=== PATIENT | male | born 1945 | race Caucasian/White ===

== ENCOUNTER 2017-02-05 02:43 | Inpatient (IN) | payer MEDICARE, OTHER ==
[2017-02-05 02:58] VITALS: BMI 24.3
--- NOTE | 2017-02-05 02:58 | ED PDOC ---
Arrival/HPI - General Time Seen by Provider: 02/05/17 02:47 Historian: Patient, Spouse - History of Present Illness Narrative History of Present Illness (Text): 02/05/17 02:57 Dragan Sims is a 71 year old male, whose past medical history includes CAD, CHF, ESRD, PE, COPD, Type 2 diabetes, colitis, and diverticulitis, who presents to the ED accompanied by complaining of vomiting. reports patient has been experiencing multiple episodes of vomiting after eating soup yesterday afternoon. also notes associated generalized malaise. Patient denies any fever, chills, chest pain, shortness of breath, nausea, diarrhea, urinary symptoms, back pain, neck pain, headache, dizziness, or any other complaints. Sales Representative Printing: Dr. Kate Time/Duration: Other (yesterday) Symptom Onset: Gradual Symptom Course: Unchanged Activities at Onset: Rest, Light Context: Home Past Medical History - Provider Review Nursing Documentation Reviewed: Yes - Infectious Disease Hx of Infectious Diseases: None - Tetanus Immunization Tetanus Immunization: Unknown - Cardiac Hx Cardiac Disorders: Yes Hx Congestive Heart Failure: Yes Hx Hypertension: Yes Hx Pacemaker: No Hx Peripheral Edema: Yes (bilateral lower extremities +4 pitting edema) Other/Comment: cabg one month ago quadruple bypass, mi 1 month ago, left lower extremity red +2 edema warm to touch with dry flakey skin - Pulmonary Hx Respiratory Disorders: Yes (PE) Hx Asthma: Yes - Neurological Hx Neurological Disorder: Yes Hx Dementia: Yes Hx Paralysis: No 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 - HEENT Hx HEENT Disorder: Yes Hx Cataracts: Yes (sx) Hx Deafness: Yes (R ear) Other/Comment: hard of hearing - Renal Hx Renal Disorder: Yes Hx Dialysis: Yes (, , Mon) Date of Last Dialysis Treatment: 09/05/15 Hx Pyelonephritis: Yes Hx Renal Failure: Yes (Hemodialysis M-W-) Other/Comment: suprapubic catheter in place 2ndy to prostate surgery 12/2012 - Endocrine/Metabolic Hx Endocrine Disorders: Yes Hx Diabetes Mellitus Type 2: Yes Hx Hyperthyroidism: Yes Hx Hypothyroidism: Yes - Hematological/Oncological Hx Blood Disorders: Yes Hx Anemia: Yes Hx Blood Transfusions: Yes Hx Blood Transfusion Reaction: No - Integumentary Hx Dermatological Disorder: (BILATERAL LEG EDEMA MORE ON LEFT.SHUNT TO LEFT UPPER ARM,SUPRAPUBIC CATHETE) - Musculoskeletal/Rheumatological Hx Musculoskeletal Disorders: No Hx Falls: Yes (09/08/2015) Hx Osteoporosis: Yes Hx Unsteady Gait: Yes Other/Comment: ambulates with a walker - Gastrointestinal Hx Gastrointestinal Disorders: (hx colitis/diverticulitis) Hx Diverticulitis: Yes Hx Gastroesophageal Reflux: Yes - Genitourinary/Gynecological Hx Genitourinary Disorders: Yes Hx Hematuria: Yes Hx Prostate Problems: Yes (prostate sx 2012; suprapubic catheter) Hx Reproductive Disorders: Yes Hx Urinary Tract Infection: Yes Other/Comment: suprapubic catheter, bilateral orchietis, left epididymitis, scrotal cellulitis, urinary retention, hx mrsa in urine - Psychiatric Hx Depression: No Hx Emotional Abuse: No Hx Physical Abuse: No Hx Substance Use: No - Past Surgical History Past Surgical History: No Previous - Surgical History Hx Open Heart Surgery: Yes (quadruple bypass) Other/Comment: Suprapubic catheter - Anesthesia Hx Anesthesia: Yes Hx Anesthesia Reactions: No Hx Malignant Hyperthermia: No - Suicidal Assessment Feels Threatened In Home Enviroment: No Family/Social History - Physician Review Nursing Documentation Reviewed: Yes Family/Social History: No Known Family HX Smoking Status: Never Smoked Hx Alcohol Use: No Hx Substance Use: No Hx Substance Use Treatment: No Allergies/Home Meds Allergies/Adverse Reactions: Allergies dye Allergy (Uncoded 11/04/14 16:11) REDNESS Home Medications: Home Meds Medication Instructions Recorded Confirmed Atorvastatin [Lipitor] 20 mg PO HS 02/05/17 02/05/17 Calcium Acetate [Phoslo] 667 mg PO TID 02/05/17 02/05/17 Carvedilol [Coreg] 12.5 mg PO BID 02/05/17 02/05/17 Insulin Glargine, Recombina 5 unit SC BID 02/05/17 02/05/17 [Lantus] Isosorbide Mononitrate [Imdur] 30 mg PO DAILY 02/05/17 02/05/17 Lactobacillus Combination No.8 1 each PO DAILY 02/05/17 02/05/17 [Adult Probiotic] Levothyroxine Sodium 75 mcg PO DAILY 02/05/17 02/05/17 hydrALAZINE [hydralazine 50 mg PO Q8H 02/05/17 02/05/17 Hydrochloride] Review of Systems - Physician Review All systems were reviewed & negative as marked: Yes - Review of Systems Constitutional: Other (+generalized malaise) Eyes: Normal ENT: Normal Respiratory: Normal. absent: SOB, Cough Cardiovascular: Normal. absent: Chest Pain Gastrointestinal: Normal, Vomiting Genitourinary Male: Normal Musculoskeletal: Normal Skin: Normal Neurological: Normal Endocrine: Normal Hemo/Lymphatic: Normal Psychiatric: Normal Physical Exam Vital Signs Reviewed: Yes Vital Signs Temp Pulse Resp BP Pulse Ox 02/05/17 06:24 72 18 123/63 97 02/05/17 06:23 101.5 F H 02/05/17 05:40 75 18 120/52 L 96 02/05/17 03:36 102.4 F H 02/05/17 03:35 102.4 F H 02/05/17 03:19 101.1 F H 02/05/17 03:14 98.0 F 88 16 172/72 H 87 L Temperature: Afebrile Blood Pressure: Hypertensive Pulse: Regular Respiratory Rate: Normal Appearance: Positive for: Well-Appearing, Non-Toxic, Comfortable Pain Distress: None Mental Status: Positive for: Alert and Oriented X 3 - Systems Exam Head: Present: Atraumatic, Normocephalic Pupils: Present: PERRL Extroacular Muscles: Present: EOMI Conjunctiva: Present: Normal Mouth: Present: Moist Mucous Membranes Pharnyx: Present: Normal. No: ERYTHEMA, EXUDATE, TONSILS ENLARGED, Peritonsilar Swelling, Uvular Deviation, Muffled/Hoarse Voice, Strider, Soft Palate/Uvular Edema Neck: Present: Normal Range of Motion Respiratory/Chest: Present: Clear to Auscultation, Good Air Exchange. No: Respiratory Distress, Accessory Muscle Use Cardiovascular: Present: Regular Rate and Rhythm, Normal S1, S2. No: Murmurs Abdomen: Present: Normal Bowel Sounds. No: Tenderness, Distention, Peritoneal Signs Back: Present: Normal Inspection Upper Extremity: Present: Normal Inspection. No: Cyanosis, Edema Lower Extremity: Present: Normal Inspection. No: Edema Neurological: Present: GCS=15, CN II-XII Intact, Speech Normal Skin: Present: Warm, Dry, Normal Color. No: Rashes Psychiatric: Present: Alert, Oriented x 3, Normal Insight, Normal Concentration Medical Decision Making ED Course and Treatment: 02/05/17 02:57 Impression: 71 year old male c/o multiple episodes of vomiting and generalized malaise. Plan: -- CT Abdomen and Pelvis w/o contrast -- EKG -- CXR -- Labs, amylase, lipase, VBG, cardiac enzymes, blood cultures -- Urinalysis -- Tylenol -- Zofran -- Reassess and disposition Prior Visits: Notes and results from previous visits were reviewed. Progress Notes: Reviewed EKG, sinus rhythm at 89 bpm. 1st degree AV block. Septal infarct. Non- specific ST/T wave changes. 02/05/17 05:35 Reviewed radiology, Chest X-ray shows no active disease. CT Abdomen and Pelvis shows: - Findings highly suspicious for pericholecystic fluid. Cannot rule out acute cholecystitis. Recommend clinical correlation, and followup right upper quadrant ultrasound as indicated. - Small amount of abdominal free fluid, small bilateral pleural effusions, and mild, diffuse retroperitoneal fluid. Findings could be secondary to diffuse third spacing. Recommend clinical correlation. - Cardiomegaly. - See above for remaining findings. 02/05/17 06:[address] Tan, who requests pt go to hospitalist service. Paged biomedical engineering aide. 02/05/17 06:08 Case discussed with biomedical engineering aide community liaison officer, who is aware and agrees with plan. 02/05/17 06:[address] Aris Mabry, who is aware and agrees with plan. Pt will be admitted to [facility] for cholecystitis under the hospitalist service. Pt is no acute distress. Discussed results and hospital admission plan with pt and family, who are aware and verbalize understanding. - Lab Interpretations Microbiology Results: Microbiology Results 02/05/17 04:00 Blood-Venous Blood Culture - Final Escherichia Coli 02/05/17 04:00 Blood-Venous Gram Stain - Final 02/05/17 03:20 Blood-Venous Blood Culture - Final Escherichia Coli 02/05/17 03:20 Blood-Venous Gram Stain - Final Lab Results: 02/05/17 03:50 02/05/17 03:50 Lab Results 02/05/17 05:49: Urine Color Light brown, Urine Appearance Turbid, Urine pH 8.5, Ur Specific [place] 1.015, Urine Protein >=300 H, Urine Glucose (UA) Negative, Urine Ketones Trace H, Urine Blood Negative, Urine Nitrate Positive H, Urine Bilirubin Moderate H, Urine Urobilinogen 1.0 H, Ur Leukocyte Esterase Moderate H , Urine RBC 0 - 2, Urine WBC 2 - 5, Ur Epithelial Cells 0 - 2, Urine Bacteria Many 02/05/17 03:50: WBC 7.7 D, RBC 3.67, Hgb 10.5 L, Hct 33.3 L, MCV 90.7, MCH 28.6 , MCHC 31.5, RDW 15.4 H, Plt Count 140, MPV 9.8, Neutrophils % (Manual) 77 H, Band Neutrophils % 9 H, Lymphocytes % (Manual) 5 L, Monocytes % (Manual) 9 H, Platelet Evaluation Normal, Poikilocytosis (manual 1+, Ovalocytes 1+, PT 12.7 H , INR 1.18 H, APTT 27.4, pO2 69 H, VBG pH 7.42, VBG pCO2 47.0, VBG HCO3 30.5 H, VBG Total CO2 31.9 H, VBG O2 Sat (Calc) 94.2 H, VBG Base Excess 5.1 H, VBG Potassium 3.9, Glucose 168 H, Lactate 1.7, FiO2 21.0, Sodium 138.0, Potassium 3.9, Chloride 106.0, Carbon Dioxide 29, Anion Gap 14, BUN 26 H, Creatinine 4.4 H , Est GFR ( Amer) 16, Est GFR (Non-Af Amer) 13, Random Glucose 167 H, Calcium 8.7, Total Bilirubin 3.4 H, AST 944 H, ALT 550 H, Alkaline Phosphatase 412 H, Lactate Dehydrogenase 2906 H, Total Creatine Kinase 68, Troponin I 0.03 D, Total Protein 6.8, Albumin 3.5, Globulin 3.4, Albumin/Globulin Ratio 1.0 L, Amylase 247 H, Lipase 3187 H, Venous Blood Potassium 3.9 02/05/17 03:45: TSH 3rd Generation 1.50, Alcohol, Quantitative < 10, Hepatitis A IgM Ab Negative, Hep Bs Antigen Negative, Hep B Core IgM Ab Negative, Hepatitis C Antibody Negative I have reviewed the lab results: Yes - RAD Interpretation Narrative RAD Interpretations (Text): Chest X-ray shows no active disease. CT Abdomen and Pelvis shows: LOWER THORAX: Heart appears significantly enlarged, and there is fluid in the pericardium, without evidence of a large, circumferential pericardial effusion. Small bilateral pleural effusions are seen. Small to moderate hiatal hernia ABDOMEN: LIVER: No acute abnormality of the liver identified. GALLBLADDER AND BILE DUCTS: Findings highly suspicious or pericholecystic fluid. There is a rim of low density with abutting the hyperdense gallbladder wall. The gallbladder is mildly dilated. No radioopaque gallstones are seen. No definite pericholecystic inflammation. PANCREAS: No CT evidence of acute pancreatitis. SPLEEN: No acute abnormality of the spleen identified. ADRENALS: No acute abnormality of the adrenal glands identified. KIDNEYS AND URETERS: Bilateral perinephric stranding, a nonspecific finding. No renal stones, hydronephrosis, or hydroureter seen. STOMACH AND BOWEL: Colonic diverticulosis, with no evidence of acute diverticulitis. No acute abnormality of the stomach or duodenum identified. No evidence of small bowel obstruction. APPENDIX: Appendix is seen, and is within normal limits in appearance. PELVIS: BLADDER: No acute abnormality of the bladder identified. REPRODUCTIVE: No acute abnormality of the reproductive organs is seen. ABDOMEN and PELVIS: INTRAPERITONEAL SPACE: Small amount of abdominal free fluid. No evidence of free air. RETROPERITONEAL SPACE: Small amount of diffuse fluid in the retroperitoneum, with no evidence of an acute retroperitoneal hematoma. BONES/JOINTS: Bony structures appear demineralized. SOFT TISSUES: Bilateral gynecomastia. VASCULATURE: Extensive atherosclerotic calcification. No evidence of abdominal aortic aneurysm. LYMPH NODES: No evidence of diffuse lymphadenopathy. TUBES, LINES AND DEVICES: Suprapubic catheter is in place. IMPRESSION: - Findings highly suspicious for pericholecystic fluid. Cannot rule out acute cholecystitis. Recommend clinical correlation, and followup right upper quadrant ultrasound as indicated. - Small amount of abdominal free fluid, small bilateral pleural effusions, and mild, diffuse retroperitoneal fluid. Findings could be secondary to diffuse third spacing. Recommend clinical correlation. - Cardiomegaly. - See above for remaining findings. Radiology Orders: 02/05/17 03:01 ABD & PELVIS W/O PO OR IV CONT [CT] Stat 02/05/17 03:02 CHEST PORTABLE [RAD] Stat Dermatology Physician Assistant: ED Physician, Radiologist - Medication Orders Current Medication Orders: Atorvastatin Calcium (Lipitor) 20 mg PO HS [facility] Last Admin: 02/08/17 22:00 Dose: 20 MG Calcium Acetate (Phoslo) 667 mg PO WM [facility] Last Admin: 02/08/17 18:02 Dose: 667 MG Carvedilol (Coreg) 12.5 mg PO BID [facility] Last Admin: 02/08/17 18:14 Dose: 12.5 MG MAR Pulse and Blood Pressure Document 02/08/17 18:14 CLR (Rec: 02/08/17 18:15 CLR [id number]) Blood Pressure Blood Pressure (100/60-150/90) 169/70 Meropenem 500 mg/ Sodium (Chloride) 100 mls @ 100 mls/hr IVPB Q12H [facility] PRN Reason: Protocol Stop: 02/14/17 18:01 Last Admin: 02/08/17 23:05 Dose: 100 MLS/HR eMAR Start Stop Document 02/08/17 23:05 SD (Rec: 02/08/17 23:06 SD [id number]) Intravenous Solution Start Date 02/08/17 Start Time 23:05 Insulin Human Lispro (Humalog Low) 0 units SC ACHS [facility] PRN Reason: Protocol Last Admin: 02/08/17 23:04 Dose: Not Given Non-Admin Reason: Blood Sugar Parameter [facility] Blood Glucose Document 02/08/17 23:04 SD (Rec: 02/08/17 23:05 SD [id number]) Blood Glucose Finger Stick Blood Glucose (70-120) 119 Levothyroxine Sodium (Synthroid) 75 mcg PO ACB [facility] Last Admin: 02/08/17 08:54 Dose: 75 MCG Morphine Sulfate (Morphine) 1 mg IVP Q6H PRN PRN Reason: Pain, moderate (4-7) Ondansetron HCl (Zofran Inj) 4 mg IVP Q4H PRN PRN Reason: Nausea/Vomiting Discontinued Medications Acetaminophen (Tylenol 325mg Tab) 650 mg PO STAT STA Stop: 02/05/17 03:21 Last Admin: 02/05/17 03:35 Dose: 650 MG MAR Pain/Vitals Document 02/05/17 03:35 SB (Rec: 02/05/17 03:35 SB [id number]) Vitals Temperature (97.6 F-99.6 F) 102.4 F Temperature Source Rectal Acetaminophen (Tylenol 325mg Tab) 650 mg PO STAT STA Stop: 02/05/17 06:08 Last Admin: 02/05/17 06:23 Dose: 650 MG MAR Pain/Vitals Document 02/05/17 06:23 SB (Rec: 02/05/17 06:23 SB [id number]) Vitals Temperature (97.6 F-99.6 F) 101.5 F Temperature Source Rectal Darbepoetin Osmin (Aranesp) 75 mcg IVP ONCE ONE Stop: 02/07/17 15:22 Last Admin: 02/07/17 16:08 Dose: 75 MCG IVP Administration Document 02/07/17 16:08 EO (Rec: 02/07/17 16:08 EO [id number]) Charges for Administration # of IVP Administrations 1 Home Med (*Refrigerator Open) Confirm Administered Dose 1 unit XX .STK-MED ONE Stop: 02/07/17 15:56 Metronidazole (Flagyl) 100 mls @ 100 mls/hr IVPB STAT STA PRN Reason: Protocol Stop: 02/05/17 06:50 Last Admin: 02/05/17 06:23 Dose: 100 MLS/HR eMAR Start Stop Document 02/05/17 06:23 SB (Rec: 02/05/17 06:23 SB [id number]) Intravenous Solution Start Date 02/05/17 Start Time 06:23 End Date 02/05/17 Ceftriaxone Sodium (Rocephin 1 Gram Ivpb) 100 mls @ 200 mls/hr IVPB STAT STA PRN Reason: Protocol Stop: 02/05/17 06:20 Last Admin: 02/05/17 06:05 Dose: 200 MLS/HR eMAR Start Stop Document 02/05/17 06:05 SB (Rec: 02/05/17 06:05 [place] [id number]) Intravenous Solution Start Date 02/05/17 Start Time 06:05 End Date 02/05/17 Metronidazole (Flagyl) 50 mls @ 100 mls/hr IVPB Q8 [facility] PRN Reason: Protocol Stop: 02/10/17 14:01 Last Admin: 02/07/17 06:04 Dose: 100 MLS/HR eMAR Start Stop Document 02/07/17 06:04 SJM (Rec: 02/07/17 06:04 SJM [id number]) Intravenous Solution Start Date 02/07/17 Start Time 06:04 End Date 02/07/17 End time 07:04 Total Infusion Time 60 Meropenem 250 mg/ Sodium (Chloride) 100 mls @ 100 mls/hr IVPB Q12H [facility] PRN Reason: Protocol Stop: 02/14/17 14:31 Last Admin: 02/06/17 03:59 Dose: 100 MLS/HR eMAR Start Stop Document 02/06/17 03:59 KALYANI (Rec: 02/06/17 04:00 KALYANI [id number]) Intravenous Solution Start Date 02/06/17 Start Time 04:00 End Date 02/06/17 End time 05:00 Total Infusion Time 60 Vancomycin HCl (Vancomycin 1gm) 250 mls @ 167 mls/hr IVPB STAT STA PRN Reason: Protocol Stop: 02/05/17 15:53 Last Admin: 02/05/17 15:07 Dose: 167 MLS/HR eMAR Start Stop Document 02/05/17 15:07 MLK (Rec: 02/05/17 15:07 MLK [id number]) Intravenous Solution Start Date 02/05/17 Start Time 15:07 End Date 02/05/17 End time 16:07 Total Infusion Time 60 Sodium Chloride (Sodium Chloride 0.45%) 1,000 mls @ 50 mls/hr IV .Q20H [facility] Last Admin: 02/05/17 22:13 Dose: 50 MLS/HR eMAR Start Stop Document 02/05/17 22:13 KALYANI (Rec: 02/05/17 22:13 KALYANI [id number]) Intravenous Solution Start Date 02/05/17 Start Time 22:13 Meropenem 250 mg/ Sodium (Chloride) 100 mls @ 100 mls/hr IVPB Q12H [facility] PRN Reason: Protocol Stop: 02/14/17 18:01 Last Admin: 02/08/17 05:52 Dose: 100 MLS/HR eMAR Start Stop Document 02/08/17 05:52 ZARAL (Rec: 02/08/17 05:53 ZARAL [id number]) Intravenous Solution Start Date 02/08/17 Start Time 06:00 End Date 02/08/17 End time 07:00 Total Infusion Time 60 Ondansetron HCl (Zofran Inj) 4 mg IVP STAT STA Stop: 02/05/17 03:02 Last Admin: 02/05/17 03:32 Dose: 4 MG IVP Administration Document 02/05/17 03:32 SB (Rec: 02/05/17 03:32 SB [id number]) Charges for Administration # of IVP Administrations 1 Ondansetron HCl (Zofran Inj) 4 mg IVP STAT STA Stop: 02/05/17 03:21 Last Admin: 02/05/17 03:33 Dose: Pantoprazole Sodium (Protonix Inj) 40 mg IVP DAILY [facility] Last Admin: 02/08/17 10:17 Dose: 40 MG IVP Administration Document 02/08/17 10:17 CLR (Rec: 02/08/17 10:17 CLR [id number]) Charges for Administration # of IVP Administrations 1 - Scribe Statement The provider has reviewed the documentation as recorded by the Kristy Acosta Provider Attestation: All medical record entries made by the Kristy were at my direction and personally dictated by me. I have reviewed the chart and agree that the record accurately reflects my personal performance of the history, physical exam, medical decision making, and the department course for this patient. I have also personally directed, reviewed, and agree with the discharge instructions and disposition. Disposition/Present on Arrival - Present on Arrival Any Indicators Present on Arrival: No History of DVT/PE: No History of Uncontrolled Diabetes: No Urinary Catheter: Yes (suprapubic) History Surgical Site Infection Following: None - Disposition Have Diagnosis and Disposition been Completed?: Yes Diagnosis: Cholecystitis Disposition: HOSPITALIZED Disposition Time: 06:00 Condition: FAIR
[2017-02-05 04:09] LABS: HEMATOCRIT 33.3 % (42.0-52.0); MEAN CELL VOLUME 90.7 fL (80.0-105.0); MEAN CORPUSCULAR HEMOGLOBIN 28.6 pg (25.0-35.0); MEAN CORPUSCULAR HGB CONC 31.5 g/dl (31.0-37.0); MEAN PLATELET VOLUME 9.8 fl (7.0-11.0); PLATELET COUNT 140 10^3/uL (120.0-450.0); RED CELL DISTRIBUTION WIDTH 15.4 % (11.5-14.5); WHITE BLOOD COUNT 7.7 10^3/ul (4.5-11.0)
[2017-02-05 04:10] LABS: BILIRUBIN,TOTAL 3.4 mg/dL (0.2-1.3); CALCIUM 8.7 mg/dL (8.4-10.5); POTASSIUM 3.9 mmol/L (3.6-5.0); TOTAL PROTEIN 6.8 g/dL (5.8-8.3)
[2017-02-05 04:14] LABS: INR 1.18 (0.93-1.08); PARTIAL THROMBOPLASTIN TIME 27.4 Seconds (23.7-30.8)
[2017-02-05 04:15] LABS: ADD MANUAL DIFF? YES
[2017-02-05 04:20] LABS: TROPONIN I 0.03 ng/mL
[2017-02-05 04:23] LABS: VENOUS BLOOD GAS BASE EXCESS 5.1 mmol/L (0.0-2.0); VENOUS BLOOD PH 7.42 (7.32-7.43)
[2017-02-05 04:48] LABS: BAND 9 % (0-2); NEUTROPHIL 77 % (50.0-70.0); OVALOCYTES 1+; PLATELET ESTIMATE NORMAL (NORMAL); POIKILOCYTOSIS 1+
--- NOTE | 2017-02-05 05:33 | CT ---
EXAM: CT Abdomen and Pelvis Without Intravenous Contrast. CLINICAL HISTORY: 71 years old, male; Pain; Abdominal pain; Generalized; Additional info: Abd pain TECHNIQUE: Axial computed tomography images of the abdomen and pelvis without intravenous contrast. This CT exam was performed using one or more of the following dose reduction techniques: automated exposure control, adjustment of the mA and/or kV according to patient size, and/or use of iterative reconstruction technique. Coronal and sagittal reformatted images were created and reviewed. EXAM DATE/TIME: 02/05/2017 3:01 AM COMPARISON: No relevant prior studies available. FINDINGS: LOWER THORAX: Heart appears significantly enlarged, and there is fluid in the pericardium, without evidence of a large, circumferential pericardial effusion. Small bilateral pleural effusions are seen. Small to moderate hiatal hernia ABDOMEN: LIVER: No acute abnormality of the liver identified. GALLBLADDER AND BILE DUCTS: Findings highly suspicious or pericholecystic fluid. There is a rim of low density with abutting the hyperdense gallbladder wall. The gallbladder is mildly dilated. No radioopaque gallstones are seen. No definite pericholecystic inflammation. PANCREAS: No CT evidence of acute pancreatitis. SPLEEN: No acute abnormality of the spleen identified. ADRENALS: No acute abnormality of the adrenal glands identified. KIDNEYS AND URETERS: Bilateral perinephric stranding, a nonspecific finding. No renal stones, hydronephrosis, or hydroureter seen. STOMACH AND BOWEL: Colonic diverticulosis, with no evidence of acute diverticulitis. No acute abnormality of the stomach or duodenum identified. No evidence of small bowel obstruction. APPENDIX: Appendix is seen, and is within normal limits in appearance. PELVIS: BLADDER: No acute abnormality of the bladder identified. REPRODUCTIVE: No acute abnormality of the reproductive organs is seen. ABDOMEN and PELVIS: INTRAPERITONEAL SPACE: Small amount of abdominal free fluid. No evidence of free air. RETROPERITONEAL SPACE: Small amount of diffuse fluid in the retroperitoneum, with no evidence of an acute retroperitoneal hematoma. BONES/JOINTS: Bony structures appear demineralized. SOFT TISSUES: Bilateral gynecomastia. VASCULATURE: Extensive atherosclerotic calcification. No evidence of abdominal aortic aneurysm. LYMPH NODES: No evidence of diffuse lymphadenopathy. TUBES, LINES AND DEVICES: Suprapubic catheter is in place. IMPRESSION: - Findings highly suspicious for pericholecystic fluid. Cannot rule out acute cholecystitis. Recommend clinical correlation, and followup right upper quadrant ultrasound as indicated. - Small amount of abdominal free fluid, small bilateral pleural effusions, and mild, diffuse retroperitoneal fluid. Findings could be secondary to diffuse third spacing. Recommend clinical correlation. - Cardiomegaly. - See above for remaining findings.
[2017-02-05] MEDS ORDERED: metroNIDAZOLE IV 500 mg/100 ml 100 ML IVPB STA (05:51)
[2017-02-05] MEDS ORDERED: cefTRIAXone 1 gm 100 ML IVPB STA (05:51)
[2017-02-05 06:24] LABS: PH,URINE 8.5 (4.7-8.0); URINE BILIRUBIN MODERATE (NEGATIVE); URINE BLOOD NEGATIVE (NEGATIVE); URINE GLUCOSE (UA) NEGATIVE (NEGATIVE); URINE KETONE TRACE mg/dL (NEGATIVE); URINE LEUKOCYTE ESTERASE MODERATE Leu/uL (NEGATIVE); URINE PROTEIN >=300 mg/dL (<30 mg/dL)
[2017-02-05 06:26] LABS: URINE APPEARANCE TURBID (CLEAR); URINE COLOR LIGHT BROWN (YELLOW)
[2017-02-05 06:28] LABS: URINE BACTERIA MANY (NEG); URINE EPITHELIAL CELLS 0 - 2 /hpf (0-5); URINE RBC 0 - 2 /hpf (0-2)
[2017-02-05] MEDS ORDERED: Morphine 2 mg/ml ISec IVP PRN (08:36)
--- NOTE | 2017-02-05 09:04 | RAD ---
HISTORY: sob COMPARISON: Chest x-ray performed 05/26/16 TECHNIQUE: Chest, one view. FINDINGS: LUNGS: Mild left upper lobe infiltrate. Please note that chest x-ray has limited sensitivity for the detection of pulmonary masses. PLEURA: No significant pleural effusion identified. No definite pneumothorax . CARDIOVASCULAR: Median sternotomy wires. Cardiomegaly. OSSEOUS STRUCTURES: No acute osseous abnormality identified. VISUALIZED UPPER ABDOMEN: Unremarkable. OTHER FINDINGS: None. IMPRESSION: Mild left upper lobe infiltrate. Cardiomegaly.
[2017-02-05 09:33] LABS: ALCOHOL SERUM < 10 mg/dL (0-10)
--- NOTE | 2017-02-05 10:07 | CARD ---
APPROVED REPORT EKG Measurement Heart [id number] ME [id number] <Conclusion> Sinus rhythm with 1st degree AV block Septal infarct, age undetermined STTW changes c/w ischemia, new
--- NOTE | 2017-02-05 10:56 | CT ---
PROCEDURE: CT HEAD WITHOUT CONTRAST. HISTORY: ams COMPARISON: Noncontrast head CT performed 05/26/16 TECHNIQUE: Axial computed tomography images were obtained through the head/brain without intravenous contrast. Radiation dose: Total exam DLP = 1451.69 mGy-cm. FINDINGS: HEMORRHAGE: No intracranial hemorrhage. BRAIN: Diffuse atrophy with prominence of the ventricles and sulci noted. No mass effect or edema. Intracranial atherosclerotic calcifications. Scattered periventricular and subcortical white matter hypodensities, which are nonspecific, but often seen with chronic microvascular ischemic disease. Please note that MRI with diffusion imaging is more sensitive in the detection of acute ischemic event. VENTRICLES: No hydrocephalus. CALVARIUM: Unremarkable. PARANASAL SINUSES: Opacification of the right frontal sinus. Mucosal thickening of the ethmoid air cells and bilateral sphenoid and maxillary sinuses. MASTOID AIR CELLS: Unremarkable as visualized. No inflammatory changes. OTHER FINDINGS: None. IMPRESSION: Generalized atrophy. Nonspecific white matter changes. Opacification of the right frontal sinus. Mucosal thickening of the ethmoid air cells and bilateral sphenoid and maxillary sinuses. Correlate clinically for sinusitis.
--- NOTE | 2017-02-05 11:14 | CP.PCM.CON ---
History of Present Illness - History of Present Illness History of Present Illness: GI consult requested by hospitalist- This is a 71 year old male, whose past medical history includes CAD, CHF, ESRD, PE, COPD, Type 2 diabetes, colitis, and diverticulitis, who was admitted with history of vomiting x 1 day and weakness. He wsa seen at bedside today but he has Alzheimers dementia at baseline and does not appropriately answer questions. No pain on abdominal palpation at bedside. No jaundice, chills, fever, diarrhea. Review of Systems - Review of Systems Review of Systems: Unable to obtain as patient has dementia Past Patient History - Infectious Disease Hx of Infectious Diseases: None - Tetanus Immunizations Tetanus Immunization: Unknown - Past Social History Smoking Status: Never Smoked - CARDIAC Hx Cardiac Disorders: Yes Hx Congestive Heart Failure: Yes Hx Hypertension: Yes Hx Pacemaker: No Hx Peripheral Edema: Yes (bilateral lower extremities +4 pitting edema) Other/Comment: cabg one month ago quadruple bypass, mi 1 month ago, left lower extremity red +2 edema warm to touch with dry flakey skin - PULMONARY Hx Respiratory Disorders: Yes (PE) Hx Asthma: Yes - NEUROLOGICAL Hx Neurological Disorder: Yes Hx Dementia: Yes 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 - HEENT Hx HEENT Problems: Yes Hx Cataracts: Yes (sx) Hx Deafness: Yes (R ear) Other/Comment: hard of hearing - RENAL Hx Chronic Kidney Disease: Yes Hx Dialysis: Yes (, , Mon) Date of Last Dialysis Treatment: 02/04/17 Hx Pyelonephritis: Yes Hx Renal Failure: Yes (Hemodialysis M-W-) Other/Comment: suprapubic catheter in place 2ndy to prostate surgery 12/2012 - ENDOCRINE/METABOLIC Hx Endocrine Disorders: Yes Hx Diabetes Mellitus Type 2: Yes Hx Hyperthyroidism: Yes Hx Hypothyroidism: Yes - HEMATOLOGICAL/ONCOLOGICAL Hx Blood Disorders: Yes Hx Anemia: Yes - INTEGUMENTARY Hx Dermatological Problems: (BILATERAL LEG EDEMA MORE ON LEFT.SHUNT TO LEFT UPPER ARM,SUPRAPUBIC CATHETE) - MUSCULOSKELETAL/RHEUMATOLOGICAL Hx Musculoskeletal Disorders: No Hx Falls: Yes (09/08/2015) Hx Osteoporosis: Yes Hx Unsteady Gait: Yes Other/Comment: ambulates with a walker - GASTROINTESTINAL Hx Gastrointestinal Disorders: (hx colitis/diverticulitis) Hx Diverticulitis: Yes Hx Gastroesophageal Reflux: Yes - GENITOURINARY/GYNECOLOGICAL Hx Genitourinary Disorders: Yes Hx Hematuria: Yes Hx Prostate Problems: Yes (prostate sx 2012; suprapubic catheter) Hx Urinary Tract Infection: Yes Other/Comment: suprapubic catheter, bilateral orchietis, left epididymitis, scrotal cellulitis, urinary retention, hx mrsa in urine - PSYCHIATRIC Hx Depression: No Hx Emotional Abuse: No Hx Physical Abuse: No - SURGICAL HISTORY Hx Open Heart Surgery: Yes (quadruple bypass) Other/Comment: Suprapubic catheter - ANESTHESIA Hx Anesthesia: Yes Hx Anesthesia Reactions: No Hx Malignant Hyperthermia: No Meds Allergies/Adverse Reactions: Allergies Allergy/AdvReac Type Severity Reaction Status Date / Time dye Allergy REDNESS Uncoded 11/04/14 16:11 - Medications Medications: Current Medications Ceftriaxone Sodium (Rocephin 1 Gram Ivpb) 100 mls @ 100 mls/hr IVPB DAILY [facility] PRN Reason: Protocol Metronidazole (Flagyl) 50 mls @ 100 mls/hr IVPB Q8 [facility] PRN Reason: Protocol Stop: 02/10/17 14:01 Insulin Human Lispro (Humalog Low) 0 units SC ACHS [facility] PRN Reason: Protocol Morphine Sulfate (Morphine) 1 mg IVP Q6H PRN PRN Reason: Pain, moderate (4-7) Ondansetron HCl (Zofran Inj) 4 mg IVP Q4H PRN PRN Reason: Nausea/Vomiting Pantoprazole Sodium (Protonix Inj) 40 mg IVP DAILY [facility] Last Admin: 02/05/17 09:27 Dose: 40 mg Physical Exam - Constitutional Appears: Non-toxic, No Acute Distress - Head Exam Head Exam: ATRAUMATIC, NORMAL INSPECTION, NORMOCEPHALIC Additional comments: Anicteric sclera - ENT Exam ENT Exam: Mucous Membranes Moist, Normal Exam - Respiratory Exam Respiratory Exam: Clear to Auscultation Bilateral, NORMAL BREATHING PATTERN - Cardiovascular Exam Cardiovascular Exam: REGULAR RHYTHM - GI/Abdominal Exam GI & Abdominal Exam: Distended, Normal Bowel Sounds, Soft. absent: Tenderness Additional comments: No tenderness on RUQ No guarding or rigidity - Neurological Exam Neurological exam: Alert, Altered - Psychiatric Exam Psychiatric exam: Normal Affect, Normal Mood - Skin Skin Exam: Dry, Normal Color Results - Vital Signs Recent Vital Signs: Last Vital Signs Temp 98.7 F 02/05/17 10:01 Pulse 65 02/05/17 10:01 Resp 19 02/05/17 10:01 BP 136/64 02/05/17 10:01 Pulse Ox 98 02/05/17 08:17 - Labs Result Diagrams: 02/05/17 03:50 02/05/17 03:50 Labs: Laboratory Results - last 24 hr 02/05/17 09:00 Urine Opiates Screen Negative Urine Methadone Screen Negative Ur Barbiturates Screen Negative Ur Phencyclidine Scrn Negative Ur Amphetamines Screen Negative U Benzodiazepines Scrn Negative U Oth Cocaine Metabols Negative U Cannabinoids Screen Negative - Imaging and Cardiology CT scan - abdomen Status: Image reviewed by me Assessment & Plan - Assessment and Plan (Free Text) Assessment: 71 yr old M with dementia with admissions in the past for UTI now admitted with weakness and vomiting. On biochemical testing found to have elevated transminases with CT Abdomen and Pelvis showing pericholecystic fluid without gallstones. Will send hepatitis serologies and autoimmune work up. Urine analysis shows UTI. Needs urine cultures and blood cultures. Transminases may also be related to sepsis. Plan: - IVF - Surgical consult for acalculous cholecystitis - Trend daily wbc, fever curve and LFT - Hepatitis and autoimmune serologies to be sent - Urine and blood cultures - No gallstone in gallbladder or CBD- no endoscopic intervention planned - GI/DVT prophylaxis - Will follow - Date & Time Date: 02/05/17 Time: 11:00
--- NOTE | 2017-02-05 11:16 | CP.PCM.CON ---
History of Present Illness - History of Present Illness History of Present Illness: Surgery: Dr. Parekr CC: nausea/malaise HPI: 71M w. multiple commorbidities including dementia. Hx was gathered from review of chart. Pt presented to ED w. complaints of nausea/vomiting and general malaise x 1 day. Symptoms developed after pt ate soup. In ED, CT findings were suggestive of pericholecystic fluid and acute latonia could not be ruled out. Lab results showed elevated LFTs and lipase consistent w. gallstone pancreatitis. PMH: CAD, CHF, ESRD, PE, COPD, Type 2 diabetes, hypothyroid, dementia, colitis, and diverticulitis PSH: prostate, Suprapubic catheter, CABG Meds: MAR reviewed ALL: Dye Social: No ETOH/tobacco/drugs Fhx: Non-contributory Review of Systems - Review of Systems Systems not reviewed;Unavailable: Dementia Past Patient History - Infectious Disease Hx of Infectious Diseases: None - Tetanus Immunizations Tetanus Immunization: Unknown - Past Social History Smoking Status: Never Smoked - CARDIAC Hx Cardiac Disorders: Yes Hx Congestive Heart Failure: Yes Hx Hypertension: Yes Hx Pacemaker: No Hx Peripheral Edema: Yes (bilateral lower extremities +4 pitting edema) Other/Comment: cabg one month ago quadruple bypass, mi 1 month ago, left lower extremity red +2 edema warm to touch with dry flakey skin - PULMONARY Hx Respiratory Disorders: Yes (PE) Hx Asthma: Yes - NEUROLOGICAL Hx Neurological Disorder: Yes Hx Dementia: Yes 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 - HEENT Hx HEENT Problems: Yes Hx Cataracts: Yes (sx) Hx Deafness: Yes (R ear) Other/Comment: hard of hearing - RENAL Hx Chronic Kidney Disease: Yes Hx Dialysis: Yes (, , Sat) Date of Last Dialysis Treatment: 02/04/17 Hx Pyelonephritis: Yes Hx Renal Failure: Yes (Hemodialysis M-W-) Other/Comment: suprapubic catheter in place 2ndy to prostate surgery 12/2012 - ENDOCRINE/METABOLIC Hx Endocrine Disorders: Yes Hx Diabetes Mellitus Type 2: Yes Hx Hyperthyroidism: Yes Hx Hypothyroidism: Yes - HEMATOLOGICAL/ONCOLOGICAL Hx Blood Disorders: Yes Hx Anemia: Yes - INTEGUMENTARY Hx Dermatological Problems: (BILATERAL LEG EDEMA MORE ON LEFT.SHUNT TO LEFT UPPER ARM,SUPRAPUBIC CATHETE) - MUSCULOSKELETAL/RHEUMATOLOGICAL Hx Musculoskeletal Disorders: No Hx Falls: Yes (09/08/2015) Hx Osteoporosis: Yes Hx Unsteady Gait: Yes Other/Comment: ambulates with a walker - GASTROINTESTINAL Hx Gastrointestinal Disorders: (hx colitis/diverticulitis) Hx Diverticulitis: Yes Hx Gastroesophageal Reflux: Yes - GENITOURINARY/GYNECOLOGICAL Hx Genitourinary Disorders: Yes Hx Hematuria: Yes Hx Prostate Problems: Yes (prostate sx 2012; suprapubic catheter) Hx Urinary Tract Infection: Yes Other/Comment: suprapubic catheter, bilateral orchietis, left epididymitis, scrotal cellulitis, urinary retention, hx mrsa in urine - PSYCHIATRIC Hx Depression: No Hx Emotional Abuse: No Hx Physical Abuse: No - SURGICAL HISTORY Hx Open Heart Surgery: Yes (quadruple bypass) Other/Comment: Suprapubic catheter - ANESTHESIA Hx Anesthesia: Yes Hx Anesthesia Reactions: No Hx Malignant Hyperthermia: No Meds Allergies/Adverse Reactions: Allergies Allergy/AdvReac Type Severity Reaction Status Date / Time dye Allergy REDNESS Uncoded 11/04/14 16:11 - Medications Medications: Current Medications Ceftriaxone Sodium (Rocephin 1 Gram Ivpb) 100 mls @ 100 mls/hr IVPB [facility]ILY [facility] PRN Reason: Protocol Metronidazole (Flagyl) 50 mls @ 100 mls/hr IVPB Q8 [facility] PR[facility] Reason: Protocol Stop: 02/10/17 14:01 Insulin Human Lispro (Humalog Low) 0 units SC ACHS [facility] PRN Reason: Protocol Morphine Sulfate (Morphine) 1 mg IVP Q6H PRN PRN Reason: Pain, moderate (4-7) Ondansetron HCl (Zofran Inj) 4 mg IVP Q4H PRN PRN Reason: Nausea/Vomiting Pantoprazole Sodium (Protonix Inj) 40 mg IVP DAILY [facility] Last Admin: 02/05/17 09:27 Dose: 40 mg Physical Exam - Constitutional Appears: Non-toxic, No Acute Distress - Head Exam Head Exam: ATRAUMATIC, NORMOCEPHALIC - Eye Exam Eye Exam: EOMI - ENT Exam ENT Exam: Mucous Membranes Moist, Normal External Ear Exam - Neck Exam Neck exam: Positive for: Full Rom - Respiratory Exam Respiratory Exam: NORMAL BREATHING PATTERN. absent: Accessory Muscle Use, Respiratory Distress - GI/Abdominal Exam GI & Abdominal Exam: Soft. absent: Distended, Firm, Guarding, Rebound, Rigid, Tenderness Additional comments: suprapubic catheter - Extremities Exam Extremities exam: Positive for: pedal edema. Negative for: calf tenderness - Neurological Exam Neurological exam: Alert Results - Vital Signs Recent Vital Signs: Last Vital Signs Temp 98.7 F 02/05/17 10:01 Pulse 65 02/05/17 10:01 Resp 19 02/05/17 10:01 BP 136/64 02/05/17 10:01 Pulse Ox 98 02/05/17 08:17 - Labs Result Diagrams: 02/05/17 03:50 02/05/17 03:50 Labs: Laboratory Results - last 24 hr 02/05/17 09:00 Urine Opiates Screen Negative Urine Methadone Screen Negative Ur Barbiturates Screen Negative Ur Phencyclidine Scrn Negative Ur Amphetamines Screen Negative U Benzodiazepines Scrn Negative U Oth Cocaine Metabols Negative U Cannabinoids Screen Negative - Imaging and Cardiology CT scan - abdomen Status: Image reviewed by me, Report reviewed by me Assessment & Plan - Assessment and Plan (Free Text) Assessment: 71M w. malaise and vomiting, r/o gallstone pancreatitis -ABD U/S -trend LFTs and lipase -IVF, given hx of ESRD and dialysis, will let medicine/renal decide appropriate rate -abx -GI/ DVT prophylaxis -d/w attending Zemaitis PGY2
[2017-02-05] MEDS: Insulin Lispro (humaLOG) LOW Coverage SC SCH ×3 (11:17→22:08)
--- NOTE | 2017-02-05 13:59 | US ---
HISTORY: r/o gallstone pancreatitis COMPARISON: CT abdomen and pelvis without contrast performed 02/05/17 TECHNIQUE: Sonographic evaluation of the abdomen. FINDINGS: LIVER: Measures 14.9 cm in sagittal dimension. Echogenic liver may be seen in setting of hepatic parenchymal disease or fatty infiltration. No focal hepatic mass identified. The main portal vein appears patent with normal directional flow. No intrahepatic bile duct dilatation. GALLBLADDER: No gallstones. Gallbladder wall thickening/edema measuring approximately 9 mm in diameter. Negative sonographic Ernst's sign as assessed by the dredging inspector. COMMON BILE DUCT: Measures 4 mm. PANCREAS: Not well visualized. RIGHT KIDNEY: Measures 10.7 x 4.2 x 5.5cm. No obstructing calculus or hydronephrosis identified. LEFT KIDNEY: Measures 10.4 x 5.2 x 5.6cm. No obstructing calculus or hydronephrosis identified. SPLEEN: Measures approximately 10.9 cm. AORTA: Limited views appear unremarkable. IVC: Limited views appear unremarkable. OTHER FINDINGS: None. IMPRESSION: Echogenic liver may be seen in setting of hepatic parenchymal disease or fatty infiltration. Gallbladder wall thickening/edema measuring approximately 9 mm in diameter. No gallstones identified. Negative sonographic Ernst's sign as assessed by the dredging inspector. Correlate clinically.
[2017-02-05] MEDS ORDERED: Vancomycin 1gm in NS 250ml 250 ML IVPB STA (14:24)
[2017-02-05] MEDS: metroNIDAZOLE IV 250mg/50 ml 50 ML IVPB SCH ×2 (14:32→21:24)
--- NOTE | 2017-02-05 15:33 | CON ---
DATE: 02/05/2017 The patient seen earlier in room 374, bed 1. CHIEF COMPLAINT: Weakness times several days. HISTORY OF PRESENT ILLNESS: This is a 71-year-old male with past medical history significant for hyp ertension, depression, Bowman's esophagitis, congestive heart failure, diabetes mellitus, history of left-sided epididymitis in the past, history of GERD, renal disease, enterococcus urinary tract infe ction, end-stage renal disease on hemodialysis, history of coronary artery bypass graft and a suprapu bic catheter, left upper arm extremity dialysis catheter, who is admitted now with a diagnosis of cho lecystitis and infectious disease consultation requested for antibiotic use. The patient also had a temperature of 101.5. He denies any abdominal pain. He was seen in the Emergency Room earlier. In the Emergency Room, patient was complaining of vomiting after eating soup yesterday and patient had b een noticing having weakness. Denied any fevers, any chills. He denies any abdominal pain, dysuria or frequency. PAST MEDICAL HISTORY: Significant for hypertension, diabetes, congestive heart failure, depression, Bowman's esophagitis, enterococcus urinary tract infection, end-stage renal disease on hemodialysis. PAST SURGICAL HISTORY: Significant for cataract surgery, coronary artery bypass graft, suprapubic ca theter and left arm dialysis catheter placement. ALLERGIES: THE PATIENT IS ALLERGIC TO DYE. MEDICATIONS AT HOME: Lantus, Coreg, PhosLo. PHYSICAL EXAMINATION: GENERAL: The patient is in bed with a temperature of 100.5[place] [address], respiratory rat e of 18, heart rate was 72, it was up to 88, respiratory rate of 19. HEENT: Unremarkable. NECK: Supple. LUNGS: Have decreased breath sounds. HEART: Normal S1, S2. ABDOMEN: Soft, nontender. LABORATORY EXAMINATION: Reveals a white count of 7.7, hemoglobin of 10, platelets of 140. Chemistri es reveal a BUN of 46, creatinine is 4.4, AST is 944, ALT 550, alkaline phosphatase is 412 with a lip ase of 3187, amylase is 247. The patient also had a urinalysis that revealed 0-5 WBCs. The patient had a CAT scan of the abdomen and pelvis, which revealed suspicious for pericholecystic fluid. There is fluid in the pericardium. No gallstones are seen. The gallbladder was mildly dilated. The patie nt also had an ultrasound which showed no gallstones, gallbladder wall thickening, edema measuring 9 mm. There is negative Ernst sign. The common bile duct is 4. The patient also had a CAT scan of th e head which is noted. Generalized atrophy. ASSESSMENT AND PLAN: This is a 71-year-old male originally from [facility]. He is here with hyperten jazzy, diabetes, depression, Bowman's esophagitis, congestive heart failure, hypothyroidism, end-stag e renal disease on hemodialysis, now presenting with LFT elevation, alkaline phosphatase elevation, L DH, and lipase over 3000, and fever of 101.5. 1. Fever, must rule out acute cholecystitis in face of pancreatitis and hepatitis. Will treat the p atient with a dose of vancomycin. Must also rule out bacteremia because of his catheter. We will di scontinue the Rocephin and use meropenem. The patient is also on Flagyl and give a dose of vancomyci n and follow closely with you. Isrrael Ni MD cc: [id number] TT: 02/05/2017 15:32:53 Confirmation # [id number] Dictation # [id number] [email or web address]
[2017-02-05] MEDS ORDERED: Sodium Chloride 0.45% 1,000 ML IV SCH (22:00)
[2017-02-06] MEDS: metroNIDAZOLE IV 250mg/50 ml 50 ML IVPB SCH ×3 (05:50→22:23)
[2017-02-06 06:23] LABS: ADD MANUAL DIFF? NO
[2017-02-06 06:45] LABS: BASO # 0.01 K/mm3 (0.0-2.0); BASO % 0.1 % (0.0-3.0); EOS # 0.1 (0.0-0.7); EOS % 1.3 % (1.5-5.0); GRAN # 5.87 (1.4-6.5); GRAN % 82.4 % (50.0-68.0); HEMATOCRIT 30.7 % (42.0-52.0); LYMPH # 0.5 (1.2-3.4); LYMPH % 7.4 % (22.0-35.0); MEAN CELL VOLUME 91.1 fL (80.0-105.0); MEAN CORPUSCULAR HEMOGLOBIN 28.2 pg (25.0-35.0); MEAN CORPUSCULAR HGB CONC 30.9 g/dl (31.0-37.0); MEAN PLATELET VOLUME 10.3 fl (7.0-11.0); MONO # 0.6 (0.1-0.6); MONO % 8.8 % (1.0-6.0); PLATELET COUNT 107 10^3/uL (120.0-450.0); RED CELL DISTRIBUTION WIDTH 16.1 % (11.5-14.5); WHITE BLOOD COUNT 7.1 10^3/ul (4.5-11.0)
[2017-02-06 06:51] LABS: BILIRUBIN,TOTAL 3.7 mg/dL (0.2-1.3); CALCIUM 7.8 mg/dL (8.4-10.5); POTASSIUM 4.9 mmol/L (3.6-5.0); TOTAL PROTEIN 6.2 g/dL (5.8-8.3)
--- NOTE | 2017-02-06 08:06 | HP ---
HISTORY OF PRESENT ILLNESS: The patient is a 71-year-old male who presented to the ED with recurrent episodes of vomiting. No abdominal pain. He has end-stage renal disease on hemodialysis. History of pulmonary embolism, diabetes mellitus, diverticulitis. He also had CAD. Denies any fever, chills or rigors. Lipase was elevated to 3000. Amylase 2 to 147. Liver enzymes were elevated also LDH 29 00. CAT scan of the abdomen showed pericholecystic fluid. 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 He has suprapubic catheter secondary to prostate surgery in 2012. PAST SURGICAL HISTORY: Prostate surgery, suprapubic catheter, open heart surgery. ALLERGIES: Dye allergy. FAMILY HISTORY: None positive mother or father. PERSONAL HISTORY: Nonsmoker. No history of alcohol abuse. SOCIAL HISTORY: Lives at home. HOME MEDICATIONS: Lipitor 20 mg at bedtime, Coreg 12.5 mg p.o. b.i.d., insulin 5 mg subQ b.i.d., lev othyroxine 75 mcg p.o. daily, hydralazine 50 mg p.o. every 8 hours. REVIEW OF SYSTEMS: As per HPI. Rest of 12-point review of systems reviewed and negative. PHYSICAL EXAMINATION: VITAL SIGNS: T-max 102.4, heart rate is 88 per minute, respiratory rate 16 per minute, blood pressur e 170/70, repeat 120/50, pulse ox is 96% room air. HEENT: Normal. CHEST: Air entry present, equal bilateral. No added sound. CARDIOVASCULAR: S1, S2 normal. No murmur, no gallop. ABDOMEN: Soft, nontender, no hepatosplenomegaly. EXTREMITIES: Bilateral edema less. SKIN: Warm, dry. No rash, no petechia. NEUROLOGIC: Alert, oriented x 3. No sensorimotor deficit LYMPHADENOPATHY: None. LABORATORY DATA: White count 7.7, hemoglobin 10.5, hematocrit 33.3, platelet count 140. Sodium 139, potassium 3.9, BUN 26, potassium 4.4, glucose 167. Amylase 247, lipase 3187. Troponin 0.03, alkali ne phosphatase 412, bilirubin 3.4, AST 944, ALT 550. Amylase 247, lipase 3000. Chest x-ray: No inf iltrate. CAT scan of abdomen as per HPI. ASSESSMENT: 1. Possible gallstone pancreatitis, cholecystitis. 2. End-stage renal disease on hemodialysis. 3. Diabetes mellitus type 2. 4. Hypercoagulable state, history of pulmonary embolism. 5. Coronary artery disease status post bypass surgery. 6. History of congestive heart failure. PLAN: ID consultation Dr. Ni requested. He had 1 dose of vancomycin, meropenem 250 mg every 12 hours started, Flagyl mL every 8 hours Ultrasound of the abdomen did not show any gallston es. Morphine 1 mg every 6 hours p.r.n. for pain, 4 mg IV Zofran every 4 hours p.r.n. for pain. We will give Protonix 40 mg IV daily. GI consultation with Dr. Ramírez requested. Note reviewed. We w ill keep him n.p.o. until pancreatic enzymes start declining. Gentle hydration with IV fluid half no rmal saline 50 mL an hour. consultation with Dr. Kate requested. Cathy Verma MD cc: [id number] TT: 02/06/2017 00:28:30 maddie
--- NOTE | 2017-02-06 08:37 | CP.PCM.PN ---
Subjective - Date & Time of Evaluation Date of Evaluation: 02/06/17 Time of Evaluation: 06:15 - Subjective Subjective: General Surgery Dr. Parker Pt S&E @bedside. NAEO. Italian speaking w/ dementia @baseline. denies pain, N/ V. requesting something to drink. NPO. Objective - Vital Signs/Intake and Output Vital Signs (last 24 hours): Temp Pulse Resp BP Pulse Ox 99.1 F 67 18 159/73 H 96 02/06/17 08:28 02/06/17 08:28 02/06/17 08:28 02/06/17 08:28 02/06/17 08:28 Intake and Output: 02/06/17 02/06/17 06:59 18:59 Intake Total 700 Output Total 100 Balance 600 - Medications Medications: Current Medications Atorvastatin Calcium (Lipitor) 20 mg PO HS [facility] Calcium Acetate (Phoslo) 667 mg PO WM [facility] Carvedilol (Coreg) 12.5 mg PO BID [facility] Metronidazole (Flagyl) 50 mls @ 100 mls/hr IVPB Q8 [facility] PRN Reason: Protocol Stop: 02/10/17 14:01 Last Admin: 02/06/17 05:50 Dose: 100 mls/hr Meropenem 250 mg/ Sodium (Chloride) 100 mls @ 100 mls/hr IVPB Q12H [facility] PRN Reason: Protocol Stop: 02/14/17 18:01 Insulin Human Lispro (Humalog Low) 0 units SC ACHS [facility] PRN Reason: Protocol Last Admin: 02/05/17 22:08 Dose: Not Given Levothyroxine Sodium (Synthroid) 75 mcg PO ACB [facility] Morphine Sulfate (Morphine) 1 mg IVP Q6H PRN PRN Reason: Pain, moderate (4-7) Ondansetron HCl (Zofran Inj) 4 mg IVP Q4H PRN PRN Reason: Nausea/Vomiting Pantoprazole Sodium (Protonix Inj) 40 mg IVP DAILY [facility] Last Admin: 02/05/17 09:27 Dose: 40 mg - Labs Labs: 02/06/17 06:20 02/06/17 06:20 Laboratory Tests 02/06/17 06:20 Calcium 7.8 L Total Bilirubin 3.7 H AST 254 H ALT 350 H Alkaline Phosphatase 320 H Total Protein 6.2 Albumin 3.0 Lipase 31 - Constitutional Appears: Non-toxic, No Acute Distress - Head Exam Head Exam: NORMAL INSPECTION - Eye Exam Eye Exam: Normal appearance - ENT Exam ENT Exam: Mucous Membranes Moist - Respiratory Exam Respiratory Exam: NORMAL BREATHING PATTERN. absent: Accessory Muscle Use, Respiratory Distress - GI/Abdominal Exam GI & Abdominal Exam: Soft. absent: Distended, Guarding, Tenderness, Rebound - Neurological Exam Neurological Exam: Alert, Awake - Psychiatric Exam Psychiatric exam: Normal Affect, Normal Mood - Skin Skin Exam: Dry, Intact, Normal Color, Warm Assessment and Plan - Assessment and Plan (Free Text) Assessment: 71 y/o M w/ transaminitis and elevated T. Bili - f/u MRCP and HIDA - trend LFTs and T. Bili - recommend increasing rate of IVF - cont abx - GI/ DVT prophylaxis Pt discussed w/ Dr. Keith Pichardo DO PGY1
--- NOTE | 2017-02-06 09:16 | PN ---
DATE: 02/06/2017 SUBJECTIVE: The patient has no complaints of any chest pain, no shortness of breath, no headaches, n o dizziness. PHYSICAL EXAMINATION: VITAL SIGNS: Temperature is 97.9, pulse of 60, blood pressure is 151/87, respirations 19, O2 saturat ion 94%. GENERAL: The patient comfortable, in no acute distress. HEENT: Anicteric sclerae. Moist mucosa. NECK: No JVD or adenopathy. CARDIAC: S1/S2. No murmurs. No rubs. Regular. RESPIRATORY: Clear to auscultation bilaterally. No wheezes, rales, or rhonchi. Good air entry. ABDOMEN: Bowel sounds are positive, soft, nontender, and nondistended. EXTREMITIES: No edema. Has 1+ pulses. ASSESSMENT: 1. Fever. 2. End-stage renal disease, on hemodialysis. 3. Transaminitis. 4. Elevated alkaline phosphatase. 5. Bowman's esophagus. 6. Secondary hyperparathyroidism. 7. Suprapubic catheter, chronic. 8. Left arm arteriovenous fistula. 9. Diabetes type 2. 10. Coronary artery disease. 11. Hypertension. 12. Hypothyroidism. 13. Congestive heart failure, secondary to systolic dysfunction, stable. 14. Sepsis. PLAN: The patient is currently admitted to the hospital. The patient has been afebrile. He did hav e a fever when he was admitted to the hospital. He had blood cultures that are positive for gram-neg ative rods. He is being followed by Dr. Ni. The patient is on IV fluids. I will discontinu e the patient's IV fluids at this point. He is going to be on Flagyl. He is on meropenem for antibi otics. The patient is on Protonix. He is on morphine for pain. We will continue his carvedilol. H e is on PhosLo. The patient is on his Lipitor. I will continue that as well. He gets Lantus. He i s on his levothyroxine. This will be continued. We will await further input from the consultants. Bc Mariee MD cc: [id number] TT: 02/06/2017 09:16:29 Confirmation # [id number] Dictation # [id number] [email or web address]
--- NOTE | 2017-02-06 09:52 | CP.PCM.PN ---
<Rodrigue Appiah - Last Filed: 02/06/17 09:48> Subjective - Date & Time of Evaluation Date of Evaluation: 02/06/17 Time of Evaluation: 07:45 - Subjective Subjective: PGY4 GI Fellow Progress Note Patient seen and examined bedside this morning. The patient is hard of hearing and has some difficulty understanding questions/responding appropriately. He currently denies any abdominal discomfort, fever, chills, nausea, vomiting. He does c/o of hunger/thirst. 12 system ROS performed and negative except where stated. Objective - Vital Signs/Intake and Output Vital Signs (last 24 hours): Temp Pulse Resp BP Pulse Ox 99.1 F 67 18 159/73 H 96 02/06/17 08:28 02/06/17 08:28 02/06/17 08:28 02/06/17 08:28 02/06/17 08:28 Intake and Output: 02/06/17 02/06/17 06:59 18:59 Intake Total 700 Output Total 100 Balance 600 - Medications Medications: Current Medications Atorvastatin Calcium (Lipitor) 20 mg PO HS [facility] Calcium Acetate (Phoslo) 667 mg PO WM [facility] Carvedilol (Coreg) 12.5 mg PO BID [facility] Metronidazole (Flagyl) 50 mls @ 100 mls/hr IVPB Q8 [facility] PRN Reason: Protocol Stop: 02/10/17 14:01 Last Admin: 02/06/17 05:50 Dose: 100 mls/hr Meropenem 250 mg/ Sodium (Chloride) 100 mls @ 100 mls/hr IVPB Q12H [facility] PRN Reason: Protocol Stop: 02/14/17 18:01 Insulin Human Lispro (Humalog Low) 0 units SC ACHS [facility] PRN Reason: Protocol Last Admin: 02/05/17 22:08 Dose: Not Given Levothyroxine Sodium (Synthroid) 75 mcg PO ACB [facility] Morphine Sulfate (Morphine) 1 mg IVP Q6H PRN PRN Reason: Pain, moderate (4-7) Ondansetron HCl (Zofran Inj) 4 mg IVP Q4H PRN PRN Reason: Nausea/Vomiting Pantoprazole Sodium (Protonix Inj) 40 mg IVP DAILY [facility] Last Admin: 02/05/17 09:27 Dose: 40 mg - Labs Labs: 02/06/17 06:20 02/06/17 06:20 PT 12.7 Seconds (9.9-11.8) H 02/05/17 03:50 INR 1.18 (0.93-1.08) H 02/05/17 03:50 APTT 27.4 Seconds (23.7-30.8) 02/05/17 03:50 - Constitutional Appears: Non-toxic, No Acute Distress - Eye Exam Eye Exam: EOMI, PERRL - ENT Exam ENT Exam: Mucous Membranes Dry Additional comments: Hard of hearing - Respiratory Exam Respiratory Exam: Clear to Ausculation Bilateral. absent: Rales, Rhonchi, Wheezes - Cardiovascular Exam Cardiovascular Exam: RRR, +S1, +S2 - GI/Abdominal Exam GI & Abdominal Exam: Soft, Normal Bowel Sounds. absent: Distended, Firm, Guarding, Rigid, Tenderness, Organomegaly Additional comments: suprapubic catheter noted - Extremities Exam Extremities Exam: Normal Inspection. absent: Pedal Edema - Neurological Exam Neurological Exam: Alert, Awake, Oriented x3 - Psychiatric Exam Psychiatric exam: Normal Affect, Normal Mood - Skin Skin Exam: Dry, Warm Assessment and Plan - Assessment and Plan (Free Text) Assessment: Patient is a 71yo male with PMHx significant for CAD, CHF, ESRD on HD, DMT2, Diverticulitis, Alzheimer's dementia who presented to the ED with c/o abdominal pain, nausea and vomiting for one day. -GNR bacteremia -UTI -Abnormal LFTs Plan: -Awaiting MRCP and HIDA scan (recommend evaluation of GB ejection fraction if possible) -U/S without evidence of gallstones, biliary duct dilation -Monitor LFTs - downtrending today, lipase normalized -DDx includes acalculous cholecystitis in setting of recurrent infections, biliary dyskinesia and SOD -Plan per results of above -Patient NPO -Surgery/ID/Nephrology following <Bony Loomis - Last Filed: 02/06/17 11:03> Objective - Vital Signs/Intake and Output Vital Signs (last 24 hours): Temp Pulse Resp BP Pulse Ox 99.1 F 67 18 159/23 H 96 02/06/17 08:28 02/06/17 09:54 02/06/17 08:28 02/06/17 09:54 02/06/17 08:28 Intake and Output: 02/06/17 02/06/17 06:59 18:59 Intake Total 700 Output Total 100 Balance 600 - Medications Medications: Current Medications Atorvastatin Calcium (Lipitor) 20 mg PO HS [facility] Calcium Acetate (Phoslo) 667 mg PO WM [facility] Last Admin: 02/06/17 09:54 Dose: 667 mg Carvedilol (Coreg) 12.5 mg PO BID [facility] Last Admin: 02/06/17 09:54 Dose: 12.5 mg Metronidazole (Flagyl) 50 mls @ 100 mls/hr IVPB Q8 [facility] PRN Reason: Protocol Stop: 02/10/17 14:01 Last Admin: 02/06/17 05:50 Dose: 100 mls/hr Meropenem 250 mg/ Sodium (Chloride) 100 mls @ 100 mls/hr IVPB Q12H [facility] PRN Reason: Protocol Stop: 02/14/17 18:01 Insulin Human Lispro (Humalog Low) 0 units SC ACHS [facility] PRN Reason: Protocol Last Admin: 02/06/17 09:54 Dose: Not Given Levothyroxine Sodium (Synthroid) 75 mcg PO ACB [facility] Last Admin: 02/06/17 09:55 Dose: 75 mcg Morphine Sulfate (Morphine) 1 mg IVP Q6H PRN PRN Reason: Pain, moderate (4-7) Ondansetron HCl (Zofran Inj) 4 mg IVP Q4H PRN PRN Reason: Nausea/Vomiting Pantoprazole Sodium (Protonix Inj) 40 mg IVP DAILY [facility] Last Admin: 02/06/17 09:54 Dose: 40 mg - Labs Labs: 02/06/17 06:20 02/06/17 06:20 PT 12.7 Seconds (9.9-11.8) H 02/05/17 03:50 INR 1.18 (0.93-1.08) H 02/05/17 03:50 APTT 27.4 Seconds (23.7-30.8) 02/05/17 03:50 Attending/Attestation - Attestation I have personally seen and examined this patient.: Yes I have fully participated in the care of the patient.: Yes I have reviewed all pertinent clinical information, including history, physical exam and plan: Yes Notes (Text): 02/06/17 10:54 I have seen and examined patient with GI fellow. No acute events overnight, he is seen resting in bed, appears quite comfortable. He denies abdominal pain, nausea, vomiting, diarrhea, fever/chills. He is thirsty and asking for his diet to be advanced. Review of vitals from this morning shows elevated BP. CAD ESRD on HD HTN / DM Transaminitis Sepsis, gram negative bacteremia Abdominal US reviewed by me, no evidence of gallstones or biliary dilation - Continue with antibiotic therapy as per ID - LFTs trending down, continue to monitor - MRCP and HIDA imaging ordered, will await results - Patient would benefit from cholecystectomy, follow up surgical recommendations
[2017-02-06] MEDS: Insulin Lispro (humaLOG) LOW Coverage SC SCH ×4 (09:54→21:41)
[2017-02-06] MEDS: Levothyroxine 75 MCG TAB PO SCH (09:55)
[2017-02-06] MEDS ORDERED: cefTRIAXone 1 gm 100 ML IVPB SCH (10:00)
--- NOTE | 2017-02-06 12:22 | CON ---
DATE: 02/06/2017 The patient admitted for Dr. Ernandez. REFERRING PHYSICIAN: Dr. Ernandez REASON FOR CONSULTATION: To provide dialysis services for a patient admitted with abdominal pain, na usea, vomiting, fevers, elevated liver enzymes, elevated bilirubin level. HISTORY OF PRESENT ILLNESS: The patient is a 71-year-old male, originally from [facility], panish speaking, with a history of end-stage renal disease on chronic maintenance hemodialysis at [facility] Monday, , Monday, history of secondary hyperparathyroidism, history of anemia secondary to chronic kidney disease, history of IDDM, hypertension, history of ASHD status po st open heart surgery, history of hyperlipidemia, history of pulmonary embolism, hypothyroidism, hist ory of a chronic indwelling suprapubic catheter with previous infections secondary to BPH, history of diminished hearing and dementia who comes in complaining of abdominal pain, nausea, vomiting and fev ers. The patient's maximum temperature was 102.4. The patient's initial blood cultures are growing out gram-negative rods. The patient had elevated liver enzymes and elevated bilirubin. Scans that w ere done suggested possible acute cholecystitis. The patient had a fluid collection around the gallb ladder. Pancreas appeared normal despite elevation of patient's lipase to 3187. The patient's last dialysis was on 02/04/2017. His next dialysis is scheduled for 02/07/2017. We are asked to see patient to provide dialysis. PAST MEDICAL HISTORY: Significant for end-stage renal disease, secondary hyperparathyroidism, anemia secondary to chronic kidney disease, IDDM, hypertension, ASHD, history of pulmonary embolism, hypoth yroidism, diminished hearing and dementia. The patient has an indwelling left upper extremity AV acc ess. MEDICATIONS AT HOME: Include that of Imdur, Lantus, Coreg, PhosLo, Levoxyl, lactobacillus, Lipitor, hydralazine. ALLERGIES: THE PATIENT IS ALLERGIC TO CONTRAST AND DYE. MEDICATIONS: Presently include that of Coreg, Flagyl, insulin sliding scale, Lipitor, meropenem, p.r .n. morphine, PhosLo, Protonix, Synthroid, and Zofran p.r.n. SOCIAL HISTORY: No history of alcohol use. No history of cigarette smoking. FAMILY HISTORY: Noncontributory and as per all charts. REVIEW OF SYSTEMS: Difficult to obtain as patient is hard of hearing and speaks only Estonian. CONSTITUTIONAL: As best as I can tell, weight has been stable. Appetite until recent admission has been stable. ENT: Diminished hearing. PULMONARY: History of pulmonary embolism, but presently no shortness of breath. Past history of con gestive heart failure. CARDIAC: History of ASHD. GASTROINTESTINAL: Nausea, vomiting, and abdominal pain. GENITOURINARY: History of suprapubic catheter with intermittent infections. ENDOCRINE: Positive for IDDM with complications of secondary hyperparathyroidism. MUSCULOSKELETAL: No issues. NEUROLOGIC: No issues other than that of progressive dementia. HEMATOLOGIC AND ONCOLOGIC: History of anemia secondary to chronic kidney disease. PSYCHIATRIC: History is negative. PHYSICAL EXAMINATION: GENERAL: The patient is currently seen lying supine on bed in 3R. He appears to be in no acute dist ress. Presently, he is not complaining of any abdominal pain, nausea or vomiting. VITAL SIGNS: Blood pressure 159/73, pulse is 67, temperature 99.1 with a respiratory rate of 18, pul se ox is 96%. HEENT: Shows him to be normocephalic, atraumatic. Conjunctivae are pale. Sclerae are icteric. Pup ils equal, reactive to light and accommodation. Extraocular muscles are intact. Posterior pharynx i s normal. NECK: Supple, no neck vein distention, no thyromegaly, no lymphadenopathy, no bruits. CHEST: Clear to auscultation and percussion. No rales, no rhonchi, no wheezing. CARDIOVASCULAR: Shows a regular rate and rhythm without audible murmurs, rubs, or gallops. ABDOMEN: No tenderness on palpation of any of the 4 quadrants. Bowel sounds are normal. No rebound , no guarding, no masses, no organomegaly noted. BACK: No CVAT, no spinal tenderness. GENITOURINARY: Positive suprapubic catheter. No drainage around the dressing. Connected to a right leg bag. Urine appears to be clear. EXTREMITIES: Show no cyanosis, no clubbing or edema. The patient has a left upper extremity AV acce ss. Positive thrill, positive bruit. NEUROLOGIC: Shows him to be alert. Difficult to tell if patient is oriented because of language bar rier. There are no gross focal motor deficits noted. IMAGING: Admitting abdominal and pelvic CT scan showed a possible acute cholecystitis with a pericho lecystic fluid collection. Normal pancreas, normal liver. Positive cardiomegaly. Abdominal ultraso und showed thickened gallbladder wall, no stones with a common bile duct measuring [address] ca wed diffuse atrophy. Chest x-ray showed a left upper lobe infiltrate. MICROBIOLOGY: Positive for gram-negative rods growing out of 2 sets of blood cultures. Urine cultur es show 50,000-100,000 multiple species, likely a dirty specimen. LABORATORIES: CBC: White blood cell count 7.1, hemoglobin 9.5, platelet count is 107,000. Coags: PT 12.7 with a PTT of 27.4. Chemistries show an elevated BUN of 44 with a creatinine of 6.2. Electr olytes are normal. Glucose on last check was 61. Calcium was 7.8, bilirubin 3.7, AST 254 with an AL T of 350. Alkaline phosphatase elevated at 320. These are significantly improved from admission. A mylase 247 on admission. Lipase was 3187 on admission. It is 31 today. His albumin level is low at 3.0. Urines show 2-5 white blood cells, 0-2 red blood cells. Many bacteria. Toxicology screen is negative. Hepatitis serologies are negative. ASSESSMENT: 1. End-stage renal disease. The patient will continue routine dialysis Monday, , Monday. His next dialysis is scheduled for tomorrow. 2. Status post abdominal pain, nausea, vomiting and fevers. Blood cultures are positive for gram-ne gative rods. Possibilities could include that of the gallbladder with possible cholecystitis versus urinary tract source. 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 The patient had been seen by ID and he is currently on appropria te antibiotic therapy. The other possibility is that of left upper lobe pneumonia, but unlikely that he would have gram-negative sendy growing in his blood. 3. History of insulin-dependent diabetes mellitus. Glucose control is acceptable. The patient will continue sliding scale insulin. 4. History of arteriosclerotic heart disease, currently stable. The patient will continue current c ardiac meds. 5. History of hyperlipidemia. The patient had been on statins in the outpatient setting. 6. History of anemia. This is likely secondary to chronic kidney disease and will likely worsen wit h bone marrow suppression from his gram-negative sendy bacteremia. 7. History of secondary hyperparathyroidism. Obtain phosphorus level and continue binder therapy. The patient is currently on PhosLo. 8. History of hypothyroidism. The patient is currently on Levoxyl therapy. 9. History of chronic indwelling suprapubic catheter in the setting of benign prostatic hypertrophy. The patient may be seen by urology, but this catheter has been in for a long time. 10. History of mild dementia with decreased hearing, currently stable. 11. Past history of pulmonary embolism. PLAN: 1. The patient will continue routine dialysis Monday, , Monday. Next dialysis is schedul ed for tomorrow. 2. Follow up with surgery, GI, and ID for a possible acute cholecystitis. 3. Check phosphorus level. We will continue renal diet and adjust binders accordingly. 4. Maximize Aranesp dose as in all likelihood, his hemoglobin will drop in the setting of bone marro w suppression secondary to his bacteremia. 5. Continue sliding scale insulin and close monitoring of his glucose levels. 6. Continue thyroid replacement therapy. 7. May advance diet as patient tolerates. IV fluids have been discontinued. 8. MRCP and HIDA scan are pending. Thank you for letting me partake and share in the care of our mutual patient. Maikel Tan MD cc: [phone] TT: 02/06/2017 12:22:01 Confirmation # [id number] Dictation # [id number]
--- NOTE | 2017-02-06 14:50 | MRI ---
PROCEDURE: Magnetic Resonance Cholangiopancreatography HISTORY: Evaluate for CBD obstruction. Rule out CBD stone COMPARISON: None available. TECHNIQUE: Multiplanar, multisequence MR images of the abdomen were obtained, including heavily T2 weighted MRCP images of the biliary system. Rotating maximum intensity projection images of the biliary system were generated. FINDINGS: MRCP: There is nonobstructing 3 millimeter choledocholithiasis seen at the mid to distal portion of the CBD. The proximal portion of the CBD is slightly dilated measures up to 8.2 millimeter. The distal CBD is normal in caliber and shape. LIVER: There is hyperintense T2 signal lesions seen at the medial aspect of the liver dome measures 2 centimeter not clearly visualized in the T1 images. Otherwise no evidence of liver lesion. Mild hepatomegaly is again noted. GALLBLADDER: The gallbladder is mildly distended demonstrate mild wall thickening. No evidence of cholelithiasis. SPLEEN: Spleen is normal in size. PANCREAS: Small size pancreas is again noted. No evidence of pancreatic mass or dilated main pancreatic duct. ADRENALS: Unremarkable. KIDNEYS: No evidence of hydronephrosis. AORTA: No aneurysm. ASCITES: Trace ascites seen in the upper abdomen. OTHER FINDINGS: Cardiomegaly and small bilateral pleural effusions are noted. IMPRESSION: 3 millimeter nonobstructing choledocholithiasis seen at the mid to distal CBD. Distended gallbladder surrounding with mild pericholecystic fluid. No MRI evidence of cholelithiasis. Diffuse soft tissue edema and trace ascites. Cardiomegaly and small bilateral pleural effusions.
--- NOTE | 2017-02-06 16:10 | CP.PCM.PN ---
Subjective - Date & Time of Evaluation Date of Evaluation: 02/06/17 Time of Evaluation: 10:25 - Subjective Subjective: Comfortable in bed, not in distress, no fevers overnight, no nausea currently. Objective - Vital Signs/Intake and Output Vital Signs (last 24 hours): Temp Pulse Resp BP Pulse Ox 99.1 F 67 18 159/23 H 96 02/06/17 08:28 02/06/17 09:54 02/06/17 08:28 02/06/17 09:54 02/06/17 08:28 Intake and Output: 02/06/17 02/06/17 06:59 18:59 Intake Total 700 Output Total 100 Balance 600 - Medications Medications: Current Medications Atorvastatin Calcium (Lipitor) 20 mg PO HS [facility] Calcium Acetate (Phoslo) 667 mg PO WM [facility] Last Admin: 02/06/17 09:54 Dose: 667 mg Carvedilol (Coreg) 12.5 mg PO BID [facility] Last Admin: 02/06/17 09:54 Dose: 12.5 mg Metronidazole (Flagyl) 50 mls @ 100 mls/hr IVPB Q8 [facility] PRN Reason: Protocol Stop: 02/10/17 14:01 Last Admin: 02/06/17 05:50 Dose: 100 mls/hr Meropenem 250 mg/ Sodium (Chloride) 100 mls @ 100 mls/hr IVPB Q12H [facility] PRN Reason: Protocol Stop: 02/14/17 18:01 Insulin Human Lispro (Humalog Low) 0 units SC ACHS [facility] PRN Reason: Protocol Last Admin: 02/06/17 09:54 Dose: Not Given Levothyroxine Sodium (Synthroid) 75 mcg PO ACB [facility] Last Admin: 02/06/17 09:55 Dose: 75 mcg Morphine Sulfate (Morphine) 1 mg IVP Q6H PRN PRN Reason: Pain, moderate (4-7) Ondansetron HCl (Zofran Inj) 4 mg IVP Q4H PRN PRN Reason: Nausea/Vomiting Pantoprazole Sodium (Protonix Inj) 40 mg IVP DAILY [facility] Last Admin: 02/06/17 09:54 Dose: 40 mg - Labs Labs: 02/06/17 06:20 02/06/17 06:20 PT 12.7 Seconds (9.9-11.8) H 02/05/17 03:50 INR 1.18 (0.93-1.08) H 02/05/17 03:50 APTT 27.4 Seconds (23.7-30.8) 02/05/17 03:50 - Constitutional Appears: Non-toxic, No Acute Distress - Head Exam Head Exam: NORMAL INSPECTION - ENT Exam ENT Exam: Mucous Membranes Moist - Neck Exam Neck Exam: absent: Lymphadenopathy, Meningismus - Respiratory Exam Respiratory Exam: Decreased Breath Sounds - Cardiovascular Exam Cardiovascular Exam: +S1, +S2 - GI/Abdominal Exam GI & Abdominal Exam: Soft. absent: Tenderness Assessment and Plan - Assessment and Plan (Free Text) Plan: Assessment sepsis secondary to gram negative bacilli bacteremia R/O biliary tree infection history of ESBL E. coli bacteremia HTN Congestive Heart Failure DM GERD End-Stage Renal disease on hemodialysis history of depression history of Bowman's esophagus history of epididymitis on the left Plan Continue Meropenem (day 2), pending MRCP and identification and sensitivities of the gram negative bacilli in the blood Will follow clinically
--- NOTE | 2017-02-06 16:43 | NM ---
PROCEDURE: Nuclear Medicine Hepatobiliary Scan HISTORY: abnormal US COMPARISON: February 05, 2017. Abdominal ultrasound February 06, 2017. MRCP. Summary of findings on the comparison examination: 3 mm nonobstructing calculus mid CBD. Distending gallbladder surrounded by mild pericholecystic fluid. TECHNIQUE: 5.3 mCi of technetium 99m Mebrofenin was administered intravenously. Planar images of the abdomen were obtained at 5 min intervals to 60 mins. Delayed images were also obtained. FINDINGS: LIVER: Timely and homogenous uptake. COMMON BILE DUCT: identified at 45 mins. GALLBLADDER: identified at 4 hours (240) mins. SMALL BOWEL: Identified at 45 mins. IMPRESSION: Normal Hepatobiliary Scan. The cystic duct is patent.
[2017-02-07] MEDS: metroNIDAZOLE IV 250mg/50 ml 50 ML IVPB SCH (06:04)
[2017-02-07 07:27] LABS: ADD MANUAL DIFF? NO
[2017-02-07 07:35] LABS: BASO # 0.02 K/mm3 (0.0-2.0); BASO % 0.3 % (0.0-3.0); EOS # 0.3 (0.0-0.7); EOS % 5.7 % (1.5-5.0); GRAN # 4.44 (1.4-6.5); HEMATOCRIT 27.9 % (42.0-52.0); LYMPH # 0.6 (1.2-3.4); LYMPH % 9.7 % (22.0-35.0); MEAN CELL VOLUME 90.9 fL (80.0-105.0); MEAN CORPUSCULAR HEMOGLOBIN 28.7 pg (25.0-35.0); MEAN CORPUSCULAR HGB CONC 31.5 g/dl (31.0-37.0); MEAN PLATELET VOLUME 10.3 fl (7.0-11.0); MONO # 0.4 (0.1-0.6); MONO % 7.3 % (1.0-6.0); PLATELET COUNT 122 10^3/uL (120.0-450.0); RED CELL DISTRIBUTION WIDTH 16.1 % (11.5-14.5); WHITE BLOOD COUNT 5.8 10^3/ul (4.5-11.0)
--- NOTE | 2017-02-07 07:55 | CP.PCM.PN ---
Subjective - Date & Time of Evaluation Date of Evaluation: 02/07/17 Time of Evaluation: 06:20 - Subjective Subjective: General Surgery Dr. Parker Pt S&E @bedside. NAEO. denies F/C, abd pain, N/V. tolerating CLD. Objective - Vital Signs/Intake and Output Vital Signs (last 24 hours): Temp Pulse Resp BP Pulse Ox 98.3 F 64 19 159/74 H 95 02/06/17 16:00 02/06/17 17:49 02/06/17 16:00 02/06/17 17:49 02/06/17 16:00 Intake and Output: 02/07/17 02/07/17 06:59 18:59 Intake Total 940 0 Output Total 0 Balance 940 0 - Medications Medications: Current Medications Atorvastatin Calcium (Lipitor) 20 mg PO HS [facility] Last Admin: 02/06/17 22:23 Dose: 20 mg Calcium Acetate (Phoslo) 667 mg PO WM [facility] Last Admin: 02/06/17 17:50 Dose: 667 mg Carvedilol (Coreg) 12.5 mg PO BID [facility] Last Admin: 02/06/17 17:49 Dose: 12.5 mg Metronidazole (Flagyl) 50 mls @ 100 mls/hr IVPB Q8 [facility] PRN Reason: Protocol Stop: 02/10/17 14:01 Last Admin: 02/07/17 06:04 Dose: 100 mls/hr Meropenem 250 mg/ Sodium (Chloride) 100 mls @ 100 mls/hr IVPB Q12H [facility] PRN Reason: Protocol Stop: 02/14/17 18:01 Last Admin: 02/06/17 22:43 Dose: 100 mls/hr Insulin Human Lispro (Humalog Low) 0 units SC ACHS [facility] PRN Reason: Protocol Last Admin: 02/06/17 21:41 Dose: Not Given Levothyroxine Sodium (Synthroid) 75 mcg PO ACB [facility] Last Admin: 02/06/17 09:55 Dose: 75 mcg Morphine Sulfate (Morphine) 1 mg IVP Q6H PRN PRN Reason: Pain, moderate (4-7) Ondansetron HCl (Zofran Inj) 4 mg IVP Q4H PRN PRN Reason: Nausea/Vomiting Pantoprazole Sodium (Protonix Inj) 40 mg IVP DAILY [facility] Last Admin: 02/06/17 09:54 Dose: 40 mg - Labs Labs: 02/07/17 07:00 Microbiology 02/05/17 06:47 Urine,Clean Catch Urine Culture - Final 50-100,000 CFU/ML. MULTIPLE SPECIES. SUGGEST REPEAT SPECIMEM. 02/05/17 04:00 Blood-Venous Gram Stain - Final 02/05/17 03:20 Blood-Venous Gram Stain - Final 02/05/17 04:00 Blood-Venous Blood Culture - Preliminary 02/05/17 04:00 Blood-Venous Gram Negative Neo 02/05/17 03:20 Blood-Venous Blood Culture - Preliminary 02/05/17 03:20 Blood-Venous Gram Negative Neo - Constitutional Appears: Non-toxic, No Acute Distress - Head Exam Head Exam: NORMAL INSPECTION - Eye Exam Eye Exam: Normal appearance - ENT Exam ENT Exam: Mucous Membranes Moist - Respiratory Exam Respiratory Exam: NORMAL BREATHING PATTERN. absent: Accessory Muscle Use, Respiratory Distress - GI/Abdominal Exam GI & Abdominal Exam: Soft. absent: Distended, Guarding, Tenderness, Rebound - Neurological Exam Neurological Exam: Alert, Awake - Psychiatric Exam Psychiatric exam: Normal Affect, Normal Mood - Skin Skin Exam: Dry, Intact, Normal Color, Warm Assessment and Plan - Assessment and Plan (Free Text) Assessment: 71 y/o M w/ transaminitis and elevated T. Bili - MRCP revealed 3mm stone in CBD - HIDA negative - trend LFTs and T. Bili - recommend ERCP before cholecystectomy - surgery possibly pending ERCP - cont abx - GI/ DVT prophylaxis Pt discussed w/ Dr. Keith Pichardo DO PGY1
[2017-02-07] MEDS: Insulin Lispro (humaLOG) LOW Coverage SC SCH ×4 (08:04→21:45)
[2017-02-07 08:41] LABS: ALB/GLOB RATIO 0.9 (1.1-1.8); BILIRUBIN,TOTAL 1.6 mg/dL (0.2-1.3); CALCIUM 7.2 mg/dL (8.4-10.5); POTASSIUM 4.1 mmol/L (3.6-5.0); TOTAL PROTEIN 5.6 g/dL (5.8-8.3)
[2017-02-07] MEDS: Levothyroxine 75 MCG TAB PO SCH (10:09)
--- NOTE | 2017-02-07 10:15 | PN ---
DATE: 02/07/2017 SUBJECTIVE: The patient has no complaints of any chest pain or shortness of breath, no headaches or dizziness. PHYSICAL EXAMINATION: VITAL SIGNS: Temperature is 98.3, pulse of 64, blood pressure 159/74, respirations 19. GENERAL: The patient comfortable, in no acute distress. HEENT: Anicteric sclerae. Moist mucosa. NECK: No JVD or adenopathy. CARDIAC: S1/S2. No murmurs. No rubs. Regular. RESPIRATORY: Clear to auscultation bilaterally. No wheezes, rales, or rhonchi. Good air entry. ABDOMEN: Bowel sounds are positive, soft, nontender, and nondistended. EXTREMITIES: No edema. Has 1+ pulses. LABORATORY DATA: White count is 7.1, hemoglobin 9.5. MRCP done shows a 3 mm nonobstructing choledocholithiasis seen at the mid to distal common bile duct, distended gallbladder surrounding the right pericholecystic fluid, no MRI evidence of cholelithiasis . HIDA scan shows normal hepatobiliary scan. ASSESSMENT: 1. A 3 mm nonobstructing choledocholithiasis in common bile duct. 2. End-stage renal disease on hemodialysis. 3. Transaminitis. 4. Elevated alkaline phosphatase. 5. Bowman's esophagus. 6. Secondary hyperparathyroidism. 7. Suprapubic catheter, chronic. 8. Left arm arteriovenous fistula. 9. Diabetes type 2. 10. Coronary artery disease. 11. Hypertension. 12. Hypothyroidism. 13. Congestive heart failure secondary to systolic dysfunction. 14. Sepsis secondary to gram-negative rods. 15. Hearing impairment. PLAN: The patient is currently comfortable. The patient is being followed by Dr. Tan's group fo r dialysis. The patient's blood cultures are positive for gram-negative rods. The patient is curren tly on Flagyl. He is going to be on Lipitor for dyslipidemia. He is being followed by Dr. Keith frost surgery and Dr. Ramírez. The patient is on Synthroid for hypothyroidism, is receiving PhosLo for secondary hyperparathyroidism. The patient is on meropenem. The patient denies pain. We will ceasar nue the patient on meropenem. I appreciate input from the consultants. The patient is on Synthroid for hypothyroidism. He continues Protonix. He is on a liquid diet. His LFTs are improving. Bc Mariee MD cc: [id number] TT: 02/07/2017 10:15:07 Confirmation # [id number] Dictation # [id number]
--- NOTE | 2017-02-07 10:50 | PN ---
DATE: 02/07/2017 In general, he is feeling and looking better. A note from Dr. suggested cholecystectomy. Will discuss the MRCP report. Barrera Parker MD cc: [phone] TT: 02/07/2017 10:49:54 Confirmation # [id number] Dictation # [id number] cn
--- NOTE | 2017-02-07 12:10 | CP.PCM.PN ---
<Rodrigue Appiah - Last Filed: 02/07/17 13:26> Subjective - Date & Time of Evaluation Date of Evaluation: 02/07/17 Time of Evaluation: 07:45 - Subjective Subjective: PGY4 GI Fellow Progress Note Patient seen and examined bedside this morning. Patient has hearing aid today and able to converse. Denies any discomfort at present. Unable to explain to me why he has a suprapubic catheter. No events overnight. 12 system ROS performed and negative except where stated. Objective - Vital Signs/Intake and Output Vital Signs (last 24 hours): Temp Pulse Resp BP Pulse Ox 97.8 F 67 20 146/69 97 02/07/17 09:03 02/07/17 10:08 02/07/17 09:03 02/07/17 10:08 02/07/17 09:03 Intake and Output: 02/07/17 02/07/17 06:59 18:59 Intake Total 940 0 Output Total 0 Balance 940 0 - Medications Medications: Current Medications Atorvastatin Calcium (Lipitor) 20 mg PO HS [facility] Last Admin: 02/06/17 22:23 Dose: 20 mg Calcium Acetate (Phoslo) 667 mg PO WM [facility] Last Admin: 02/07/17 10:09 Dose: 667 mg Carvedilol (Coreg) 12.5 mg PO BID [facility] Last Admin: 02/07/17 10:08 Dose: 12.5 mg Metronidazole (Flagyl) 50 mls @ 100 mls/hr IVPB Q8 [facility] PRN Reason: Protocol Stop: 02/10/17 14:01 Last Admin: 02/07/17 06:04 Dose: 100 mls/hr Meropenem 250 mg/ Sodium (Chloride) 100 mls @ 100 mls/hr IVPB Q12H [facility] PRN Reason: Protocol Stop: 02/14/17 18:01 Last Admin: 02/06/17 22:43 Dose: 100 mls/hr Insulin Human Lispro (Humalog Low) 0 units SC ACHS [facility] PRN Reason: Protocol Last Admin: 02/07/17 08:04 Dose: Not Given Levothyroxine Sodium (Synthroid) 75 mcg PO ACB [facility] Last Admin: 02/07/17 10:09 Dose: 75 mcg Morphine Sulfate (Morphine) 1 mg IVP Q6H PRN PRN Reason: Pain, moderate (4-7) Ondansetron HCl (Zofran Inj) 4 mg IVP Q4H PRN PRN Reason: Nausea/Vomiting Pantoprazole Sodium (Protonix Inj) 40 mg IVP DAILY [facility] Last Admin: 02/07/17 10:11 Dose: 40 mg - Labs Labs: 02/07/17 07:00 02/07/17 07:00 PT 12.7 Seconds (9.9-11.8) H 02/05/17 03:50 INR 1.18 (0.93-1.08) H 02/05/17 03:50 APTT 27.4 Seconds (23.7-30.8) 02/05/17 03:50 - Constitutional Appears: Non-toxic, No Acute Distress - Eye Exam Eye Exam: EOMI, PERRL - ENT Exam ENT Exam: Mucous Membranes Moist Additional comments: hearing aid in place - Respiratory Exam Respiratory Exam: Clear to Ausculation Bilateral. absent: Rales, Rhonchi, Wheezes - Cardiovascular Exam Cardiovascular Exam: RRR, +S1, +S2 - GI/Abdominal Exam GI & Abdominal Exam: Soft, Normal Bowel Sounds. absent: Distended, Firm, Guarding, Rigid, Tenderness, Organomegaly - Extremities Exam Extremities Exam: Normal Inspection. absent: Pedal Edema - Neurological Exam Neurological Exam: Alert, Awake, Oriented x3 - Psychiatric Exam Psychiatric exam: Normal Affect, Normal Mood - Skin Skin Exam: Dry, Warm Assessment and Plan - Assessment and Plan (Free Text) Assessment: Patient is a 71yo male with PMHx significant for CAD, CHF, ESRD on HD, DMT2, Diverticulitis, Alzheimer's dementia who presented to the ED with c/o abdominal pain, nausea and vomiting for one day. -E coli ESBL bacteremia -UTI -Choledocolithiasis Plan: -MRCP and HIDA reviewed; MRCP showing choledocolithiasis -Monitor LFTs - Continue to downtrend today -Plan for ERCP on -Continue ABX given ongoing bacteremia <Agustín Uriostegui - Last Filed: 02/07/17 20:56> Objective - Vital Signs/Intake and Output Vital Signs (last 24 hours): Temp Pulse Resp BP Pulse Ox 97.8 F 82 20 130/80 97 02/07/17 09:03 02/07/17 18:48 02/07/17 09:03 02/07/17 18:48 02/07/17 09:03 Intake and Output: 02/07/17 02/08/17 18:59 06:59 Intake Total 700 Output Total 0 Balance 700 - Medications Medications: Current Medications Atorvastatin Calcium (Lipitor) 20 mg PO HS [facility] Last Admin: 02/06/17 22:23 Dose: 20 mg Calcium Acetate (Phoslo) 667 mg PO WM [facility] Last Admin: 02/07/17 18:47 Dose: 667 mg Carvedilol (Coreg) 12.5 mg PO BID [facility] Last Admin: 02/07/17 18:48 Dose: 12.5 mg Meropenem 250 mg/ Sodium (Chloride) 100 mls @ 100 mls/hr IVPB Q12H [facility] PRN Reason: Protocol Stop: 02/14/17 18:01 Last Admin: 02/06/17 22:43 Dose: 100 mls/hr Insulin Human Lispro (Humalog Low) 0 units SC ACHS [facility] PRN Reason: Protocol Last Admin: 02/07/17 18:44 Dose: Not Given Levothyroxine Sodium (Synthroid) 75 mcg PO ACB [facility] Last Admin: 02/07/17 10:09 Dose: 75 mcg Morphine Sulfate (Morphine) 1 mg IVP Q6H PRN PRN Reason: Pain, moderate (4-7) Ondansetron HCl (Zofran Inj) 4 mg IVP Q4H PRN PRN Reason: Nausea/Vomiting Pantoprazole Sodium (Protonix Inj) 40 mg IVP DAILY [facility] Last Admin: 02/07/17 10:11 Dose: 40 mg - Labs Labs: 02/07/17 07:00 02/07/17 07:00 PT 12.7 Seconds (9.9-11.8) H 02/05/17 03:50 INR 1.18 (0.93-1.08) H 02/05/17 03:50 APTT 27.4 Seconds (23.7-30.8) 02/05/17 03:50 Attending/Attestation - Attestation I have personally seen and examined this patient.: Yes I have fully participated in the care of the patient.: Yes I have reviewed all pertinent clinical information, including history, physical exam and plan: Yes Notes (Text): 02/07/17 20:53 71 year old male with h/o CAD, CHF, ESRD on HD, DM, diverticulosis, Alzheimer's dementia admitted with abdominal pain, found to have E. coli bacteremia, and choledocholithiasis. 1. Choledocholithiasis 2. Cholangitis Plan: -choledocholithiasis demonstrated on MRCP -improved on antibiotics -hemodynamically stable/clinically doing well -repeat blood cultures -monitor lfts -ERCP scheduled for -npo after MN monday
--- NOTE | 2017-02-07 14:09 | CP.PCM.PN ---
Subjective - Date & Time of Evaluation Date of Evaluation: 02/07/17 Time of Evaluation: 09:20 - Subjective Subjective: Comfortable in bed, no acute events overnight, no fevers, no abdominal pain currently. Objective - Vital Signs/Intake and Output Vital Signs (last 24 hours): Temp Pulse Resp BP Pulse Ox 98.3 F 64 19 159/74 H 95 02/06/17 16:00 02/06/17 17:49 02/06/17 16:00 02/06/17 17:49 02/06/17 16:00 Intake and Output: 02/07/17 02/07/17 06:59 18:59 Intake Total 940 0 Output Total 0 Balance 940 0 - Medications Medications: Current Medications Atorvastatin Calcium (Lipitor) 20 mg PO HS [facility] Last Admin: 02/06/17 22:23 Dose: 20 mg Calcium Acetate (Phoslo) 667 mg PO WM [facility] Last Admin: 02/06/17 17:50 Dose: 667 mg Carvedilol (Coreg) 12.5 mg PO BID [facility] Last Admin: 02/06/17 17:49 Dose: 12.5 mg Metronidazole (Flagyl) 50 mls @ 100 mls/hr IVPB Q8 [facility] PRN Reason: Protocol Stop: 02/10/17 14:01 Last Admin: 02/07/17 06:04 Dose: 100 mls/hr Meropenem 250 mg/ Sodium (Chloride) 100 mls @ 100 mls/hr IVPB Q12H [facility] PRN Reason: Protocol Stop: 02/14/17 18:01 Last Admin: 02/06/17 22:43 Dose: 100 mls/hr Insulin Human Lispro (Humalog Low) 0 units SC ACHS [facility] PRN Reason: Protocol Last Admin: 02/06/17 21:41 Dose: Not Given Levothyroxine Sodium (Synthroid) 75 mcg PO ACB [facility] Last Admin: 02/06/17 09:55 Dose: 75 mcg Morphine Sulfate (Morphine) 1 mg IVP Q6H PRN PRN Reason: Pain, moderate (4-7) Ondansetron HCl (Zofran Inj) 4 mg IVP Q4H PRN PRN Reason: Nausea/Vomiting Pantoprazole Sodium (Protonix Inj) 40 mg IVP DAILY [facility] Last Admin: 02/06/17 09:54 Dose: 40 mg - Labs Labs: 02/07/17 07:00 02/06/17 06:20 PT 12.7 Seconds (9.9-11.8) H 02/05/17 03:50 INR 1.18 (0.93-1.08) H 02/05/17 03:50 APTT 27.4 Seconds (23.7-30.8) 02/05/17 03:50 - Constitutional Appears: Non-toxic, No Acute Distress - Head Exam Head Exam: NORMAL INSPECTION - ENT Exam ENT Exam: Mucous Membranes Moist - Neck Exam Neck Exam: absent: Lymphadenopathy, Meningismus - Respiratory Exam Respiratory Exam: Decreased Breath Sounds - Cardiovascular Exam Cardiovascular Exam: +S1, +S2 - GI/Abdominal Exam GI & Abdominal Exam: Soft. absent: Tenderness Assessment and Plan - Assessment and Plan (Free Text) Plan: Assessment sepsis secondary to ESBL-producing multidrug-resistant E. coli bacteremia probably secondary to acute cholecystitis history of ESBL E. coli bacteremia HTN Congestive Heart Failure DM GERD End-Stage Renal disease on hemodialysis history of depression history of Bowman's esophagus history of epididymitis on the left Plan Continue Meropenem (day 3), reviewed MRCP showing cholecystitis; will repeat blood cx today Will continue to follow clinically
--- NOTE | 2017-02-07 14:37 | PN ---
DATE: 02/07/2017 SUBJECTIVE: The patient is currently seen sitting in his room, awaiting transfer up to dialysis. He is in no acute distress. He remains on antibiotic therapy for his Escherichia coli bacteremia; like ly source is his urine. MEDICATIONS: Medication list reviewed. The patient is currently on Coreg, Flagyl, insulin, Lipitor, meropenem, morphine, PhosLo, Protonix, Synthroid, and Zofran p.r.n. OBJECTIVE: INTAKE AND OUTPUT: Intake 1540, output not charted. VITAL SIGNS: Blood pressure 146/69, temperature 97.8, pulse 67, respiratory rate 20. HEENT: Shows him to be normocephalic, atraumatic. Conjunctivae are pale. Sclerae are nonicteric. NECK: Supple, no neck vein distention. CHEST: Clear to auscultation and percussion. No rales, no rhonchi, no wheezing. CARDIOVASCULAR: Shows a regular rate and rhythm without audible murmurs, rubs, or gallops. ABDOMEN: Soft. Bowel sounds normal. No tenderness on palpation of any of the 4 quadrants. EXTREMITIES: Show no cyanosis, no clubbing or edema. GENITOURINARY: The patient has an indwelling suprapubic catheter connected to a right urine leg bag. Urine appears to be clear. LABORATORY DATA AND IMAGING STUDIES: HIDA scan done shows a normal scan with no evidence for blockag e of the cystic duct. MRCP shows a 3 mm stone in the common bile duct, nonobstructing. LABORATORY DATA: White blood cell count 5.8 with a hemoglobin of 8.8, platelet count is 122,000. Ch emistries show normal electrolytes, BUN 57 with a creatinine of 6.8, glucose 117, calcium is 7.2. Bi lirubin 1.6 with elevated liver enzymes. AST is down from 944 to 77. ALT is down from 550 to 201. Bilirubin is down from 3.4 to 1.6. Alkaline phosphatase is down from 412 to 281. Albumin is 2.7. MICROBIOLOGY: Blood cultures are positive for E. coli. Again, urine culture showed multiples specie s and likely not a clean catch. Hepatitis serologies were negative. ASSESSMENT: 1. End-stage renal disease. The patient will continue Monday, , Monday dialysis. Next d ialysis is scheduled for later today. 2. Status post abdominal pain, nausea, vomiting and fevers. Blood cultures are positive for Escheri ever coli. In all likelihood, this is coming from the urine. There was some concern about patient h aving acute cholecystitis. There is no evidence for obstruction of the cystic duct, and patient does not have gallstones in the gallbladder. Nevertheless, the patient is being scheduled for an ERCP fo r likely removal of the 3 mm common bile duct stone. 3. History of insulin-dependent diabetes mellitus. Glucose control is acceptable. The patient will continue sliding scale insulin. 4. Arteriosclerotic heart disease, currently stable. 5. Hyperlipidemia. The patient had been on statins in the outpatient setting and has continued on t hese during hospitalization. 6. History of secondary hyperparathyroidism. Will obtain a phosphorus level with dialysis today. T he patient remains on PhosLo. The patient will continue a renal diet. 7. History of hypothyroidism. The patient will continue Levoxyl therapy. 8. History of a chronic indwelling suprapubic catheter in the setting of benign prostatic hypertroph y. Perhaps genitourinary reevaluation of this entire situation in light of his likely urinary tract infection with bacteremia. 9. History of mild dementia with hearing loss, currently stable. 10. History of pulmonary hypertension. PLAN: 1. Continue dialysis Monday, , Monday. 2. Check phosphorus level with dialysis today. Continue renal diet and adjust binders accordingly. 3. Maximize Aranesp dose. Hemoglobin has dropped from 10.5 to 8.8. 4. Continue sliding scale insulin. 5. Continue thyroid replacement therapy. 6. Perhaps ERCP scheduled for later this week as per GI. Maikel Tan MD cc: [phone] TT: 02/07/2017 14:36:30 Confirmation # [id number] Dictation # [id number] mn
[2017-02-07] MEDS ORDERED: Darbepoetin Alfa 25 mcg/ml Inj IVP ONE (15:21)
[2017-02-07 16:00] LABS: MAGNESIUM 2.1 mg/dL (1.7-2.2)
[2017-02-08 08:12] LABS: HEMATOCRIT 30.5 % (42.0-52.0); MEAN CELL VOLUME 89.7 fL (80.0-105.0); MEAN CORPUSCULAR HEMOGLOBIN 28.8 pg (25.0-35.0); MEAN CORPUSCULAR HGB CONC 32.1 g/dl (31.0-37.0); MEAN PLATELET VOLUME 9.6 fl (7.0-11.0); RED CELL DISTRIBUTION WIDTH 15.9 % (11.5-14.5)
[2017-02-08 08:28] LABS: INR 1.07 (0.93-1.08)
[2017-02-08] MEDS: Insulin Lispro (humaLOG) LOW Coverage SC SCH ×4 (08:37→23:04)
--- NOTE | 2017-02-08 08:37 | PN ---
DATE: 02/08/2017 SUBJECTIVE: The patient has no complaints of any chest pain or shortness of breath. He is toleratin g his diet. PHYSICAL EXAMINATION: VITAL SIGNS: Temperature is 97.8, pulse of 82, blood pressure 130/80, respirations 20, O2 saturation 97%. GENERAL: The patient comfortable, in no acute distress. HEENT: Anicteric sclerae. Moist mucosa. NECK: No JVD or adenopathy. CARDIAC: S1/S2. No murmurs. No rubs. Regular. RESPIRATORY: Clear to auscultation bilaterally. No wheezes, rales, or rhonchi. Good air entry. ABDOMEN: Bowel sounds are positive, soft, nontender, and nondistended. EXTREMITIES: No edema. Has 1+ pulses. ASSESSMENT: 1. A 3 cm nonobstructing choledocholithiasis in common bile duct. 2. Transaminitis, improving. 3. Elevated alkaline phosphatase, improving. 4. End-stage renal disease on hemodialysis. 5. Bowman's esophagus. 6. Secondary hyperparathyroidism. 7. Suprapubic catheter, chronic. 8. Left arm arteriovenous fistula. 9. Diabetes type 2. 10. Coronary artery disease. 11. Hypertension. 12. Hypothyroidism. 13. Congestive heart failure secondary to systolic dysfunction. 14. Sepsis secondary to Escherichia coli. 15. Hearing impairment. PLAN: The patient is currently comfortable. He had E. coli in his urine. It is ESBL. He is being followed by Dr. Gracia from infectious disease. The patient is sensitive to imipenem. He is go ing to continue Synthroid for hypothyroidism. The patient is on morphine for pain as needed. The don nay is on Lipitor for dyslipidemia. He was given Aranesp. He is on a liquid diet. The patient estela collazo need surgery. We will await further input from the surgical team. Bc Mariee MD cc: [phone] TT: 02/08/2017 08:37:01 Confirmation # [id number] Dictation # [id number] mn
[2017-02-08 08:46] LABS: BILIRUBIN,TOTAL 1.4 mg/dL (0.2-1.3); POTASSIUM 3.9 mmol/L (3.6-5.0)
[2017-02-08] MEDS: Levothyroxine 75 MCG TAB PO SCH (08:54)
--- NOTE | 2017-02-08 09:06 | CP.PCM.PN ---
<Rodrigue Appiah - Last Filed: 02/08/17 14:06> Subjective - Date & Time of Evaluation Date of Evaluation: 02/08/17 Time of Evaluation: 07:40 - Subjective Subjective: PGY4 GI Fellow Progress Note Patient seen and examined bedside this morning. The patient denies any new complaints and had no issues overnight. Denies any abdominal pain, nausea, vomiting, fever, chills. 12 system ROS performed and negative except where stated. Objective - Vital Signs/Intake and Output Vital Signs (last 24 hours): Temp Pulse Resp BP Pulse Ox 98.2 F 66 22 168/63 H 97 02/08/17 08:34 02/08/17 08:34 02/08/17 08:34 02/08/17 08:34 02/08/17 08:34 Intake and Output: 02/08/17 02/08/17 06:59 18:59 Intake Total 540 0 Output Total 250 Balance 290 0 - Medications Medications: Current Medications Atorvastatin Calcium (Lipitor) 20 mg PO HS [facility] Last Admin: 02/07/17 21:24 Dose: 20 mg Calcium Acetate (Phoslo) 667 mg PO WM [facility] Last Admin: 02/08/17 08:54 Dose: 667 mg Carvedilol (Coreg) 12.5 mg PO BID [facility] Last Admin: 02/07/17 18:48 Dose: 12.5 mg Meropenem 250 mg/ Sodium (Chloride) 100 mls @ 100 mls/hr IVPB Q12H [facility] PRN Reason: Protocol Stop: 02/14/17 18:01 Last Admin: 02/08/17 05:52 Dose: 100 mls/hr Insulin Human Lispro (Humalog Low) 0 units SC ACHS [facility] PRN Reason: Protocol Last Admin: 02/08/17 08:37 Dose: Not Given Levothyroxine Sodium (Synthroid) 75 mcg PO ACB [facility] Last Admin: 02/08/17 08:54 Dose: 75 mcg Morphine Sulfate (Morphine) 1 mg IVP Q6H PRN PRN Reason: Pain, moderate (4-7) Ondansetron HCl (Zofran Inj) 4 mg IVP Q4H PRN PRN Reason: Nausea/Vomiting Pantoprazole Sodium (Protonix Inj) 40 mg IVP DAILY [facility] Last Admin: 02/07/17 10:11 Dose: 40 mg - Labs Labs: 02/08/17 08:00 02/08/17 08:00 PT 11.6 Seconds (9.9-11.8) 02/08/17 08:00 INR 1.07 (0.93-1.08) 02/08/17 08:00 APTT 27.4 Seconds (23.7-30.8) 02/05/17 03:50 - Constitutional Appears: Non-toxic, No Acute Distress - Eye Exam Eye Exam: EOMI, PERRL - ENT Exam ENT Exam: Mucous Membranes Moist Additional comments: Decreased hearing acuity - Respiratory Exam Respiratory Exam: Clear to Ausculation Bilateral. absent: Rales, Rhonchi, Wheezes - Cardiovascular Exam Cardiovascular Exam: RRR, +S1, +S2 - GI/Abdominal Exam GI & Abdominal Exam: Soft, Normal Bowel Sounds. absent: Distended, Firm, Guarding, Rigid, Tenderness, Organomegaly Additional comments: suprapubic catheter - Extremities Exam Extremities Exam: Normal Inspection. absent: Pedal Edema - Neurological Exam Neurological Exam: Alert, Awake, Oriented x3 - Psychiatric Exam Psychiatric exam: Normal Affect, Normal Mood - Skin Skin Exam: Dry, Warm Assessment and Plan - Assessment and Plan (Free Text) Assessment: Patient is a 71yo male with PMHx significant for CAD, CHF, ESRD on HD, DMT2, Diverticulitis, Alzheimer's dementia who presented to the ED with c/o abdominal pain, nausea and vomiting for one day. -E coli ESBL bacteremia -UTI -Choledocolithiasis Plan: -NPO past MN -Plan for ERCP tomorrow -Awaiting repeat blood cx -CBC, CMP, INR in AM -Continue ABX per ID recommendations <Caitlyn Ramírez MD - Last Filed: 02/08/17 17:54> Objective - Vital Signs/Intake and Output Vital Signs (last 24 hours): Temp Pulse Resp BP Pulse Ox 98.2 F 66 22 168/63 H 97 02/08/17 08:34 02/08/17 08:34 02/08/17 08:34 02/08/17 10:16 02/08/17 08:34 Intake and Output: 02/08/17 02/08/17 06:59 18:59 Intake Total 540 1080 Output Total 250 Balance 290 1080 - Medications Medications: Current Medications Atorvastatin Calcium (Lipitor) 20 mg PO HS [facility] Last Admin: 02/07/17 21:24 Dose: 20 mg Calcium Acetate (Phoslo) 667 mg PO WM [facility] Last Admin: 02/08/17 13:05 Dose: 667 mg Carvedilol (Coreg) 12.5 mg PO BID [facility] Last Admin: 02/08/17 10:16 Dose: 12.5 mg Meropenem 500 mg/ Sodium (Chloride) 100 mls @ 100 mls/hr IVPB Q12H [facility] PRN Reason: Protocol Stop: 02/14/17 18:01 Last Admin: 02/08/17 12:30 Dose: Not Given Insulin Human Lispro (Humalog Low) 0 units SC ACHS [facility] PRN Reason: Protocol Last Admin: 02/08/17 12:19 Dose: 1 units Levothyroxine Sodium (Synthroid) 75 mcg PO ACB [facility] Last Admin: 02/08/17 08:54 Dose: 75 mcg Morphine Sulfate (Morphine) 1 mg IVP Q6H PRN PRN Reason: Pain, moderate (4-7) Ondansetron HCl (Zofran Inj) 4 mg IVP Q4H PRN PRN Reason: Nausea/Vomiting Pantoprazole Sodium (Protonix Inj) 40 mg IVP DAILY [facility] Last Admin: 02/08/17 10:17 Dose: 40 mg - Labs Labs: 02/08/17 08:00 02/08/17 08:00 PT 11.6 Seconds (9.9-11.8) 02/08/17 08:00 INR 1.07 (0.93-1.08) 02/08/17 08:00 APTT 27.4 Seconds (23.7-30.8) 02/05/17 03:50 Attending/Attestation - Attestation I have personally seen and examined this patient.: Yes I have fully participated in the care of the patient.: Yes I have reviewed all pertinent clinical information, including history, physical exam and plan: Yes Notes (Text): 02/08/17 17:53 Pt seen with GI fellow. This is a 71yo male with PMHx significant for CAD, CHF, ESRD on HD, DMT2, Diverticulitis, Alzheimer's dementia who presented to the ED with c/o abdominal pain, nausea and vomiting for one day in setting of E coli ESBL bacteremia, UTI and Choledocolithiasis Plan: -NPO past MN -Plan for ERCP tomorrow -Awaiting repeat blood cx -CBC, CMP, INR in AM -Continue ABX per ID recommendations
--- NOTE | 2017-02-08 10:47 | CP.PCM.PN ---
Subjective - Date & Time of Evaluation Date of Evaluation: 02/08/17 Time of Evaluation: 10:43 - Subjective Subjective: SURGERY NOTE FOR DR. SANDOVAL 71M seen and examined at bedside. Patient feels better, admits to mild abdominal pain, denies nausea/vomiting. Objective - Vital Signs/Intake and Output Vital Signs (last 24 hours): Temp Pulse Resp BP Pulse Ox 98.2 F 66 22 168/63 H 97 02/08/17 08:34 02/08/17 08:34 02/08/17 08:34 02/08/17 10:16 02/08/17 08:34 Intake and Output: 02/08/17 02/08/17 06:59 18:59 Intake Total 540 0 Output Total 250 Balance 290 0 - Medications Medications: Current Medications Atorvastatin Calcium (Lipitor) 20 mg PO HS [facility] Last Admin: 02/07/17 21:24 Dose: 20 mg Calcium Acetate (Phoslo) 667 mg PO WM [facility] Last Admin: 02/08/17 08:54 Dose: 667 mg Carvedilol (Coreg) 12.5 mg PO BID [facility] Last Admin: 02/08/17 10:16 Dose: 12.5 mg Meropenem 250 mg/ Sodium (Chloride) 100 mls @ 100 mls/hr IVPB Q12H [facility] PRN Reason: Protocol Stop: 02/14/17 18:01 Last Admin: 02/08/17 05:52 Dose: 100 mls/hr Insulin Human Lispro (Humalog Low) 0 units SC ACHS [facility] PRN Reason: Protocol Last Admin: 02/08/17 08:37 Dose: Not Given Levothyroxine Sodium (Synthroid) 75 mcg PO ACB [facility] Last Admin: 02/08/17 08:54 Dose: 75 mcg Morphine Sulfate (Morphine) 1 mg IVP Q6H PRN PRN Reason: Pain, moderate (4-7) Ondansetron HCl (Zofran Inj) 4 mg IVP Q4H PRN PRN Reason: Nausea/Vomiting Pantoprazole Sodium (Protonix Inj) 40 mg IVP DAILY [facility] Last Admin: 02/08/17 10:17 Dose: 40 mg - Labs Labs: 02/08/17 08:00 02/08/17 08:00 PT 11.6 Seconds (9.9-11.8) 02/08/17 08:00 INR 1.07 (0.93-1.08) 02/08/17 08:00 APTT 27.4 Seconds (23.7-30.8) 02/05/17 03:50 - Constitutional Appears: Non-toxic, No Acute Distress - Respiratory Exam Respiratory Exam: Clear to Ausculation Bilateral, NORMAL BREATHING PATTERN - Cardiovascular Exam Cardiovascular Exam: REGULAR RHYTHM, +S1, +S2 - GI/Abdominal Exam GI & Abdominal Exam: Soft, Tenderness. absent: Distended, Firm, Guarding, Rigid , Rebound - Neurological Exam Neurological Exam: Alert, Awake - Skin Skin Exam: Dry, Intact, Normal Color, Warm Assessment and Plan - Assessment and Plan (Free Text) Assessment: 71M with choledocholithiasis MRCP: 3MM non-obstructing stone in CBD Plan: - NPOmn, Abx, IVF, pain control - ERCP tomorrow as per GI - Cholecystectomy to follow Further recs discuss with Dr. Keith Hernandez, PGY1
--- NOTE | 2017-02-08 11:36 | CP.PCM.PN ---
Subjective - Date & Time of Evaluation Date of Evaluation: 02/08/17 Time of Evaluation: 10:05 - Subjective Subjective: Comfortable, not in distress, no fevers overnight, no abdominal pain, no nausea. Objective - Vital Signs/Intake and Output Vital Signs (last 24 hours): Temp Pulse Resp BP Pulse Ox 98.2 F 66 22 168/63 H 97 02/08/17 08:34 02/08/17 08:34 02/08/17 08:34 02/08/17 10:16 02/08/17 08:34 Intake and Output: 02/08/17 02/08/17 06:59 18:59 Intake Total 540 0 Output Total 250 Balance 290 0 - Medications Medications: Current Medications Atorvastatin Calcium (Lipitor) 20 mg PO HS [facility] Last Admin: 02/07/17 21:24 Dose: 20 mg Calcium Acetate (Phoslo) 667 mg PO WM [facility] Last Admin: 02/08/17 08:54 Dose: 667 mg Carvedilol (Coreg) 12.5 mg PO BID [facility] Last Admin: 02/08/17 10:16 Dose: 12.5 mg Meropenem 250 mg/ Sodium (Chloride) 100 mls @ 100 mls/hr IVPB Q12H [facility] PRN Reason: Protocol Stop: 02/14/17 18:01 Last Admin: 02/08/17 05:52 Dose: 100 mls/hr Insulin Human Lispro (Humalog Low) 0 units SC ACHS [facility] PRN Reason: Protocol Last Admin: 02/08/17 08:37 Dose: Not Given Levothyroxine Sodium (Synthroid) 75 mcg PO ACB [facility] Last Admin: 02/08/17 08:54 Dose: 75 mcg Morphine Sulfate (Morphine) 1 mg IVP Q6H PRN PRN Reason: Pain, moderate (4-7) Ondansetron HCl (Zofran Inj) 4 mg IVP Q4H PRN PRN Reason: Nausea/Vomiting Pantoprazole Sodium (Protonix Inj) 40 mg IVP DAILY [facility] Last Admin: 02/08/17 10:17 Dose: 40 mg - Labs Labs: 02/08/17 08:00 02/08/17 08:00 PT 11.6 Seconds (9.9-11.8) 02/08/17 08:00 INR 1.07 (0.93-1.08) 02/08/17 08:00 APTT 27.4 Seconds (23.7-30.8) 02/05/17 03:50 - Constitutional Appears: Non-toxic, No Acute Distress - Head Exam Head Exam: NORMAL INSPECTION - ENT Exam ENT Exam: Mucous Membranes Moist - Neck Exam Neck Exam: absent: Lymphadenopathy, Meningismus - Respiratory Exam Respiratory Exam: Decreased Breath Sounds - Cardiovascular Exam Cardiovascular Exam: +S1, +S2 - GI/Abdominal Exam GI & Abdominal Exam: Soft. absent: Tenderness Assessment and Plan - Assessment and Plan (Free Text) Plan: Assessment sepsis secondary to ESBL-producing multidrug-resistant E. coli bacteremia probably secondary to acute cholecystitis, with some clinical improvement history of ESBL E. coli bacteremia HTN Congestive Heart Failure DM GERD End-Stage Renal disease on hemodialysis history of depression history of Bowman's esophagus history of epididymitis on the left Plan Continue Meropenem (day 4), reviewed MRCP showing cholecystitis; follow up repeat blood cx; follow up plan of surgery Will continue to follow clinically
[2017-02-08] MEDS: Meropenem 500 MG in Sodium Chloride 0.9% 100 ML IVPB SCH ×2 (12:30→23:05)
--- NOTE | 2017-02-08 14:08 | PN ---
DATE: 02/08/2017 SUBJECTIVE: The patient is currently seen ambulating in the room. He tolerated yesterday's dialysis with removal of 2.8 liters of fluid. He remains on antibiotic therapy for his E. coli bacteremia. MEDICATIONS: Include that of Coreg, insulin, Lipitor, meropenem, morphine, PhosLo, Protonix, Synthro id, and Zofran p.r.n. OBJECTIVE: INTAKE AND OUTPUT: Intake 1240, output 250 plus 2800 mL with dialysis. VITAL SIGNS: Blood pressure 168/63, temperature 98.2, respiratory rate 22 with a pulse of 66. Pulse ox is 97%. HEENT: Normocephalic, atraumatic. Conjunctivae are pale. Sclerae are nonicteric. NECK: Supple, no neck vein distention. CHEST: Clear to auscultation and percussion. No rales, no rhonchi, no wheezing. CARDIOVASCULAR: Shows a regular rate and rhythm without audible murmurs, rubs, or gallops. ABDOMEN: Soft. Bowel sounds normal. No rebound, no guarding, no tenderness on palpation of any of the 4 quadrants. The patient has an indwelling suprapubic catheter connected to a right urine leg ba g with no significant urine in the bag today. EXTREMITIES: Show no cyanosis, no clubbing or edema. LABORATORY DATA AND IMAGING: CBC today, white blood cell count 5.0, hemoglobin 9.8 with a platelet c ount of 125,000. Chemistries show normal electrolytes, BUN 32 with a creatinine of 5.1. Glucose is 126 with a calcium of 8.0. Bilirubin is improved at 1.4. Liver enzymes are lower. AST is now gilberto l at 41, ALT is down to 147. Alkaline phosphatase is 305, down from 412. MICROBIOLOGY: Blood cultures are positive for E. coli ESBL. Urine culture was a mixed specimen. Recently done HIDA scan showed a normal scan with no evidence for blockage of the cystic duct. MRCP showed a 3 mm nonobstructing stone in the common bile duct. The patient is scheduled for an ERCP abigail orrow. Hepatitis serologies were negative. ASSESSMENT: 1. End-stage renal disease. Continue Monday, , Monday dialysis. We will need to coordin ate tomorrow's dialysis with the planned endoscopic retrograde cholangiopancreatogram. 2. Status post abdominal pain, nausea, vomiting, and fevers. Blood cultures were positive for Esche richia coli extended [id number]. The patient remains on intravenous antibiotic therapy. Two possible etiologies of that are the urinary tract and possible related to acute cholecystitis. Urine cultures unfortunately showed not a clean catch and there is no evidence for obstruction of th e cystic duct. 3. History of insulin-dependent diabetes mellitus. Glucose control is acceptable. The patient will continue sliding scale insulin. 4. Arteriosclerotic heart disease, currently stable. 5. Hyperlipidemia. The patient had been on statins in the outpatient setting. The patient has curr ently resumed Lipitor therapy at 20 mg a day. Again, we will need to monitor his liver enzymes with patient being back on statin therapy. 6. History of secondary hyperparathyroidism. Phosphorus level done yesterday with dialysis was 4.0. The patient continues on PhosLo therapy and renal diet. 7. History of hypothyroidism. The patient will continue Levoxyl therapy. 8. History of chronic indwelling suprapubic catheter. This was placed years back in the setting of benign prostatic hypertrophy. The patient has had intermittent urinary tract infections in the past related to this catheter. 9. History of mild dementia and hearing loss, currently stable. 10. History of pulmonary hypertension. PLAN: 1. Continue dialysis Monday, , Monday. 2. Continue renal diet and binder therapy. Phosphorus level is acceptable. 3. Maximize Aranesp dose as patient's hemoglobin is below 10. He received Aranesp, a total of 100 m cg, 75 mcg given yesterday in addition to the 25 mcg given earlier in the week. 3. Continue sliding scale insulin. 4. Continue thyroid replacement therapy. 5. We will attempt to coordinate his ERCP with tomorrow's dialysis. Maikel Tan MD cc: [phone] TT: 02/08/2017 14:07:11 Confirmation # [id number] Dictation # [id number] sn
--- NOTE | 2017-02-09 07:32 | CP.PCM.PN ---
Subjective - Date & Time of Evaluation Date of Evaluation: 02/09/17 Time of Evaluation: 06:30 - Subjective Subjective: General Surgery Dr. Parker Pt S&E @bedside. NAEO. denies abd pain, N/V. NPO after MN for ERCP today per GI. Objective - Vital Signs/Intake and Output Vital Signs (last 24 hours): Temp Pulse Resp BP Pulse Ox 98.6 F 54 L 21 169/70 H 96 02/08/17 16:00 02/08/17 16:00 02/08/17 16:00 02/08/17 18:14 02/08/17 16:00 Intake and Output: 02/09/17 02/09/17 06:59 18:59 Intake Total 540 Output Total 100 Balance 440 - Medications Medications: Current Medications Atorvastatin Calcium (Lipitor) 20 mg PO HS [facility] Last Admin: 02/08/17 22:00 Dose: 20 mg Calcium Acetate (Phoslo) 667 mg PO WM [facility] Last Admin: 02/08/17 18:02 Dose: 667 mg Carvedilol (Coreg) 12.5 mg PO BID [facility] Last Admin: 02/08/17 18:14 Dose: 12.5 mg Meropenem 500 mg/ Sodium (Chloride) 100 mls @ 100 mls/hr IVPB Q12H [facility] PRN Reason: Protocol Stop: 02/14/17 18:01 Last Admin: 02/08/17 23:05 Dose: 100 mls/hr Insulin Human Lispro (Humalog Low) 0 units SC ACHS [facility] PRN Reason: Protocol Last Admin: 02/08/17 23:04 Dose: Not Given Levothyroxine Sodium (Synthroid) 75 mcg PO ACB [facility] Last Admin: 02/08/17 08:54 Dose: 75 mcg Morphine Sulfate (Morphine) 1 mg IVP Q6H PRN PRN Reason: Pain, moderate (4-7) Ondansetron HCl (Zofran Inj) 4 mg IVP Q4H PRN PRN Reason: Nausea/Vomiting - Labs Labs: 02/09/17 07:40 02/09/17 07:35 - Constitutional Appears: Non-toxic, No Acute Distress - Head Exam Head Exam: NORMAL INSPECTION - Eye Exam Eye Exam: Normal appearance - ENT Exam ENT Exam: Mucous Membranes Moist - Respiratory Exam Respiratory Exam: NORMAL BREATHING PATTERN. absent: Accessory Muscle Use, Respiratory Distress - GI/Abdominal Exam GI & Abdominal Exam: Soft. absent: Distended, Guarding, Tenderness, Rebound - Neurological Exam Neurological Exam: Alert, Awake - Psychiatric Exam Psychiatric exam: Normal Affect, Normal Mood - Skin Skin Exam: Dry, Intact, Normal Color, Warm Assessment and Plan - Assessment and Plan (Free Text) Assessment: 71 y/o M w/ choledocholithiasis - NPO after midnight - Cholecystectomy tomorrow - cont Abx, IVF, pain control - ERCP tomorrow as per GI Pt discussed w/ Dr. Keith Pichardo DO PGY1
[2017-02-09 08:00] LABS: HEMATOCRIT 31.2 % (42.0-52.0); MEAN CELL VOLUME 90.7 fL (80.0-105.0); MEAN CORPUSCULAR HEMOGLOBIN 28.2 pg (25.0-35.0); MEAN CORPUSCULAR HGB CONC 31.1 g/dl (31.0-37.0); MEAN PLATELET VOLUME 9.9 fl (7.0-11.0); RED CELL DISTRIBUTION WIDTH 15.7 % (11.5-14.5); WHITE BLOOD COUNT 4.8 10^3/ul (4.5-11.0)
[2017-02-09 08:13] LABS: INR 1.09 (0.93-1.08)
[2017-02-09] MEDS: Insulin Lispro (humaLOG) LOW Coverage SC SCH ×4 (08:19→22:44)
[2017-02-09] MEDS: Levothyroxine 75 MCG TAB PO SCH (08:34)
[2017-02-09 08:46] LABS: BILIRUBIN,TOTAL 1.2 mg/dL (0.2-1.3); CALCIUM 8.2 mg/dL (8.4-10.5); POTASSIUM 4.4 mmol/L (3.6-5.0); TOTAL PROTEIN 5.9 g/dL (5.8-8.3)
--- NOTE | 2017-02-09 08:54 | PN ---
DATE: 02/09/2017 SUBJECTIVE: The patient has no complaints of any chest pain, no shortness of breath, no headaches. PHYSICAL EXAMINATION: VITAL SIGNS: Temperature is 98.6, pulse of 54, blood pressure 116/70, respirations 20. GENERAL: The patient comfortable, in no acute distress. HEENT: Anicteric sclerae. Moist mucosa. NECK: No JVD or adenopathy. CARDIAC: S1/S2. No murmurs. No rubs. Regular. RESPIRATORY: Clear to auscultation bilaterally. No wheezes, rales, or rhonchi. Good air entry. ABDOMEN: Bowel sounds are positive, soft, nontender, and nondistended. EXTREMITIES: No edema. Has 1+ pulses. LABORATORIES: White count of 5.0, hemoglobin 9.8. Creatinine is 5.1. ASSESSMENT: 1. Choledocholithiasis with a 3 mm nonobstructing stone. 2. Transaminitis, improving. 3. Elevated alkaline phosphatase. 4. End-stage renal disease, on hemodialysis. 5. Bowman's esophagus. 6. Secondary hyperparathyroidism. 7. Suprapubic catheter, chronic. 8. Left arm arteriovenous fistula. 9. Diabetes type 2. 10. Coronary artery disease. 11. Hypertension. 12. Hypothyroidism. 13. Congestive heart failure, secondary to systolic dysfunction. 14. Sepsis, secondary to Escherichia coli. 15. Hearing impairment. PLAN: The patient is currently comfortable, not complaining of any pain. The patient is being follo wed by Dr. Gracia of infectious disease. The patient is on meropenem, day #5. The patient is undergo ing surgery for the gallstones. He is on carvedilol. He is on morphine for pain. The patient is on PhosLo for secondary hyperparathyroidism. He is on Protonix IV. I will discontinue the patient's P rotonix. He is going to be on his Synthroid for hypothyroidism. Clinically, he feels well and he is optimized for his surgery. Bc Mariee MD cc: [id number] TT: 02/09/2017 08:54:00 Confirmation # [id number] Dictation # [id number] en
[2017-02-09] MEDS ORDERED: Iohexol 240 (50 ml) ONE (09:02)
--- NOTE | 2017-02-09 10:51 | CON ---
DATE: 02/09/2017 HISTORY OF PRESENT ILLNESS: The patient is a 71-year-old male who presents with fever and was found to have gallbladder disease with possible obstruction. The patient is planned for surgery today. PAST MEDICAL HISTORY: Notable for history of coronary artery bypass surgery several years ago for cr itical left main stenosis as well as triple vessel disease. In addition, the patient suffers from diabetes mellitus, hypertension, as well as end-stage ischemic dilated cardiomyopathy. In addition, the patient suffers from diabetes mellitus and is on dialysis for end-stage renal diseas e. He denies chest pain, he denies shortness of breath. SOCIAL HISTORY: Free of smoking. REVIEW OF SYSTEMS: A 14-point review of systems is free of cardiac symptomatology. PHYSICAL EXAMINATION: VITAL SIGNS: Blood pressure is 169/70. Heart rate is in the 50s, normal sinus rhythm. NECK: Negative JVD. LUNGS: Decreased breath sounds without rales. HEART: Reveals S1, S2. EXTREMITIES: Without edema. EKG shows normal sinus rhythm with diffuse ST depressions. LABORATORIES: The glucose is 126, creatinine is 5.1 with a potassium of 3.9. Hemoglobin is 9.7. IMPRESSION: 1. Gallbladder disease. 2. End-stage ischemic dilated cardiomyopathy. 3. Multivessel coronary artery disease including left main artery stenosis. 4. Status post coronary artery bypass surgery. 5. Diabetes mellitus. 6. End-stage renal disease treated with dialysis. 7. Anemia. PLAN: Given these findings, the patient's cardiac status has not been evaluated over the past severa l years due lost to followup. The patient on clinical grounds does not appear to have any active cardiac issues at this time. The patient is currently on beta blockers. In terms of a preop cardiac risk assessment, the patient is at increased risk for any anesthesia give n his poor LV function, history of coronary disease, abnormal EKG, as well as his end-stage renal dis ease. The decision on whether the patient should have surgery will depend on the surgical evaluation, on wh ether the surgery is urgent versus whether it can be done electively. We will continue the beta blockers if the patient is to go for surgery. Bharath Campos MD cc: [id number] TT: 02/09/2017 10:50:57 Confirmation # [id number] Dictation # [id number]
[2017-02-09] MEDS ORDERED: Succinylcholine 200 mg/10 ml Inj IV ONE (11:31)
[2017-02-09] MEDS ORDERED: Etomidate 20 mg/10ml Inj IV ONE (11:31)
[2017-02-09] MEDS ORDERED: Indomethacin 50 MG Suppository PR ONE ×2 (11:43→11:44)
--- NOTE | 2017-02-09 12:14 | PN ---
DATE: 02/09/2017 SUBJECTIVE: The patient is currently seen comfortable lying in bed. He is n.p.o. He is preparing t o go down for his ERCP. The patient does have a 3 mm nonobstructing common bile duct stone. The pat ient remains on antibiotic therapy for his E. coli bacteremia. MEDICATIONS: Medication list reviewed. The patient is currently on Coreg, insulin, Lipitor, meropen em, p.r.n. morphine, PhosLo, Levoxyl, and p.r.n. Zofran. OBJECTIVE INTAKE AND OUTPUT: Intake 550, output 100 mL of urine. VITAL SIGNS: Blood pressure is 167/59, temperature 98.5, respiratory rate of 22 with a pulse of 60 HEENT: Normocephalic, atraumatic. Conjunctivae are pale. Sclerae are nonicteric. NECK: Supple. No neck vein distention. CHEST: Clear to auscultation and percussion. No rales, no rhonchi, no wheezing. CARDIOVASCULAR shows a regular rate and rhythm without audible murmurs, rubs, or gallops. ABDOMEN: Soft. Bowel sounds normal. No rebound, no guarding, no tenderness on palpation. The oz ent has a chronic indwelling suprapubic catheter connected to a right urine leg bag with only minimal urine in the bag. EXTREMITIES: Show no cyanosis, clubbing or edema. LABORATORY DATA AND IMAGING: White blood cell count today 4.8, hemoglobin 9.7 with a platelet count of 156,000. Chemistries today showed BUN of 37, creatinine of 6.3. Electrolytes are acceptable. Ca lcium is 8.2, corrects to normal for an albumin of 2.9. Last phosphorus level was 4.0. Mild elevati on of liver enzymes, but improving. Bilirubin is 1.2, now normal. AST is normal, ALT is down to 106 and alkaline phosphatase is down 294. Repeat blood cultures negative. Initial blood cultures were positive for E. coli extended spectrum beta-lactamase. A HIDA scan done earlier this week was normal , no evidence for cystic duct obstruction. MRCP again showed a 3 mm nonobstructing stone in the comm on bile duct. ASSESSMENT: 1. End-stage renal disease. The patient will continue Monday, , Monday dialysis Post-ERC P, patient will be sent up for dialysis as per routine. This was coordinated with his ERCP. 2. Status post abdominal pain, nausea, vomiting and fevers. Blood cultures were positive for Escher ichia coli extended spectrum beta-lactamase. Again, uncertain whether the source was urine as the don tee has had intermittent urinary tract infections. It was not possible to get a clean catch urine, so cultures were not done. It is also possible that he might have had Escherichia coli secondary to acute cholecystitis on admission. Nevertheless, the patient will complete a course of antibiotic th erapy. 3. History of insulin-dependent diabetes mellitus. Glucose control is acceptable. The patient will continue sliding scale insulin. 4. Arteriosclerotic heart disease, currently stable. 5. Hyperlipidemia. The patient had been on statin therapy on the outside and he has continued this in the hospital. Liver enzymes appear to be falling, so I see no contraindications to restarting the statins. 6. History of secondary hyperparathyroidism. Last phosphorus level 4.0. The patient will continue PhosLo therapy and a renal diet. 7. Hypothyroidism. The patient will continue Levoxyl. 8. Chronic indwelling suprapubic catheter. This is of many years' duration dating back to the time that he had obstructive benign prostatic hypertrophy. The patient has had intermittent urinary tract infections in the past. The patient has been monitored by his urologist. 9. History of mild dementia and hearing loss, currently stable. 10. History of pulmonary hypertension. PLAN: 1. Hemodialysis to follow ERCP today. 2. Continue renal diet and binder therapy. 3. The patient will continue a maximum dose of 100 mcg of Aranesp on a weekly basis. 4. Continue sliding scale insulin. Glucose control is acceptable. 5. Continue thyroid replacement therapy. Maikel Tan MD cc: [phone] TT: 02/09/2017 12:14:18 Confirmation # [id number] Dictation # [id number]
[2017-02-09] MEDS ORDERED: Sodium Chloride 0.9% 1,000 ML IV SCH (12:30)
[2017-02-09] MEDS: Meropenem 500 MG in Sodium Chloride 0.9% 100 ML IVPB SCH ×2 (14:09→22:47)
[2017-02-09 14:46] LABS: MAGNESIUM 2.1 mg/dL (1.7-2.2); PHOSPHOROUS 3.3 mg/dL (2.5-4.5)
--- NOTE | 2017-02-09 14:52 | RAD ---
PROCEDURE: ERCP HISTORY: ? CBD OBST COMPARISON: None TECHNIQUE: Standard protocol for this study/examination. FINDINGS: Submitted images from the current procedure: 5.0. IMPRESSION: Total fluoroscopic time (continuous mode) utilized during the procedure: 2 minutes 9 seconds fluoro time.
[2017-02-09] MEDS ORDERED: Darbepoetin Alfa 25 mcg/ml Inj IVP ONE (16:15)
--- NOTE | 2017-02-09 16:29 | CP.PCM.PN ---
Subjective - Date & Time of Evaluation Date of Evaluation: 02/09/17 Time of Evaluation: 10:25 - Subjective Subjective: Patient is comfortable, no fevers, no abdominal pain currently, no vomiting. Objective - Vital Signs/Intake and Output Vital Signs (last 24 hours): Temp Pulse Resp BP Pulse Ox 99.1 F 56 L 15 200/76 H 99 02/09/17 13:04 02/09/17 13:04 02/09/17 13:04 02/09/17 13:04 02/09/17 13:04 Intake and Output: 02/09/17 02/09/17 06:59 18:59 Intake Total 540 0 Output Total 100 Balance 440 0 - Medications Medications: Current Medications Atorvastatin Calcium (Lipitor) 20 mg PO HS [facility] Last Admin: 02/08/17 22:00 Dose: 20 mg Calcium Acetate (Phoslo) 667 mg PO WM [facility] Last Admin: 02/09/17 12:00 Dose: Not Given Carvedilol (Coreg) 12.5 mg PO BID [facility] Last Admin: 02/09/17 09:21 Dose: Not Given Meropenem 500 mg/ Sodium (Chloride) 100 mls @ 100 mls/hr IVPB Q12H [facility] PRN Reason: Protocol Stop: 02/14/17 18:01 Last Admin: 02/09/17 14:09 Dose: Not Given Insulin Human Lispro (Humalog Low) 0 units SC ACHS [facility] PRN Reason: Protocol Last Admin: 02/09/17 11:54 Dose: Not Given Levothyroxine Sodium (Synthroid) 75 mcg PO ACB [facility] Last Admin: 02/09/17 08:34 Dose: Not Given Morphine Sulfate (Morphine) 1 mg IVP Q6H PRN PRN Reason: Pain, moderate (4-7) Ondansetron HCl (Zofran Inj) 4 mg IVP Q4H PRN PRN Reason: Nausea/Vomiting - Labs Labs: 02/09/17 07:40 02/09/17 07:35 PT 11.8 Seconds (9.9-11.8) 02/09/17 07:40 INR 1.09 (0.93-1.08) H 02/09/17 07:40 APTT 27.4 Seconds (23.7-30.8) 02/05/17 03:50 - Constitutional Appears: Non-toxic, No Acute Distress - Head Exam Head Exam: NORMAL INSPECTION - ENT Exam ENT Exam: Mucous Membranes Moist - Neck Exam Neck Exam: absent: Lymphadenopathy, Meningismus - Respiratory Exam Respiratory Exam: Decreased Breath Sounds - Cardiovascular Exam Cardiovascular Exam: +S1, +S2 - GI/Abdominal Exam GI & Abdominal Exam: Soft. absent: Tenderness Assessment and Plan - Assessment and Plan (Free Text) Plan: Assessment sepsis secondary to ESBL-producing multidrug-resistant E. coli bacteremia probably secondary to acute cholecystitis, with some clinical improvement; for ERCP today history of ESBL E. coli bacteremia HTN Congestive Heart Failure DM GERD End-Stage Renal disease on hemodialysis history of depression history of Bowman's esophagus history of epididymitis on the left Plan Continue Meropenem (day 5), reviewed MRCP showing cholecystitis; repeat blood cx negative; follow up results of the ERCP Will continue to follow clinically
[2017-02-10 07:27] LABS: HEMATOCRIT 30.8 % (42.0-52.0); MEAN CELL VOLUME 90.6 fL (80.0-105.0); MEAN CORPUSCULAR HEMOGLOBIN 28.2 pg (25.0-35.0); MEAN CORPUSCULAR HGB CONC 31.2 g/dl (31.0-37.0); MEAN PLATELET VOLUME 9.8 fl (7.0-11.0); RED CELL DISTRIBUTION WIDTH 15.5 % (11.5-14.5); WHITE BLOOD COUNT 5.6 10^3/ul (4.5-11.0)
[2017-02-10 08:26] LABS: ALB/GLOB RATIO 0.9 (1.1-1.8); BILIRUBIN,TOTAL 1.4 mg/dL (0.2-1.3); CALCIUM 7.8 mg/dL (8.4-10.5); POTASSIUM 4.1 mmol/L (3.6-5.0); TOTAL PROTEIN 5.8 g/dL (5.8-8.3)
[2017-02-10] MEDS: Insulin Lispro (humaLOG) LOW Coverage SC SCH ×4 (09:16→21:45)
[2017-02-10] MEDS: Levothyroxine 75 MCG TAB PO SCH (09:17)
--- NOTE | 2017-02-10 09:37 | PN ---
DATE: 02/10/2017 SUBJECTIVE: The patient has no complaints of any chest pain, no shortness of breath, no headaches. PHYSICAL EXAMINATION: VITAL SIGNS: Temperature is 97.9, pulse of 63, blood pressure is 185/72, respirations 21. GENERAL: The patient comfortable, in no acute distress. HEENT: Anicteric sclerae. Moist mucosa. NECK: No JVD or adenopathy. CARDIAC: S1/S2. No murmurs. No rubs. Regular. RESPIRATORY: Clear to auscultation bilaterally. No wheezes, rales, or rhonchi. Good air entry. ABDOMEN: Bowel sounds are positive, soft, nontender, and nondistended. EXTREMITIES: No edema. Has 1+ pulses. ASSESSMENT: 1. Common bile duct stone. 2. Status post endoscopic retrograde cholangiopancreatogram. 3. Transaminitis, improving. 4. End-stage renal disease, on hemodialysis. 5. Bowman's esophagus. 6. Secondary hyperparathyroidism. 7. Suprapubic catheter, chronic. 8. Left arm arteriovenous fistula. 9. Diabetes type 2. 10. Coronary artery disease. 11. Hypertension. 12. Hypothyroidism. 13. Congestive heart failure, secondary to systolic dysfunction. 14. Sepsis, secondary to Escherichia coli. 15. Hearing impairment. PLAN: The patient is currently comfortable. He has Escherichia coli sepsis. He is on Lipitor for d yslipidemia. The patient is on meropenem for antibiotics. He is on morphine for pain. He is on Chris sLo for his secondary hyperparathyroidism. He is on Synthroid for his hypothyroidism. He is being f ollowed by Dr. Tan from nephrology. I did review his notes. I did speak to Dr. Campos yesterday. The patient is at high risk because of his underlying multiple comorbidities. Bc Mariee MD cc: [phone] TT: 02/10/2017 09:36:58 Confirmation # [id number] Dictation # [id number] en
[2017-02-10] MEDS: Meropenem 500 MG in Sodium Chloride 0.9% 100 ML IVPB SCH ×2 (10:30→22:36)
--- NOTE | 2017-02-10 13:08 | CP.PCM.PN ---
Subjective - Date & Time of Evaluation Date of Evaluation: 02/10/17 Time of Evaluation: 13:05 - Subjective Subjective: RFV: Cholangitis S: No acute events. No bleeding, fever, or abdominal pain. NPO for cholecystectomy currently. Had dialysis yesterday. Objective - Vital Signs/Intake and Output Vital Signs (last 24 hours): Temp Pulse Resp BP Pulse Ox 97.7 F 62 20 165/72 H 97 02/10/17 06:00 02/10/17 10:26 02/10/17 06:00 02/10/17 10:26 02/10/17 06:00 Intake and Output: 02/10/17 02/10/17 06:59 18:59 Intake Total 540 Output Total 130 Balance 410 - Medications Medications: Current Medications Atorvastatin Calcium (Lipitor) 20 mg PO HS [facility] Last Admin: 02/09/17 22:44 Dose: 20 mg Calcium Acetate (Phoslo) 667 mg PO WM [facility] Last Admin: 02/10/17 12:44 Dose: Not Given Carvedilol (Coreg) 12.5 mg PO BID [facility] Last Admin: 02/10/17 10:26 Dose: 12.5 mg Meropenem 500 mg/ Sodium (Chloride) 100 mls @ 100 mls/hr IVPB Q12H [facility] PRN Reason: Protocol Stop: 02/14/17 18:01 Last Admin: 02/10/17 10:30 Dose: 100 mls/hr Insulin Human Lispro (Humalog Low) 0 units SC ACHS [facility] PRN Reason: Protocol Last Admin: 02/10/17 12:31 Dose: Not Given Levothyroxine Sodium (Synthroid) 75 mcg PO ACB [facility] Last Admin: 02/10/17 09:17 Dose: Not Given Morphine Sulfate (Morphine) 1 mg IVP Q6H PRN PRN Reason: Pain, moderate (4-7) Ondansetron HCl (Zofran Inj) 4 mg IVP Q4H PRN PRN Reason: Nausea/Vomiting - Labs Labs: 02/10/17 07:00 02/10/17 07:00 PT 11.8 Seconds (9.9-11.8) 02/09/17 07:40 INR 1.09 (0.93-1.08) H 02/09/17 07:40 APTT 27.4 Seconds (23.7-30.8) 02/05/17 03:50 - Constitutional Appears: No Acute Distress, Chronically Ill - Head Exam Head Exam: ATRAUMATIC, NORMOCEPHALIC - Eye Exam Eye Exam: absent: Scleral icterus - Respiratory Exam Respiratory Exam: NORMAL BREATHING PATTERN. absent: Wheezes, Respiratory Distress - Cardiovascular Exam Cardiovascular Exam: +S1, +S2 - GI/Abdominal Exam GI & Abdominal Exam: Soft. absent: Distended, Tenderness - Neurological Exam Neurological Exam: Alert, Oriented x3 Assessment and Plan - Assessment and Plan (Free Text) Assessment: 71 year old male with h/o CAD, CHF, ESRD on HD, DM, Diverticulitis, Alzheimer's dementia admitted with choledocholithiasis and cholangitis c/b E coli ESBL bacteremia. 1. Choledocholithiasis 2. Cholangitis Plan: -s/p ERCP with sphincterotomy and stone extraction -on IV antibiotics per ID -surgery evaluating for cholecystectomy -lfts stable/downtrending -no signs of procedureal complications -advance diet as tolerated after surgery -will sign off at this time
--- NOTE | 2017-02-10 13:30 | PN ---
DATE: 02/10/2017 The patient is comfortable, without shortness of breath. PHYSICAL EXAMINATION: VITAL SIGNS: Blood pressure is 165/72, the heart rate is in the 60s. NECK: Negative JVD. LUNGS: Without rales. HEART: With S1, S2. EXTREMITIES: Without edema. Hemoglobin is 9.6. Glucose is 223, creatinine is 5.0. IMPRESSION: 1. Cholecystitis. 2. Severe renal insufficiency. 3. Multivessel coronary artery disease. 4. End-stage dilated cardiomyopathy. 5. Anemia. Given these findings, the patient's cardiorenal and coronary disease put the patient at high risk for any surgery. The patient is currently on beta blockers. His cardiac status at this point is at its optimum point. Bharath Campos MD cc: [phone] TT: 02/10/2017 13:30:14 Confirmation # [id number] Dictation # [id number] en
[2017-02-10] MEDS ORDERED: Iohexol 240 (50 ml) ONE (13:54)
[2017-02-10] MEDS ORDERED: Bupivacaine 0.5% Inj(30mL) ONE (13:54)
--- NOTE | 2017-02-10 14:06 | CP.PCM.PN ---
Subjective - Date & Time of Evaluation Date of Evaluation: 02/10/17 Time of Evaluation: 09:30 - Subjective Subjective: Comfortable on a chair, not in distress, no fevers overnight, no diarrhea, no abdominal pain. Objective - Vital Signs/Intake and Output Vital Signs (last 24 hours): Temp Pulse Resp BP Pulse Ox 97.7 F 62 20 165/72 H 97 02/10/17 06:00 02/10/17 10:26 02/10/17 06:00 02/10/17 10:26 02/10/17 06:00 Intake and Output: 02/10/17 02/10/17 06:59 18:59 Intake Total 540 Output Total 130 Balance 410 - Medications Medications: Current Medications Atorvastatin Calcium (Lipitor) 20 mg PO HS [facility] Last Admin: 02/09/17 22:44 Dose: 20 mg Calcium Acetate (Phoslo) 667 mg PO WM [facility] Last Admin: 02/10/17 12:44 Dose: Not Given Carvedilol (Coreg) 12.5 mg PO BID [facility] Last Admin: 02/10/17 10:26 Dose: 12.5 mg Meropenem 500 mg/ Sodium (Chloride) 100 mls @ 100 mls/hr IVPB Q12H [facility] PRN Reason: Protocol Stop: 02/14/17 18:01 Last Admin: 02/10/17 10:30 Dose: 100 mls/hr Insulin Human Lispro (Humalog Low) 0 units SC ACHS [facility] PRN Reason: Protocol Last Admin: 02/10/17 12:31 Dose: Not Given Levothyroxine Sodium (Synthroid) 75 mcg PO ACB [facility] Last Admin: 02/10/17 09:17 Dose: Not Given Morphine Sulfate (Morphine) 1 mg IVP Q6H PRN PRN Reason: Pain, moderate (4-7) Ondansetron HCl (Zofran Inj) 4 mg IVP Q4H PRN PRN Reason: Nausea/Vomiting - Labs Labs: 02/10/17 07:00 02/10/17 07:00 PT 11.8 Seconds (9.9-11.8) 02/09/17 07:40 INR 1.09 (0.93-1.08) H 02/09/17 07:40 APTT 27.4 Seconds (23.7-30.8) 03/19/17 03:50 - Constitutional Appears: Non-toxic, No Acute Distress - Head Exam Head Exam: NORMAL INSPECTION - ENT Exam ENT Exam: Mucous Membranes Moist - Neck Exam Neck Exam: absent: Lymphadenopathy, Meningismus - Respiratory Exam Respiratory Exam: Decreased Breath Sounds - Cardiovascular Exam Cardiovascular Exam: +S1, +S2 - GI/Abdominal Exam GI & Abdominal Exam: Soft. absent: Tenderness Assessment and Plan - Assessment and Plan (Free Text) Plan: Assessment sepsis secondary to ESBL-producing multidrug-resistant E. coli bacteremia probably secondary to acute cholecystitis and ascending cholangitis S/P ERCP with biliary stone extraction POD #1 history of ESBL E. coli bacteremia HTN Congestive Heart Failure DM GERD End-Stage Renal disease on hemodialysis history of depression history of Bowman's esophagus history of epididymitis on the left Plan Continue Meropenem (day 6, day 1 from stone extraction); repeat blood cx negative Will continue to monitor clinically
[2017-02-10] MEDS ORDERED: Midazolam 2 MG/2 ML VIAL ONE (15:01)
[2017-02-10] MEDS ORDERED: Etomidate 20 mg/10ml Inj IV ONE (15:01)
[2017-02-10] MEDS ORDERED: Succinylcholine 200 mg/10 ml Inj IV ONE (15:01)
[2017-02-10] MEDS ORDERED: Labetalol 5 mg/ml Inj 20ML ONE (15:32)
--- NOTE | 2017-02-10 16:20 | PN ---
DATE: 02/10/2017 Pt enroute to surgery for cholecystitis, cholangitis, and choledocholithiasis. The patient did have an E. coli ESBL bacteremia. MEDICATIONS: Medication list reviewed. The patient is currently on Coreg, insulin, Lipitor, meropenem, morphine, PhosLo, Levoxyl, and Zofran p.r.n. OBJECTIVE: INTAKE AND OUTPUT: 1620 in, output 100. VITAL SIGNS: Blood pressure 194 down to 165, 67-72 diastolic. Heart rate is 62 , temperature 98.6, respiratory rate is 18. HEENT: Normocephalic, atraumatic. Conjunctivae are pale. Sclerae are nonicteric. NECK: Supple. No neck vein distention. CHEST: Clear to auscultation and percussion. No rales, no rhonchi, no wheezing. CARDIOVASCULAR: Regular rate and rhythm with no audible murmurs, rubs, or gallops. ABDOMEN: Soft. Bowel sounds normal. No rebound, no guarding, but tenderness right upper quadrant. The patient has a chronic indwelling suprapubic catheter connected to his right urine leg bag. EXTREMITIES: Show no cyanosis, no clubbing or edema. The patient has a left upper extremity AV fistula. Positive thrill, positive bruit. LABORATORY DATA AND IMAGING: CBC: White blood cell count today 5.6, hemoglobin 9.6 with a platelet count of 181,000. Chemistries today show normal electrolytes. BUN 25 with a creatinine of 5.0. Glucose is 147, calcium 7.8. Bilirubin was 1.4 with mild elevation of his liver enzymes. Microbiology was positive for E. coli ESBL on initial blood cultures. Followup blood cultures on antibiotics have been negative. Urinalysis was not a clean catch. Multiple species are identified on urine culture. Imaging studies: HIDA scan done earlier this week showed no evidence for cystic duct obstruction. MRCP showed a 3 mm nonobstructing stone on 02/09/2017. ASSESSMENT: 1. End-stage renal disease. The patient will continue Monday, , Monday dialysis. Next dialysis 02/11/17.. 2. Status post abdominal pain, nausea and vomiting. In all likelihood, patient had cholecystitis with cholangitis and choledocholithiasis. He is status post HIDA scan, MRCP and ERCP. He is en route down to surgery to have a laparoscopic cholecystectomy with Dr. Parker. 3. Escherichia coli bacteremia, extended spectrum beta-lactamase. Possibilities include that of the biliary tract or cystitis. 4. F/u post surgery.. Maikel Tan MD cc: [phone] TT: 02/10/2017 15:22:40 Confirmation # [id number] Dictation # [id number] tn MTDD
[2017-02-10] MEDS ORDERED: HYDROmorphone 0.5 mg/0.5 ml ISec IVP PRN ×2 (16:40→16:48)
--- NOTE | 2017-02-10 16:40 | PCM.SURG1 ---
Surgeon's Initial Post Op Note - Surgeon's Notes Surgeon: Keith Sheet Metal Former: Lynnette PGY2 Type of Anesthesia: General Endo, Local Pre-Operative Diagnosis: choledocholithiasis Operative Findings: normal anatomy Post-Operative Diagnosis: same Operation Performed: laparoscopic cholecystectomy Specimen/Specimens Removed: gallbladder Estimated Blood Loss: EBL {In ML}: 50 Blood Products Given: N/A Drains Used: No Drains Post-Op Condition: Good Date of Surgery/Procedure: 02/10/17 Time of Surgery/Procedure: 16:41
[2017-02-10] MEDS ORDERED: Sodium Chloride 0.9% 1,000 ML IV SCH (16:45)
--- NOTE | 2017-02-11 00:38 | CP.PCM.PN ---
Subjective - Date & Time of Evaluation Date of Evaluation: 02/11/17 Time of Evaluation: 06:15 - Subjective Subjective: General Surgery progress note for Dr. Parker Pt s/e at bedside this AM. NAEO. Patient reports no pain, fevers, chills, SOB, chest pain, nausea, or vomiting. Is tolerating diet. Had a BM overnight. Encouraged ambulation Objective - Vital Signs/Intake and Output Vital Signs (last 24 hours): Temp Pulse Resp BP Pulse Ox 97.4 F L 82 24 150/72 93 L 02/10/17 17:26 02/10/17 19:02 02/10/17 17:26 02/10/17 19:02 02/10/17 17:26 Intake and Output: 02/10/17 02/11/17 18:59 06:59 Intake Total 0 Output Total 100 Balance 0 -100 - Medications Medications: Current Medications Atorvastatin Calcium (Lipitor) 20 mg PO HS [facility] Last Admin: 02/10/17 21:33 Dose: 20 mg Calcium Acetate (Phoslo) 667 mg PO WM [facility] Last Admin: 02/10/17 18:34 Dose: Not Given Carvedilol (Coreg) 12.5 mg PO BID [facility] Last Admin: 02/10/17 19:02 Dose: 12.5 mg Heparin Sodium (Porcine) (Heparin) 5,000 units SC Q12 [facility] PRN Reason: Protocol Hydromorphone HCl (Dilaudid) 0.5 mg IVP Q4H PRN PRN Reason: Pain, moderate (4-7) Last Admin: 02/10/17 19:02 Dose: 0.5 mg Meropenem 500 mg/ Sodium (Chloride) 100 mls @ 100 mls/hr IVPB Q12H [facility] PRN Reason: Protocol Stop: 02/14/17 18:01 Last Admin: 02/10/17 22:36 Dose: 100 mls/hr Insulin Human Lispro (Humalog Low) 0 units SC ACHS [facility] PRN Reason: Protocol Last Admin: 02/10/17 21:45 Dose: Not Given Levothyroxine Sodium (Synthroid) 75 mcg PO ACB [facility] Last Admin: 02/10/17 09:17 Dose: Not Given Morphine Sulfate (Morphine) 1 mg IVP Q6H PRN PRN Reason: Pain, moderate (4-7) Ondansetron HCl (Zofran Inj) 4 mg IVP Q4H PRN PRN Reason: Nausea/Vomiting - Labs Labs: 02/10/17 07:00 02/10/17 07:00 PT 11.8 Seconds (9.9-11.8) 02/09/17 07:40 INR 1.09 (0.93-1.08) H 02/09/17 07:40 APTT 27.4 Seconds (23.7-30.8) 02/05/17 03:50 - Constitutional Appears: Well, Non-toxic, No Acute Distress - Head Exam Head Exam: ATRAUMATIC, NORMOCEPHALIC - Eye Exam Eye Exam: Normal appearance. absent: Conjunctival injection, Scleral icterus - ENT Exam ENT Exam: Mucous Membranes Moist, Normal Oropharynx - Respiratory Exam Respiratory Exam: NORMAL BREATHING PATTERN. absent: Accessory Muscle Use, Respiratory Distress - GI/Abdominal Exam GI & Abdominal Exam: Soft, Tenderness (moderate tenderness in the RUQ). absent : Distended Additional comments: Surgical incisions covered in dermabond without any active bleeding or drainage - Extremities Exam Extremities Exam: absent: Calf Tenderness, Pedal Edema, Tenderness - Neurological Exam Neurological Exam: Alert, Awake - Psychiatric Exam Psychiatric exam: Normal Affect, Normal Mood - Skin Skin Exam: Dry, Normal Color, Warm Assessment and Plan - Assessment and Plan (Free Text) Assessment: 71 y/o M w/ choledocholithiasis POD#2 s/p ERCP with CBD stone extraction, POD#1 s/p laparoscopic cholecystectomy Plan: - f/u AM labs - f/u diet tolerance - cont Abx, IVF, pain control - continue care per primary team Pt discussed w/ Dr. Keith Au, PGY1
[2017-02-11] MEDS: Levothyroxine 75 MCG TAB PO SCH (07:30)
[2017-02-11 08:17] LABS: ADD MANUAL DIFF? NO
[2017-02-11 08:22] LABS: BASO # 0.03 K/mm3 (0.0-2.0); BASO % 0.5 % (0.0-3.0); EOS # 0.3 (0.0-0.7); EOS % 4.4 % (1.5-5.0); GRAN # 4.59 (1.4-6.5); GRAN % 68.9 % (50.0-68.0); HEMATOCRIT 30.5 % (42.0-52.0); LYMPH # 1.1 (1.2-3.4); LYMPH % 15.8 % (22.0-35.0); MEAN CELL VOLUME 92.1 fL (80.0-105.0); MEAN CORPUSCULAR HEMOGLOBIN 28.4 pg (25.0-35.0); MEAN CORPUSCULAR HGB CONC 30.8 g/dl (31.0-37.0); MEAN PLATELET VOLUME 9.3 fl (7.0-11.0); MONO # 0.7 (0.1-0.6); MONO % 10.4 % (1.0-6.0); PLATELET COUNT 206 10^3/uL (120.0-450.0); RED CELL DISTRIBUTION WIDTH 15.7 % (11.5-14.5); WHITE BLOOD COUNT 6.7 10^3/ul (4.5-11.0)
[2017-02-11 08:31] LABS: ALB/GLOB RATIO 0.9 (1.1-1.8); CALCIUM 7.7 mg/dL (8.4-10.5); POTASSIUM 4.1 mmol/L (3.6-5.0); TOTAL PROTEIN 5.6 g/dL (5.8-8.3)
--- NOTE | 2017-02-11 09:35 | PN ---
DATE: 02/11/2017 SUBJECTIVE: The patient is status post ERCP without issues. He is sitting in a chair without compla ints. PHYSICAL EXAMINATION: VITAL SIGNS: Blood pressure is 136/56, the heart rate is in the 50s, sinus rhythm. NECK: Negative JVD. LUNGS: Without rales. HEART: Reveals S1, S2. EXTREMITIES: Without edema. LABORATORY DATA: The hemoglobin is 9.4. Chemistries: BUN and creatinine is 30 and 6.7. IMPRESSION: 1. Status post endoscopic retrograde cholangiopancreatography without issues. 2. Renal insufficiency. 3. Multivessel coronary artery disease. 4. End-stage renal disease. 5. Anemia. PLAN: Given these findings, the patient tolerated ERCP well. The patient is hemodynamically stable at this time. Bharath Campos MD cc: [phone] TT: 02/11/2017 09:34:43 Confirmation # [id number] Dictation # [id number] tn
[2017-02-11] MEDS: Insulin Lispro (humaLOG) LOW Coverage SC SCH ×3 (10:00→18:31)
--- NOTE | 2017-02-11 10:35 | CP.PCM.PN ---
Subjective - Date & Time of Evaluation Date of Evaluation: 02/11/17 Time of Evaluation: 10:29 - Subjective Subjective: seen and examined no complaints Objective - Vital Signs/Intake and Output Vital Signs (last 24 hours): Temp Pulse Resp BP Pulse Ox 97.7 F 70 20 136/56 L 97 02/11/17 08:38 02/11/17 10:04 02/11/17 08:38 02/11/17 10:04 02/11/17 08:38 Intake and Output: 02/11/17 02/11/17 06:59 18:59 Intake Total 200 Output Total 100 Balance 100 - Medications Medications: Current Medications Atorvastatin Calcium (Lipitor) 20 mg PO HS [facility] Last Admin: 02/10/17 21:33 Dose: 20 mg Calcium Acetate (Phoslo) 667 mg PO WM [facility] Last Admin: 02/11/17 08:00 Dose: 667 mg Carvedilol (Coreg) 12.5 mg PO BID [facility] Last Admin: 02/11/17 10:04 Dose: 12.5 mg Heparin Sodium (Porcine) (Heparin) 5,000 units SC Q12 [facility] PRN Reason: Protocol Hydromorphone HCl (Dilaudid) 0.5 mg IVP Q4H PRN PRN Reason: Pain, moderate (4-7) Last Admin: 02/10/17 19:02 Dose: 0.5 mg Meropenem 500 mg/ Sodium (Chloride) 100 mls @ 100 mls/hr IVPB Q12H [facility] PRN Reason: Protocol Stop: 02/14/17 18:01 Last Admin: 02/10/17 22:36 Dose: 100 mls/hr Insulin Human Lispro (Humalog Low) 0 units SC ACHS [facility] PRN Reason: Protocol Last Admin: 02/11/17 10:00 Dose: Not Given Levothyroxine Sodium (Synthroid) 75 mcg PO ACB [facility] Last Admin: 02/11/17 07:30 Dose: 75 mcg Morphine Sulfate (Morphine) 1 mg IVP Q6H PRN PRN Reason: Pain, moderate (4-7) Ondansetron HCl (Zofran Inj) 4 mg IVP Q4H PRN PRN Reason: Nausea/Vomiting - Labs Labs: 02/11/17 08:10 02/11/17 08:10 PT 11.8 Seconds (9.9-11.8) 02/09/17 07:40 INR 1.09 (0.93-1.08) H 02/09/17 07:40 APTT 27.4 Seconds (23.7-30.8) 02/05/17 03:50 - Constitutional Appears: Non-toxic - Head Exam Head Exam: ATRAUMATIC - Eye Exam Eye Exam: Normal appearance - ENT Exam ENT Exam: Normal Exam - Neck Exam Neck Exam: Normal Inspection - Respiratory Exam Respiratory Exam: NORMAL BREATHING PATTERN - Cardiovascular Exam Cardiovascular Exam: +S1, +S2 - GI/Abdominal Exam Additional comments: soft dec bs - Exam Additional comments: surpapubic cath - Extremities Exam Additional comments: no edema - Neurological Exam Additional comments: follows commands - Psychiatric Exam Psychiatric exam: Normal Affect - Skin Skin Exam: Normal Color Assessment and Plan - Assessment and Plan (Free Text) Assessment: ESRD / cholecystectomy / Bacteremia / anemia of renal disease/ secondary hyperparathyroid plan: hd today will change merrem to q24 given esrd status aranesp w/ HD on phoslo for hyperphosphatemia would suggest dilaudid over morphine for pain control in esrd
[2017-02-11] MEDS: Meropenem 500 MG in Sodium Chloride 0.9% 100 ML IVPB SCH (11:30)
--- NOTE | 2017-02-11 13:45 | PN ---
DATE: 02/11/2017 The patient is in bed in no acute distress. On exam, the patient was seen earlier today in 374, bed 1, with a temperature of 97, blood pressure is 130/50, respiratory rate of 24, heart rate of 60. EXAMINATION OF HENT: Unremarkable. NECK: Supple. LUNGS: Have decreased breath sounds. HEART EXAMINATION: Abnormal S1, S2. ABDOMINAL EXAMINATION: Soft. LABORATORY EXAMINATION: Reveals a white count of 6.7, hemoglobin of 9, platelets of 206, and the tali mistries are BUN of 30, creatinine of 6.7. Urinalysis is noted. Microbiology is noted. The patient has had blood cultures which are positive with E. coli, which is ESBL. The repeat blood cultures fr om 02/07 are negative. Review of the orders reveals the patient to be on meropenem. Dr. Bharath Campos's note is also reviewed. ASSESSMENT AND PLAN: A 71-year-old with sepsis secondary to extended-spectrum beta-lactamase produci ng, multidrug resistant Escherichia coli bacteremia secondary to acute cholecystitis, ascending chola ngitis, status post ERCP with biliary stone extraction, post-procedure day #2 unit on meropenem day # 7, and day #7 of antibiotics, day #2 from status post stone extraction. Will follow with you. Isrrael Ni MD cc: [phone] TT: 02/11/2017 13:44:59 Confirmation # [id number] Dictation # [id number] israel
[2017-02-12] MEDS: Insulin Lispro (humaLOG) LOW Coverage SC SCH ×5 (05:41→21:33)
[2017-02-12 07:21] LABS: ADD MANUAL DIFF? NO
[2017-02-12 07:30] LABS: BASO # 0.02 K/mm3 (0.0-2.0); BASO % 0.3 % (0.0-3.0); EOS # 0.3 (0.0-0.7); GRAN % 63.4 % (50.0-68.0); HEMATOCRIT 30.7 % (42.0-52.0); LYMPH # 0.9 (1.2-3.4); LYMPH % 15.3 % (22.0-35.0); MEAN CELL VOLUME 92.2 fL (80.0-105.0); MEAN CORPUSCULAR HEMOGLOBIN 27.9 pg (25.0-35.0); MEAN CORPUSCULAR HGB CONC 30.3 g/dl (31.0-37.0); MEAN PLATELET VOLUME 9.4 fl (7.0-11.0); MONO # 0.9 (0.1-0.6); PLATELET COUNT 218 10^3/uL (120.0-450.0); WHITE BLOOD COUNT 5.8 10^3/ul (4.5-11.0)
[2017-02-12 07:38] LABS: CALCIUM 7.7 mg/dL (8.4-10.5); POTASSIUM 3.7 mmol/L (3.6-5.0); TOTAL PROTEIN 6.1 g/dL (5.8-8.3)
[2017-02-12] MEDS: Levothyroxine 75 MCG TAB PO SCH (07:46)
--- NOTE | 2017-02-12 11:01 | PN ---
DATE: 02/12/2017 The patient is in bed in no acute distress, nontoxic, seen earlier today. No fevers and no chills. PHYSICAL EXAMINATION: VITAL SIGNS: Temperature is 98, blood pressure is 180/80, respiratory rate of 16. HEENT: Unremarkable. NECK: Supple. LUNGS: Have decreased breath sounds. HEART: Normal S1, S2. ABDOMEN: Soft, nontender. LABORATORY DATA: Reveals a white count of 5.8, hemoglobin of 9, platelets of 218. Chemistries revea l the BUN of 21, creatinine of 5.1. Urinalysis is noted and serology is noted. Microbiology reveals the patient has E. coli in the blood, which is extended spectrum beta lactamase E. coli. The repeat blood cultures are negative. Review of the orders reveals the patient's meropenem to be active. ASSESSMENT AND PLAN: This is a 71-year-old male with sepsis secondary to extended-spectrum beta-lact amase Escherichia coli, multidrug resistant Escherichia coli bacteremia secondary to acute cholecysti tis ascending cholangitis status post endoscopic retrograde cholangiopancreatography with biliary sto ne extraction post-procedure day #3 and day #8 of meropenem. We will continue the meropenem. The don tee appears to be doing well. The patient is afebrile, initially on the the day of admission he did have a temperature of 102, which is all resolved. Isrrael Ni MD cc: [phone] TT: 02/12/2017 11:00:23 Confirmation # [id number] Dictation # [id number] israel
[2017-02-12] MEDS: Meropenem 500 MG in Sodium Chloride 0.9% 100 ML IVPB SCH ×2 (11:56→22:57)
--- NOTE | 2017-02-12 15:04 | PN ---
DATE: 02/12/2017 The patient is a 71-year-old, seen and examined, lying in bed, comfortable. According to nurse, he h as been ambulatory. Denies any nausea or vomiting. Eating and tolerating. PHYSICAL EXAMINATION: VITAL SIGNS: He is afebrile, pulse 66, respirations 18, blood pressure 180/80. LUNGS: Bilateral fair airflow, no rhonchi or crackle. HEART: S1, S2 audible. ABDOMEN: Soft, slight discomfort at suprapubic and periumbilical area at surgical site. NEUROLOGIC: He is awake and alert, communicative. LABORATORY EXAMINATION: WBCs 5.8, hemoglobin 9.3, hematocrit 30.7, platelets 218. Chemistry: Sodiu m 133, potassium 3.7, chloride 97, CO2 27, BUN 21, creatinine 5.1, blood sugar 173. ASSESSMENT: 1. Escherichia coli sepsis. The repeat blood cultures are negative. 2. Status post laparoscopic cholecystectomy. 3. End-stage renal disease, on hemodialysis. 4. Status post endoscopic retrograde cholangiopancreatogram and stone extraction. 5. Suprapubic indwelling catheter. 6. Non-insulin dependent diabetes. 7. Hypertension. 8. Hypothyroidism. PLAN: Currently, patient is on meropenem. He is eating and tolerating. He is receiving his dialysi s. Encourage ambulation. Discharge plan as per surgical and ID team recommendation. Marcos Elias MD cc: [phone] TT: 02/12/2017 15:03:53 Confirmation # [id number] Dictation # [id number] en
--- NOTE | 2017-02-12 15:22 | CP.PCM.PN ---
Subjective - Date & Time of Evaluation Date of Evaluation: 02/12/17 Time of Evaluation: 15:20 - Subjective Subjective: Surgery: Dr. Parker Pt seen and examined. Resting comfortably in bed. Pt has no complaints of pain. Denies F/C. States he is tolerating diet, no N/V/ Objective - Vital Signs/Intake and Output Vital Signs (last 24 hours): Temp Pulse Resp BP Pulse Ox 98.4 F 66 18 180/80 H 98 02/12/17 08:17 02/12/17 08:17 02/12/17 08:17 02/12/17 08:17 02/12/17 08:17 Intake and Output: 02/12/17 02/12/17 06:59 18:59 Output Total 50 Balance -50 - Medications Medications: Current Medications Atorvastatin Calcium (Lipitor) 20 mg PO HS [facility] Last Admin: 02/11/17 23:12 Dose: 20 mg Calcium Acetate (Phoslo) 667 mg PO WM [facility] Last Admin: 02/12/17 12:10 Dose: 667 mg Carvedilol (Coreg) 12.5 mg PO BID [facility] Last Admin: 02/12/17 09:55 Dose: 12.5 mg Heparin Sodium (Porcine) (Heparin) 5,000 units SC Q12 [facility]ARA PRN Reason: Protocol Last Admin: 02/12/17 11:00 Dose: 5,000 units Hydromorphone HCl (Dilaudid) 0.5 mg IVP Q4H PRN PRN Reason: Pain, moderate (4-7) Last Admin: 02/10/17 19:02 Dose: 0.5 mg Meropenem 500 mg/ Sodium (Chloride) 100 mls @ 100 mls/hr IVPB Q12H [facility] PRN Reason: Protocol Stop: 02/14/17 18:01 Last Admin: 02/12/17 11:56 Dose: 100 mls/hr Insulin Human Lispro (Humalog Low) 0 units SC ACHS [facility] PRN Reason: Protocol Last Admin: 02/12/17 11:57 Dose: 1 units Levothyroxine Sodium (Synthroid) 75 mcg PO ACB [facility] Last Admin: 02/12/17 07:46 Dose: 75 mcg Ondansetron HCl (Zofran Inj) 4 mg IVP Q4H PRN PRN Reason: Nausea/Vomiting - Labs Labs: 02/12/17 07:20 02/12/17 07:20 PT 11.8 Seconds (9.9-11.8) 02/09/17 07:40 INR 1.09 (0.93-1.08) H 02/09/17 07:40 APTT 27.4 Seconds (23.7-30.8) 02/05/17 03:50 - Constitutional Appears: Non-toxic, No Acute Distress - Head Exam Head Exam: ATRAUMATIC, NORMOCEPHALIC - Eye Exam Eye Exam: EOMI. absent: Scleral icterus - ENT Exam ENT Exam: Mucous Membranes Moist - Respiratory Exam Respiratory Exam: NORMAL BREATHING PATTERN. absent: Accessory Muscle Use, Respiratory Distress - GI/Abdominal Exam GI & Abdominal Exam: Soft. absent: Distended, Firm, Guarding, Rigid, Tenderness , Rebound Additional comments: incisions C/D/I - Extremities Exam Extremities Exam: absent: Calf Tenderness, Pedal Edema - Neurological Exam Neurological Exam: Alert, Awake. absent: Oriented x3 Assessment and Plan - Assessment and Plan (Free Text) Assessment: 71M w. choledocholithiasis, s/p lap [place], POD#2 -pt is doing well from surgical standpoint -c/w pain meds prn -abx per ID -encourage ISS, OOB -will d/w attending Zemaitis PGY2
[2017-02-13 07:42] LABS: ADD MANUAL DIFF? NO
[2017-02-13 07:47] LABS: BASO # 0.02 K/mm3 (0.0-2.0); BASO % 0.3 % (0.0-3.0); EOS # 0.3 (0.0-0.7); EOS % 5.4 % (1.5-5.0); GRAN # 3.54 (1.4-6.5); GRAN % 61.9 % (50.0-68.0); HEMATOCRIT 28.9 % (42.0-52.0); LYMPH # 1.1 (1.2-3.4); LYMPH % 19.6 % (22.0-35.0); MEAN CELL VOLUME 90.9 fL (80.0-105.0); MEAN CORPUSCULAR HEMOGLOBIN 28.6 pg (25.0-35.0); MEAN CORPUSCULAR HGB CONC 31.5 g/dl (31.0-37.0); MEAN PLATELET VOLUME 9.2 fl (7.0-11.0); MONO # 0.7 (0.1-0.6); MONO % 12.8 % (1.0-6.0); PLATELET COUNT 246 10^3/uL (120.0-450.0); RED CELL DISTRIBUTION WIDTH 15.9 % (11.5-14.5); WHITE BLOOD COUNT 5.7 10^3/ul (4.5-11.0)
[2017-02-13 08:04] LABS: BILIRUBIN,TOTAL 0.8 mg/dL (0.2-1.3); CALCIUM 7.9 mg/dL (8.4-10.5); POTASSIUM 4.1 mmol/L (3.6-5.0); TOTAL PROTEIN 5.9 g/dL (5.8-8.3)
--- NOTE | 2017-02-13 08:40 | PN ---
DATE: 02/11/2017 SUBJECTIVE: The patient is 71 years old, seen and examined, lying in bed. He seems to be comfortabl e, not in any distress. PHYSICAL EXAMINATION: VITAL SIGNS: He is afebrile, pulse 56, respirations 20, blood pressure 136/56. LUNGS: Bilateral fair airflow, no rhonchi or crackle. HEART: S1, S2 audible. ABDOMEN: Soft, slight tenderness in periumbilical area. He has suprapubic catheter. NEUROLOGIC: He is awake and alert, communicative. LABORATORY: WBC 6.7, hemoglobin 9.4, hematocrit 30.5, platelet , sodium 136, potassium 4.1, chl oride 100, CO2 of 29, BUN 30, creatinine 6.7. Platelets . Hepatitis profile is negative. His blood culture positive for E. coli. ASSESSMENT AND PLAN: 1. Multidrug-resistant urinary tract infection, extended-spectrum beta-lactamase positive, [place] a coli bacteremia. 2. Status post acute cholecystitis and ascending colitis status post biliary stone extraction. 3. History of congestive heart failure. 4. Noninsulin dependent diabetes. 5. End-stage renal disease, on hemodialysis. 6. History of indwelling catheter. 7. Currently, the patient is on meropenem. 8. Status post laparoscopic cholecystectomy. PLAN: The patient currently is on Coreg. He is on analgesics. He is on DVT prophylaxis. Blood [place] gar is being monitored. We are continuing him on meropenem, and out of bed to chair. Encouraged amb ulation. He might be a candidate for TCU. Marcos Elias MD cc: [phone] TT: 02/11/2017 12:25:42 Confirmation # [id number] Dictation # [id number] ln
[2017-02-13] MEDS: Insulin Lispro (humaLOG) LOW Coverage SC SCH ×4 (08:52→22:00)
[2017-02-13] MEDS: Levothyroxine 75 MCG TAB PO SCH (09:45)
--- NOTE | 2017-02-13 10:54 | DS ---
SUBJECTIVE: This is a 71-year-old male who had come into the hospital and was having abdominal pain. The patient was found to have choledocholithiasis. He had a laparoscopic cholecystectomy done and an ERCP. The patient did fairly well. He is currently comfortable. He has no complaints of any tali st pain, no shortness of breath, no headaches, no dizziness. He is able to tolerate his diet. PHYSICAL EXAMINATION: VITAL SIGNS: Temperature is 99.2, pulse of 60, blood pressure is 160/67, respirations 19, O2 saturat ion 95%. GENERAL: The patient comfortable, in no acute distress. HEENT: Anicteric sclerae. Moist mucosa. NECK: No JVD or adenopathy. CARDIAC: S1/S2. No murmurs. No rubs. Regular. RESPIRATORY: Clear to auscultation bilaterally. No wheezes, rales, or rhonchi. Good air entry. ABDOMEN: Bowel sounds are positive, soft, nontender, and nondistended. EXTREMITIES: No edema. Has 1+ pulses. ASSESSMENT: 1. Status post cholecystectomy. 2. Status post endoscopic retrograde cholangiopancreatogram. 3. Transaminitis, improving. 4. End-stage renal disease, on hemodialysis. 5. Bowman's esophagus. 6. Secondary hyperparathyroidism. 7. Suprapubic catheter, chronic. 8. Diabetes type 2. 9. Left arm arteriovenous fistula. 10. Hypertension. 11. Hypothyroidism. 12. Congestive heart failure, secondary to systolic dysfunction, stable. 13. Sepsis, secondary to Escherichia coli. 14. Hearing impairment. PLAN: The patient is currently comfortable. The patient is ambulating. He is receiving Dilaudid fo r pain. He is on carvedilol. He is on meropenem for antibiotics. He has 2 blood cultures that were positive for Escherichia coli. Repeat blood cultures have been negative. The patient is on Synthro id for hypothyroidism. ACTIVITY: Increase as tolerated. CONDITION: Stable. FOLLOWUP: 1. Follow up with Dr. Salinas in 1-2 weeks. 2. Follow up with surgery in 1-2 weeks. Bc Mariee MD cc: [phone] TT: 02/13/2017 10:54:47 [facility] # [id number] en
[2017-02-13] MEDS: Meropenem 500 MG in Sodium Chloride 0.9% 100 ML IVPB SCH ×2 (11:30→23:02)
--- NOTE | 2017-02-13 15:26 | PN ---
DATE: 02/13/2017 SUBJECTIVE: The patient is seen sitting in chair. He is awake. He is alert. He is comfortable. W darell is at bedside. He denies any pain. He denies any shortness of breath. He denies any nausea, vo miting, diarrhea. PHYSICAL EXAMINATION: GENERAL: Elderly male, sitting in chair. VITAL SIGNS: Blood pressure 130/70, heart rate 70, respiratory rate 17, temperature 98.5. HEENT: Normocephalic, atraumatic. NECK: Supple, no JVD. LUNGS: Bilateral equal air entry, no rales. CARDIAC: S1, S2, regular rate and rhythm, no murmur, no rub. ABDOMEN: Soft, nondistended, bowel sounds present, positive suprapubic catheter. INTAKE AND OUTPUT: 1380/100. LABORATORY DATA: WBC 5.7, hemoglobin 9, hematocrit 28.9, platelets 246. Sodium 132, potassium 4.1, chloride 96, CO2 28, BUN 33, creatinine 6.5, glucose 125, calcium 7.9, albumin 2.9, corrected calcium is 8.6. Urinalysis from the : Light brown, turbid, pH 8.5, specific gravity 1.015, protein gre ater than 300, nitrite positive, leukocyte esterase moderate. Blood cultures, E. coli. Urine cultur e, multiple species. Repeat blood cultures from the , no growth. CURRENT MEDICATIONS: List reviewed. ASSESSMENT: 1. Choledocholithiasis. 2. Status post laparoscopic cholecystectomy. 3. Hypertension. 4. End-stage renal disease. 5. Secondary hyperparathyroidism. 6. Anemia of chronic disease. 7. Escherichia coli bacteremia. PLAN: 1. Status post antibiotics for Escherichia coli bacteremia. 2. Repeat blood cultures negative. 3. Status post laparoscopic cholecystectomy. 4. Dialysis Monday, , Monday. Марина Kate MD cc: [phone] TT: 02/13/2017 15:25:29 Confirmation # [id number] Dictation # [id number] en
--- NOTE | 2017-02-13 16:12 | CP.PCM.PN ---
Subjective - Date & Time of Evaluation Date of Evaluation: 02/13/17 Time of Evaluation: 10:25 - Subjective Subjective: Patient is comfortable in bed, not in distress, no fevers overnight. Objective - Vital Signs/Intake and Output Vital Signs (last 24 hours): Temp Pulse Resp BP Pulse Ox 98.5 F 64 17 172/73 H 96 02/13/17 06:00 02/13/17 06:00 02/13/17 06:00 02/13/17 06:00 02/13/17 06:00 Intake and Output: 02/13/17 02/13/17 06:59 18:59 Intake Total 600 Output Total 100 Balance 500 - Medications Medications: Current Medications Atorvastatin Calcium (Lipitor) 20 mg PO HS [facility] Last Admin: 02/12/17 21:25 Dose: 20 mg Calcium Acetate (Phoslo) 667 mg PO WM [facility] Last Admin: 02/12/17 17:45 Dose: 667 mg Carvedilol (Coreg) 12.5 mg PO BID [facility] Last Admin: 02/12/17 17:44 Dose: 12.5 mg Heparin Sodium (Porcine) (Heparin) 5,000 units SC Q12 [facility]ARA PRN Reason: Protocol Last Admin: 02/12/17 21:25 Dose: 5,000 units Hydromorphone HCl (Dilaudid) 0.5 mg IVP Q4H PRN PRN Reason: Pain, moderate (4-7) Last Admin: 02/10/17 19:02 Dose: 0.5 mg Meropenem 500 mg/ Sodium (Chloride) 100 mls @ 100 mls/hr IVPB Q12H [facility] PRN Reason: Protocol Stop: 02/14/17 18:01 Last Admin: 02/12/17 22:57 Dose: 100 mls/hr Insulin Human Lispro (Humalog Low) 0 units SC ACHS [facility] PRN Reason: Protocol Last Admin: 02/13/17 08:52 Dose: Not Given Levothyroxine Sodium (Synthroid) 75 mcg PO ACB [facility] Last Admin: 02/12/17 07:46 Dose: 75 mcg Ondansetron HCl (Zofran Inj) 4 mg IVP Q4H PRN PRN Reason: Nausea/Vomiting - Labs Labs: 02/13/17 07:30 02/13/17 07:30 PT 11.8 Seconds (9.9-11.8) 02/09/17 07:40 INR 1.09 (0.93-1.08) H 02/09/17 07:40 APTT 27.4 Seconds (23.7-30.8) 02/05/17 03:50 - Constitutional Appears: Non-toxic, No Acute Distress - Head Exam Head Exam: NORMAL INSPECTION - Respiratory Exam Respiratory Exam: Decreased Breath Sounds - Cardiovascular Exam Cardiovascular Exam: +S1, +S2 - GI/Abdominal Exam GI & Abdominal Exam: Soft. absent: Tenderness Assessment and Plan - Assessment and Plan (Free Text) Plan: Assessment sepsis secondary to ESBL-producing multidrug-resistant E. coli bacteremia probably secondary to acute cholecystitis and ascending cholangitis S/P ERCP with biliary stone extraction POD #4 history of ESBL E. coli bacteremia HTN Congestive Heart Failure DM GERD End-Stage Renal disease on hemodialysis history of depression history of Bowman's esophagus history of epididymitis on the left Plan Continue Meropenem (day 9, day 4 from stone extraction); repeat blood cx negative; target is 10-14 days of antibiotics (from start of antibiotics) Will continue to monitor clinically
--- NOTE | 2017-02-13 16:17 | CP.PCM.PN ---
Subjective - Date & Time of Evaluation Date of Evaluation: 02/13/17 Time of Evaluation: 06:45 - Subjective Subjective: SURGERY NOTE FOR DR. SANDOVAL 71M seen and examined at bedside. Patient denies pain, nausea, vomiting. Admits to bowel movements. Incisions are clean dry intact. tolerating diet Objective - Vital Signs/Intake and Output Vital Signs (last 24 hours): Temp Pulse Resp BP Pulse Ox 98.5 F 70 17 130/70 96 02/13/17 06:00 02/13/17 09:45 02/13/17 06:00 02/13/17 09:45 02/13/17 06:00 Intake and Output: 02/13/17 02/13/17 06:59 18:59 Intake Total 600 480 Output Total 100 200 Balance 500 280 - Medications Medications: Current Medications Atorvastatin Calcium (Lipitor) 20 mg PO HS [facility] Last Admin: 02/12/17 21:25 Dose: 20 mg Calcium Acetate (Phoslo) 667 mg PO WM [facility] Last Admin: 02/13/17 12:44 Dose: 667 mg Carvedilol (Coreg) 12.5 mg PO BID [facility] Last Admin: 02/13/17 09:45 Dose: 12.5 mg Heparin Sodium (Porcine) (Heparin) 5,000 units SC Q12 [facility]ARA PRN Reason: Protocol Last Admin: 02/13/17 09:48 Dose: 5,000 units Hydromorphone HCl (Dilaudid) 0.5 mg IVP Q4H PRN PRN Reason: Pain, moderate (4-7) Last Admin: 02/10/17 19:02 Dose: 0.5 mg Meropenem 500 mg/ Sodium (Chloride) 100 mls @ 100 mls/hr IVPB Q12H [facility] PRN Reason: Protocol Stop: 02/14/17 18:01 Last Admin: 02/13/17 11:30 Dose: 100 mls/hr Insulin Human Lispro (Humalog Low) 0 units SC ACHS [facility] PRN Reason: Protocol Last Admin: 02/13/17 12:22 Dose: 1 units Levothyroxine Sodium (Synthroid) 75 mcg PO ACB [facility] Last Admin: 02/13/17 09:45 Dose: 75 mcg Ondansetron HCl (Zofran Inj) 4 mg IVP Q4H PRN PRN Reason: Nausea/Vomiting - Labs Labs: 02/13/17 07:30 02/13/17 07:30 PT 11.8 Seconds (9.9-11.8) 02/09/17 07:40 INR 1.09 (0.93-1.08) H 02/09/17 07:40 APTT 27.4 Seconds (23.7-30.8) 02/05/17 03:50 - Constitutional Appears: Non-toxic, No Acute Distress - Head Exam Head Exam: ATRAUMATIC - Respiratory Exam Respiratory Exam: Clear to Ausculation Bilateral, NORMAL BREATHING PATTERN - Cardiovascular Exam Cardiovascular Exam: REGULAR RHYTHM, +S1, +S2 - GI/Abdominal Exam GI & Abdominal Exam: Soft. absent: Distended, Firm, Guarding, Rigid, Tenderness , Rebound Additional comments: incisions clean dry intact - Neurological Exam Neurological Exam: Alert, Awake - Skin Skin Exam: Dry, Intact, Normal Color, Warm Assessment and Plan - Assessment and Plan (Free Text) Assessment: 71M w. choledocholithiasis, s/p lap [place], POD#3 - cleared by surgery. Further recs discuss with Dr. Keith Hernandez, PGY1
[2017-02-13 16:29] VITALS: O2SAT 98
--- NOTE | 2017-02-14 08:15 | PN ---
DATE: 02/13/2017 Cardiology Followup PHYSICAL EXAMINATION: GENERAL: The patient is comfortable. He is eating. No issues noted. VITAL SIGNS: Blood pressure 130/70. Heart rate is in the 70s. NECK: Negative JVD. LUNGS: Without rales. HEART: Reveals S1, S2. EXTREMITIES: Without edema. LABORATORY DATA: Hemoglobin is 9.1. Chemistries: BUN and creatinine is 33 and 6.5. Glucose is 197 . IMPRESSION: 1. Status post gallstones. 2. Status post endoscopic retrograde cholangiopancreatography. 3. Renal insufficiency. 4. End-stage renal disease. 5. Multivessel coronary artery disease. 6. Anemia. Given these findings, the patient is doing well post GI procedure. Hemodynamically, the patient analy ined stable. Bharath Campos MD cc: [phone] TT: 02/14/2017 00:23:20 Confirmation # [id number] Dictation # [id number] tn
[2017-02-14 09:10] VITALS: BP 139/56; PULSE 51; RESP 17; TEMP 97.9
[2017-02-14 09:30] LABS: ADD MANUAL DIFF? NO
[2017-02-14 09:33] LABS: BASO # 0.03 K/mm3 (0.0-2.0); BASO % 0.5 % (0.0-3.0); EOS # 0.3 (0.0-0.7); EOS % 4.7 % (1.5-5.0); GRAN # 4.33 (1.4-6.5); GRAN % 68.4 % (50.0-68.0); HEMATOCRIT 30.3 % (42.0-52.0); LYMPH % 15.3 % (22.0-35.0); MEAN CELL VOLUME 90.2 fL (80.0-105.0); MEAN CORPUSCULAR HEMOGLOBIN 28.9 pg (25.0-35.0); MEAN PLATELET VOLUME 8.8 fl (7.0-11.0); MONO # 0.7 (0.1-0.6); MONO % 11.1 % (1.0-6.0); PLATELET COUNT 242 10^3/uL (120.0-450.0); RED CELL DISTRIBUTION WIDTH 16.1 % (11.5-14.5); WHITE BLOOD COUNT 6.3 10^3/ul (4.5-11.0)
[2017-02-14 09:43] LABS: ALB/GLOB RATIO 1.1 (1.1-1.8); BILIRUBIN,TOTAL 0.9 mg/dL (0.2-1.3); CALCIUM 8.3 mg/dL (8.4-10.5); MAGNESIUM 2.1 mg/dL (1.7-2.2); PHOSPHOROUS 3.8 mg/dL (2.5-4.5); POTASSIUM 4.3 mmol/L (3.6-5.0); TOTAL PROTEIN 6.2 g/dL (5.8-8.3)
--- NOTE | 2017-02-14 10:01 | DS ---
DATE: 02/14/2017 SUBJECTIVE: The patient has no complaints of any chest pain or shortness of breath, no headaches. PHYSICAL EXAMINATION: VITAL SIGNS: Temperature is 98.2, pulse is 65, blood pressure 195/70, respirations 19. GENERAL: The patient comfortable, in no acute distress. HEENT: Anicteric sclerae. Moist mucosa. NECK: No JVD or adenopathy. CARDIAC: S1/S2. No murmurs. No rubs. Regular. RESPIRATORY: Clear to auscultation bilaterally. No wheezes, rales, or rhonchi. Good air entry. ABDOMEN: Bowel sounds are positive, soft, nontender, and nondistended. EXTREMITIES: No edema. Has 1+ pulses. LABORATORY DATA: White count of 5.7, hemoglobin 9.1, creatinine is 6.5. ASSESSMENT: 1. Status post cholecystectomy. 2. Status post endoscopic retrograde cholangiopancreatography. 3. Transaminitis. 4. End-stage renal disease on hemodialysis. 5. Bowman's esophagus. 6. Secondary hyperparathyroidism. 7. Suprapubic catheter, chronic. 8. Diabetes type 2. 9. Left arm arteriovenous fistula. 10. Hypertension. 11. Hypothyroidism. 12. Congestive heart failure secondary to systolic dysfunction, stable. 13. Sepsis secondary to Escherichia coli. 14. Hearing impairment. PLAN: The patient is currently comfortable. He is eating well. He is cleared by surgery to be disc harged. The patient is going to need continued antibiotics. He is on day #10 of antibiotics. We wi ll speak to ID about discharge the patient home. The patient is day #5 from a stone extraction. He is currently on heparin for DVT prophylaxis. He is on PhosLo for his secondary hyperparathyroidism. The patient is on carvedilol. He is on a renal diet. Bc Mariee MD cc: [phone] TT: 02/14/2017 10:00:49 Confirmation # [id number] Dictation # [id number] tn
[2017-02-14] MEDS: Levothyroxine 75 MCG TAB PO SCH (10:13)
[2017-02-14] MEDS: Insulin Lispro (humaLOG) LOW Coverage SC SCH (10:16)
--- NOTE | 2017-02-14 11:19 | PN ---
DATE: 02/14/2017 The patient is comfortable without him without distress. No abdominal pain noted On physical exam, blood pressure 139/56, the heart rate is in the 50s. NECK: Negative JVD. LUNGS: Without rales. HEART: Reveals S1, S2. EXTREMITIES: Without edema. The hemoglobin is 9.7. Chemistries: BUN and creatinine is 43 and 7.4. IMPRESSION: 1. Resolution of his gallstones. 2. Status post endoscopic retrograde cholangiopancreatography. 3. Renal insufficiency. 4. Stable angina. 5. Anemia. PLAN: Given these findings, the patient's cardiovascular system is stable No further cardiac workup is necessary. Bharath Campos MD cc: [phone] TT: 02/14/2017 11:18:59 Confirmation # [id number] Dictation # [id number] [place]
[2017-02-14] MEDS: Meropenem 500 MG in Sodium Chloride 0.9% 100 ML IVPB SCH (11:30)
--- NOTE | 2017-02-14 12:25 | PN ---
DATE: 02/14/2017 SUBJECTIVE: The patient is currently seen on dialysis. He appears comfortable. The patient is comp leting a course of IV antibiotic therapy for his E. coli ESBL bacteremia. He is status post laparosc opic cholecystectomy for choledocholithiasis, cholangitis and cholecystitis. MEDICATIONS: Medication list reviewed. The patient is on Coreg, subQ heparin, insulin, Lipitor, irwin openem, PhosLo, Levoxyl and Zofran p.r.n. OBJECTIVE: INTAKE AND OUTPUT: Intake 880, output 500. VITAL SIGNS: Blood pressure 139/56, heart rate 51, temperature 97.9, respiratory rate 17. HEENT: Normocephalic, atraumatic. Conjunctivae are pale. Sclerae are nonicteric. NECK: Supple, no neck vein distention. CHEST: Clear to auscultation and percussion. No rales, no rhonchi, no wheezing. CARDIOVASCULAR: Shows a regular rate and rhythm with no audible murmurs, rubs, or gallops. ABDOMEN: Soft. Bowel sounds normal. No rebound, no guarding, no masses. No tenderness over his [facility] upper quadrant. The patient does have a chronic indwelling suprapubic catheter connected to a [facility] urine leg bag. EXTREMITIES: Show no cyanosis, clubbing or edema. The patient has a cannulated left upper extremity AV fistula with blood flow rates of 400 mL per minute. LABORATORY DATA AND IMAGING: Microbiology: Follow up blood cultures were negative. Initial blood c ultures are positive for E. coli ESBL. Again, urine cultures were nondiagnostic because of multiple species. CBC: White blood cell count 6.3, hemoglobin 9.7, platelet count is 242,000. Chemistries s how sodium of 131, normal electrolytes otherwise. BUN 43, creatinine of 7.4, glucose 192, calcium 8. 3. Phosphorus is controlled at 3.8 with a magnesium level of 2.1. Liver enzymes are normal with a s light elevation of his alkaline phosphatase at 299. Bilirubin is normal. ASSESSMENT: 1. End-stage renal disease. The patient will continue Monday, , Monday dialysis. He is tolerating treatments well 2. Status post laparoscopic cholecystectomy for choledocholithiasis, cholangitis and cholecystitis. The patient appears to have tolerated the procedure well. 3. Escherichia coli bacteremia, extended-spectrum beta-lactamase, likely secondary to cholecystitis and cholangitis. Possibility of Escherichia coli secondary to the urine has not been ruled out. Nev ertheless, the patient will complete a course of antibiotic therapy. 4. History of insulin-dependent diabetes mellitus. Glucose control is acceptable. The patient will continue sliding scale insulin. 5. Arteriosclerotic heart disease, currently stable. 6. Hyperlipidemia. The patient will continue statin therapy. Liver enzymes are normal. 7. History of secondary hyperparathyroidism. Phosphorus level is controlled. The patient will cont inue PhosLo therapy and a renal diet. 8. Hypothyroidism. The patient is stable on Levoxyl therapy. 9. Chronic indwelling Young catheter for obstructive BPH. As per urology, his catheter will remain in place. 10. History of mild dementia and hearing loss, currently stable. 11. History of pulmonary hypertension. PLAN: 1. Complete a course of antibiotic therapy. 2. Continue 3 times a week dialysis. 3. Continue maximum dose of Aranesp 100 mcg a week in light of his anemia secondary to chronic kidne y disease and secondary to bone marrow suppression from his E. coli bacteremia. 4. Continue sliding scale insulin and monitor sugars closely. 5. Continue thyroid replacement therapy. Maikel Tan MD cc: [phone] TT: 02/14/2017 12:25:23 Confirmation # [id number] Dictation # [id number] [email or web address]
--- NOTE | 2017-02-14 16:06 | CP.PCM.PN ---
Subjective - Date & Time of Evaluation Date of Evaluation: 02/14/17 Time of Evaluation: 09:20 - Subjective Subjective: Comfortable, no acute events overnight, no fevers, not in distress. Objective - Vital Signs/Intake and Output Vital Signs (last 24 hours): Temp Pulse Resp BP Pulse Ox 97.9 F 51 L 17 139/56 L 98 02/14/17 06:00 02/14/17 06:00 02/14/17 06:00 02/14/17 06:00 02/13/17 16:00 Intake and Output: 02/14/17 02/14/17 06:59 18:59 Intake Total 400 Output Total 300 Balance 100 - Medications Medications: Current Medications Atorvastatin Calcium (Lipitor) 20 mg PO HS [facility] Last Admin: 02/13/17 21:02 Dose: 20 mg Calcium Acetate (Phoslo) 667 mg PO WM [facility] Last Admin: 02/14/17 15:02 Dose: Not Given Carvedilol (Coreg) 12.5 mg PO BID [facility] Last Admin: 02/14/17 10:16 Dose: Not Given Heparin Sodium (Porcine) (Heparin) 5,000 units SC Q12 [facility] PRN Reason: Protocol Last Admin: 02/14/17 10:16 Dose: Not Given Meropenem 500 mg/ Sodium (Chloride) 100 mls @ 100 mls/hr IVPB Q12H [facility] PRN Reason: Protocol Stop: 02/14/17 18:01 Last Admin: 02/14/17 11:30 Dose: Not Given Insulin Human Lispro (Humalog Low) 0 units SC ACHS [facility] PRN Reason: Protocol Last Admin: 02/14/17 10:16 Dose: 1 units Levothyroxine Sodium (Synthroid) 75 mcg PO ACB [facility] Last Admin: 02/14/17 10:13 Dose: 75 mcg Ondansetron HCl (Zofran Inj) 4 mg IVP Q4H PRN PRN Reason: Nausea/Vomiting - Labs Labs: 02/14/17 09:20 02/14/17 09:20 PT 11.8 Seconds (9.9-11.8) 02/09/17 07:40 INR 1.09 (0.93-1.08) H 02/09/17 07:40 APTT 27.4 Seconds (23.7-30.8) 03/19/17 03:50 - Constitutional Appears: Non-toxic, No Acute Distress - Head Exam Head Exam: NORMAL INSPECTION - ENT Exam ENT Exam: Mucous Membranes Moist - Neck Exam Neck Exam: absent: Lymphadenopathy, Meningismus - Respiratory Exam Respiratory Exam: Decreased Breath Sounds - Cardiovascular Exam Cardiovascular Exam: +S1, +S2 - GI/Abdominal Exam GI & Abdominal Exam: Soft. absent: Tenderness Assessment and Plan - Assessment and Plan (Free Text) Plan: Assessment sepsis secondary to ESBL-producing multidrug-resistant E. coli bacteremia probably secondary to acute cholecystitis and ascending cholangitis S/P ERCP with biliary stone extraction POD #5; clinically improving history of ESBL E. coli bacteremia HTN Congestive Heart Failure DM GERD End-Stage Renal disease on hemodialysis history of depression history of Bowman's esophagus history of epididymitis on the left Plan Continue Meropenem (day 10, day 5 from stone extraction); repeat blood cx negative; target is 10-14 days of antibiotics (from start of antibiotics) Discussed with Dr. Duran Will continue to monitor clinically
--- NOTE | 2017-02-21 11:45 | OP ---
PROCEDURE DATE: 02/10/2017 PREOPERATIVE DIAGNOSES: Acute and chronic cholecystitis and cholelithiasis. POSTOPERATIVE DIAGNOSES: Acute and chronic cholecystitis and cholelithiasis. OPERATION PERFORMED: Laparoscopic cholangiogram and intraoperative attempted cholangiogram. DESCRIPTION OF PROCEDURE: In the operating room, the patient was identified by name, number, procedure, laterality, my name, the consent. The abdomen was prepped and draped in usual manner with an empty bladder. The abdomen was accessed through the supraumbilical incision, a Veress needle. The opening pressure was about 5 and 2 liters insufflated to a pressure of about 10 and the Visiport was placed. A xiphoid 5 and 2 lateral 5s were placed. The gallbladder was identified. It was pulled up by the fundus and the infundibulum. The peritoneum over the distal gallbladder was pulled down exposing both the cystic duct and artery very nicely. The posterior view of safety was achieved with circumferential dissection of both these structures. The node was not seen per se. The common duct was tentatively identified much more medially. The cystic duct was clipped and cholangiogram was attempted, but unsuccessful. Small cystic duct was doubly clipped and divided, as was the artery. The gallbladder was taken off the liver bed using the harmonic without issue. It was placed in a bag and removed through the umbilicus with an EndoStitch to close it. The abdomen was copiously irrigated and dried. There was nothing else untoward. We looked around nicely. CO2 was removed. The sutures were tied. Subcuticular incision was made through the skin and subcutaneous tissues without issue. Barrera Parker MD cc: [id number] TT: 02/21/2017 11:45:25 [email or web address] PEREA
== END 2017-02-14 14:10 | disposition home or self-care (01) | DRG 853 ==
LOC: ED 02:43 → ERH 06:20 → 3RSO 07:37
PROVIDERS: ADMIT Internal Medicine; ATTEND Internal Medicine Nephrology
PROC: 5A1D60Z (ICD-10-PCS; 2017-02-07)
PROC: 0FC98ZZ Extirpation of Matter from Common Bile Duct, Via Natural or Artificial Opening Endoscopic (ICD-10-PCS; 2017-02-09 11:00)
PROC: 5A1D60Z (ICD-10-PCS; 2017-02-09 11:00)
PROC: 0FT44ZZ Resection of Gallbladder, Percutaneous Endoscopic Approach (ICD-10-PCS; principal; 2017-02-13)
DX: A41.51 Sepsis due to Escherichia coli [E. coli] (principal); N18.6 End stage renal disease; I13.2 Hypertensive heart and chronic kidney disease with heart failure and with stage 5 chronic kidney disease, or end stage renal disease; K80.66 Calculus of gallbladder and bile duct with acute and chronic cholecystitis without obstruction; D68.59 Other primary thrombophilia; I42.0 Dilated cardiomyopathy; E11.22 Type 2 diabetes mellitus with diabetic chronic kidney disease; K80.42 Calculus of bile duct with acute cholecystitis without obstruction; I50.20 Unspecified systolic (congestive) heart failure; N25.81 Secondary hyperparathyroidism of renal origin; N39.0 Urinary tract infection, site not specified; K57.92 Diverticulitis of intestine, part unspecified, without perforation or abscess without bleeding; G30.9 Alzheimer's disease, unspecified; F02.80 Dementia in other diseases classified elsewhere, unspecified severity, without behavioral disturbance, psychotic disturbance, mood disturbance, and anxiety; I27.2 Other secondary pulmonary hypertension; K22.70 Barrett's esophagus without dysplasia; E03.9 Hypothyroidism, unspecified; H91.91 Unspecified hearing loss, right ear; I25.118 Atherosclerotic heart disease of native coronary artery with other forms of angina pectoris; F32.9 Major depressive disorder, single episode, unspecified; N45.1 Epididymitis; E78.5 Hyperlipidemia, unspecified; K21.9 Gastro-esophageal reflux disease without esophagitis; N40.0 Benign prostatic hyperplasia without lower urinary tract symptoms; E83.39 Other disorders of phosphorus metabolism; J44.9 Chronic obstructive pulmonary disease, unspecified; D63.1 Anemia in chronic kidney disease; Z99.2 Dependence on renal dialysis; Z95.1 Presence of aortocoronary bypass graft; Z79.4 Long term (current) use of insulin; Z93.59 Other cystostomy status; Z86.711 Personal history of pulmonary embolism

== ENCOUNTER 2017-04-18 13:21 | Observation (INO) | payer MEDICARE, OTHER ==
[2017-04-18 13:57] VITALS: BMI 26.5
--- NOTE | 2017-04-18 14:11 | ED PDOC ---
Arrival/HPI - General Historian: Patient, Spouse <Danii Sepulveda - Last Filed: 04/18/17 16:31> - History of Present Illness Time/Duration: < week Symptom Onset: Gradual Symptom Course: Unchanged Severity Level: Mild Activities at Onset: Rest (Dialysis) <Sanjay Henry - Last Filed: 04/18/17 16:57> - General Time Seen by Provider: 04/18/17 13:35 - History of Present Illness Narrative History of Present Illness (Text): 04/18/17 15:32 This is a 71Y M with PMH of HTN, ESRD, DM, suprapubic catheter, CAD s/p CABG who came to ED for nausea/vomiting/diarrhea and dry cough x 2 days. Patient was at dialysis at [facility] and decided to come down for his symptoms. He reports that he has not been feeling well for 2 days. He denies having any abdominal pain, but has had this diarrhea. His describes it as dark in color, but denies any blood in stool. He vomited yesterday, but denies having any sick contacts, blood or food intolerance. At this time he does not have any pain, CP, SOB, numbness/tingling, fever but does admit to having some chills. His cough is reported as dry without any mucus. He has not tried anything to make his symptoms better. 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 - HEENT Hx HEENT Disorder: Yes Hx Cataracts: Yes (sx) Hx Deafness: Yes (R ear) Other/Comment: hard of hearing - Renal Hx Renal Failure: Yes (Hemodialysis M-W-) - Endocrine/Metabolic Hx Diabetes Mellitus Type 2: Yes Hx Hypothyroidism: Yes - Hematological/Oncological Hx Blood Transfusions: Yes Hx Blood Transfusion Reaction: No - Integumentary Hx Dermatological Disorder: (BILATERAL LEG EDEMA MORE ON LEFT.SHUNT TO LEFT UPPER ARM,SUPRAPUBIC CATHETE) - Musculoskeletal/Rheumatological Hx Musculoskeletal Disorders: No Hx Falls: Yes (09/08/2015) Hx Osteoporosis: Yes Hx Unsteady Gait: Yes Other/Comment: ambulates with a walker - Gastrointestinal Hx Gastrointestinal Disorders: (hx colitis/diverticulitis) Hx Diverticulitis: Yes Hx Gastroesophageal Reflux: Yes - Genitourinary/Gynecological Hx Genitourinary Disorders: Yes Hx Hematuria: Yes Hx Prostate Problems: Yes (prostate sx 2012; suprapubic catheter) Hx Reproductive Disorders: Yes Hx Urinary Tract Infection: Yes Other/Comment: suprapubic catheter, bilateral orchietis, left epididymitis, scrotal cellulitis, urinary retention, hx mrsa in urine - Psychiatric Hx Depression: No Hx Emotional Abuse: No Hx Physical Abuse: No Hx Substance Use: No - Past Surgical History Past Surgical History: No Previous - Surgical History Hx Open Heart Surgery: Yes (quadruple bypass) Other/Comment: Suprapubic catheter - Anesthesia Hx Anesthesia Reactions: No Hx Malignant Hyperthermia: No - Suicidal Assessment Feels Threatened In Home Enviroment: No <Danii Sepulveda - Last Filed: 04/18/17 16:31> Family/Social History - Physician Review Nursing Documentation Reviewed: Yes Family/Social History: Diabetes, Hypertension Smoking Status: Never Smoked Hx Alcohol Use: No Hx Substance Use: No Hx Substance Use Treatment: No <Danii Sepulveda - Last Filed: 04/18/17 16:31> Allergies/Home Meds <Danii Sepulveda - Last Filed: 04/18/17 16:31> <Sanjay Henry - Last Filed: 04/18/17 16:57> Allergies/Adverse Reactions: Allergies dye Allergy (Uncoded 11/04/14 16:11) REDNESS Home Medications: Home Meds Medication Instructions Recorded Confirmed Atorvastatin [Lipitor] 20 mg PO HS 02/05/17 04/18/17 Calcium Acetate [Phoslo] 667 mg PO TID 02/05/17 04/18/17 Carvedilol [Coreg] 12.5 mg PO BID 02/05/17 04/18/17 Insulin Glargine, Recombina 5 unit SC BID 02/05/17 04/18/17 [Lantus] Isosorbide Mononitrate [Imdur] 30 mg PO DAILY 02/05/17 04/18/17 Lactobacillus Combination No.8 1 each PO DAILY 02/05/17 04/18/17 [Adult Probiotic] Levothyroxine Sodium 75 mcg PO DAILY 02/05/17 04/18/17 hydrALAZINE [hydralazine 50 mg PO Q8H 02/05/17 04/18/17 Hydrochloride] Review of Systems - Physician Review All systems were reviewed & negative as marked: Yes - Review of Systems Constitutional: Normal. absent: Fevers Eyes: Normal. absent: Vision Changes ENT: Normal. absent: Hearing Changes Respiratory: Cough. absent: SOB, Sputum, Wheezing Cardiovascular: absent: Chest Pain, Palpitations Gastrointestinal: Diarrhea, Nausea, Vomiting. absent: Abdominal Pain, Stool Changes, Constipation Genitourinary Male: Normal. absent: Dysuria, Frequency, Hematuria Musculoskeletal: Normal. absent: Arthralgias, Myalgias Skin: Normal. absent: Rash, Pruritis Neurological: Normal. absent: Headache, Dizziness Endocrine: Normal. absent: Diaphoresis Psychiatric: Normal. absent: Anxiety, Depression <Danii Sepulveda - Last Filed: 04/18/17 16:31> Physical Exam Vital Signs Reviewed: Yes Temperature: Afebrile Blood Pressure: Hypertensive Pulse: Regular Respiratory Rate: Normal Appearance: Positive for: Well-Appearing, Non-Toxic, Comfortable Pain Distress: None Mental Status: Positive for: Alert and Oriented X 3 - Systems Exam Head: Present: Atraumatic, Normocephalic Pupils: Present: PERRL Extroacular Muscles: Present: EOMI Conjunctiva: Present: Normal Mouth: Present: Moist Mucous Membranes Neck: Present: Normal Range of Motion Respiratory/Chest: Present: Clear to Auscultation, Good Air Exchange. No: Respiratory Distress, Accessory Muscle Use Cardiovascular: Present: Regular Rate and Rhythm, Normal S1, S2. No: Murmurs Abdomen: Present: Normal Bowel Sounds. No: Tenderness, Distention, Peritoneal Signs Rectal: Present: Normal Rectal Tone, Other (Hemoccult negative). No: Occult Blood, Rectal Tenderness, Gross Blood, Melena, Fissures, Nodule/Mass/Lesions Back: Present: Normal Inspection Upper Extremity: Present: Normal Inspection. No: Cyanosis, Edema Lower Extremity: Present: Normal Inspection. No: Edema Neurological: Present: GCS=15, CN II-XII Intact, Speech Normal Skin: Present: Warm, Dry, Normal Color. No: Rashes Psychiatric: Present: Alert, Oriented x 3, Normal Insight, Normal Concentration <Danii Sepulveda - Last Filed: 04/18/17 16:31> <Sanjay Henry - Last Filed: 04/18/17 16:57> Vital Signs Temp Pulse Resp BP Pulse Ox 04/18/17 16:22 58 L 18 152/54 H 95 04/18/17 15:51 52 L 216/83 H 04/18/17 14:45 62 202/81 H 04/18/17 13:56 98.1 F 64 16 188/76 H 96 Medical Decision Making Re-evaluation Time: 16:18 Reassessment Condition: Unchanged - Lab Interpretations I have reviewed the lab results: Yes Interpretation: Abnormal lab values (indeterminate troponin) - RAD Interpretation Laborer Sawmill: Radiologist - EKG Interpretation Interpreted by ED Physician: Yes Type: 12 lead EKG Comparison: Different from prev. EKG <Danii Sepulveda - Last Filed: 04/18/17 16:31> <Sanjay Henry - Last Filed: 04/18/17 16:57> ED Course and Treatment: 04/18/17 15:49 Impression: This is a 71Y M with PMH of HTN, ESRD, DM, suprapubic catheter, CAD s/p CABG who came to ED for nausea/vomiting/diarrhea and dry cough x 2 days. He came to ED after dialysis treatment. DDX: bronchitis v. enteritis Plan: -- CBC, CMP, cardiac ISO, U/A -- Clonidine PO -- EKG --Reassess Prior Visits: Notes and results from previous visits were reviewed. Progress Note: Patient noted to be hypertensive after Clonidine. Given Hydralazine. SBP now 150s. Patient noted to be bradycardic with indeterminate troponin. Dr. Henry spoke with hospitalist. Admit Patient: Re-evaluation. Patient feels ok, but complains of cough. Discussed results and plan to admit with patient who expresses understanding. All questions answered and there is agreement with the plan. (Danii Sepulveda) In agreement with resident note, which includes further HPI details. Patient was seen and evaluated with resident, came up with plan and treatment together. 04/18/17 16:55 Patient mainly presented with cough and nausea and generalized weakness. He already had his HD. Initial BP was elevated. Given 0.1 mg clonidine with no improvement. He was then given IV hydralazine with BP down to 150s systolic. Patient saying he feels ok. However, patient found to be in bradycardia with second degree, type I - with rate at 37 but maintaining hemodynamic stability. Will observe further on tele, given his cardiac history. (Sanjay Henry) - Lab Interpretations Lab Results: 04/18/17 15:00 04/18/17 15:00 Lab Results 04/18/17 15:00: Sodium 138, Potassium 3.5 L, Chloride 100, Carbon Dioxide 30, Anion Gap 12, BUN 20, Creatinine 3.5 H, Est GFR ( Amer) 21, Est GFR (Non- Af Amer) 17, Random Glucose 75, Calcium 11.1 H, Total Bilirubin 1.0, AST 29, ALT 30, Alkaline Phosphatase 160 H, Lactate Dehydrogenase 323 L, Total Creatine Kinase 29 L, Troponin I 0.07 D, Total Protein 6.8, Albumin 3.7, Globulin 3.0, Albumin/Globulin Ratio 1.2 04/18/17 15:00: WBC 4.3 L D, RBC 4.17, Hgb 12.6 L, Hct 40.0 L, MCV 95.9, MCH 30.2, MCHC 31.5, RDW 15.2 H, Plt Count 131, MPV 10.6 - RAD Interpretation Narrative RAD Interpretations (Text): 04/18/17 15:59 CXR showed no active disease. Please see full report for more detail. (Danii Sepulveda) Radiology Orders: 04/18/17 14:12 CXR [CHEST PORTABLE] [RAD] Stat - EKG Interpretation EKG Interpretation (Text): 04/18/17 16:[address] interval prolonged. Other intervals within normal limits. Mobitz type I second degree block. 04/18/17 16:31 (Danii Sepulveda) - Medication Orders Current Medication Orders: Discontinued Medications Clonidine HCl (Catapres) 0.1 mg PO STAT STA Stop: 04/18/17 14:13 Last Admin: 04/18/17 14:45 Dose: 0.1 mg Guaifenesin (Robitussin) 100 mg PO ONCE ONE Stop: 04/18/17 16:22 Hydralazine HCl (Apresoline) 10 mg IVP STAT SARA Hydralazine HCl (Apresoline) 10 mg IVP STAT ONE Stop: 04/18/17 15:31 Last Admin: 04/18/17 15:51 Dose: 10 mg - PA / CAR USHER / Resident Statement / has reviewed & agrees with the documentation as recorded. / has examined the patient and agrees with the treatment plan. <Sanjay Henry - Last Filed: 04/18/17 16:57> Disposition/Present on Arrival - Present on Arrival Any Indicators Present on Arrival: No History of DVT/PE: No History of Uncontrolled Diabetes: No Urinary Catheter: Yes (suprapubic) History Surgical Site Infection Following: None - Disposition Have Diagnosis and Disposition been Completed?: Yes Disposition Time: 16:32 Patient Plan: Admission <Danii Sepulveda - Last Filed: 04/18/17 16:31> <Sanjay Henry - Last Filed: 04/18/17 16:57> - Disposition Diagnosis: Bronchitis, Bradycardia Disposition: HOSPITALIZED Patient Problems: Current Active Problems Problem Status Onset Bradycardia Acute Bronchitis Acute Condition: FAIR Print Language: JAMAICAN Referrals: Seth Martínez [Primary Care Provider] - Follow up with primary
--- NOTE | 2017-04-18 14:55 | RAD ---
HISTORY: cough COMPARISON: 02/05/2017 FINDINGS: LUNGS: No active pulmonary disease. PLEURA: No significant pleural effusion identified, no pneumothorax apparent. CARDIOVASCULAR: Normal heart size. Sternotomy wires. OSSEOUS STRUCTURES: No significant abnormalities. VISUALIZED UPPER ABDOMEN: Normal. OTHER FINDINGS: None. IMPRESSION: No active disease.
[2017-04-18 15:12] LABS: MEAN CELL VOLUME 95.9 fL (80.0-105.0); MEAN CORPUSCULAR HEMOGLOBIN 30.2 pg (25.0-35.0); MEAN CORPUSCULAR HGB CONC 31.5 g/dl (31.0-37.0); MEAN PLATELET VOLUME 10.6 fl (7.0-11.0); RED CELL DISTRIBUTION WIDTH 15.2 % (11.5-14.5); WHITE BLOOD COUNT 4.3 10^3/ul (4.5-11.0)
[2017-04-18 15:21] LABS: ALB/GLOB RATIO 1.2 (1.1-1.8); CALCIUM 11.1 mg/dL (8.4-10.5); POTASSIUM 3.5 mmol/L (3.6-5.0); TOTAL PROTEIN 6.8 g/dL (5.8-8.3)
[2017-04-18 15:32] LABS: TROPONIN I 0.07 ng/mL
[2017-04-18] MEDS ORDERED: guaiFENesin 100 mg/5 ml Syrup UD PO ONE (16:21)
[2017-04-18] MEDS ORDERED: Non Formulary Medication (Calcium Acetate [Phoslo] 667 MG) PO SCH (18:00)
[2017-04-18] MEDS ORDERED: INSULIN GLARGINE RECOMBINA SC SCH (18:00)
[2017-04-18] MEDS: Insulin Detemir 100 units/ml Vial (Levemir) SC SCH (21:22)
--- NOTE | 2017-04-18 23:56 | CP.PCM.PN ---
Subjective - Date & Time of Evaluation Date of Evaluation: 04/18/17 Time of Evaluation: 23:51 - Subjective Subjective: Nurse calls me and informs that BP is 198/61. Patient had heart rate went down to as low as 30 / min , briefly, gets Mobitz I and II on and off, Pads for external pacemaker have been applied. I ordered hydralazine 10 mg IV and came to see patient. He has no complaints. Denies chest pain, sob. BP is 122/44 now . Medical record was reviewed. This 71 year old male was admitted N/V/D, dry cough of 2 days duration/ bradycardia, bronchitis. Has PMH of CAD,HTN,ESRD,DM, S/P CABG, suprapubic catheter insertion. Objective - Vital Signs/Intake and Output Vital Signs (last 24 hours): Temp Pulse Resp BP Pulse Ox 98.1 F 55 L 18 196/67 H 95 04/18/17 20:57 04/18/17 22:00 04/18/17 20:57 04/18/17 21:32 04/18/17 17:28 - Medications Medications: Current Medications Atorvastatin Calcium (Lipitor) [address] [facility] Last Admin: 04/18/17 21:32 Dose: 20 mg Calcium Acetate (Phoslo) [address] [facility] Hydralazine HCl (Apresoline) [address] [facility] Last Admin: 04/18/17 21:32 Dose: 50 mg Insulin Detemir (Levemir) [address] [facility] Last Admin: 04/18/17 21:22 Dose: Not Given Isosorbide Mononitrate (Imdur) [address] [facility] Levothyroxine Sodium (Synthroid) [address] [facility] - Constitutional Appears: Well, No Acute Distress - Head Exam Head Exam: ATRAUMATIC, NORMAL INSPECTION, NORMOCEPHALIC - Eye Exam Eye Exam: Normal appearance - ENT Exam ENT Exam: Normal External Ear Exam - Neck Exam Neck Exam: Normal Inspection - Respiratory Exam Respiratory Exam: NORMAL BREATHING PATTERN - Cardiovascular Exam Cardiovascular Exam: Bradycardia. absent: JVD - GI/Abdominal Exam GI & Abdominal Exam: absent: Distended - Rectal Exam Rectal Exam: Deferred - Extremities Exam Extremities Exam: Normal Inspection - Back Exam Back Exam: NORMAL INSPECTION - Neurological Exam Neurological Exam: Alert - Psychiatric Exam Psychiatric exam: Normal Affect, Normal Mood - Skin Skin Exam: Normal Color Assessment and Plan - Assessment and Plan (Free Text) Assessment: Bradycardia. Bronchitis. HTN. CAD. ESDR. Anemia. Plan: Hydralazine 10 mg IV stat. Monitor. External pacemaker prn. Continue present management.
--- NOTE | 2017-04-19 01:31 | CARD ---
APPROVED REPORT EKG Measurement Heart [id number] P45 [id number] <Conclusion> Sinus rhythm with 2nd degree AV block (Mobitz I) Anterior infarct, age undetermined ST & T wave abnormality, consider inferior ischemia Abnormal ECG
--- NOTE | 2017-04-19 08:29 | CON ---
DATE: 04/18/2017 REASON FOR CONSULTATION: Mobitz 1 second degree AV block. HISTORY OF PRESENT ILLNESS: The patient is a 71-year-old male who has a history of coronary artery disease, underwent coronary bypass surgery in 2012 when he was diagnosed with significant lef t main disease as well as 3-vessel coronary artery disease. The patient has history of hypertension, end-stage renal disease, a suprapubic catheter. He presented because of nausea, vomiting, diarrhea and dry cough for the past 2 days and was referred from the dialysis unit to the Emergency Room. The patient was noted to be in Mobitz 1 second degree AV block with heart rate in the 30s. The patient denied any dizziness to me at this time. MEDICATIONS: The patient is on hydralazine 50 mg q. 8 hours, Imdur 30 mg once a day, Lipitor 20 mg o nce a day, PhosLo 1 tablet with each meal, Synthroid 75 mcg once a day. The patient was on clonidine as well as Coreg. REVIEW OF SYSTEMS: No reported fever or chills. No reported hypertension and no reported ventricula r arrhythmia. No reported complete AV block on the monitor since the patient's presentation to the elemetry. PHYSICAL EXAMINATION: GENERAL: The patient is an elderly male who does not appear to be in any distress. VITAL SIGNS: Blood pressure 96/67, heart rate 59, temperature 98.1, respirations 18. HEENT: Normocephalic. NECK: No JVD. CHEST: Bilateral rhonchi. HEART: S1, S2 regular. ABDOMEN: Soft. EXTREMITIES: No edema. LABORATORY DATA: Hemoglobin and hematocrit 12.6 and 40, platelet count and white count are 4.3 and 1 31,000. SMA-7: Sodium 138, potassium 3.5, chloride 100, CO2 30, glucose 75, BUN 20, creatinine 3.5. One set of troponin 0.07. TSH level is within normal limits. EKG revealed sinus rhythm with Mobit z 1 second degree AV block, heart rate 37, nonspecific ST-wave changes. Chest x-ray revealed mild ca rdiomegaly with prominent bronchovascular markings. ASSESSMENT: 1. Mobitz 1 second degree AV block. 2. Coronary artery disease, status post coronary artery bypass surgery in 2012. 3. End-stage renal disease on hemodialysis. 4. Rule out gastroenteritis. 5. Borderline hypokalemia. The patient underwent hemodialysis today. 6. Hypothyroidism. RECOMMENDATIONS: Continue hydralazine 50 mg q. 8 hours, Imdur 30 mg once a day, Lipitor at 20 mg onc e a day, Synthroid at 75 mcg once a day. Both clonidine and Coreg were discontinued. Review of the home medications does not include any digitalis medication. Obtain an echocardiogram in the a.m. Mo st likely, the Mobitz 1 second degree AV block is iatrogenic related to combined clonidine as well as Coreg use. Ace Marte MD cc: [id number] TT: 04/19/2017 08:29:10 Confirmation # [id number] Dictation # [id number] tn
[2017-04-19] MEDS: Levothyroxine 75 MCG TAB PO SCH (10:18)
[2017-04-19] MEDS: Insulin Detemir 100 units/ml Vial (Levemir) SC SCH ×2 (10:18→22:11)
--- NOTE | 2017-04-19 10:21 | HP ---
CHIEF COMPLAINT AND HISTORY OF PRESENT ILLNESS: This is a 71-year-old male who is coming into the [facility] with complaints of not feeling well after dialysis. He has a past medical history of end-stag e renal disease on hemodialysis, coronary artery disease. She was at his dialysis unit and started n ot feeling well and so he came in for further evaluation. He has no abdominal pain. He was having d iarrhea. No bloody stools. He did have an episode of vomiting. He denies any chest pain or shortne ss of breath. Today are no fevers, chills. No wheezes, rales or legs. No headaches or dizziness. He does have difficulty hearing. PAST MEDICAL HISTORY: 1. End-stage renal disease on hemodialysis. 2. Diabetes type 2. 3. Gastroesophageal reflux disease. 4. Hypothyroidism. 5. Congestive. 6. Coronary artery disease. PAST SURGICAL HISTORY: CABG, chronic suprapubic catheter secondary to urinary retention, left AVF. SOCIAL HISTORY: He denies smoking or drinking. FAMILY HISTORY: He has hypertension and diabetes in the family. PHYSICAL EXAMINATION: VITAL SIGNS: Temperature is 98, pulse of 61, blood pressure is 119/43, respirations 18, O2 saturatio n 93%, height is 5 feet 2 inches, weight is 134 pounds, BMI is 24.5. GENERAL: The patient lying in bed, flat, and in no apparent distress. HEAD AND NECK EXAM: Atraumatic, normocephalic. Conjunctivae are pink. Throat clear and mouth with moist mucosa. Oropharynx benign. EYES: Extraocular movements are intact. PERRLA. NECK: Supple. No JVD, thyromegaly, or adenopathy. No bruits. HEART: S1 and S2 regular rate and rhythm. No murmurs, rubs, or gallops. LUNGS: Clear to auscultation bilaterally. No wheezing rales or rhonchi appreciated. No retraction s on exam. ABDOMEN: Suprapubic catheter in place. Soft, nontender, nondistended. Bowel sounds are positive i n all quadrants. No rebound. No hepatosplenomegaly. EXTREMITIES: In the left arm, there is a positive AVF with good thrill and bruit. No cyanosis, cl ubbing, or edema. NEUROLOGIC: No facial asymmetry, tongue is midline, no uvula deviation. Power is 5/5 in upper extr emity and 5/5 in lower extremity. Sensation is normal in upper extremity and lower extremity. PSYCHIATRIC: Awake, alert, oriented x 3. No anxiety or depression symptoms. Good insight. Elvia l affect. GENITOURINARY: No CVA tenderness VASCULAR: 2+ pulses in carotid and pedal pulses. SKIN: No erythema or abnormal nodules noted. SPINE: Normal curvature. LYMPHADENOPATHY: No anterior cervical or posterior cervical adenopathy. No inguinal adenopathy. LABORATORIES: White count of 4.3, hemoglobin 12.6. Chemistry shows a sodium 138, potassium is 3.5, creatinine is 3.5 with troponin 0.07. TSH is 1.39. done shows a heart rate of 37, Mobitz type 1, there are ST-T wave abnormalities. Chest x-ray shows no active disease ASSESSMENT: 1. Bradycardia. 2. End-stage renal disease, on hemodialysis. 3. Diabetes type 2. 4. Coronary artery disease. 5. Anemia. 6. Hypothyroidism. 7. Dyslipidemia. 8. Left arteriovenous fistula. 9. Chronic suprapubic catheter. 10. Hearing impairment. PLAN: The patient is currently comfortable, is on isosorbide mononitrates, will continue. He is on Levemir for his diabetes. He is on Lipitor for dyslipidemia. He is on Synthroid for hypothyroidism. The patient has an echo that has been ordered, is on a renal diet. I did speak to Dr. Andres fernandez the case this morning. I will get Dr. Kate to follow for the dialysis. The patient is on carved ilol. This may be the cause of his bradycardia. Bc Mariee MD cc: [id number] TT: 04/19/2017 10:20:43 en
[2017-04-19 13:30] VITALS: RESP 20
--- NOTE | 2017-04-19 17:46 | PN ---
DATE: 04/19/2017 The patient is comfortable. The heart rate is much improved since the Coreg has been stopped. The media monitor still shows a prolonged first degree AV block. PHYSICAL EXAMINATION: VITAL SIGNS: The heart rate is in the 60s with first degree heart block. The blood pressure is stab le. Blood pressure varies between 120 and 190, which I do not believe. We will need to repeat the b lood pressure. NECK: Negative JVD. LUNGS: Without rales. HEART: Reveals S1, S2. EXTREMITIES: Without edema. LABORATORIES: The troponin is 0.07. Potassium is 3.5. IMPRESSION: 1. Atrioventricular block with Mobitz I. 2. Coronary artery disease. 3. Stable angina. 4. History of coronary artery bypass surgery. 5. End-stage renal disease. PLAN: Given these findings, we will keep the patient off of the beta blockers. We will recheck the blood pressure. If the heart rate as well as the blood pressure is stable in the morning, patient ca n be discharged. Bharath Campos MD cc: [id number] TT: 04/19/2017 17:45:27 Confirmation # [id number] Dictation # [id number]
--- NOTE | 2017-04-19 18:39 | CON ---
DATE: 04/19/2017 REASON FOR CONSULTATION: Hypertension, NIDDM, need for dialysis. HISTORY OF PRESENTING ILLNESS: A 71-year-old male known to me from outpatient hemodialysis, was admi tted yesterday with complaints of cough, shortness of breath. No reported fever. No chills. No rep orted abdominal pain. The patient gives a history of nausea, vomiting and diarrhea for 2 days also. In the Emergency Room, he was found to be hemodynamically stable, but he was found to have a heart ra te of 37 with a WV interval that was prolonged. Hence, the patient was admitted for monitoring. PAST MEDICAL AND SURGICAL HISTORY: Longstanding hypertension, CAD, CABG, neurogenic bladder, suprapu bic catheter, ESRD, anemia of chronic kidney disease. Admitted with nausea, vomiting and diarrhea for 2 days, cough for 2 days. Bradycardia, prolonged [place] interval. PLAN: 1. At this time, would recommend galvan cultures. 2. No indication for antibiotics at this point. 3. Follow up culture results. 4. Cardiology evaluation. 5. Dialysis tomorrow as per his schedule of Monday, and Monday. Thank you for the courtesy of this consultation. We will follow this patient with you. Марина Kate MD cc: [phone] TT: 04/19/2017 18:38:39 Confirmation # [id number] Dictation # [id number] [email or web address]
--- NOTE | 2017-04-19 22:06 | CARD ---
APPROVED REPORT EXAM: Two-dimensional and M-mode echocardiogram with Doppler and color Doppler. INDICATION Cardiac Disease: CAD 2D DIMENSIONS Left Atrium (2D)3.7 (1.6-4.0cm)IVSd1.3 (0.7-1.1cm) LVDd4.3 (3.9-5.9cm)PWd1.1 (0.7-1.1cm) LVDs3.0 (2.5-4.0cm)FS (%) 29.3 % LVEF (%)56.6 (>50%) M-Mode DIMENSIONS Aortic Root3.20 (2.2-3.7cm)Aortic Cusp Exc.1.20 (1.5-2.0cm) Aortic Valve AoV Peak Xsirhpla087.0cm/sAoV VTI47.4cmAO Peak GR.20mmHg LVOT Peak Hbzhhtwg96.9cm/sLVOT VTI20.20cmAO Mean GR.10mmHg Mitral Valve MV E Ohwzukou856.0cm/sMV A Mjfmfczr711.0cm/sE/A ratio1.2 TDI E/Lateral E'0.0E/Medial E'0.0 Tricuspid Valve TR Peak Alqyzfee402tp/sRAP EYHJROOG80neEyRU Peak Gr.77mmHg WAXN16guLa LEFT VENTRICLE The left ventricle is normal size. There is borderline concentric left ventricular hypertrophy. The left ventricular ejection fraction is within the normal range. Septal hypokinesis Transmitral Doppler flow pattern is Grade II-pseudonormal filling dynamics. RIGHT VENTRICLE The right ventricle is moderately dilated. There is normal right ventricular wall thickness. RV Systolic function is severely reduced. ATRIA The left atrium size is normal. The right atrium is moderately dilated. AORTIC VALVE The aortic valve is moderately sclerotic. There is mild aortic regurgitation. MITRAL VALVE The mitral valve is moderately thickened. TRICUSPID VALVE There is severe pulmonary hypertension. GREAT VESSELS The aortic root is normal in size. <Conclusion> The left ventricle is normal size. There is borderline concentric left ventricular hypertrophy. The left ventricular ejection fraction is within the normal range. Septal hypokinesis The right ventricle is moderately dilated. RV Systolic function is severely reduced. There is severe pulmonary hypertension. There is mild aortic regurgitation.
[2017-04-20 06:07] VITALS: BP 154/64; PULSE 59
[2017-04-20 06:45] VITALS: TEMP 98.3; O2SAT 94
[2017-04-20] MEDS: Levothyroxine 75 MCG TAB PO SCH (07:58)
--- NOTE | 2017-04-20 08:41 | DS ---
The patient has no complaints of any chest pain, no shortness of breath, no headaches. He initially was admitted to the hospital and was found to have bradycardia. He was taken off his beta blockers. He does have a history of coronary disease and CABG. He was seen by Dr. Campos and his retail beauty specialist. The patient is going to get his dialysis done today. PHYSICAL EXAMINATION: VITAL SIGNS: Temperature is 98.3, pulse of 59, blood pressure 154/64, respirations 20. GENERAL: The patient comfortable, in no acute distress. HEENT: Anicteric sclerae. Moist mucosa. NECK: No JVD or adenopathy. CARDIAC: S1/S2. No murmurs. No rubs. Regular. RESPIRATORY: Clear to auscultation bilaterally. No wheezes, rales, or rhonchi. Good air entry. ABDOMEN: Bowel sounds are positive, soft, nontender, and nondistended. EXTREMITIES: No edema. Has 1+ pulses. LABORATORIES: White count of 4.3, hemoglobin 12.6. Potassium is 3.5. ASSESSMENT: 1. Bradycardia. 2. End-stage renal disease, on hemodialysis. 3. Diabetes type 2. 4. Coronary artery disease. 5. Anemia. 6. Hypothyroidism. 7. Dyslipidemia. 8. Left arteriovenous fistula. 9. Chronic suprapubic catheter. 10. Hearing impairment. PLAN: The patient is on Synthroid for hypothyroidism. He is going to continue with PhosLo. He is o n Lipitor for dyslipidemia. He is on Levemir for his diabetes. He was given clonidine for his hyper tension. We will defer blood pressure management to the patient's retail beauty specialist. Bc Mariee MD cc: [id number] TT: 04/20/2017 08:40:42 en
[2017-04-20] MEDS: Insulin Detemir 100 units/ml Vial (Levemir) SC SCH (09:59)
--- NOTE | 2017-04-20 10:33 | PN ---
DATE: 04/20/2017 CARDIOLOGY FOLLOWUP The patient is asymptomatic. PHYSICAL EXAMINATION: VITAL SIGNS: Blood pressure is 154/64. The heart rate is in the 60s - first-degree heart block with occasional dropped beats, consistent with Wenckebach. NECK: Negative JVD. LUNGS: Without rales. HEART: Reveals S1, S2. EXTREMITIES: Without edema. IMPRESSION: 1. Arteriovenous ghada block with Wenckebach. 2. End-stage renal disease. 3. Stable angina. 4. History of coronary artery bypass surgery. 5. Improvement of the heart block off beta-blockers. Given these findings, we will discontinue telemetry today. There is no indication for pacemaker at t his time. Echocardiogram reveals severe pulmonary hypertension. Given these findings, we will avoid any AV ghada blocking agents in the future. Bharath Campos MD cc: [phone] TT: 04/20/2017 10:27:09 Confirmation # [id number] Dictation # [id number] [email or web address]
[2017-04-20 10:56] LABS: ADD MANUAL DIFF? NO
[2017-04-20 11:05] LABS: BASO # 0.02 K/mm3 (0.0-2.0); BASO % 0.5 % (0.0-3.0); EOS # 0.3 (0.0-0.7); EOS % 7.6 % (1.5-5.0); GRAN # 2.33 (1.4-6.5); GRAN % 58.7 % (50.0-68.0); HEMATOCRIT 38.5 % (42.0-52.0); LYMPH # 0.8 (1.2-3.4); LYMPH % 20.9 % (22.0-35.0); MEAN CELL VOLUME 94.4 fL (80.0-105.0); MEAN CORPUSCULAR HEMOGLOBIN 30.6 pg (25.0-35.0); MEAN CORPUSCULAR HGB CONC 32.5 g/dl (31.0-37.0); MEAN PLATELET VOLUME 10.7 fl (7.0-11.0); MONO # 0.5 (0.1-0.6); MONO % 12.3 % (1.0-6.0); PLATELET COUNT 128 10^3/uL (120.0-450.0); RED CELL DISTRIBUTION WIDTH 14.9 % (11.5-14.5)
[2017-04-20 11:10] LABS: ALB/GLOB RATIO 1.2 (1.1-1.8); BILIRUBIN,TOTAL 0.6 mg/dL (0.2-1.3); MAGNESIUM 2.1 mg/dL (1.7-2.2); POTASSIUM 4.4 mmol/L (3.6-5.0); TOTAL PROTEIN 6.2 g/dL (5.8-8.3)
[2017-04-20 11:13] LABS: CALCIUM 12.2 mg/dL (8.4-10.5)
--- NOTE | 2017-04-20 13:29 | PN ---
DATE: 04/20/2017 SUBJECTIVE: The patient is seen in the dialysis unit. He is awake, he is alert. He denies any naus ea, vomiting. He denies any diarrhea. He, in fact, is constipated. He denies any shortness of breat h. PHYSICAL EXAMINATION: GENERAL: Elderly male sitting in chair in the dialysis unit. VITAL SIGNS: Blood pressure 154/64, heart rate 60, respiratory rate 20, temperature 98. HEENT: Normocephalic, atraumatic. NECK: Supple, no JVD. LUNGS: Bilateral equal air entry, no rales. EXTREMITIES: No lower extremity edema. LABORATORY DATA: WBC 4, hemoglobin 12.5, hematocrit 38.5, platelets 128. Sodium 131, potassium 4.4, chloride 96, CO2 29, BUN 42, creatinine 6.1, glucose 167, calcium 12.2, phosphorus 5.0, magnesium 2. 1, albumin 3.4. Corrected calcium is 12.7. CURRENT MEDICATIONS: Hydralazine, Imdur, Levemir, Lipitor, PhosLo, Synthroid. ASSESSMENT: 1. Arteriovenous ghada block with Wenckebach. 2. Hypercalcemia. 3. End-stage renal disease. 4. History of coronary artery disease, coronary artery bypass graft. 5. Bradycardia, resolved. PLAN: 1. Discontinue PhosLo. 2. Stable dialysis. 3. Check intact PTH and vitamin D with dialysis blood work. 4. Monitor calcium closely. Марина Kate MD cc: [phone] TT: 04/20/2017 13:28:19 Confirmation # [id number] Dictation # [id number] [email or web address]
== END 2017-04-20 16:00 | disposition home or self-care (01) ==
LOC: ED 13:21 → ERH 16:28 → 2RNO 18:59
PROVIDERS: ADMIT Internal Medicine Nephrology; ATTEND Internal Medicine Nephrology
DX: R00.1 Bradycardia, unspecified (principal); J40 Bronchitis, not specified as acute or chronic; N18.6 End stage renal disease; Z99.2 Dependence on renal dialysis; I12.0 Hypertensive chronic kidney disease with stage 5 chronic kidney disease or end stage renal disease; E11.22 Type 2 diabetes mellitus with diabetic chronic kidney disease; I27.2 Other secondary pulmonary hypertension; D63.1 Anemia in chronic kidney disease; I25.118 Atherosclerotic heart disease of native coronary artery with other forms of angina pectoris; E78.5 Hyperlipidemia, unspecified; K21.9 Gastro-esophageal reflux disease without esophagitis; I44.1 Atrioventricular block, second degree; E03.9 Hypothyroidism, unspecified; E87.6 Hypokalemia; N31.9 Neuromuscular dysfunction of bladder, unspecified; E83.52 Hypercalcemia; K59.00 Constipation, unspecified; H91.90 Unspecified hearing loss, unspecified ear; Z79.84 Long term (current) use of oral hypoglycemic drugs; Z95.1 Presence of aortocoronary bypass graft; Z82.49 Family history of ischemic heart disease and other diseases of the circulatory system; Z83.3 Family history of diabetes mellitus
CPT/HCPCS: 36415; 71010; 80053; 82550; 83615; 83735; 84100; 84443; 84484; 85025; 85027; 90999; 93005; 93306; 96374; 99285; G0378; J0360

== ENCOUNTER 2017-05-25 17:53 | Emergency (ER) | payer MEDICARE, OTHER ==
[2017-05-25 17:54] VITALS: BMI 27.3
[2017-05-25 18:13] VITALS: RESP 18; TEMP 97.6; O2SAT 98
--- NOTE | 2017-05-25 18:53 | ED PDOC ---
"Arrival/HPI - General Chief Complaint: Trauma Time Seen by Provider: 05/25/17 18:51 Historian: Patient - History of Present Illness Narrative History of Present Illness (Text): 05/25/17 18:53 This is a 71Y M with PMH of HTN, ESRD, DM, suprapubic catheter, CAD s/p CABG who came to ED c/o lower back pain x 2 days. stated patient loss balanced and fell on his back. thinks patient hit head. Patient denies head injury , CALDERON, neck pain, weakness, paresthesias, /GI incontinence, saddle anesthesias , urinary retention, hematuria, sob, cp, urinary symptoms, or dizziness. Patient had Hemodialysis earlier today. Time/Duration: Other (2 days) Quality: Aching Context: Home Past Medical History - Provider Review Nursing Documentation Reviewed: Yes - Infectious Disease Hx of Infectious Diseases: None - Tetanus Immunization Tetanus Immunization: Unknown - Cardiac Hx Congestive Heart Failure: Yes Hx Hypertension: Yes - Pulmonary Hx Respiratory Disorders: Yes Hx Asthma: Yes - Neurological Hx Neurological Disorder: Yes Hx Dementia: Yes - HEENT Hx HEENT Disorder: Yes Hx Cataracts: Yes (sx) Hx Deafness: Yes (R ear) Other/Comment: hard of hearing - Renal Hx Renal Disorder: Yes Hx Dialysis: Yes Date of Last Dialysis Treatment: 04/20/17 Hx Neurogenic Bladder: Yes - Endocrine/Metabolic Hx Diabetes Mellitus Type 2: Yes Hx Hypothyroidism: Yes - Hematological/Oncological Hx Blood Disorders: Yes Hx Anemia: Yes (blood transfusion) - Integumentary Hx Dermatological Disorder: (BILATERAL LEG EDEMA MORE ON LEFT.SHUNT TO LEFT UPPER ARM,SUPRAPUBIC CATHETE) Other/Comment: ble skin discoloration - Musculoskeletal/Rheumatological Hx Musculoskeletal Disorders: No Hx Falls: No - Gastrointestinal Hx Gastrointestinal Disorders: Yes Hx Diverticulitis: Yes - Genitourinary/Gynecological Hx Genitourinary Disorders: Yes (pylonephritis) Hx Hematuria: Yes Hx Prostate Problems: Yes (prostate sx 2012; suprapubic catheter) Hx Urinary Tract Infection: Yes Other/Comment: suprapubic catheter, bilateral orchietis, left epididymitis, scrotal cellulitis, urinary retention, hx mrsa in urine - Psychiatric Hx Psychophysiologic Disorder: No Hx Substance Use: No - Past Surgical History Past Surgical History: No Previous - Surgical History Hx Cardiac Catheterization: Yes Hx Open Heart Surgery: Yes (quadruple bypass) Other/Comment: Suprapubic catheter, birgit shunt, l chest udall - Anesthesia Hx Anesthesia: Yes Hx Anesthesia Reactions: No Hx Malignant Hyperthermia: No - Suicidal Assessment Feels Threatened In Home Enviroment: No Family/Social History - Physician Review Nursing Documentation Reviewed: Yes Family/Social History: No Known Family HX Smoking Status: Never Smoked Hx Alcohol Use: No Hx Substance Use: No Hx Substance Use Treatment: No Allergies/Home Meds Allergies/Adverse Reactions: Allergies dye Allergy (Uncoded 05/25/17 18:01) REDNESS Home Medications: Home Meds Medication Instructions Recorded Confirmed Atorvastatin [Lipitor] 20 mg PO HS 02/05/17 04/21/17 Calcium Acetate [Phoslo] 667 mg PO TID 02/05/17 04/21/17 Insulin Glargine, Recombina 5 unit SC BID 02/05/17 04/21/17 [Lantus] Isosorbide Mononitrate [Imdur] 30 mg PO DAILY 02/05/17 04/21/17 Lactobacillus Combination No.8 1 each PO DAILY 02/05/17 04/21/17 [Adult Probiotic] Levothyroxine Sodium 75 mcg PO DAILY 02/05/17 04/21/17 hydrALAZINE [Apresoline] 50 mg PO Q8H 02/05/17 04/21/17 Review of Systems - Review of Systems Constitutional: Normal. absent: Fatigue, Weight Change, Fevers Eyes: Normal ENT: Normal Respiratory: Normal. absent: SOB, Cough Cardiovascular: Normal Gastrointestinal: Normal Genitourinary Male: Normal Musculoskeletal: Back Pain, Other (head injury). absent: Arthralgias, Neck Pain Skin: Normal. absent: Rash Neurological: Normal. absent: Headache, Dizziness, Focal Weakness, Gait Changes , Speech Changes Endocrine: Normal Hemo/Lymphatic: Normal Psychiatric: Normal Physical Exam Vital Signs Temp Pulse Resp BP Pulse Ox 05/25/17 22:00 62 18 148/67 98 05/25/17 17:54 97.6 F 60 18 152/62 H 98 Temperature: Afebrile Blood Pressure: Normal Pulse: Regular Respiratory Rate: Normal Appearance: Positive for: Well-Appearing, Non-Toxic, Comfortable Pain Distress: None Mental Status: Positive for: Alert and Oriented X 3 - Systems Exam Head: Present: Atraumatic, Normocephalic Pupils: Present: PERRL Extroacular Muscles: Present: EOMI Conjunctiva: Present: Normal Mouth: Present: Moist Mucous Membranes Neck: Present: Normal Range of Motion Respiratory/Chest: Present: Clear to Auscultation, Good Air Exchange. No: Respiratory Distress, Accessory Muscle Use Cardiovascular: Present: Regular Rate and Rhythm, Normal S1, S2. No: Murmurs Abdomen: Present: Normal Bowel Sounds. No: Tenderness, Distention, Peritoneal Signs Back: Present: Normal Inspection, Paraspinal Tenderness (mild b/l paravertebral tenderness. No vertebral point tenderness. No vertebral step off). No: CVA Tenderness, Midline Tenderness Upper Extremity: Present: Normal Inspection, Normal ROM, NORMAL PULSES, Capillary Refill < 2s. No: Cyanosis, Edema Lower Extremity: Present: Normal Inspection, Normal ROM, Neurovascularly Intact , Capillary Refill < 2 s. No: Edema Neurological: Present: GCS=15, CN II-XII Intact, Speech Normal Skin: Present: Warm, Dry, Normal Color. No: Rashes Psychiatric: Present: Alert, Oriented x 3, Normal Insight, Normal Concentration Medical Decision Making ED Course and Treatment: Re-evaluation. Patient feels better. Discussed results and plan with patient who expresses understanding. All questions answered and there is agreement with the plan to discharge home with instructions. Patient stable for discharge. Return if symptoms persist or worsen. Re-evaluation Time: 21:30 Reassessment Condition: Re-examined, Improved - Lab Interpretations Lab Results: 05/25/17 19:15 05/25/17 19:15 Lab Results 05/25/17 19:15: Sodium 136, Potassium 3.2 L, Chloride 100, Carbon Dioxide 28, Anion Gap 11, BUN 17, Creatinine 2.3 H, Est GFR ( Amer) 34, Est GFR (Non- Af Amer) 28, Random Glucose 117 H, Calcium 9.8, Total Bilirubin 0.7, AST 22, ALT 26, Alkaline Phosphatase 187 H, Total Protein 6.4, Albumin 3.4, Globulin 3.0 , Albumin/Globulin Ratio 1.1 05/25/17 19:15: WBC 3.0 L D, RBC 3.61, Hgb 10.7 L, Hct 33.4 L, MCV 92.5, MCH 29.6, MCHC 32.0, RDW 13.5, Plt Count 76 L, MPV 12.4 H, Gran % 70.0 H, Lymph % ( Auto) 21.7 L, [place] % (Auto) 3.3, Eos % (Auto) 4.7, Baso % (Auto) 0.3, Gran # 2.09, Lymph # 0.7 L, [place] # 0.1, Eos # 0.1, Baso # 0.01 - RAD Interpretation Narrative RAD Interpretations (Text): 05/25/17 21:31 [facility] FINDINGS: No acute fracture. No acute subluxation. Multilevel degenerative changes. Degenerative disc disease with disc osteophyte formation. Uncovertebral hypertrophy/facet arthropathy. Impression on the central canal and neural foramina narrowing. Atelectasis. Atherosclerosis/vascular calcification. Status post cholecystectomy. Nonspecific perinephric stranding. IMPRESSION: Negative for acute fracture. Detail/findings as above. ALBINO BOOKERMO | Preliminary Radiology Report Thank you for allowing us to participate in the care of your patient. Dictated and Authenticated by: Sarah Thompson MD 05/25/2017 9:20 PM Eastern Time ([place] & [place]) 05/25/17 21:31 [facility] Brain: Atrophy. Evidence of chronic ischemic small vessel changes. Vascular calcification. No hemorrhage. No edema. Ventricles: No hydrocephalus. Bones: Skull is intact. Sinuses: Mild paranasal sinus mucosal thickening. No acute sinusitis. Mastoid air cells: No mastoid effusion. IMPRESSION: No CT evidence of acute intracranial abnormality. Details/findings as above. Thank you for allowing us to participate in the care of your patient. Dictated and Authenticated by: Sarah Thompson MD 05/25/2017 9:26 PM Eastern Time ([place] & [place]) Radiology Orders: 05/25/17 19:10 HEAD W/O CONTRAST [CT] Stat LUMBAR SPINE W/O CONTRAST [CT] Stat - Medication Orders Current Medication Orders: Discontinued Medications Potassium Chloride (Potassium Chloride Oral Soln) 40 meq PO STAT STA Stop: 05/25/17 21:35 Last Admin: 05/25/17 22:00 Dose: 40 meq Disposition/Present on Arrival - Present on Arrival Any Indicators Present on Arrival: No History of DVT/PE: No History of Uncontrolled Diabetes: No Urinary Catheter: No History of Decub. Ulcer: No History Surgical Site Infection Following: None - Disposition Have Diagnosis and Disposition been Completed?: Yes Diagnosis: Back pain, Fall Disposition: HOME/ ROUTINE Disposition Time: 21:35 Patient Plan: Discharge Condition: GOOD Discharge Instructions (ExitCare): Back Pain (ED) Additional Instructions: Call private doctor for follow up visit in 1- 2 days. take medication for pain as needed. Return to emergency if symptoms worsen. Prescriptions: traMADol [Ultram] 50 mg PO BID #10 tab Referrals: Seth Martínez [Primary Care Provider] - Follow up with primary"
[2017-05-25 19:28] LABS: BASO # 0.01 K/mm3 (0.0-2.0); BASO % 0.3 % (0.0-3.0); EOS # 0.1 (0.0-0.7); EOS % 4.7 % (1.5-5.0); GRAN # 2.09 (1.4-6.5); HEMOGLOBIN 10.7 gm/dL (14.0-18.0); LYMPH # 0.7 (1.2-3.4); LYMPH % 21.7 % (22.0-35.0); MEAN CELL VOLUME 92.5 fL (80.0-105.0); MEAN CORPUSCULAR HEMOGLOBIN 29.6 pg (25.0-35.0); MEAN PLATELET VOLUME 12.4 fl (7.0-11.0); MONO # 0.1 (0.1-0.6); MONO % 3.3 % (1.0-6.0); RBC 3.61 10^6/uL (3.5-6.1); RED CELL DISTRIBUTION WIDTH 13.5 % (11.5-14.5)
[2017-05-25 20:13] LABS: ALB/GLOB RATIO 1.1 (1.1-1.8); ALBUMIN 3.4 g/dL (3.0-4.8); CALCIUM 9.8 mg/dL (8.4-10.5)
[2017-05-25] MEDS ORDERED: Potassium Chloride 40 mEq/30 ml LIQ UD PO STA (21:34)
[2017-05-25 22:14] LABS: PLATELET COUNT 76 10^3/uL (120.0-450.0)
[2017-05-25 22:27] VITALS: BP 148/67; PULSE 62
--- NOTE | 2017-05-26 08:52 | CT ---
PROCEDURE: CT HEAD WITHOUT CONTRAST. HISTORY: head injury COMPARISON: Comparison is made to the previous study dated 02/05/2017 TECHNIQUE: Axial computed tomography images were obtained through the head/brain without intravenous contrast. Radiation dose: Total exam DLP = 725.84 mGy-cm. This CT exam was performed using one or more of the following dose reduction techniques: Automated exposure control, adjustment of the mA and/or kV according to patient size, and/or use of iterative reconstruction technique. FINDINGS: HEMORRHAGE: No intracranial hemorrhage. BRAIN: No mass effect or edema. Mild atrophy and nbqf-[id number] chronic microvascular white matter ischemic disease are again noted. VENTRICLES: Unremarkable. No hydrocephalus. CALVARIUM: Unremarkable. PARANASAL SINUSES: Mild sinuses mucosal thickening is noted. Interval improvement in the previously seen right frontal sinus opacification since the previous exam. MASTOID AIR CELLS: Unremarkable as visualized. No inflammatory changes. OTHER FINDINGS: None. IMPRESSION: No evidence of acute intracranial hemorrhage intracranial collection mass effect or midline shift mild atrophy and hvhk-aw-oqudyuig chronic microvascular white matter ischemic disease. Interval improvement in the previously seen paranasal sinuses mucosal disease since the previous exam. Preliminary report was submitted by [facility].
--- NOTE | 2017-05-26 09:57 | CT ---
PROCEDURE: CT Lumbar Spine without contrast HISTORY: back pain s/p fall COMPARISON: None. TECHNIQUE: Axial computed tomography images were obtained of the lumbar spine without the use of intravenous contrast. Coronal and sagittal reformatted images were created and reviewed. Radiation dose: Total exam DLP = 572 mGy-cm. This CT exam was performed using one or more of the following dose reduction techniques: Automated exposure control, adjustment of the mA and/or kV according to patient size, and/or use of iterative reconstruction technique. FINDINGS: VERTEBRAE: Unremarkable. No fracture. Normal alignment. DISCS/SPINAL CANAL/NEURAL FORAMINA: L1-2: Unremarkable. L2-3: Unremarkable. L3-4: Mild disc bulge and mild facet arthropathy L4-5: There is a moderate disc bulge L5-S1: There is severe disc degeneration with left-sided osteophyte formation. There is severe bilateral foraminal stenosis left greater than right PARASPINAL SOFT TISSUES: Unremarkable. OTHER FINDINGS: The report concurs with the preliminary [facility] report IMPRESSION: Severe disc degeneration at L5-S1 with bilateral foraminal stenosis left greater than right
== END 2017-05-25 22:26 | disposition home or self-care (01) ==
LOC: ED 17:53
DX: M54.9 Dorsalgia, unspecified (principal); W01.0XXA Fall on same level from slipping, tripping and stumbling without subsequent striking against object, initial encounter; Y93.89 Activity, other specified; Y92.89 Other specified places as the place of occurrence of the external cause
CPT/HCPCS: 70450; 72131; 80053; 85025; 99284; J3480

== ENCOUNTER 2017-10-15 00:39 | Inpatient (IN) | payer MEDICAID, MEDICARE ==
[2017-10-15 00:50] VITALS: BMI 23.6
--- NOTE | 2017-10-15 01:11 | ED PDOC ---
Arrival/HPI - General Chief Complaint: GI Problem Time Seen by Provider: 10/15/17 00:49 Historian: Patient - History of Present Illness Narrative History of Present Illness (Text): 10/15/17 0:55 Dragan Sims is a 71 year old male, whose past medical history includes Hypertension, ESRD, diabetes, suprapubic catheter, Coronary Artery Disease s/p CABG, presents to the Emergency department complaining of vomiting, diarrhea, subjective fever and generalized weakness tonight. Patient notes he underwent hemodialysis on 10/14/2017. Patient denies any chest pain, shortness of breath, headache, cough, abdominal pain or any other complaints. Time/Duration: Other (today) Symptom Onset: Gradual Symptom Course: Unchanged Activities at Onset: Light Context: Home Past Medical History - Provider Review Nursing Documentation Reviewed: Yes - Infectious Disease Hx of Infectious Diseases: None - Tetanus Immunization Tetanus Immunization: Unknown - Cardiac Hx Congestive Heart Failure: Yes Hx Hypertension: Yes - Pulmonary Hx Respiratory Disorders: Yes Hx Asthma: Yes - Neurological Hx Neurological Disorder: Yes Hx Dementia: Yes - HEENT Hx HEENT Disorder: Yes Hx Cataracts: Yes (sx) Hx Deafness: Yes (R ear) Other/Comment: hard of hearing - Renal Hx Renal Disorder: Yes Hx Dialysis: Yes Date of Last Dialysis Treatment: 04/20/17 Hx Neurogenic Bladder: Yes - Endocrine/Metabolic Hx Diabetes Mellitus Type 2: Yes Hx Hypothyroidism: Yes - Hematological/Oncological Hx Blood Disorders: Yes Hx Anemia: Yes (blood transfusion) - Integumentary Hx Dermatological Disorder: (BILATERAL LEG EDEMA MORE ON LEFT.SHUNT TO LEFT UPPER ARM,SUPRAPUBIC CATHETE) Other/Comment: ble skin discoloration - Musculoskeletal/Rheumatological Hx Musculoskeletal Disorders: No Hx Falls: No - Gastrointestinal Hx Gastrointestinal Disorders: Yes Hx Diverticulitis: Yes - Genitourinary/Gynecological Hx Genitourinary Disorders: Yes (pylonephritis) Hx Hematuria: Yes Hx Prostate Problems: Yes (prostate sx 2012; suprapubic catheter) Hx Urinary Tract Infection: Yes Other/Comment: suprapubic catheter, bilateral orchietis, left epididymitis, scrotal cellulitis, urinary retention, hx mrsa in urine - Psychiatric Hx Psychophysiologic Disorder: No Hx Substance Use: No - Past Surgical History Past Surgical History: No Previous - Surgical History Hx Cardiac Catheterization: Yes Hx Open Heart Surgery: Yes (quadruple bypass) Other/Comment: Suprapubic catheter, birgit shunt, l chest udall - Anesthesia Hx Anesthesia: Yes Hx Anesthesia Reactions: No Hx Malignant Hyperthermia: No - Suicidal Assessment Feels Threatened In Home Enviroment: No Family/Social History - Physician Review Nursing Documentation Reviewed: Yes Family/Social History: No Known Family HX Smoking Status: Never Smoked Hx Alcohol Use: No Hx Substance Use: No Hx Substance Use Treatment: No Allergies/Home Meds Allergies/Adverse Reactions: Allergies dye Allergy (Uncoded 05/25/17 18:01) REDNESS Home Medications: Home Meds Medication Instructions Recorded Confirmed Atorvastatin [Lipitor] 20 mg PO HS 02/05/17 10/15/17 Calcium Acetate [Phoslo] 667 mg PO TID 02/05/17 10/15/17 Insulin Glargine, Recombina 5 unit SC BID 02/05/17 10/15/17 [Lantus] Isosorbide Mononitrate ER [Imdur 30 mg PO DAILY 02/05/17 10/15/17 ER] Lactobacillus Combination No.8 1 each PO DAILY 02/05/17 10/15/17 [Adult Probiotic] Levothyroxine Sodium 75 mcg PO DAILY 02/05/17 10/15/17 hydrALAZINE [Apresoline] 50 mg PO Q8H 02/05/17 10/15/17 Review of Systems - Review of Systems Constitutional: Fevers Eyes: Normal ENT: Normal Respiratory: Normal. absent: SOB, Cough, Sputum Cardiovascular: Normal. absent: Chest Pain, Palpitations, Edema, Orthopnea Gastrointestinal: Diarrhea, Vomiting Musculoskeletal: Normal. absent: Back Pain, Neck Pain Skin: Normal. absent: Rash, Pruritis Neurological: Normal. absent: Headache, Dizziness Endocrine: Normal. absent: Diaphoresis Psychiatric: Normal Physical Exam Vital Signs Reviewed: Yes Vital Signs Temp Pulse Resp BP Pulse Ox 10/15/17 04:25 60 20 140/60 98 10/15/17 02:24 60 20 123/56 L 94 L 10/15/17 00:50 98.6 F 60 18 130/62 95 Temperature: Afebrile Blood Pressure: Normal Pulse: Regular Respiratory Rate: Normal Appearance: Positive for: Well-Appearing, Non-Toxic, Comfortable Pain Distress: None Mental Status: Positive for: Alert and Oriented X 3 - Systems Exam Head: Present: Atraumatic, Normocephalic Pupils: Present: PERRL Extroacular Muscles: Present: EOMI Conjunctiva: Present: Normal Mouth: Present: Moist Mucous Membranes. No: Dry Neck: Present: Normal Range of Motion Respiratory/Chest: Present: Clear to Auscultation, Good Air Exchange. No: Respiratory Distress, Accessory Muscle Use Cardiovascular: Present: Regular Rate and Rhythm, Normal S1, S2. No: Murmurs Abdomen: Present: Normal Bowel Sounds. No: Tenderness, Distention, Peritoneal Signs Back: Present: Normal Inspection Upper Extremity: Present: Normal Inspection. No: Cyanosis, Edema Lower Extremity: Present: Normal Inspection. No: Edema Neurological: Present: GCS=15, CN II-XII Intact, Speech Normal Skin: Present: Warm, Dry, Normal Color. No: Rashes Psychiatric: Present: Alert, Oriented x 3, Normal Insight, Normal Concentration Medical Decision Making ED Course and Treatment: 10/15/17 0:55 Impression: 71 year old male presents to the Emergency department complaining of right sided back pain. Plan: -- EKG -- Labs -- Chest X-Ray -- Blood Culture -- Urine Culture -- Urinalysis -- Reassess and disposition Prior Visits: Notes and results from previous visits were reviewed. On 05/25/17 patient presented to the Emergency department complaining of lower back pain. Patient was discharged home with instructions to follow-up with primary care. Progress Notes: 10/15/17 01:20 EKG: Ordered, reviewed, and independently interpreted the EKG. Rate : 63 BPM Rhythm : A-fib Interpretation : Non-specific ST/T changes. 10/15/17 01:44 Chest X-ray reviewed, shows no acute processes. 10/15/17 05:[address] Elias, who is aware and agrees with plan. Accepts patient into her service. Pt will be admitted to [facility] for UTI. - Lab Interpretations Microbiology Results: Microbiology Results 10/15/17 03:00 Blood Blood Culture - Preliminary NO GROWTH AFTER 24 HOURS 10/15/17 01:22 Blood Blood Culture - Preliminary NO GROWTH AFTER 24 HOURS Lab Results: 10/15/17 01:22 10/15/17 01:22 Lab Results 10/15/17 02:55: Urine Color Yellow, Urine Appearance Cloudy, Urine pH 6.5, Ur Specific [place] 1.020, Urine Protein >=300 H, Urine Glucose (UA) Negative, Urine Ketones Trace H, Urine Blood Small H, Urine Nitrate Negative, Urine Bilirubin Small H, Urine Urobilinogen 0.2, Ur Leukocyte Esterase Moderate H, Urine RBC 20 - 25, Urine WBC Tntc, Ur Epithelial Cells 1 - 3, Urine Bacteria Mod 10/15/17 01:22: Sodium 137, Potassium 4.3, Chloride 97 L, Carbon Dioxide 32, Anion Gap 12, BUN 33 H, Creatinine 4.6 H, Est GFR ( Amer) 15, Est GFR ( Non-Af Amer) 13, Random Glucose 115 H, Calcium 8.1 L, Phosphorus 3.1, Magnesium 2.1, Total Bilirubin 0.9, AST 21, ALT 30, Alkaline Phosphatase 316 H, Troponin I 0.05 D, Total Protein 6.1, Albumin 3.2, Globulin 2.9, Albumin/Globulin Ratio 1.1 10/15/17 01:22: PT 14.5 H, INR 1.32 H, APTT 32.3 10/15/17 01:22: WBC 6.0 D, RBC 3.37 L, Hgb 10.2 L, Hct 32.3 L, MCV 95.8, MCH 30.3, MCHC 31.6, RDW 13.7, Plt Count 227, MPV 9.9, Gran % 72.0 H, Lymph % (Auto ) 13.2 L, [place] % (Auto) 13.7 H, Eos % (Auto) 0.8 L, Baso % (Auto) 0.3, Gran # 4.30, Lymph # 0.8 L, [place] # 0.8 H, Eos # 0.1, Baso # 0.02 I have reviewed the lab results: Yes - RAD Interpretation Radiology Orders: 10/15/17 00:55 CHEST PORTABLE [RAD] Stat Assistant Child Care Teacher: ED Physician - EKG Interpretation Interpreted by ED Physician: Yes Type: 12 lead EKG - Medication Orders Current Medication Orders: Acetaminophen (Tylenol 325mg Tab) 650 mg PO Q4H PRN PRN Reason: Fever >100.5 F Atorvastatin Calcium (Lipitor) 20 mg PO HS [facility] Last Admin: 10/15/17 22:28 Dose: Not Given Non-Admin Reason: NPO Carvedilol (Coreg) 6.25 mg PO BID [facility] Last Admin: 10/15/17 17:48 Dose: 6.25 mg MAR Pulse and Blood Pressure Document 10/15/17 17:48 [place] (Rec: 10/15/17 17:53 [id number]) Pulse Pulse Rate (60-90) 60 Blood Pressure Blood Pressure (100/60-150/90) 145/52 Hydralazine HCl (Apresoline) 50 mg PO Q8 [facility] Last Admin: 10/15/17 22:27 Dose: Not Given Non-Admin Reason: BP Parameters Not Met MAR Pulse and Blood Pressure Document 10/15/17 22:27 IMT (Rec: 10/15/17 22:28 [place] [id number]) Pulse Pulse Rate (60-90) 60 Blood Pressure Blood Pressure (100/60-150/90) 126/49 Meropenem 250 mg/ Sodium (Chloride) 100 mls @ 100 mls/hr IVPB Q12 SARA PRN Reason: Protocol Stop: 10/24/17 10:00 Last Admin: 10/15/17 22:28 Dose: 100 mls/hr eMAR Start Stop Document 10/15/17 22:28 IMT (Rec: 10/15/17 22:28 [place] [id number]) Intravenous Solution Start Date 10/15/17 Start Time 22:28 End Date 10/15/17 End time 23:28 Total Infusion Time 60 Sodium Chloride (Sodium Chloride 0.45%) 1,000 mls @ 75 mls/hr IV .[id number] [facility] Last Admin: 10/15/17 22:28 Dose: 75 mls/hr eMAR Start Stop Document 10/15/17 22:28 IMT (Rec: 10/15/17 22:28 [place] [id number]) Intravenous Solution Start Date 10/15/17 Start Time 22:28 Isosorbide Mononitrate (Imdur Er) 30 mg PO DAILY [facility] Last Admin: 10/15/17 11:34 Dose: 30 mg Levothyroxine Sodium (Synthroid) 75 mcg PO ACB [facility] Last Admin: 10/15/17 11:32 Dose: 75 mcg Tramadol HCl (Ultram) 50 mg PO BID [facility] Last Admin: 10/15/17 11:33 Dose: 50 mg MAR Pain Assessment Document 10/15/17 11:33 [facility] (Rec: 10/15/17 11:33 [id number]) Pain Reassessment Is this a pain reassessment? No Sleep Is patient sleeping during reassessment? No Presence of Pain Presence of Pain Yes Pain Scale Used Pain Scale Used Numeric Location Left, Right or Bilateral Bilateral Upper or Lower Lower Pain Location Body Site Back Description Description Intermittent Intensity of Pain at present 5 Re-Assess: GALDINO Pain Assessment Document 10/15/17 12:33 [facility] (Rec: 10/15/17 14:50 [id number]) Pain Reassessment Is this a pain reassessment? Yes Sleep Is patient sleeping during reassessment? No Presence of Pain Presence of Pain No Discontinued Medications Cefepime HCl (Maxipime 1gm) 1 gm in 100 mls @ 100 mls/hr IVPB STAT STA PRN Reason: Protocol Stop: 10/15/17 04:11 Last Admin: 10/15/17 03:45 Dose: 100 mls/hr eMAR Start Stop Document 10/15/17 03:45 SS (Rec: 10/15/17 05:36 SS [id number]) Intravenous Solution Start Date 10/15/17 Start Time 04:00 End Date 10/15/17 End time 05:00 Total Infusion Time 60 Vancomycin HCl (Vancomycin 1gm) 1 gm in 250 mls @ 167 mls/hr IVPB STAT STA PRN Reason: Protocol Stop: 10/15/17 06:47 Last Admin: 10/15/17 06:53 Dose: 167 mls/hr eMAR Start Stop Document 10/15/17 06:53 [facility] (Rec: 10/15/17 06:53 [id number]) Intravenous Solution Start Date 10/15/17 Start Time 06:53 End Date 10/15/17 - Scribe Statement The provider has reviewed the documentation as recorded by the Kristy Petty training under Randi Acosta. All medical record entries made by the Kristy were at my direction and personally dictated by me. I have reviewed the chart and agree that the record accurately reflects my personal performance of the history, physical exam, medical decision making, and the department course for this patient. I have also personally directed, reviewed, and agree with the discharge instructions and disposition. Disposition/Present on Arrival - Present on Arrival Any Indicators Present on Arrival: No History of DVT/PE: No History of Uncontrolled Diabetes: No Urinary Catheter: Yes (suprapubic) History of Decub. Ulcer: No History Surgical Site Infection Following: None - Disposition Have Diagnosis and Disposition been Completed?: Yes Diagnosis: Urinary tract infection Disposition: HOSPITALIZED Disposition Time: 05:00 Condition: FAIR
[2017-10-15 01:48] LABS: BASO # 0.02 K/mm3 (0.0-2.0); BASO % 0.3 % (0.0-3.0); EOS # 0.1 (0.0-0.7); EOS % 0.8 % (1.5-5.0); GRAN # 4.3 (1.4-6.5); HEMATOCRIT 32.3 % (42.0-52.0); LYMPH # 0.8 (1.2-3.4); LYMPH % 13.2 % (22.0-35.0); MEAN CELL VOLUME 95.8 fl (80.0-105.0); MEAN CORPUSCULAR HEMOGLOBIN 30.3 pg (25.0-35.0); MEAN CORPUSCULAR HGB CONC 31.6 g/dl (31.0-37.0); MEAN PLATELET VOLUME 9.9 fl (7.0-11.0); MONO # 0.8 (0.1-0.6); MONO % 13.7 % (1.0-6.0); RED CELL DISTRIBUTION WIDTH 13.7 % (11.5-14.5)
[2017-10-15 02:06] LABS: INR 1.32 (0.93-1.08); PARTIAL THROMBOPLASTIN TIME 32.3 Seconds (25.1-36.5)
[2017-10-15 02:54] LABS: ALB/GLOB RATIO 1.1 (1.1-1.8); BILIRUBIN,TOTAL 0.9 mg/dL (0.2-1.3); CALCIUM 8.1 mg/dL (8.4-10.5); MAGNESIUM 2.1 mg/dL (1.7-2.2); PHOSPHOROUS 3.1 mg/dL (2.5-4.5); POTASSIUM 4.3 mmol/L (3.6-5.0); TOTAL PROTEIN 6.1 g/dL (5.8-8.3)
[2017-10-15 03:04] LABS: PH,URINE 6.5 (4.7-8.0); URINE BILIRUBIN SMALL (NEGATIVE); URINE BLOOD SMALL (NEGATIVE); URINE GLUCOSE (UA) NEGATIVE (NEGATIVE); URINE KETONE TRACE mg/dL (NEGATIVE); URINE LEUKOCYTE ESTERASE MODERATE Leu/uL (NEGATIVE); URINE PROTEIN >=300 mg/dL (<30 mg/dL); URINE UROBILINOGEN 0.2 E.U./dL (<1 E.U./dL)
[2017-10-15 03:06] LABS: TROPONIN I 0.05 ng/mL
[2017-10-15 03:07] LABS: URINE APPEARANCE CLOUDY (CLEAR); URINE COLOR YELLOW (YELLOW)
[2017-10-15] MEDS ORDERED: Cefepime 1gm in NS 100ml 1 GM/100 ML BAG IVPB STA (03:12)
[2017-10-15 03:25] LABS: URINE BACTERIA MOD (NEG); URINE RBC 20 - 25 /hpf (0-2); URINE WBC TNTC /hpf (0-6)
[2017-10-15] MEDS ORDERED: Vancomycin 1gm in NS 250ml 1 GM/250 ML BAG IVPB STA (05:18)
--- NOTE | 2017-10-15 09:09 | CARD ---
APPROVED REPORT EKG Measurement Heart [id number] <Conclusion> Sinus with int. V. Pacing which is new since ECG 04/18/17 Probably 2nd degree AVB.
[2017-10-15] MEDS ORDERED: Iohexol 350 MG/100 ML VIAL ONE (10:16)
[2017-10-15] MEDS ORDERED: Iohexol 240 (50 ml) ONE (10:17)
--- NOTE | 2017-10-15 10:26 | RAD ---
HISTORY: Sepsis Patient COMPARISON: 04/18/2017 FINDINGS: LUNGS: No active pulmonary disease. PLEURA: No significant pleural effusion identified, no pneumothorax apparent. CARDIOVASCULAR: Mild cardiomegaly OSSEOUS STRUCTURES: No significant abnormalities. VISUALIZED UPPER ABDOMEN: Normal. OTHER FINDINGS: Dual lead pacemaker IMPRESSION: No active disease.
[2017-10-15] MEDS: Levothyroxine 75 MCG TAB PO SCH (11:32)
[2017-10-15] MEDS ORDERED: Barium Sulfate Susp 2.1% w/v, 2.0% w/w 450 mL Bottle PO ONE (11:59)
--- NOTE | 2017-10-15 16:41 | CT ---
PROCEDURE: CT Abdomen and Pelvis without intravenous contrast HISTORY: vomiting COMPARISON: 02/05/2017 TECHNIQUE: Without contrast.. Contrast Dose: Radiation dose: Total exam DLP = 357 mGy-cm. This CT exam was performed using one or more of the following dose reduction techniques: Automated exposure control, adjustment of the mA and/or kV according to patient size, and/or use of iterative reconstruction technique. FINDINGS: LOWER THORAX: Small left pleural effusion LIVER: Unremarkable. No gross lesion or ductal dilatation. GALLBLADDER AND BILE DUCTS: Gallbladder removed PANCREAS: Unremarkable. No gross lesion or ductal dilatation. SPLEEN: Unremarkable. ADRENALS: Unremarkable. No mass. KIDNEYS AND URETERS: Unremarkable. No hydronephrosis. No solid mass. VASCULATURE: Unremarkable. No aortic aneurysm. BOWEL: Mildly dilated small bowel loops are seen in the mid abdomen. The exact transition point cannot be determined. Findings are consistent with partial obstruction or ileus. The colon is normal in caliber. APPENDIX: Unremarkable. Normal appendix. PERITONEUM: There is a small amount of ascites. LYMPH NODES: Unremarkable. No enlarged lymph nodes. BLADDER: A suprapubic catheter is seen in the bladder REPRODUCTIVE: Unremarkable. BONES: No acute fracture. OTHER FINDINGS: None. IMPRESSION: Partial small bowel obstruction or ileus. Mild ascites.
--- NOTE | 2017-10-15 19:11 | CON ---
DATE: 10/15/2017 LOCATION: The patient is in room 571, bed 1. CHIEF COMPLAINT: The patient is admitted because of vomiting x1 day duration. HISTORY OF PRESENT ILLNESS: This is a 71-year-old male known to me from previous admissions with past medical history significant for hypertension, depression, congestive heart failure, diabetes mellitus, Bowman's esophagitis, history of left-sided epididymidis, history of GERD, history of enterococcus urinary tract infection. The patient has end-stage renal disease, on hemodialysis. The patient has had a history of cataract surgery. The patient does have a suprapubic catheter in the left arm, dialysis catheter, cataract surgery and admitted to the Emergency Room because of nausea and vomiting. The patient was seen by Dr. Doug Stahl in the Emergency Room last night. The patient denied to me any shortness of breath or chest pain. There is no cough. He denied any abdominal pain. He did complaint of nausea and vomiting. He did have 1 episode of diarrhea. There has been no fevers reported. No headaches or blurred vision. PAST MEDICAL HISTORY: Significant for end-stage renal disease, on hemodialysis and diabetes mellitus, congestive heart failure, hypertension, depression, Bowman's esophagitis, GERD, and left-sided epididymitis. PAST SURGICAL HISTORY: Significant for suprapubic catheter, left arm dialysis access, and cataract surgery and in addition to the patient also has hyperthyroidism and mild dementia and he has had history of ESBL E. coli bacteremia in the past. MEDICATIONS AT HOME: Noted include tramadol, hydralazine, levothyroxine, lactobacillus, isosorbide, insulin, carvedilol, calcium and atorvastatin. ALLERGIES: THE PATIENT IS ALLERGIC TO DYE. PHYSICAL EXAMINATION GENERAL: On exam, he is in bed, in no acute distress. He answers appropriately. VITAL SIGNS: Temperature of 97.3, heart rate of 60, respiratory rate of 20, blood pressure is 140/60. HEENT: Unremarkable. NECK: Supple. LUNGS: Have decreased breath sounds. HEART: Normal S1 and S2. ABDOMEN: Soft and nontender. No organomegaly. No rebound or guarding. No masses. LABORATORY DATA: Examination reveals a white count of 6000, hemoglobin of 10, platelets of 227. The patient has 13% granulocytosis and anticoagulation is noted. The INR 1.32 and chemistries reveal BUN of 33, creatinine of 4.6, glucose is 115. Urinalysis reveals too numerous to count wbc's, moderate bacteria, and 300 proteins. The patient had a chest x-ray, results are not available. The patient had an EKG that shows a QTc of 501. Blood cultures were sent and urine cultures were sent. The patient was given a dose of vancomycin and a dose of cefepime. ASSESSMENT AND PLAN: This is a 71-year-old male with end-stage renal disease, on hemodialysis, hypertension, depression, congestive heart failure, diabetes mellitus, hyperthyroidism, dementia, admitted with nausea and vomiting. 1. Urinary tract infection versus gastrointestinal pathology versus bacteremia. We will start the patient on meropenem. The patient was given a dose of vancomycin and we will order a CAT scan of abdomen and pelvis and pending blood cultures and urine culture results. We will follow up closely with you. Pending culture and CAT scan results. Isrrael Ni MD
[2017-10-15] MEDS ORDERED: Sodium Chloride 0.9% 1,000 ML IV SCH (20:30)
--- NOTE | 2017-10-15 20:39 | HP ---
HISTORY OF PRESENT ILLNESS: The patient is a 71-year-old who speaks [place], was brought to the emergency room because of nausea, vomiting, and diarrhea, and according to the patient, he felt feverish at home with generalized weakness. He does not have any complaint of chest pain or cough or congestion. PAST MEDICAL HISTORY: Significant for: 1. Hypertension. 2. End-stage renal disease, on hemodialysis. 3. Mru-xhpsktd-fmmjjwdlv diabetes. 4. Status post suprapubic catheter. 5. Coronary artery disease. 6. Status post open heart surgery. 7. History of COPD. 8. History of pulmonary embolism. 9. History of diverticulosis. PAST SURGICAL HISTORY: Significant for open heart surgery and cholecystectomy, history of prostatectomy, and history of neurogenic bladder leading to suprapubic cystostomy. ALLERGIES: HE IS ALLERGIC TO DYE. SOCIAL HISTORY: He is and he lives with his . Denies smoking or drinking. MEDICATIONS AT HOME: He is on: 1. Lipitor 20 mg daily. 2. Coreg 12.5 twice a day. 3. Lantus 5 units twice a day. 4. Levothyroxine 75 mcg daily. 5. Hydralazine 50 mg daily. 6. Imdur 30 mg daily. 7. Phos-Lo. REVIEW OF SYSTEMS: Denies any headache or visual symptoms. He has impaired hearing and uses hearing aids. No chest pain. Chronic low back pain. PHYSICAL EXAMINATION: GENERAL: He is awake, alert, oriented, and communicative. VITAL SIGNS: He is afebrile, pulse 60, respirations 16, and blood pressure 134/61. LUNGS: Bilateral fair airflow. No rhonchi or crackle. HEART: S1 and S2 audible. ABDOMEN: Soft and nontender. No rebound. No guarding. NEUROLOGIC: He is awake, alert, oriented, and communicative. Moves all extremities. LABORATORY DATA: WBC 6.0, hemoglobin 10.2, hematocrit 32.3, and platelet of 227. PT 14.5 and INR 1.32. Chemistry; sodium 137, potassium 4.3, chloride 97, CO2 of 32, BUN 33, creatinine 4.6, and blood sugar of 115. Urinalysis shows moderate leukocyte and too numerous to count WBCs. ASSESSMENT: 1. Probably gastroenteritis. 2. End-stage renal disease, on hemodialysis. 3. Coronary artery disease. 4. Hypertension. 5. Insulin-dependent diabetes. 6. History of bradycardia, status post pacemaker placement. 7. Neurogenic bladder, status post suprapubic cystostomy. PLAN: We will start the patient on hydralazine, carvedilol, isosorbide, and atorvastatin. He was given vancomycin and has been started on meropenem. CT scan of the abdomen and pelvis has been ordered. We will follow that up. We will follow up the patient in a.m. Marcos Elias MD
[2017-10-15] MEDS: Sodium Chloride 0.45% 1,000 ML IV SCH (22:28)
[2017-10-16] MEDS: Levothyroxine 75 MCG TAB PO SCH (08:34)
--- NOTE | 2017-10-16 13:53 | CP.PCM.PN ---
Subjective - Date & Time of Evaluation Date of Evaluation: 10/16/17 Time of Evaluation: 12:05 - Subjective Subjective: Patient is so far tolerating soft diet, no vomiting currently, no dysuria currently, no fevers. Objective - Vital Signs/Intake and Output Vital Signs (last 24 hours): Temp Pulse Resp BP Pulse Ox 98.0 F 61 20 122/56 L 95 10/16/17 07:30 10/16/17 10:51 10/16/17 07:30 10/16/17 10:51 10/16/17 07:30 Intake and Output: 10/16/17 10/16/17 06:59 18:59 Intake Total 260 Balance 260 - Medications Medications: Current Medications Acetaminophen (Tylenol 325mg Tab) 650 mg PO Q4H PRN PRN Reason: Fever >100.5 F Atorvastatin Calcium (Lipitor) 20 mg PO HS [facility] Last Admin: 10/15/17 22:28 Dose: Not Given Carvedilol (Coreg) 6.25 mg PO BID [facility] Last Admin: 10/16/17 10:51 Dose: 6.25 mg Hydralazine HCl (Apresoline) 50 mg PO Q8 [facility] Last Admin: 10/16/17 06:27 Dose: Not Given Meropenem 250 mg/ Sodium (Chloride) 100 mls @ 100 mls/hr IVPB Q12 SARA PRN Reason: Protocol Stop: 10/24/17 10:00 Last Admin: 10/16/17 10:51 Dose: 100 mls/hr Sodium Chloride (Sodium Chloride 0.45%) 1,000 mls @ 75 mls/hr IV .[id number] [facility] Last Admin: 10/15/17 22:28 Dose: 75 mls/hr Isosorbide Mononitrate (Imdur Er) 30 mg PO DAILY [facility] Last Admin: 10/16/17 10:52 Dose: 30 mg Levothyroxine Sodium (Synthroid) 75 mcg PO ACB [facility] Last Admin: 10/16/17 08:34 Dose: 75 mcg Tramadol HCl (Ultram) 50 mg PO BID [facility] Last Admin: 10/16/17 10:53 Dose: Not Given - Labs Labs: PT 14.5 SECONDS (9.4-12.5) H 10/15/17 01:22 INR 1.32 (0.93-1.08) H 10/15/17 01:22 APTT 32.3 Seconds (25.1-36.5) 10/15/17 01:22 - Constitutional Appears: Non-toxic - Head Exam Head Exam: NORMAL INSPECTION - Neck Exam Neck Exam: absent: Lymphadenopathy, Meningismus - Respiratory Exam Respiratory Exam: Decreased Breath Sounds - Cardiovascular Exam Cardiovascular Exam: +S1, +S2 - GI/Abdominal Exam GI & Abdominal Exam: Soft. absent: Tenderness Assessment and Plan - Assessment and Plan (Free Text) Plan: Assessment Partial small bowel obstruction, R/O UTI history of sepsis secondary to ESBL-producing multidrug-resistant E. coli bacteremia probably secondary to acute cholecystitis and ascending cholangitis S /P ERCP with biliary stone extraction history of ESBL E. coli bacteremia HTN Congestive Heart Failure DM GERD End-Stage Renal disease on hemodialysis history of depression history of Bowman's esophagus history of epididymitis on the left Plan Continue Meropenem day 2 pending urine cx; blood cx are negative; reviewed CT A/ P which showed either partial SBO or ileus - did not show hydronephrosis or perinephric stranding will also get PSA levels will monitor clinically
[2017-10-16] MEDS: Sodium Chloride 0.45% 1,000 ML IV SCH (14:31)
[2017-10-16 16:29] VITALS: RESP 18
[2017-10-17 05:47] VITALS: BP 124/60
[2017-10-17] MEDS: Levothyroxine 75 MCG TAB PO SCH (08:11)
--- NOTE | 2017-10-17 08:22 | CON ---
DATE: 10/16/2017 ADDENDUM LABORATORY DATA: Revealed BUN 33, creatinine 4.6, alkaline phosphatase of 316. AST, ALT are all normal. CBC reveals white blood cell count 6.0, hemoglobin 10.2, platelet count 227,000. IMPRESSION: This is 71-year-old male with end-stage renal disease on hemodialysis, history of coronary artery disease status post coronary artery bypass surgery, neurogenic bladder status post suprapubic cystostomy with generalized weakness, some abdominal cramps and CT scan of the abdomen showing nonspecific dilated loops of small bowel. The patient currently is asymptomatic. I do not believe that he has small-bowel obstruction. RECOMMENDATIONS: We will start the patient on clear liquid diet as tolerated. I have asked his nurse to advance him to renal solid diet for dinner. I have discussed this case with Dr. Elias. Doug Hill MD
--- NOTE | 2017-10-17 08:22 | CON ---
DATE: 10/16/2017 GASTROENTEROLOGY CONSULTATION REQUESTING PHYSICIAN: Marcos Elias MD REASON FOR CONSULTATION: I have been asked to see this 71-year-old male with known history of end-stage renal disease, status post suprapubic cystostomy with chronic indwelling catheter who apparently came to the hospital with generalized weakness, fevers, and some abdominal cramps. He denied any nausea or vomiting. He did state that his stools were soft. He denies any rectal bleeding. CT scan of the abdomen and pelvis revealed nonspecific dilatation of small bowel loops. He currently denies any abdominal pain, nausea, vomiting and is hungry asking for food. PAST MEDICAL HISTORY: Notable for coronary artery disease, neurogenic bladder, end-stage renal disease, hypertension, type 2 diabetes mellitus, COPD, pulmonary embolism, and diverticulosis. PAST SURGICAL HISTORY: Notable for cholecystectomy, prostatectomy, coronary artery bypass surgery, suprapubic cystostomy. SOCIAL HISTORY: Denies cigarette smoking or alcohol use. FAMILY HISTORY: Noncontributory. MEDICATIONS AT HOME: Include Lantus insulin, Levoxyl, hydralazine, Imdur, Phos-Lo, Lantus insulin, Coreg, and Lipitor. REVIEW OF SYSTEMS: A 14-point review of systems is notable for generalized weakness, abdominal cramps. PHYSICAL EXAMINATION: GENERAL: Well-developed male lying in bed in no acute distress. VITAL SIGNS: Reveal a temperature of 98, blood pressure 122/56, heart rate 61. HEENT: Reveals sclerae to be white. Conjunctivae pink. NECK: Supple. CHEST: Reveals lungs to be clear. HEART: Reveals regular rate and rhythm. ABDOMEN: Soft, nontender. He does have a suprapubic cystostomy with an indwelling catheter. EXTREMITIES: Show no edema. LABORATORY DATA: Reveals white blood cell count 6, hemoglobin 10.2 Doug Hill MD
--- NOTE | 2017-10-17 08:32 | PN ---
DATE: SUBJECTIVE: The patient is a 71-year-old, seen and examined, sitting in a chair, seems to be comfortable, and complains of not having appetite. He does not have any nausea or vomiting. No abdominal pain. PHYSICAL EXAMINATION: VITAL SIGNS: He is afebrile, pulse 60, respirations 18 and blood pressure 141/56. LUNGS: Bilateral good airflow. No rhonchi or crackle. HEART: S1 and S2 audible. ABDOMEN: Soft and nontender. No rebound. No guarding. NEUROLOGIC: He is awake, alert, oriented, and communicative. Moves all extremities. GENITOURINARY: He has suprapubic catheter because of neurogenic bladder. LABORATORY DATA: Blood sugar is 98. PSA 0.2. Blood culture and urine cultures are negative. Had CT scan of the abdomen and pelvis done that showed partial small-bowel obstruction versus ileus. ASSESSMENT: 1. Gastroenteritis versus ileus. 2. End-stage renal disease, on hemodialysis. 3. Hypertension. 4. Status post pacemaker placement. 5. Insulin-dependent diabetes. 6. Coronary artery disease stable. PLAN: His diet has been advanced. We will encourage ambulation. He is currently on meropenem. We will discuss with Infectious Disease for duration of antibiotics. The patient remains stable, eating and tolerating and hemodynamically stable. We will make discharge plan in a.m. or sent to TCU. Marcos Elias MD
[2017-10-17 09:19] VITALS: TEMP 98.2; O2SAT 94
[2017-10-17 09:32] VITALS: PULSE 60
--- NOTE | 2017-10-17 12:15 | PN ---
DATE: 10/17/2017 SUBJECTIVE: The patient is walking around in his room. He denies any abdominal pain, nausea, vomiting, or diarrhea. He tolerated solid foods. CURRENT MEDICATIONS: Include hydralazine, carvedilol, Isordil, atorvastatin, meropenem 250 mg IV q.12., Synthroid, acetaminophen, and tramadol. PHYSICAL EXAMINATION: VITAL SIGNS: Reveal temperature of 98.2, blood pressure 124/60, heart rate of 64. HEENT: Reveal sclerae to be white. Conjunctivae pink. NECK: Supple. CHEST: Reveal lungs to be clear. HEART: Reveals a regular rate and rhythm. ABDOMEN: Soft, nontender. EXTREMITIES: Reveal an AV shunt in his left arm with good thrill. LABORATORY DATA: Reveal no new laboratory data other than a blood sugar of 110. IMPRESSION: 1, Ileus. 2. End-stage renal disease on hemodialysis. 3. Neurogenic bladder. 4. Diabetes mellitus type 2. RECOMMENDATIONS: The patient is stable from a GI standpoint and can be discharged home with outpatient followup. Doug Hill MD
--- NOTE | 2017-10-17 12:35 | CP.PCM.PN ---
Subjective - Date & Time of Evaluation Date of Evaluation: 10/17/17 Time of Evaluation: 11:15 - Subjective Subjective: Patient is feeling better, no fevers overnight, not in distress, eating better, no diarrhea, no more abdominal pain. Objective - Vital Signs/Intake and Output Vital Signs (last 24 hours): Temp Pulse Resp BP Pulse Ox 98 F 64 18 124/60 95 10/16/17 15:30 10/17/17 05:47 10/16/17 15:30 10/17/17 05:47 10/16/17 15:30 Intake and Output: 10/17/17 10/17/17 06:59 18:59 Intake Total 660 Output Total 25 Balance 635 - Medications Medications: Current Medications Acetaminophen (Tylenol 325mg Tab) 650 mg PO Q4H PRN PRN Reason: Fever >100.5 F Atorvastatin Calcium (Lipitor) 20 mg PO HS [facility] Last Admin: 10/16/17 21:38 Dose: 20 mg Carvedilol (Coreg) 6.25 mg PO BID [facility] Last Admin: 10/16/17 18:36 Dose: 6.25 mg Hydralazine HCl (Apresoline) 50 mg PO Q8 [facility] Last Admin: 10/17/17 05:47 Dose: Not Given Meropenem 250 mg/ Sodium (Chloride) 100 mls @ 100 mls/hr IVPB Q12 [facility] PRN Reason: Protocol Stop: 10/24/17 10:00 Last Admin: 10/16/17 21:42 Dose: 100 mls/hr Isosorbide Mononitrate (Imdur Er) 30 mg PO DAILY [facility] Last Admin: 10/16/17 10:52 Dose: 30 mg Levothyroxine Sodium (Synthroid) 75 mcg PO ACB [facility] Last Admin: 10/17/17 08:11 Dose: 75 mcg Tramadol HCl (Ultram) 50 mg PO BID [facility] Last Admin: 10/16/17 10:53 Dose: Not Given - Labs Labs: PT 14.5 SECONDS (9.4-12.5) H 10/15/17 01:22 INR 1.32 (0.93-1.08) H 10/15/17 01:22 APTT 32.3 Seconds (25.1-36.5) 10/15/17 01:22 - Constitutional Appears: Non-toxic - Head Exam Head Exam: NORMAL INSPECTION - ENT Exam ENT Exam: Mucous Membranes Moist - Neck Exam Neck Exam: absent: Lymphadenopathy, Meningismus - Respiratory Exam Respiratory Exam: Decreased Breath Sounds - Cardiovascular Exam Cardiovascular Exam: +S1, +S2 - GI/Abdominal Exam GI & Abdominal Exam: Soft. absent: Tenderness Assessment and Plan - Assessment and Plan (Free Text) Plan: Assessment Partial small bowel obstruction; unlikely UTI since patient has no suprapubic or flank pain or tenderness history of sepsis secondary to ESBL-producing multidrug-resistant E. coli bacteremia probably secondary to acute cholecystitis and ascending cholangitis S /P ERCP with biliary stone extraction history of ESBL E. coli bacteremia HTN Congestive Heart Failure DM GERD End-Stage Renal disease on hemodialysis history of depression history of Bowman's esophagus history of epididymitis on the left Plan will d/c Meropenem; urine cx shows contamination; blood cx are negative; reviewed CT A/P which showed either partial SBO or ileus - did not show hydronephrosis or perinephric stranding discussed with Dr. Elias
--- NOTE | 2017-10-18 08:39 | DS ---
HISTORY OF PRESENT ILLNESS: The patient is a 71-year-old who was initially admitted with abdominal discomfort, shortness of breath, and generalized weakness. PAST MEDICAL HISTORY: Significant for: 1. Hypertension. 2. Status post pacemaker placement because of symptomatic bradycardia. 3. Hypertension. 4. End-stage renal disease, on hemodialysis. 5. Neurogenic bladder, status post suprapubic catheter placement. 6. History of COPD. 7. History of pulmonary embolism. PAST SURGICAL HISTORY: Significant for cholecystectomy, prostatectomy, and open heart surgery. ALLERGIES: HE IS ALLERGIC TO DYE. HOSPITAL COURSE: The patient was initially placed on clear liquids and was evaluated by Dr. Hill. He was found to have partial small bowel obstruction that resolved. If that was advanced, his blood cultures and urine cultures were negative. He was given short course of antibiotics, but was discontinued. He is clinically stable. He is going to be discharged today after dialysis. ASSESSMENT: 1. Partial small bowel obstruction resolved. 2. End-stage renal disease, on hemodialysis. 3. Ileus. 4. Status post pacemaker placement. 5. Coronary artery disease. 6. Insulin-dependent diabetes. PLAN: The patient is going to be discharged home today. He will resume his medications. He was advanced on renal diet. He will be discharged on tramadol 50 b.i.d., hydralazine 50 q.8 hours., levothyroxine 75 mcg daily, isosorbide 30 mg daily, Lantus 5 units twice a day, and atorvastatin 20 mg at bedtime. He will follow up with his PMD. Marcos Elias MD
== END 2017-10-17 14:55 | disposition home health service (06) | DRG 388 ==
LOC: ED 00:39 → ERH 05:21 → 5RSO 06:38
PROVIDERS: ADMIT Internal Medicine; ATTEND Internal Medicine
DX: K56.7 Ileus, unspecified (principal); N18.6 End stage renal disease; I13.2 Hypertensive heart and chronic kidney disease with heart failure and with stage 5 chronic kidney disease, or end stage renal disease; E11.22 Type 2 diabetes mellitus with diabetic chronic kidney disease; N31.9 Neuromuscular dysfunction of bladder, unspecified; E05.90 Thyrotoxicosis, unspecified without thyrotoxic crisis or storm; J44.9 Chronic obstructive pulmonary disease, unspecified; F03.90 Unspecified dementia, unspecified severity, without behavioral disturbance, psychotic disturbance, mood disturbance, and anxiety; I25.10 Atherosclerotic heart disease of native coronary artery without angina pectoris; H91.91 Unspecified hearing loss, right ear; Z99.2 Dependence on renal dialysis; K21.9 Gastro-esophageal reflux disease without esophagitis; I50.9 Heart failure, unspecified; F32.9 Major depressive disorder, single episode, unspecified; K22.70 Barrett's esophagus without dysplasia; E03.9 Hypothyroidism, unspecified; Z79.84 Long term (current) use of oral hypoglycemic drugs; Z86.711 Personal history of pulmonary embolism; Z90.79 Acquired absence of other genital organ(s); Z95.1 Presence of aortocoronary bypass graft; Z87.440 Personal history of urinary (tract) infections; Z95.0 Presence of cardiac pacemaker

== ENCOUNTER 2018-08-03 14:10 | Emergency (ER) | payer MEDICAID, MEDICARE ==
[2018-08-03 14:30] VITALS: RESP 18; TEMP 98.4; BMI 25.5
--- NOTE | 2018-08-03 15:39 | ED PDOC ---
Arrival/HPI - General Chief Complaint: Male Genitourinary Time Seen by Provider: 08/03/18 15:31 Historian: Patient - History of Present Illness Narrative History of Present Illness (Text): 08/03/18 15:45 72 yo M with suprapubic catheter is requesting to have his catheter replaced here. His states that the patient was following up with Dr. Friend and they no longer want to go to his office to have the catheter replaced by him. Otherwise the patient reports no fever, chills, abdominal pain, N/V. States that the germain is draining well without any blood or signs of obstruction. Past Medical History - Infectious Disease Hx of Infectious Diseases: None - Tetanus Immunization Tetanus Immunization: Unknown - Cardiac Hx Congestive Heart Failure: Yes Hx Hypertension: Yes - Pulmonary Hx Respiratory Disorders: Yes Hx Asthma: Yes - Neurological Hx Neurological Disorder: Yes Hx Dementia: Yes - HEENT Hx HEENT Disorder: Yes Hx Cataracts: Yes (sx) Hx Deafness: Yes (R ear) Other/Comment: hard of hearing - Renal Hx Renal Disorder: Yes Hx Dialysis: Yes Type of Dialysis Access: L arm AV shunt Date of Last Dialysis Treatment: 08/02/18 Hx Neurogenic Bladder: Yes - Endocrine/Metabolic Hx Diabetes Mellitus Type 2: Yes Hx Hypothyroidism: Yes - Hematological/Oncological Hx Blood Disorders: Yes Hx Anemia: Yes (blood transfusion) - Integumentary Hx Dermatological Disorder: (BILATERAL LEG EDEMA MORE ON LEFT.SHUNT TO LEFT UPPER ARM,SUPRAPUBIC CATHETE) Other/Comment: ble skin discoloration - Musculoskeletal/Rheumatological Hx Musculoskeletal Disorders: No Hx Falls: No - Gastrointestinal Hx Gastrointestinal Disorders: Yes Hx Diverticulitis: Yes - Genitourinary/Gynecological Hx Genitourinary Disorders: Yes (pylonephritis) Hx Hematuria: Yes Hx Prostate Problems: Yes (prostate sx 2012; suprapubic catheter) Hx Urinary Tract Infection: Yes Other/Comment: suprapubic catheter, bilateral orchietis, left epididymitis, scrotal cellulitis, urinary retention, hx mrsa in urine - Psychiatric Hx Psychophysiologic Disorder: No Hx Substance Use: No - Past Surgical History Past Surgical History: No Previous - Surgical History Hx Cardiac Catheterization: Yes Hx Open Heart Surgery: Yes (quadruple bypass) Other/Comment: Suprapubic catheter, birgit shunt, l chest udall - Anesthesia Hx Anesthesia: Yes Hx Anesthesia Reactions: No Hx Malignant Hyperthermia: No - Suicidal Assessment Feels Threatened In Home Enviroment: No Family/Social History Family/Social History: No Known Family HX Smoking Status: Never Smoked Hx Alcohol Use: No Hx Substance Use: No Hx Substance Use Treatment: No Allergies/Home Meds Allergies/Adverse Reactions: Allergies dye Allergy (Uncoded 05/25/17 18:01) REDNESS Home Medications: Home Meds Medication Instructions Recorded Confirmed Atorvastatin [Lipitor] 20 mg PO HS 02/05/17 10/15/17 Calcium Acetate [Phoslo] 667 mg PO TID 02/05/17 10/15/17 Insulin Glargine, Recombina 5 unit SC BID 02/05/17 10/15/17 [Lantus] Isosorbide Mononitrate ER [Imdur 30 mg PO DAILY 02/05/17 10/15/17 ER] Lactobacillus Combination No.8 1 each PO DAILY 02/05/17 10/15/17 [Adult Probiotic] Levothyroxine Sodium 75 mcg PO DAILY 02/05/17 10/15/17 hydrALAZINE [Apresoline] 50 mg PO Q8H 02/05/17 10/15/17 Review of Systems - Review of Systems Constitutional: absent: Fatigue, Fevers Respiratory: absent: SOB, Cough Cardiovascular: absent: Chest Pain, Palpitations Gastrointestinal: absent: Abdominal Pain, Diarrhea, Vomiting Genitourinary Male: Other (+suprapubic catheter with leg bag) Musculoskeletal: absent: Arthralgias, Back Pain Skin: absent: Rash, Pruritis, Skin Lesions Neurological: absent: Headache, Dizziness Physical Exam Vital Signs Temp Pulse Resp BP Pulse Ox 08/03/18 17:29 98.4 F 64 18 165/69 H 96 08/03/18 16:55 64 18 165/69 H 96 08/03/18 14:23 98.4 F 60 18 147/63 95 Temperature: Afebrile Blood Pressure: Normal Pulse: Regular Respiratory Rate: Normal Appearance: Positive for: Well-Appearing, Non-Toxic, Comfortable Pain Distress: None Mental Status: Positive for: Alert and Oriented X 3 - Systems Exam Head: Present: Atraumatic, Normocephalic Pupils: Present: PERRL Extroacular Muscles: Present: EOMI Conjunctiva: Present: Normal Mouth: Present: Moist Mucous Membranes Neck: Present: Normal Range of Motion Respiratory/Chest: Present: Clear to Auscultation, Good Air Exchange. No: Respiratory Distress, Accessory Muscle Use Cardiovascular: Present: Regular Rate and Rhythm, Normal S1, S2. No: Murmurs Abdomen: Present: Other (+suprapubic catheter in place, without surrounding erythema, edema, discharge or bleeding from the catheter draining easily into a leg bag with dark yellow urine). No: Tenderness, Distention, Peritoneal Signs Back: Present: Normal Inspection Upper Extremity: Present: Normal Inspection, Normal ROM, NORMAL PULSES. No: Cyanosis, Edema Lower Extremity: Present: Normal Inspection, NORMAL PULSES, Normal ROM. No: Edema, Tenderness, Swelling Neurological: Present: GCS=15, CN II-XII Intact, Speech Normal, Motor Func Grossly Intact, Normal Sensory Function Skin: Present: Warm, Dry, Normal Color. No: Rashes Psychiatric: Present: Alert, Oriented x 3, Normal Insight, Normal Concentration Medical Decision Making ED Course and Treatment: 08/03/18 16:47 Plan : - UA - Urine cx - Consult urology Patient and his is asking for consult with Dr. Ronquillo. Case d/w Dr. Ronquillo, recommends that the patient f/u at his office, he will be happy to see the patient and change the catheter in his office as the patient was following up with him in the past. Otherwise seen no urgent need to evaluate the patient in the ER as the germain is working well without any signs of obstruction. UA +large leuks. Patient given cipro 500 mg po, while urine cx is pending. Advised to see Dr. Ronquillo in the office for catheter change and to follow up with urine cx results. Patient and his verbalize understanding of instructions and intend to follow up as discussed. - Lab Interpretations Lab Results: Lab Results 08/03/18 15:51: Urine Color Dark yellow, Urine Appearance Cloudy, Urine pH 6.5, Ur Specific [place] 1.020, Urine Protein 100 H, Urine Glucose (UA) Negative, Urine Ketones Trace H, Urine Blood Large H, Urine Nitrate Negative, Urine Bilirubin Negative, Urine Urobilinogen 0.2, Ur Leukocyte Esterase Large H, Urine RBC Tntc, Urine WBC Tntc, Ur Epithelial Cells None, Urine Bacteria Many - Medication Orders Current Medication Orders: Discontinued Medications Ciprofloxacin (Cipro) 500 mg PO ONCE STA PRN Reason: Protocol Stop: 08/03/18 16:53 Last Admin: 08/03/18 17:07 Dose: 500 mg - PA / RPG PROGRAMMER / Resident Statement MD/DO has reviewed & agrees with the documentation as recorded. Disposition/Present on Arrival - Present on Arrival Any Indicators Present on Arrival: Yes History of DVT/PE: No History of Uncontrolled Diabetes: No Urinary Catheter: Yes (suprapubic) History of Decub. Ulcer: No History Surgical Site Infection Following: None - Disposition Have Diagnosis and Disposition been Completed?: Yes Diagnosis: Urinary tract infection, Suprapubic catheter Disposition: HOME/ ROUTINE Disposition Time: 16:45 Patient Plan: Discharge Condition: STABLE Discharge Instructions (ExitCare): Urinary Tract Infection, Adult (DC) Print Language: NIUEAN Additional Instructions: Thank you for letting us take care of you today. You were treated for UTI, h/o suprapubic catheter. The emergency medical care you received today was directed at your acute symptoms. If you were prescribed any medication, please fill it and take as directed. It may take several days for your symptoms to resolve. Return to the Emergency Department if your symptoms worsen, do not improve, or if you have any other problems. Please contact Dr. Ronquillo in 1-2 days for re-evaluation and follow up. Bring any paperwork you were given at discharge with you along with any medications you are taking to your follow up visit. Our treatment cannot replace ongoing medical care by a primary care provider (PCP) outside of the emergency department. Thank you for allowing the [facility] team to be part of your care today. If you had a urine culture: It will take several days for the results, if any change in treatment is needed we will contact you. Prescriptions: Ciprofloxacin [Cipro] 500 mg PO BID #14 tab Referrals: FAMILY PROVIDER,NO [Primary Care Provider] - Follow up with primary Forms: [employer] ([place])
[2018-08-03 16:17] LABS: PH,URINE 6.5 (4.7-8.0); URINE BILIRUBIN NEGATIVE (NEGATIVE); URINE BLOOD LARGE (NEGATIVE); URINE GLUCOSE (UA) NEGATIVE (NEGATIVE); URINE LEUKOCYTE ESTERASE LARGE Leu/uL (NEGATIVE); URINE PROTEIN 100 mg/dL (<30 mg/dL); URINE UROBILINOGEN 0.2 E.U./dL (<1 E.U./dL)
[2018-08-03 16:18] LABS: URINE APPEARANCE CLOUDY (CLEAR); URINE COLOR DARK YELLOW (YELLOW)
[2018-08-03 16:24] LABS: URINE RBC TNTC /hpf (0-2); URINE WBC TNTC /hpf (0-6)
[2018-08-03 16:25] LABS: URINE BACTERIA MANY (NEG)
[2018-08-03 16:56] VITALS: BP 165/69; PULSE 64; O2SAT 96
== END 2018-08-03 17:29 | disposition home or self-care (01) ==
LOC: ED 14:10
DX: N39.0 Urinary tract infection, site not specified (principal); Z46.6 Encounter for fitting and adjustment of urinary device

== ENCOUNTER 2018-09-26 23:24 | Inpatient (IN) | payer MEDICARE, OTHER ==
[2018-09-26 23:37] VITALS: BMI 26.4
--- NOTE | 2018-09-26 23:53 | ED PDOC ---
Arrival/HPI - General Chief Complaint: GI Problem Time Seen by Provider: 09/26/18 23:34 Historian: Patient - History of Present Illness Narrative History of Present Illness (Text): 09/26/18 23:49 72 year old male, whose past medical history includes Hypertension, ESRD, diabetes, suprapubic catheter, Coronary Artery Disease s/p CABG, dialysis (next treatment 09/27/18) presents to the Emergency department with fever and vomiting for 3 days. Patient states he also has an associated cough/ Patient denies any headache, dizziness, chest pain, shortness of breath, abdominal pain, back pain, neck pain, urinary/bowel changes, or any other complaint. Time/Duration: < week (3 days) Symptom Course: Unchanged Context: Home Past Medical History - Provider Review Nursing Documentation Reviewed: Yes - Infectious Disease Hx of Infectious Diseases: None - Tetanus Immunization Tetanus Immunization: Unknown - Cardiac Hx Pacemaker: No Hx Peripheral Edema: Yes (bilateral lower extremities +4 pitting edema) - Pulmonary Hx Respiratory Disorders: Yes (PE) - Neurological Hx Neurological Disorder: Yes Hx Dementia: Yes - HEENT Hx HEENT Disorder: Yes Hx Cataracts: Yes (sx) Hx Deafness: Yes (R ear) Other/Comment: hard of hearing - Renal Hx Dialysis: Yes (, , Mon) Date of Last Dialysis Treatment: 09/05/15 - Endocrine/Metabolic Hx Diabetes Mellitus Type 2: Yes Hx Hypothyroidism: Yes - Hematological/Oncological Hx Anemia: Yes - Integumentary Hx Dermatological Disorder: (BILATERAL LEG EDEMA MORE ON LEFT.SHUNT TO LEFT UP PER ARM,SUPRAPUBIC CATHETE) Other/Comment: ble skin discoloration - Musculoskeletal/Rheumatological Hx Falls: Yes (09/08/2015) - Gastrointestinal Hx Gastrointestinal Disorders: (hx colitis/diverticulitis) - Genitourinary/Gynecological Hx Genitourinary Disorders: Yes - Psychiatric Hx Substance Use: No - Past Surgical History Past Surgical History: No Previous - Anesthesia Hx Anesthesia: Yes Hx Anesthesia Reactions: No Hx Malignant Hyperthermia: No - Suicidal Assessment Feels Threatened In Home Enviroment: No Family/Social History - Physician Review Nursing Documentation Reviewed: Yes Family/Social History: No Known Family HX Smoking Status: Never Smoked Hx Alcohol Use: No Hx Substance Use: No Hx Substance Use Treatment: No Allergies/Home Meds Allergies/Adverse Reactions: Allergies dye Allergy (Uncoded 05/25/17 18:01) REDNESS Home Medications: Home Meds Medication Instructions Recorded Confirmed Atorvastatin [Lipitor] 20 mg PO HS 02/05/17 10/15/17 Calcium Acetate [Phoslo] 667 mg PO TID 02/05/17 10/15/17 Insulin Glargine, Recombina 5 unit SC BID 02/05/17 10/15/17 [Lantus] Isosorbide Mononitrate ER [Imdur 30 mg PO DAILY 02/05/17 10/15/17 ER] Lactobacillus Combination No.8 1 each PO DAILY 02/05/17 10/15/17 [Adult Probiotic] Levothyroxine Sodium 75 mcg PO DAILY 02/05/17 10/15/17 hydrALAZINE [Apresoline] 50 mg PO Q8H 02/05/17 10/15/17 Review of Systems - Physician Review All systems were reviewed & negative as marked: Yes - Review of Systems Constitutional: Fevers Respiratory: absent: SOB, Cough Cardiovascular: absent: Chest Pain Gastrointestinal: Nausea, Vomiting. absent: Abdominal Pain Musculoskeletal: absent: Back Pain, Neck Pain Neurological: absent: Headache, Dizziness Physical Exam Vital Signs Reviewed: Yes Vital Signs Temp Pulse Resp BP Pulse Ox 09/26/18 23:38 99.5 F 60 20 132/52 L 97 Temperature: Afebrile Blood Pressure: Hypotensive Pulse: Regular Respiratory Rate: Normal Appearance: Positive for: Well-Appearing, Non-Toxic, Comfortable Pain Distress: None Mental Status: Positive for: Alert and Oriented X 3 - Systems Exam Head: Present: Atraumatic, Normocephalic Pupils: Present: PERRL Extroacular Muscles: Present: EOMI Conjunctiva: Present: Normal Mouth: Present: Moist Mucous Membranes Neck: Present: Normal Range of Motion Respiratory/Chest: Present: Rhonchi (Bilaterally ) Cardiovascular: Present: Regular Rate and Rhythm, Normal S1, S2. No: Murmurs Abdomen: No: Tenderness, Distention, Peritoneal Signs Back: Present: Normal Inspection Upper Extremity: Present: Normal Inspection. No: Cyanosis, Edema Lower Extremity: Present: Normal Inspection. No: Edema Neurological: Present: GCS=15, CN II-XII Intact, Speech Normal Skin: Present: Warm, Dry, Normal Color. No: Rashes Psychiatric: Present: Alert, Oriented x 3, Normal Insight, Normal Concentration Medical Decision Making ED Course and Treatment: 09/26/18 23:55 Impression: 72 year old male presents with cough, fever, and vomiting. Plan: -- EKG -- Chest X-ray -- Labs -- Reassess and disposition Prior Visits: Notes and results from previous visits were reviewed. case d/w dr rawls will admit for fever and possible sepsis Progress Notes: 09/27/18 06:00 - RAD Interpretation Radiology Orders: 09/26/18 23:44 CHEST PORTABLE [RAD] Stat - EKG Interpretation EKG Interpretation (Text): 09/27/18 03:20 100 paced rhythm rate60 - Medication Orders Current Medication Orders: Ondansetron HCl (Zofran Inj) 4 mg IVP STAT STA Stop: 09/26/18 23:46 - Scribe Statement The provider has reviewed the documentation as recorded by the Scribe Bharath Moore Provider Scribe Attestation: All medical record entries made by the Scribe were at my direction and personally dictated by me. I have reviewed the chart and agree that the record accurately reflects my personal performance of the history, physical exam, medical decision making, and the department course for this patient. I have also personally directed, reviewed, and agree with the discharge instructions and disposition. Disposition/Present on Arrival - Present on Arrival Any Indicators Present on Arrival: No History of DVT/PE: No History of Uncontrolled Diabetes: No Urinary Catheter: Yes (suprapubic) History of Decub. Ulcer: No History Surgical Site Infection Following: None - Disposition Have Diagnosis and Disposition been Completed?: Yes Diagnosis: Sepsis Disposition: HOSPITALIZED Disposition Time: 01:15 Condition: GOOD
[2018-09-27 00:25] LABS: BASO # 0.02 K/mm3 (0.0-2.0); BASO % 0.5 % (0.0-3.0); EOS # 0.2 (0.0-0.7); EOS % 4.1 % (1.5-5.0); GRAN # 2.58 (1.4-6.5); GRAN % 58.3 % (50.0-68.0); HEMOGLOBIN 11.7 g/dL (14.0-18.0); LYMPH # 1.1 (1.2-3.4); LYMPH % 24.2 % (22.0-35.0); MEAN CELL VOLUME 96.4 fl (80.0-105.0); MEAN CORPUSCULAR HEMOGLOBIN 30.1 pg (25.0-35.0); MEAN CORPUSCULAR HGB CONC 31.2 g/dl (31.0-37.0); MEAN PLATELET VOLUME 10.8 fl (7.0-11.0); MONO # 0.6 (0.1-0.6); MONO % 12.9 % (1.0-6.0); RBC 3.89 10^6/uL (3.5-6.1); WHITE BLOOD COUNT 4.4 10^3/uL (4.5-11.0)
[2018-09-27 00:31] LABS: ALB/GLOB RATIO 1.1 (1.1-1.8); ALBUMIN 3.5 g/dL (3.0-4.8); CALCIUM 8.1 mg/dL (8.4-10.5)
[2018-09-27 00:42] LABS: TROPONIN I 0.09 ng/mL
[2018-09-27] MEDS ORDERED: Vancomycin 1gm in NS 250ml 1 GM/250 ML BAG IVPB STA (01:07)
[2018-09-27] MEDS: Insulin Reg-LOW-Coverage SC SCH ×3 (08:09→16:30)
--- NOTE | 2018-09-27 08:26 | CP.PCM.HP ---
<Rolo Valadez - Last Filed: 09/27/18 13:55> History of Present Illness - History of Present Illness History of Present Illness: Rolo Valadez PGY2 IM H&P Note for Dr. Mariee cc: not feeling well, decreased PO intake, increased BM's Mr. Sims is a 72 year old male with a PMH of CAD s/p CABG, pacemaker, ESRD on HD (TTS), DM2, hypothyroidism, HTN and urinary retention s/p a suprapubic catheter who presented to the ED for overall not feeling well which he describes as having several BM's and eating less. [employer] #[id number] was used. Patient denies fevers/chills, n/v, coughing or dysuria. Of note, that patient was seen in the ED on 08/03 and was given Bactrim for UTI. In ED, the patient is noted to be afebrile with no leukocytosis or signs of overt infection. Patient was given vancomycin empirically. Consent for dialysis was obtained with help of occupational medicine specialist. 12-pt ROS was reviewed and is otherwise unremarkable. PMD: Dr. Mariee PMH: as above PSH: CABG, suprapubic catheter, left AVF Meds: as per MAR, reviewed Allergies: dye SHx: denies tobacco, EtOH or drug use FHx: DM2 and HTN Present on Admission - Present on Admission Any Indicators Present on Admission: Yes Urinary Catheter: Yes (suprapubic) Review of Systems - Review of Systems All systems: reviewed and no additional remarkable complaints except (as per HPI) Past Patient History - Infectious Disease Hx of Infectious Diseases: None - Tetanus Immunizations Tetanus Immunization: Unknown - Past Medical History & Family History Past Medical History?: Yes Past Family History: Reviewed and not pertinent - Past Social History Smoking Status: Never Smoked Alcohol: None Drugs: Denies Home Situation {Lives}: With Family - CARDIAC Hx Cardiac Disorders: Yes (CAD s/p CABG) Hx Hypertension: Yes Hx Pacemaker: Yes - PULMONARY Hx Respiratory Disorders: Yes (PE) - NEUROLOGICAL Hx Neurological Disorder: Yes Hx Dementia: Yes - HEENT Hx HEENT Problems: Yes Hx Cataracts: Yes (sx) Hx Deafness: Yes (R ear) Other/Comment: hard of hearing - RENAL Hx Chronic Kidney Disease: Yes Hx Dialysis: Yes (Tues, Thurs, Mon) Date of Last Dialysis Treatment: 09/25/18 - ENDOCRINE/METABOLIC Hx Diabetes Mellitus Type 2: Yes Hx Hypothyroidism: Yes - HEMATOLOGICAL/ONCOLOGICAL Hx Anemia: Yes - MUSCULOSKELETAL/RHEUMATOLOGICAL Hx Falls: Yes (09/08/2015) - GASTROINTESTINAL Hx Gastrointestinal Disorders: (hx colitis/diverticulitis) - GENITOURINARY/GYNECOLOGICAL Hx Genitourinary Disorders: Yes - PSYCHIATRIC Hx Substance Use: No - SURGICAL HISTORY Hx Surgeries: Yes Hx Arteriovenous Shunt: Yes Hx Coronary Artery Bypass Graft: Yes - ANESTHESIA Hx Anesthesia: Yes Hx Anesthesia Reactions: No Hx Malignant Hyperthermia: No Meds Allergies/Adverse Reactions: Allergies Allergy/AdvReac Type Severity Reaction Status Date / Time dye Allergy REDNESS Uncoded 05/25/17 18:01 Physical Exam - Constitutional Appears: Well, Non-toxic, No Acute Distress - Head Exam Head Exam: ATRAUMATIC, NORMAL INSPECTION - Eye Exam Eye Exam: EOMI, Normal appearance, PERRL Additional comments: b/l cataract - ENT Exam ENT Exam: Mucous Membranes Dry, Normal Exam Additional comments: poor hearing b/l - Neck Exam Neck exam: Positive for: Full Rom, Normal Inspection. Negative for: Tenderness - Respiratory Exam Respiratory Exam: NORMAL BREATHING PATTERN. absent: Rales, Rhonchi, Wheezes, Respiratory Distress - Cardiovascular Exam Cardiovascular Exam: RRR, +S1, +S2 Additional comments: paced - GI/Abdominal Exam GI & Abdominal Exam: Normal Bowel Sounds, Soft. absent: Distended, Tenderness - Exam Additional comments: suprapubic cathter connected to leg bag - Extremities Exam Extremities exam: Positive for: full ROM, normal inspection. Negative for: pedal edema - Back Exam Back exam: NORMAL INSPECTION - Neurological Exam Neurological exam: Alert, Oriented x3 - Psychiatric Exam Psychiatric exam: Normal Affect, Normal Mood - Skin Skin Exam: Normal Color, Warm Results - Vital Signs Recent Vital Signs: Last Vital Signs Temp 98.7 F 09/27/18 07:15 Pulse 62 09/27/18 07:15 Resp 16 09/27/18 07:15 BP 129/65 09/27/18 07:15 Pulse Ox 100 09/27/18 07:15 - Labs Result Diagrams: 09/26/18 23:59 09/26/18 23:59 Labs: Laboratory Results - last 24 hr 09/26/18 09/26/18 09/26/18 23:59 23:59 23:59 WBC 4.4 L RBC 3.89 Hgb 11.7 L Hct 37.5 L MCV 96.4 MCH 30.1 MCHC 31.2 RDW 15.0 H Plt Count 112 L MPV 10.8 Gran % 58.3 Lymph % (Auto) 24.2 Kern % (Auto) 12.9 H Eos % (Auto) 4.1 Baso % (Auto) 0.5 Gran # 2.58 Lymph # (Auto) 1.1 L Kern # (Auto) 0.6 Eos # (Auto) 0.2 Baso # (Auto) 0.02 Sodium 138 Potassium 4.2 Chloride 94 L Carbon Dioxide 32 Anion Gap 16 BUN 28 H Creatinine 5.3 H Est GFR ( Amer) 13 Est GFR (Non-Af Amer) 11 POC Glucose (mg/dL) Random Glucose 118 H Calcium 8.1 L Total Bilirubin 1.0 AST 33 ALT 25 Alkaline Phosphatase 345 H Troponin I 0.09 D Total Protein 6.8 Albumin 3.5 Globulin 3.2 Albumin/Globulin Ratio 1.1 Influenza Typ A,B (EIA) Negative for flu a/b 09/27/18 08:16 WBC RBC Hgb Hct MCV MCH MCHC RDW Plt Count MPV Gran % Lymph % (Auto) Kern % (Auto) Eos % (Auto) Baso % (Auto) Gran # Lymph # (Auto) Kern # (Auto) Eos # (Auto) Baso # (Auto) Sodium Potassium Chloride Carbon Dioxide Anion Gap BUN Creatinine Est GFR ( Amer) Est GFR (Non-Af Amer) POC Glucose (mg/dL) 77 Random Glucose Calcium Total Bilirubin AST ALT Alkaline Phosphatase Troponin I Total Protein Albumin Globulin Albumin/Globulin Ratio Influenza Typ A,B (EIA) Assessment & Plan - Assessment and Plan (Free Text) Assessment: 72 year old male with a PMH of CAD s/p CABG, pacemaker, ESRD on HD (TTS), DM2, hypothyroidism, HTN and urinary retention s/p a suprapubic catheter who presented to the ED for overall not feeling well which he describes as having several BM's and eating less. Patient likely has UTI as he has hx of them. CXR was reviewed and is unremarkable. Patient remains afebrile with no s igns of sepsis. EKG showed paced rhythm. Plan: - admit to med-surg - started on Meropenem q12 - blood, urine and stool cultures ordered - Dialysis today - ASA PRN fevers - cont ASA daily, Lipitor daily, Coreg BID, Imdur daily - hepatitis B core and surface ag/ab ordered - ISS low - cont LActobacilus daily - cont Synthroid daily - ZOfran PRN - cont Renagel - Renal diet - PT eval pending - further recs per Dr. Mariee Case was reviewed and discussed with attending, Dr. Kodi Valadez PGY2 <cB Mariee S - Last Filed: 09/27/18 17:58> Results - Vital Signs Recent Vital Signs: Last Vital Signs Temp 98.8 F 09/27/18 15:01 Pulse 60 09/27/18 15:01 Resp 18 09/27/18 15:01 BP 129/53 L 09/27/18 15:01 Pulse Ox 97 09/27/18 15:01 - Labs Result Diagrams: 09/26/18 23:59 09/26/18 23:59 Labs: Laboratory Results - last 24 hr 09/26/18 09/26/18 09/26/18 23:59 23:59 23:59 WBC 4.4 L RBC 3.89 Hgb 11.7 L Hct 37.5 L MCV 96.4 MCH 30.1 MCHC 31.2 RDW 15.0 H Plt Count 112 L MPV 10.8 Gran % 58.3 Lymph % (Auto) 24.2 Kern % (Auto) 12.9 H Eos % (Auto) 4.1 Baso % (Auto) 0.5 Gran # 2.58 Lymph # (Auto) 1.1 L Kern # (Auto) 0.6 Eos # (Auto) 0.2 Baso # (Auto) 0.02 Sodium 138 Potassium 4.2 Chloride 94 L Carbon Dioxide 32 Anion Gap 16 BUN 28 H Creatinine 5.3 H Est GFR ( Amer) 13 Est GFR (Non-Af Amer) 11 POC Glucose (mg/dL) Random Glucose 118 H Calcium 8.1 L Total Bilirubin 1.0 AST 33 ALT 25 Alkaline Phosphatase 345 H Troponin I 0.09 D Total Protein 6.8 Albumin 3.5 Globulin 3.2 Albumin/Globulin Ratio 1.1 Hep Bs Antigen Hep Bs Antibody Hep B Core IgM Ab Influenza Typ A,B (EIA) Negative for flu a/b 09/27/18 09/27/18 09/27/18 08:16 11:43 11:43 WBC RBC Hgb Hct MCV MCH MCHC RDW Plt Count MPV Gran % Lymph % (Auto) Kern % (Auto) Eos % (Auto) Baso % (Auto) Gran # Lymph # (Auto) Kern # (Auto) Eos # (Auto) Baso # (Auto) Sodium Potassium Chloride Carbon Dioxide Anion Gap BUN Creatinine Est GFR ( Amer) Est GFR (Non-Af Amer) POC Glucose (mg/dL) 77 Random Glucose Calcium Total Bilirubin AST ALT Alkaline Phosphatase Troponin I Total Protein Albumin Globulin Albumin/Globulin Ratio Hep Bs Antigen Negative Hep Bs Antibody Negative Hep B Core IgM Ab Negative Influenza Typ A,B (EIA) Assessment & Plan - Assessment and Plan (Free Text) Assessment: Pt seen and examined. I have reviewed the note of the ophthalmic medical technician and agree with it. I have discussed the assessment and plan with the resident. I have reviewed the patient's labs and medications. He was having fever and chills according to the HD nursing staff. His PO intake had decreased also. He has a suprapubic catheter because he had urinary retention when he had CABG. He has seen Urology in the hospital on previous admissions. He has not followed up with Urology. He will continue with ESRD on HD T//. He has UCx done and is on IV Abx. Pt with CAD and CABG, will be continued with ASA and Metoprolol. Consent w as taken for HD and spoke to HD nurse.
--- NOTE | 2018-09-27 09:17 | RAD ---
Date of service: 09/27/2018 HISTORY: cough COMPARISON: 08/31/2018. FINDINGS: LUNGS: The lungs are well inflated and clear. There is moderate pulmonary venous congestion. PLEURA: No pleural effusions or pneumothorax. CARDIOVASCULAR: There is mild cardiomegaly. Atherosclerotic aortic arch calcifications are present. Status post CAB There is stable position of left-sided permanent pacing device. OSSEOUS STRUCTURES: Within normal limits for the patient's age. VISUALIZED UPPER ABDOMEN: Normal. OTHER FINDINGS: None. IMPRESSION: No active pulmonary disease.
--- NOTE | 2018-09-27 09:56 | CARD ---
APPROVED REPORT Date of service: 09/27/2018 EKG Measurement Heart [id number] <Conclusion> Electronic ventricular pacemaker
[2018-09-27] MEDS ORDERED: MEROPENEM 500 MG in NS 500 MG/50 ML BAG IVPB SCH ×2 (10:00→11:53)
[2018-09-27] MEDS: Lactobacillus Acidophilus 500 MU Cap PO SCH (15:38)
[2018-09-27] MEDS: Levothyroxine 75 MCG TAB PO SCH (16:26)
[2018-09-27 16:45] LABS: HEPATITIS B SURFACE AG Negative (NEGATIVE)
[2018-09-27 16:50] LABS: HEPATITIS B CORE AB NEGATIVE (NEGATIVE)
[2018-09-28] MEDS ORDERED: Pneumococcal 23-Valent Vaccine IM ONE (03:58)
[2018-09-28] MEDS ORDERED: Influenza Vaccine 60 mcg/0.5 mL SYR (4YR UP) IM ONE (03:58)
[2018-09-28 07:30] LABS: HEMOGLOBIN 10.4 g/dL (14.0-18.0); MEAN CELL VOLUME 96.1 fl (80.0-105.0); MEAN CORPUSCULAR HEMOGLOBIN 29.2 pg (25.0-35.0); MEAN CORPUSCULAR HGB CONC 30.4 g/dl (31.0-37.0); MEAN PLATELET VOLUME 10.2 fl (7.0-11.0); RBC 3.56 10^6/uL (3.5-6.1); RED CELL DISTRIBUTION WIDTH 14.8 % (11.5-14.5); WHITE BLOOD COUNT 4.8 10^3/uL (4.5-11.0)
[2018-09-28] MEDS: Insulin Reg-LOW-Coverage SC SCH ×3 (07:30→16:25)
[2018-09-28 07:35] LABS: ALBUMIN 3.1 g/dL (3.0-4.8); CALCIUM 7.6 mg/dL (8.4-10.5)
[2018-09-28 07:40] LABS: TROPONIN I 0.09 ng/mL
--- NOTE | 2018-09-28 07:48 | CP.PCM.PN ---
<Rolo Valadez - Last Filed: 09/28/18 10:18> Subjective - Date & Time of Evaluation Date of Evaluation: 09/28/18 Time of Evaluation: 07:04 - Subjective Subjective: Rolo Valadez PGY2 IM Progress Note for Dr. Mariee Patient was seen and examined at bedside. Translation was provided by RAMBO Milton. He is hard of hearing and there seems to be a problem with his left ear hearing aid. The patient states that he is feeling better, and is only complaining of hunger. He is denying coughing, although per nurse, he is having a dry cough. Otherwise, he denies fevers/chills, nausea/vomiting, abdominal pain or dysuria. He still has the indwelling suprapubic catheter which is producing little urine, so not enough urine has been collected for culture. He also had small soft but formed stools overnight, which were sent for culture. He remains afebrile. He completed HD yesterday w/ UF 2L, with minimal bleeding. Objective - Vital Signs/Intake and Output Vital Signs (last 24 hours): Temp Pulse Resp BP Pulse Ox 99.4 F 59 L 19 130/59 L 96 09/27/18 23:23 09/27/18 23:23 09/28/18 04:01 09/27/18 23:23 09/27/18 23:23 Intake and Output: 09/28/18 09/28/18 06:59 18:59 Intake Total 120 Balance 120 - Medications Medications: Current Medications Acetaminophen (Tylenol 325mg Tab) 650 mg PO Q4H PRN PRN Reason: Fever >100.5 F Last Admin: 09/27/18 01:38 Dose: 650 mg Aspirin (Ecotrin) 81 mg PO DAILY [facility] Last Admin: 09/27/18 16:12 Dose: 81 mg Atorvastatin Calcium (Lipitor) 80 mg PO HS [facility] Last Admin: 09/27/18 22:30 Dose: 80 mg Carvedilol (Coreg) 6.25 mg PO BID [facility] Last Admin: 09/27/18 18:25 Dose: 6.25 mg Meropenem/Sodium Chloride (Merrem Iv 500 Mg/Ns 50 Ml) 500 mg in 50 mls @ 100 mls/hr IVPB Q12 [facility]; Protocol Insulin Human Regular (Humulin R Low) 0 units SC ACHS [facility]; Protocol Last Admin: 09/27/18 16:30 Dose: Not Given Isosorbide Mononitrate (Imdur Er) 30 mg PO DAILY [facility] Last Admin: 09/27/18 16:13 Dose: 30 mg Lactobacillus Acidophilus (Bacid Acidophilus) 1 cap PO DAILY [facility] Last Admin: 09/27/18 15:38 Dose: 1 cap Levothyroxine Sodium (Synthroid) 75 mcg PO DAILY [facility] [place] Last Admin: 09/27/18 16:26 Dose: 75 mcg Ondansetron HCl (Zofran Inj) 4 mg IVP Q4H PRN PRN Reason: Nausea/Vomiting Sevelamer HCl (Renagel) 800 mg PO AC [facility] Last Admin: 09/27/18 16:50 Dose: 800 mg - Labs Labs: 09/28/18 07:00 09/28/18 07:00 - Constitutional Appears: Well, Non-toxic, No Acute Distress - Head Exam Head Exam: ATRAUMATIC, NORMAL INSPECTION, NORMOCEPHALIC - Eye Exam Eye Exam: EOMI, Normal appearance, PERRL - ENT Exam ENT Exam: Mucous Membranes Moist, Normal Oropharynx Additional comments: hard of hearing - Neck Exam Neck Exam: Full ROM, Normal Inspection. absent: Meningismus, Tenderness - Respiratory Exam Respiratory Exam: Rhonchi (b/l ), NORMAL BREATHING PATTERN. absent: Rales, Wheezes, Respiratory Distress Additional comments: on RA - Cardiovascular Exam Cardiovascular Exam: RRR, +S1, +S2. absent: JVD, Murmur - GI/Abdominal Exam GI & Abdominal Exam: Soft, Normal Bowel Sounds. absent: Distended, Tenderness Additional comments: suprapubic catheter in place - Exam Additional comments: suprapubic catheter in place - Extremities Exam Extremities Exam: Full ROM, Normal Inspection. absent: Pedal Edema Additional comments: LUE AVF - Back Exam Back Exam: NORMAL INSPECTION - Neurological Exam Neurological Exam: Alert, Awake, Oriented x3 - Psychiatric Exam Psychiatric exam: Normal Affect, Normal Mood - Skin Skin Exam: Normal Color, Warm Assessment and Plan - Assessment and Plan (Free Text) Assessment: 72 year old male with a PMH of CAD s/p CABG, pacemaker, ESRD on HD (TTS), DM2, hypothyroidism, HTN and urinary retention s/p a suprapubic catheter who presented to the ED for overall not feeling well which he describes as having several BM's and eating less. EKG showed paced rhythm. Patient likely has UTI as he has hx of them, however, it has been difficult to collect urine for cx and he is on empiric meropenem rx. Patient is having soft BM's. Patient remains afebrile with no signs of sepsis. He is continuing HD on TTS. Plan: - cont on Meropenem q12 empirically - ID consulted, recs appreciated - CT ordered to better evaluate lung - blood and stool cultures collected but pending - urine culture pending as it cannot be collected - Dialysis on TTS schedule - Tylenol PRN fevers - cont ASA daily, Lipitor daily, Coreg BID, Imdur daily - ISS low - cont Lactobacilus daily - cont Synthroid daily - Zofran PRN n/v - cont Renagel - Renal diet - PT eval pending, will evaluate for TCU - further recs per Dr. Mariee Case was reviewed and discussed with attending, Dr. Kodi Valadez PGY2 <Bc Mariee S - Last Filed: 09/28/18 19:34> Objective - Vital Signs/Intake and Output Vital Signs (last 24 hours): Temp Pulse Resp BP Pulse Ox 97.4 F L 66 18 102/57 L 96 09/28/18 14:00 09/28/18 14:00 09/28/18 14:00 09/28/18 14:00 09/28/18 14:00 - Medications Medications: Current Medications Acetaminophen (Tylenol 325mg Tab) 650 mg PO Q4H PRN PRN Reason: Fever >100.5 F Last Admin: 09/27/18 01:38 Dose: 650 mg Aspirin (Ecotrin) 81 mg PO DAILY [facility] Last Admin: 09/28/18 10:35 Dose: 81 mg Atorvastatin Calcium (Lipitor) 80 mg PO HS [facility] Last Admin: 09/27/18 22:30 Dose: 80 mg Carvedilol (Coreg) 6.25 mg PO BID [facility] Last Admin: 09/28/18 17:00 Dose: 6.25 mg Doxycycline Hyclate (Doryx) 100 mg PO Q12 [facility]; Protocol Meropenem/Sodium Chloride (Merrem Iv 500 Mg/Ns 50 Ml) 500 mg in 50 mls @ 100 mls/hr IVPB Q12 [facility]; Protocol Last Admin: 09/28/18 10:34 Dose: 100 mls/hr Insulin Human Regular (Humulin R Low) 0 units SC ACHS [facility]; Protocol Last Admin: 09/28/18 16:25 Dose: Not Given Isosorbide Mononitrate (Imdur Er) 30 mg PO DAILY [facility] Last Admin: 09/28/18 10:35 Dose: 30 mg Lactobacillus Acidophilus (Bacid Acidophilus) 1 cap PO DAILY [facility] Last Admin: 09/28/18 10:35 Dose: 1 cap Levothyroxine Sodium (Synthroid) 75 mcg PO DAILY [facility] Last Admin: 09/28/18 10:35 Dose: 75 mcg Ondansetron HCl (Zofran Inj) 4 mg IVP Q4H PRN PRN Reason: Nausea/Vomiting Sevelamer HCl (Renagel) 800 mg PO AC [facility] Last Admin: 09/28/18 16:56 Dose: 800 mg - Labs Labs: 09/28/18 07:00 09/28/18 07:00 Assessment and Plan - Assessment and Plan (Free Text) Assessment: Pt seen and examined. I have reviewed the note of the medical office assistant instructor and agree with it. I have discussed the assessment and plan with the resident. I have reviewed the patient's labs and medications. Pt with UTI and is on Meropenem. CT has been ordered. Pt will continue with HD. He may need TCU after PT evaluation. He has CAD and is on ASA and Lipitor.
[2018-09-28] MEDS: MEROPENEM 500 MG in NS 500 MG/50 ML BAG IVPB SCH ×2 (10:34→22:31)
[2018-09-28] MEDS: Lactobacillus Acidophilus 500 MU Cap PO SCH (10:35)
[2018-09-28] MEDS: Levothyroxine 75 MCG TAB PO SCH (10:35)
--- NOTE | 2018-09-28 11:15 | CT ---
Date of service: 09/28/2018 PROCEDURE: CT Chest without contrast HISTORY: non-productive cough COMPARISON: None available. TECHNIQUE: Contiguous axial images were obtained through the chest without intravenous contrast enhancement. Sagittal and coronal reconstructions were performed. Radiation dose: Total exam DLP = 228.92 mGy-cm. This CT exam was performed using one or more of the following dose reduction techniques: Automated exposure control, adjustment of the mA and/or kV according to patient size, and/or use of iterative reconstruction technique. FINDINGS: LUNGS: There is a linear infiltrate in the left upper lobe. This is suspicious for pneumonia. MEDIASTINUM: Unremarkable thoracic aorta. No aneurysm. Normal sized heart. Main pulmonary artery unremarkable. No vascular congestion. No lymphadenopathy. There is aortic calcification. There is dense calcification of the coronary arteries. PLEURA: No pleural fluid. No pneumothorax. BONES: No fracture. No destructive lesion. UPPER ABDOMEN: Grossly unremarkable. OTHER FINDINGS: None. IMPRESSION: There is a linear infiltrate in the left upper lobe suspicious for pneumonia.
--- NOTE | 2018-09-28 13:23 | CP.PCM.CON ---
History of Present Illness - History of Present Illness History of Present Illness: 72 year old male with PMH of HTN, Congestive Heart Failure, DM, GERD, End-Stage Renal disease on dialysis, history of depression, history of Bowman's esophagus, history of epididymitis on the left, history of partial SBO, history of sepsis secondary to ESBL-producing multidrug-resistant E. coli bacteremia probably secondary to acute cholecystitis and ascending cholangitis S/P ERCP with biliary stone extraction, history of ESBL E. coli bacteremia came in to [facility] complaining of decrease in appetite as well some urinary retention and not feeling well. The patient does have a suprapubic catheter because of urinary retention. He denies fever or chills, no nausea or vomiting, no diarrhea, no hematuria or dysuria, no chest pain, no SOB, no headache or dizziness, no abdominal pain. Infectious Diseases consult is requested to further evaluate and manage. Review of Systems - Review of Systems All systems: reviewed and no additional remarkable complaints except (as per HPI) Past Patient History - Infectious Disease Hx of Infectious Diseases: None - Tetanus Immunizations Tetanus Immunization: Unknown - Past Medical History & Family History Past Medical History?: Yes Past Family History: Reviewed and not pertinent - Past Social History Smoking Status: Never Smoked - CARDIAC Hx Cardiac Disorders: Yes (CAD s/p CABG) Hx Hypertension: Yes Hx Pacemaker: Yes - PULMONARY Hx Respiratory Disorders: Yes (PE) Hx Chronic Obstructive Pulmonary Disease (COPD): Yes - NEUROLOGICAL Hx Neurological Disorder: Yes Hx Dementia: Yes - HEENT Hx HEENT Problems: Yes Hx Cataracts: Yes (sx) Hx Deafness: Yes (R ear) Other/Comment: hard of hearing - RENAL Hx Chronic Kidney Disease: Yes Hx Dialysis: Yes (, , Sat) - ENDOCRINE/METABOLIC Hx Diabetes Mellitus Type 2: Yes Hx Hypothyroidism: Yes - HEMATOLOGICAL/ONCOLOGICAL Hx Anemia: Yes - INTEGUMENTARY Hx Dermatological Problems: (BILATERAL LEG EDEMA MORE ON LEFT.SHUNT TO LEFT UP PER ARM,SUPRAPUBIC CATHETE) Other/Comment: ble skin discoloration - MUSCULOSKELETAL/RHEUMATOLOGICAL Hx Falls: Yes - GASTROINTESTINAL Hx Gastrointestinal Disorders: (hx colitis/diverticulitis) - GENITOURINARY/GYNECOLOGICAL Hx Genitourinary Disorders: Yes - PSYCHIATRIC Hx Substance Use: No - SURGICAL HISTORY Hx Surgeries: Yes Hx Open Heart Surgery: Yes - ANESTHESIA Hx Anesthesia: Yes Hx Anesthesia Reactions: No Hx Malignant Hyperthermia: No Meds Allergies/Adverse Reactions: Allergies Allergy/AdvReac Type Severity Reaction Status Date / Time dye Allergy REDNESS Uncoded 05/25/17 18:01 - Medications Medications: Current Medications Acetaminophen (Tylenol 325mg Tab) 650 mg PO Q4H PRN PRN Reason: Fever >100.5 F Last Admin: 09/27/18 01:38 Dose: 650 mg Aspirin (Ecotrin) 81 mg PO DAILY [facility] Last Admin: 09/27/18 16:12 Dose: 81 mg Atorvastatin Calcium (Lipitor) 80 mg PO HS [facility] Last Admin: 09/27/18 22:30 Dose: 80 mg Carvedilol (Coreg) 6.25 mg PO BID [facility] Last Admin: 09/27/18 18:25 Dose: 6.25 mg Meropenem/Sodium Chloride (Merrem Iv 500 Mg/Ns 50 Ml) 500 mg in 50 mls @ 100 mls/hr IVPB Q12 [facility]; Protocol Insulin Human Regular (Humulin R Low) 0 units SC ACHS [facility]; Protocol Last Admin: 09/27/18 16:30 Dose: Not Given Isosorbide Mononitrate (Imdur Er) 30 mg PO DAILY [facility] Last Admin: 09/27/18 16:13 Dose: 30 mg Lactobacillus Acidophilus (Bacid Acidophilus) 1 cap PO DAILY [facility] Last Admin: 09/27/18 15:38 Dose: 1 cap Levothyroxine Sodium (Synthroid) 75 mcg PO DAILY [facility] Last Admin: 09/27/18 16:26 Dose: 75 mcg Ondansetron HCl (Zofran Inj) 4 mg IVP Q4H PRN PRN Reason: Nausea/Vomiting Sevelamer HCl (Renagel) 800 mg PO AC [facility] Last Admin: 09/27/18 16:50 Dose: 800 mg Physical Exam - Constitutional Appears: No Acute Distress, Chronically Ill - Head Exam Head Exam: NORMAL INSPECTION - Neck Exam Neck exam: Negative for: Meningismus - Respiratory Exam Respiratory Exam: Decreased Breath Sounds - Cardiovascular Exam Cardiovascular Exam: +S1, +S2 - GI/Abdominal Exam GI & Abdominal Exam: Soft. absent: Tenderness Results - Vital Signs Recent Vital Signs: Last Vital Signs Temp 99.4 F 09/27/18 23:23 Pulse 59 L 09/27/18 23:23 Resp 19 09/28/18 04:01 BP 130/59 L 09/27/18 23:23 Pulse Ox 96 09/27/18 23:23 - Labs Result Diagrams: 09/28/18 07:00 09/28/18 07:00 Labs: Laboratory Results - last 24 hr 09/27/18 09/27/18 09/27/18 11:43 11:43 22:14 WBC RBC Hgb Hct MCV MCH MCHC RDW Plt Count MPV Sodium Potassium Chloride Carbon Dioxide Anion Gap BUN Creatinine Est GFR ( Amer) Est GFR (Non-Af Amer) POC Glucose (mg/dL) 75 Random Glucose Calcium Phosphorus Magnesium Total Bilirubin AST ALT Alkaline Phosphatase Troponin I Total Protein Albumin Globulin Albumin/Globulin Ratio Hep Bs Antigen Negative Hep Bs Antibody Negative Hep B Core IgM Ab Negative 09/28/18 09/28/18 07:00 07:00 WBC 4.8 RBC 3.56 Hgb 10.4 L Hct 34.2 L MCV 96.1 MCH 29.2 MCHC 30.4 L RDW 14.8 H Plt Count 101 L MPV 10.2 Sodium 138 Potassium 3.8 Chloride 100 Carbon Dioxide 30 Anion Gap 11 BUN 25 H Creatinine 3.9 H Est GFR ( Amer) 18 Est GFR (Non-Af Amer) 15 POC Glucose (mg/dL) Random Glucose 118 H Calcium 7.6 L Phosphorus 3.3 Magnesium 2.1 Total Bilirubin 0.8 AST 30 ALT 21 Alkaline Phosphatase 291 H Troponin I 0.09 Total Protein 6.2 Albumin 3.1 Globulin 3.1 Albumin/Globulin Ratio 1.0 L Hep Bs Antigen Hep Bs Antibody Hep B Core IgM Ab Assessment & Plan - Assessment and Plan (Free Text) Plan: Assessment consider left upper lobe HCAP history of Partial small bowel obstruction history of sepsis secondary to ESBL-producing multidrug-resistant E. coli bacteremia probably secondary to acute cholecystitis and ascending cholangitis S/P ERCP with biliary stone extraction history of ESBL E. coli bacteremia HTN Congestive Heart Failure DM GERD End-Stage Renal disease on hemodialysis history of depression history of Bowman's esophagus history of epididymitis on the left Plan gave a dose of IV Vancomycin, started Meropenem and Doxycycline pending blood cx, PCT, urine Legionella Ag will monitor clinically
--- NOTE | 2018-09-29 11:30 | PN ---
DATE: 09/29/2018 SUBJECTIVE: The patient has no complaints of any chest pain. No shortness of breath. No headaches or dizziness. PHYSICAL EXAMINATION: VITAL SIGNS: Temperature is 97.3, pulse is 71, blood pressure is 115/50, respirations 18. GENERAL: The patient is lying in bed, flat, comfortable. HEENT: No oral lesion. Anicteric sclerae. Moist mucosa. NECK: No JVD, adenopathy, or thyromegaly. CARDIOVASCULAR: S1 and S2, regular. No murmurs, rubs, or gallops. LUNGS: Clear to auscultation bilaterally. No wheeze, rales, or rhonchi. ABDOMEN: Bowel sounds are positive, soft, nontender and nondistended. EXTREMITIES: No cyanosis, clubbing or edema. LABORATORY DATA: White count of 4.8, hemoglobin is 10.4, creatinine is 3.9. ASSESSMENT: 1. Urinary tract infection. 2. Endstage renal disease, on hemodialysis. 3. Hearing impairment. 4. Pneumonia hospital acquired by CT. 5. Coronary artery disease, status post coronary artery bypass graft. 6. Pacemaker. 7. Diabetes type 2. 8. Hypothyroidism. 9. Hypertension. 10. Suprapubic catheter, chronic secondary to benign prostatic hypertrophy. PLAN: The patient is currently comfortable. He is due for dialysis today. The patient is going to continue with Coreg, he is on doxycycline for antibiotics. He is on Lipitor for dyslipidemia. The patient is on meropenem for antibiotics. He is on sevelamer for secondary hyperparathyroidism. He is on Synthroid for hypothyroidism. The patient is on a renal diet, he is waiting for evaluation for Transitional Care Unit. The patient was seen by Physical Therapy yesterday and assessed. He may not qualify but we will wait for Transitional Care Unit. Bc Mariee MD
[2018-09-29] MEDS: Lactobacillus Acidophilus 500 MU Cap PO SCH (13:28)
[2018-09-29] MEDS: Insulin Reg-LOW-Coverage SC SCH ×3 (13:29→21:56)
[2018-09-29] MEDS: MEROPENEM 500 MG in NS 500 MG/50 ML BAG IVPB SCH ×2 (13:30→21:59)
[2018-09-29] MEDS: Levothyroxine 75 MCG TAB PO SCH (13:31)
[2018-09-30] MEDS: Insulin Reg-LOW-Coverage SC SCH ×4 (10:02→22:00)
[2018-09-30] MEDS: Lactobacillus Acidophilus 500 MU Cap PO SCH (10:08)
[2018-09-30] MEDS: Levothyroxine 75 MCG TAB PO SCH (10:09)
[2018-09-30] MEDS: MEROPENEM 500 MG in NS 500 MG/50 ML BAG IVPB SCH ×2 (10:11→22:21)
--- NOTE | 2018-09-30 13:56 | CP.PCM.PN ---
Subjective - Date & Time of Evaluation Date of Evaluation: 09/29/18 Time of Evaluation: 12:35 - Subjective Subjective: Comfortable in bed, no fevers. Objective - Vital Signs/Intake and Output Vital Signs (last 24 hours): Temp Pulse Resp BP Pulse Ox 99.4 F 59 L 19 130/59 L 96 09/27/18 23:23 09/27/18 23:23 09/28/18 04:01 09/27/18 23:23 09/27/18 23:23 Intake and Output: 09/28/18 09/28/18 06:59 18:59 Intake Total 120 Balance 120 - Medications Medications: Current Medications Acetaminophen (Tylenol 325mg Tab) 650 mg PO Q4H PRN PRN Reason: Fever >100.5 F Last Admin: 09/27/18 01:38 Dose: 650 mg Aspirin (Ecotrin) 81 mg PO DAILY [facility] Last Admin: 09/28/18 10:35 Dose: 81 mg Atorvastatin Calcium (Lipitor) 80 mg PO HS [facility] Last Admin: 09/27/18 22:30 Dose: 80 mg Carvedilol (Coreg) 6.25 mg PO BID [facility] Last Admin: 09/28/18 10:35 Dose: 6.25 mg Doxycycline Hyclate (Doryx) 100 mg PO Q12 [facility]; Protocol Meropenem/Sodium Chloride (Merrem Iv 500 Mg/Ns 50 Ml) 500 mg in 50 mls @ 100 mls/hr IVPB Q12 [facility]; Protocol Last Admin: 09/28/18 10:34 Dose: 100 mls/hr Insulin Human Regular (Humulin R Low) 0 units SC ACHS [facility]; Protocol Last Admin: 09/28/18 11:37 Dose: Not Given Isosorbide Mononitrate (Imdur Er) 30 mg PO DAILY [facility] Last Admin: 09/28/18 10:35 Dose: 30 mg Lactobacillus Acidophilus (Bacid Acidophilus) 1 cap PO DAILY [facility] Last Admin: 09/28/18 10:35 Dose: 1 cap Levothyroxine Sodium (Synthroid) 75 mcg PO DAILY [facility] Last Admin: 09/28/18 10:35 Dose: 75 mcg Ondansetron HCl (Zofran Inj) 4 mg IVP Q4H PRN PRN Reason: Nausea/Vomiting Sevelamer HCl (Renagel) 800 mg PO AC [facility] Last Admin: 09/28/18 11:37 Dose: Not Given - Labs Labs: 09/28/18 07:00 09/28/18 07:00 - Constitutional Appears: Chronically Ill - Head Exam Head Exam: NORMAL INSPECTION - Respiratory Exam Respiratory Exam: Decreased Breath Sounds - Cardiovascular Exam Cardiovascular Exam: +S1, +S2 - GI/Abdominal Exam GI & Abdominal Exam: Soft. absent: Tenderness Assessment and Plan - Assessment and Plan (Free Text) Plan: Assessment consider left upper lobe HCAP history of Partial small bowel obstruction history of sepsis secondary to ESBL-producing multidrug-resistant E. coli bacteremia probably secondary to acute cholecystitis and ascending cholangitis S/P ERCP with biliary stone extraction history of ESBL E. coli bacteremia HTN Congestive Heart Failure DM GERD End-Stage Renal disease on hemodialysis history of depression history of Bowman's esophagus history of epididymitis on the left Plan gave a dose of IV Vancomycin, continue Meropenem and Doxycycline day 3 for 4-7 days pending final blood cx; PCT is 1.19 but the patient has renal failure; follow up urine Legionella Ag will continue to monitor clinically
--- NOTE | 2018-09-30 15:20 | PN ---
DATE: 09/30/2018 SUBJECTIVE: The patient has no complaints of any chest pain. No shortness of breath. No headache or dizziness. PHYSICAL EXAMINATION: VITAL SIGNS: Temperature is 98, pulse of 60, blood pressure is 138/63, respirations 18. GENERAL: The patient is lying in bed, flat, comfortable. HEENT: No oral lesion. Anicteric sclerae. Moist mucosa. NECK: No JVD, adenopathy, or thyromegaly. CARDIOVASCULAR: S1 and S2, regular. No murmurs, rubs, or gallops. LUNGS: Clear to auscultation bilaterally. No wheeze, rales, or rhonchi. ABDOMEN: Bowel sounds are positive, soft, nontender and nondistended. EXTREMITIES: No cyanosis, clubbing or edema. LABORATORY DATA: White count of 4.8, hemoglobin 10.4. Creatinine is 3.9. ASSESSMENT: 1. Urinary tract infection. 2. End-stage renal disease, on hemodialysis. 3. Hearing impairment. 4. Pneumonia, hospital acquired. 5. Coronary artery disease, status post coronary artery bypass graft. 6. Pacemaker. 7. Diabetes type 2. 8. Hypothyroidism. 9. Hypertension. 10. Suprapubic catheter, chronic, secondary to benign prostatic hypertrophy. PLAN: The patient is not able to give a urine specimen. He is going to continue with doxycycline for antibiotics. He in on Lipitor for dyslipidemia. The patient is on meropenem for antibiotics. He is going to continue with Renagel for his secondary hyperparathyroidism. He is on Synthroid for hypothyroidism, waiting for transitional care. Bc Mariee MD
[2018-10-01 10:05] VITALS: RESP 20; O2SAT 97
[2018-10-01] MEDS: MEROPENEM 500 MG in NS 500 MG/50 ML BAG IVPB SCH ×2 (10:22→21:22)
[2018-10-01] MEDS: Insulin Reg-LOW-Coverage SC SCH ×4 (10:23→21:26)
[2018-10-01] MEDS: Lactobacillus Acidophilus 500 MU Cap PO SCH (10:26)
[2018-10-01] MEDS: Levothyroxine 75 MCG TAB PO SCH (10:27)
--- NOTE | 2018-10-01 15:12 | CP.PCM.PN ---
<Rolo Valadez - Last Filed: 10/01/18 15:13> Subjective - Date & Time of Evaluation Date of Evaluation: 10/01/18 Time of Evaluation: 07:11 - Subjective Subjective: Rolo Valadez PGY2 IM Progress Note for Dr. Mariee Patient was seen and examined at bedside. He states that he is feeling better despite still having the dry cough. There were no acute overnight events. Nursing notes and chart were reviewed. Objective - Vital Signs/Intake and Output Vital Signs (last 24 hours): Temp Pulse Resp BP Pulse Ox 97.1 F L 63 20 155/62 H 97 10/01/18 06:00 10/01/18 10:26 10/01/18 06:00 10/01/18 10:26 10/01/18 06:00 Intake and Output: 10/01/18 10/01/18 06:59 18:59 Output Total 0 Balance 0 - Medications Medications: Current Medications Acetaminophen (Tylenol 325mg Tab) 650 mg PO Q4H PRN PRN Reason: Fever >100.5 F Last Admin: 09/30/18 10:08 Dose: 650 mg Aspirin (Ecotrin) 81 mg PO DAILY [facility] Last Admin: 10/01/18 10:26 Dose: 81 mg Atorvastatin Calcium (Lipitor) 80 mg PO HS [facility] Last Admin: 09/30/18 22:20 Dose: 80 mg Carvedilol (Coreg) 6.25 mg PO BID [facility] Last Admin: 10/01/18 10:26 Dose: 6.25 mg Doxycycline Hyclate (Doryx) 100 mg PO Q12 [facility]; Protocol Last Admin: 10/01/18 10:26 Dose: 100 mg Meropenem/Sodium Chloride (Merrem Iv 500 Mg/Ns 50 Ml) 500 mg in 50 mls @ 100 mls/hr IVPB Q12 [facility]; Protocol Last Admin: 10/01/18 10:22 Dose: 100 mls/hr Insulin Human Regular (Humulin R Low) 0 units SC ACHS [facility]; Protocol Last Admin: 10/01/18 11:47 Dose: 1 units Isosorbide Mononitrate (Imdur Er) 30 mg PO DAILY [facility] Last Admin: 10/01/18 10:27 Dose: 30 mg Lactobacillus Acidophilus (Bacid Acidophilus) 1 cap PO DAILY [facility] Last Admin: 10/01/18 10:26 Dose: 1 cap Levothyroxine Sodium (Synthroid) 75 mcg PO DAILY [facility] Last Admin: 10/01/18 10:27 Dose: 75 mcg Ondansetron HCl (Zofran Inj) 4 mg IVP Q4H PRN PRN Reason: Nausea/Vomiting Sevelamer HCl (Renagel) 800 mg PO AC [facility] Last Admin: 10/01/18 11:49 Dose: 800 mg - Labs Labs: 09/28/18 07:00 09/28/18 07:00 - Additional Findings Additional findings: - Constitutional Appears: Well, Non-toxic, No Acute Distress - Head Exam Head Exam: ATRAUMATIC, NORMAL INSPECTION, NORMOCEPHALIC - Eye Exam Eye Exam: EOMI, Normal appearance, PERRL - ENT Exam ENT Exam: Mucous Membranes Moist, Normal Oropharynx Additional comments: hard of hearing - Neck Exam Neck Exam: Full ROM, Normal Inspection. absent: Meningismus, Tenderness - Respiratory Exam Respiratory Exam: Rhonchi (b/l, improved), NORMAL BREATHING PATTERN. absent: Rales, Wheezes, Respiratory Distress Additional comments: on RA - Cardiovascular Exam Cardiovascular Exam: RRR, +S1, +S2. absent: JVD, Murmur - GI/Abdominal Exam GI & Abdominal Exam: Soft, Normal Bowel Sounds. absent: Distended, Tenderness Additional comments: suprapubic catheter in place - Exam Additional comments: suprapubic catheter in place - Extremities Exam Extremities Exam: Full ROM, Normal Inspection. absent: Pedal Edema Additional comments: LUE AVF - Back Exam Back Exam: NORMAL INSPECTION - Neurological Exam Neurological Exam: Alert, Awake, Oriented x3 - Psychiatric Exam Psychiatric exam: Normal Affect, Normal Mood - Skin Skin Exam: Normal Color, Warm Assessment and Plan - Assessment and Plan (Free Text) Assessment: 72 year old male with a PMH of CAD s/p CABG, pacemaker, ESRD on HD (TTS), DM2, hypothyroidism, HTN and urinary retention s/p a suprapubic catheter who is admitted for lethargy and a cough. Being treated for HCAP with doxycycline. Patient likely has UTI as he has hx of them, however, it has been difficult to collect urine for cx and he is on empiric meropenem rx. Patient is having soft BM's. Patient remains afebrile with no signs of sepsis. He is continuing HD on TTS. Plan: - cont on Meropenem day 4 - cont Doxycycline day 4 - ID consulted, recs appreciated - blood and stool cultures negative 4 days - urine culture pending as it cannot be collected - Dialysis on TTS schedule - Tylenol PRN fevers - cont ASA daily, Lipitor daily, Coreg BID, Imdur daily - ISS low - cont Lactobacilus daily - cont Synthroid daily - Zofran PRN n/v - cont Renagel - Renal diet - PT eval pending, accepted to TCU pending single isolation room due to contact precautions - further recs per Dr. Mariee Case was reviewed and discussed with attending, Dr. Kodi Valadez PGY2 <Bc Mariee S - Last Filed: 10/01/18 19:50> Objective - Vital Signs/Intake and Output Vital Signs (last 24 hours): Temp Pulse Resp BP Pulse Ox 97.6 F 62 20 132/67 97 10/01/18 14:00 10/01/18 17:41 10/01/18 14:00 10/01/18 17:41 10/01/18 14:00 - Medications Medications: Current Medications Acetaminophen (Tylenol 325mg Tab) 650 mg PO Q4H PRN PRN Reason: Fever >100.5 F Last Admin: 09/30/18 10:08 Dose: 650 mg Aspirin (Ecotrin) 81 mg PO DAILY [facility] Last Admin: 10/01/18 10:26 Dose: 81 mg Atorvastatin Calcium (Lipitor) 80 mg PO HS [facility] Last Admin: 09/30/18 22:20 Dose: 80 mg Carvedilol (Coreg) 6.25 mg PO BID [facility] Last Admin: 10/01/18 17:41 Dose: 6.25 mg Doxycycline Hyclate (Doryx) 100 mg PO Q12 [facility]; Protocol Last Admin: 10/01/18 10:26 Dose: 100 mg Meropenem/Sodium Chloride (Merrem Iv 500 Mg/Ns 50 Ml) 500 mg in 50 mls @ 100 mls/hr IVPB Q12 [facility]; Protocol Last Admin: 10/01/18 10:22 Dose: 100 mls/hr Insulin Human Regular (Humulin R Low) 0 units SC ACHS [facility]; Protocol Last Admin: 10/01/18 17:42 Dose: Not Given Isosorbide Mononitrate (Imdur Er) 30 mg PO DAILY [facility] Last Admin: 10/01/18 10:27 Dose: 30 mg Lactobacillus Acidophilus (Bacid Acidophilus) 1 cap PO DAILY [facility] Last Admin: 10/01/18 10:26 Dose: 1 cap Levothyroxine Sodium (Synthroid) 75 mcg PO DAILY [facility] Last Admin: 10/01/18 10:27 Dose: 75 mcg Ondansetron HCl (Zofran Inj) 4 mg IVP Q4H PRN PRN Reason: Nausea/Vomiting Sevelamer HCl (Renagel) 800 mg PO AC [facility] Last Admin: 10/01/18 17:43 Dose: 800 mg - Labs Labs: 09/28/18 07:00 09/28/18 07:00 - Additional Findings Additional findings: Pt seen and examined. I have reviewed the note of the medical library assistant and agree with it. I have discussed the assessment and plan with the resident. I have reviewed the patient's labs and medications. He is going to continue with IV Abx for UTI. He is waiting to go to TCU. He is continuing with HD for his ESRD. He has CAD and is on ASA and Coreg.
[2018-10-01 16:06] VITALS: BP 132/67; TEMP 97.6
--- NOTE | 2018-10-01 17:23 | CP.PCM.PN ---
Subjective - Date & Time of Evaluation Date of Evaluation: 10/01/18 Time of Evaluation: 11:30 - Subjective Subjective: Comfortable, afebrile. Objective - Vital Signs/Intake and Output Vital Signs (last 24 hours): Temp Pulse Resp BP Pulse Ox 98 F 60 18 138/63 94 L 09/30/18 07:00 09/30/18 10:09 09/30/18 07:00 09/30/18 10:09 09/30/18 07:00 Intake and Output: 09/30/18 09/30/18 06:59 18:59 Intake Total 290 Balance 290 - Medications Medications: Current Medications Acetaminophen (Tylenol 325mg Tab) 650 mg PO Q4H PRN PRN Reason: Fever >100.5 F Last Admin: 09/30/18 10:08 Dose: 650 mg Aspirin (Ecotrin) 81 mg PO DAILY [facility] Last Admin: 09/30/18 10:09 Dose: 81 mg Atorvastatin Calcium (Lipitor) 80 mg PO HS [facility] Last Admin: 09/29/18 21:58 Dose: 80 mg Carvedilol (Coreg) 6.25 mg PO BID [facility] Last Admin: 09/30/18 10:09 Dose: 6.25 mg Doxycycline Hyclate (Doryx) 100 mg PO Q12 [facility]; Protocol Last Admin: 09/30/18 10:09 Dose: 100 mg Meropenem/Sodium Chloride (Merrem Iv 500 Mg/Ns 50 Ml) 500 mg in 50 mls @ 100 mls/hr IVPB Q12 [facility]; Protocol Last Admin: 09/30/18 10:11 Dose: 100 mls/hr Insulin Human Regular (Humulin R Low) 0 units SC ACHS [facility]; Protocol Last Admin: 09/30/18 13:42 Dose: Not Given Isosorbide Mononitrate (Imdur Er) 30 mg PO DAILY [facility] Last Admin: 09/30/18 10:08 Dose: 30 mg Lactobacillus Acidophilus (Bacid Acidophilus) 1 cap PO DAILY [facility] Last Admin: 09/30/18 10:08 Dose: 1 cap Levothyroxine Sodium (Synthroid) 75 mcg PO DAILY [facility] Last Admin: 09/30/18 10:09 Dose: 75 mcg Ondansetron HCl (Zofran Inj) 4 mg IVP Q4H PRN PRN Reason: Nausea/Vomiting Sevelamer HCl (Renagel) 800 mg PO AC [facility] Last Admin: 09/30/18 11:47 Dose: 800 mg - Labs Labs: 09/28/18 07:00 09/28/18 07:00 - Constitutional Appears: Chronically Ill - Head Exam Head Exam: NORMAL INSPECTION - Respiratory Exam Respiratory Exam: Decreased Breath Sounds - Cardiovascular Exam Cardiovascular Exam: +S1, +S2 - GI/Abdominal Exam GI & Abdominal Exam: Soft. absent: Tenderness Assessment and Plan - Assessment and Plan (Free Text) Plan: Assessment consider left upper lobe HCAP history of Partial small bowel obstruction history of sepsis secondary to ESBL-producing multidrug-resistant E. coli bacteremia probably secondary to acute cholecystitis and ascending cholangitis S/P ERCP with biliary stone extraction history of ESBL E. coli bacteremia HTN Congestive Heart Failure DM GERD End-Stage Renal disease on hemodialysis history of depression history of Bowman's esophagus history of epididymitis on the left Plan gave a dose of IV Vancomycin, continue Meropenem and Doxycycline day 4 for 4-7 days pending final blood cx; PCT is 1.19 but the patient has renal failure; foll ow up urine Legionella Ag will continue to monitor clinically
[2018-10-01 17:44] VITALS: PULSE 62
--- NOTE | 2018-10-02 07:37 | CP.PCM.DIS ---
<Rolo Valadez - Last Filed: 10/02/18 17:02> Provider - Provider Date of Admission: 09/27/18 08:21 Attending physician: Bc Mariee MD Time Spent in preparation of Discharge (in minutes): 35 Diagnosis - Discharge Diagnosis (1) HCAP (healthcare-associated pneumonia) Status: Acute (2) Urinary tract infection Status: Acute Hospital Course - Lab Results Lab Results: Micro Results 09/27/18 00:30 Blood-Venous Blood Culture - Final NO GROWTH AFTER 5 DAYS 09/27/18 00:30 Blood-Venous Gram Stain - Final TEST NOT PERFORMED 09/26/18 23:50 Blood-Venous Blood Culture - Final NO GROWTH AFTER 5 DAYS 09/26/18 23:50 Blood-Venous Gram Stain - Final TEST NOT PERFORMED 09/28/18 06:00 Stool Stool Culture - Final NO SALMONELLA, SHIGELLA OR CAMPYLOBACTER ISOLATED. Most Recent Lab Values WBC 4.8 10^3/uL (4.5-11.0) 09/28/18 07:00 RBC 3.56 10^6/uL (3.5-6.1) 09/28/18 07:00 Hgb 10.4 g/dL (14.0-18.0) L 09/28/18 07:00 Hct 34.2 % (42.0-52.0) L 09/28/18 07:00 MCV 96.1 fl (80.0-105.0) 09/28/18 07:00 MCH 29.2 pg (25.0-35.0) 09/28/18 07:00 MCHC 30.4 g/dl (31.0-37.0) L 09/28/18 07:00 RDW 14.8 % (11.5-14.5) H 09/28/18 07:00 Plt Count 101 10^3/uL (120.0-450.0) L 09/28/18 07:00 MPV 10.2 fl (7.0-11.0) 09/28/18 07:00 Gran % 58.3 % (50.0-68.0) 09/26/18 23:59 Lymph % (Auto) 24.2 % (22.0-35.0) 09/26/18 23:59 [place] % (Auto) 12.9 % (1.0-6.0) H 09/26/18 23:59 Eos % (Auto) 4.1 % (1.5-5.0) 09/26/18 23:59 Baso % (Auto) 0.5 % (0.0-3.0) 09/26/18 23:59 Gran # 2.58 (1.4-6.5) 09/26/18 23:59 Lymph # (Auto) 1.1 (1.2-3.4) L 09/26/18 23:59 [place] # (Auto) 0.6 (0.1-0.6) 09/26/18 23:59 Eos # (Auto) 0.2 (0.0-0.7) 09/26/18 23:59 Baso # (Auto) 0.02 K/mm3 (0.0-2.0) 09/26/18 23:59 Sodium 138 mmol/L (132-148) 09/28/18 07:00 Potassium 3.8 mmol/L (3.6-5.0) 09/28/18 07:00 Chloride 100 mmol/L (98-107) 09/28/18 07:00 Carbon Dioxide 30 mmol/L (21-33) 09/28/18 07:00 Anion Gap 11 (10-20) 09/28/18 07:00 BUN 25 mg/dL (7-21) H 09/28/18 07:00 Creatinine 3.9 mg/dl (0.8-1.5) H 09/28/18 07:00 Est GFR ( Amer) 18 09/28/18 07:00 Est GFR (Non-Af Amer) 15 09/28/18 07:00 POC Glucose (mg/dL) 105 mg/dL (65-110) 10/01/18 21:25 Random Glucose 118 mg/dL (70-110) H 09/28/18 07:00 Calcium 7.6 mg/dL (8.4-10.5) L 09/28/18 07:00 Phosphorus 3.3 mg/dL (2.5-4.5) 09/28/18 07:00 Magnesium 2.1 mg/dL (1.7-2.2) 09/28/18 07:00 Total Bilirubin 0.8 mg/dL (0.2-1.3) 09/28/18 07:00 AST 30 U/L (17-59) 09/28/18 07:00 ALT 21 U/L (7-56) 09/28/18 07:00 Alkaline Phosphatase 291 U/L (38-126) H 09/28/18 07:00 Troponin I 0.09 ng/mL 09/28/18 07:00 Total Protein 6.2 g/dL (5.8-8.3) 09/28/18 07:00 Albumin 3.1 g/dL (3.0-4.8) 09/28/18 07:00 Globulin 3.1 gm/dL 09/28/18 07:00 Albumin/Globulin Ratio 1.0 (1.1-1.8) L 09/28/18 07:00 Procalcitonin 1.19 NG/ML (0.19-0.49) H 09/28/18 13:00 Hep Bs Antigen Negative (NEGATIVE) 09/27/18 11:43 Hep Bs Antibody Negative (NEGATIVE) 09/27/18 11:43 Hep B Core IgM Ab Negative (NEGATIVE) 09/27/18 11:43 Influenza Typ A,B (EIA) Negative for flu a/b (NEGATIVE) 09/26/18 23:59 - Hospital Course Hospital Course: 72 year old male with a PMH of CAD s/p CABG, pacemaker, ESRD on HD (TTS), DM2, hypothyroidism, HTN and urinary retention s/p a suprapubic catheter who was admitted for HCAP and treated empirically for UTI. Of note, that patient was seen in the ED on 08/03 and was given Bactrim for UTI. Chest CT showed linear infiltrate in left upper lobe suspicious for pneumonia. Patient did not meet sepsis criteria. Blood cultures were negative. Urine could not be collected due to patient not producing enough urine as he is a dialysis patient. His dialysis was continued on his regular TTS schedule. Patient will be discharged to TCU For continuing IV antibiotics and rehab. Discharge Exam - Head Exam Head Exam: ATRAUMATIC, NORMAL INSPECTION, NORMOCEPHALIC - Eye Exam Eye Exam: EOMI, Normal appearance, PERRL - ENT Exam ENT Exam: Mucous Membranes Moist, Normal Oropharynx - Neck Exam Neck exam: Full Rom, Normal Inspection - Respiratory Exam Respiratory Exam: Rhonchi, NORMAL BREATHING PATTERN. absent: Rales, Wheezes, Respiratory Distress - Cardiovascular Exam Cardiovascular Exam: RRR, +S1, +S2. absent: JVD, Systolic Murmur - GI/Abdominal Exam GI & Abdominal Exam: Normal Bowel Sounds, Soft. absent: Distended, Tenderness - Exam Additional comments: suprapuic catheter - Extremities Exam Extremities exam: full ROM, normal inspection - Back Exam Back exam: NORMAL INSPECTION - Neurological Exam Neurological exam: Alert, Oriented x3 - Psychiatric Exam Psychiatric exam: Normal Affect, Normal Mood - Skin Skin Exam: Normal Color, Warm Discharge Plan - Follow Up Plan Condition: GOOD Disposition: REHAB FACILITY/REHAB UNIT Instructions: Hemodialysis, Hospital-Acquired Pneumonia, Dialysis Diet , Preventing Falls in the Older Adult, Pneumococcal Conjugate Vaccine (13-Valent), Extended-Spectrum Beta Lactamase Infection, Flu Vaccine Additional Instructions: For Dialysis tomorrow, 10/02/2018. Instructed if you have an elevated temperature, chills cough notify doctor or return to the emergency room. <Bc Mariee - Last Filed: 10/02/18 17:56> Provider - Provider Date of Admission: 09/27/18 08:21 Attending physician: Bc Mariee MD Hospital Course - Lab Results Lab Results: Micro Results 09/27/18 00:30 Blood-Venous Blood Culture - Final NO GROWTH AFTER 5 DAYS 09/27/18 00:30 Blood-Venous Gram Stain - Final TEST NOT PERFORMED 09/26/18 23:50 Blood-Venous Blood Culture - Final NO GROWTH AFTER 5 DAYS 09/26/18 23:50 Blood-Venous Gram Stain - Final TEST NOT PERFORMED 09/28/18 06:00 Stool Stool Culture - Final NO SALMONELLA, SHIGELLA OR CAMPYLOBACTER ISOLATED. Most Recent Lab Values WBC 4.8 10^3/uL (4.5-11.0) 09/28/18 07:00 RBC 3.56 10^6/uL (3.5-6.1) 09/28/18 07:00 Hgb 10.4 g/dL (14.0-18.0) L 09/28/18 07:00 Hct 34.2 % (42.0-52.0) L 09/28/18 07:00 MCV 96.1 fl (80.0-105.0) 09/28/18 07:00 MCH 29.2 pg (25.0-35.0) 09/28/18 07:00 MCHC 30.4 g/dl (31.0-37.0) L 09/28/18 07:00 RDW 14.8 % (11.5-14.5) H 09/28/18 07:00 Plt Count 101 10^3/uL (120.0-450.0) L 09/28/18 07:00 MPV 10.2 fl (7.0-11.0) 09/28/18 07:00 Gran % 58.3 % (50.0-68.0) 09/26/18 23:59 Lymph % (Auto) 24.2 % (22.0-35.0) 09/26/18 23:59 [place] % (Auto) 12.9 % (1.0-6.0) H 09/26/18 23:59 Eos % (Auto) 4.1 % (1.5-5.0) 09/26/18 23:59 Baso % (Auto) 0.5 % (0.0-3.0) 09/26/18 23:59 Gran # 2.58 (1.4-6.5) 09/26/18 23:59 Lymph # (Auto) 1.1 (1.2-3.4) L 09/26/18 23:59 [place] # (Auto) 0.6 (0.1-0.6) 09/26/18 23:59 Eos # (Auto) 0.2 (0.0-0.7) 09/26/18 23:59 Baso # (Auto) 0.02 K/mm3 (0.0-2.0) 09/26/18 23:59 Sodium 138 mmol/L (132-148) 09/28/18 07:00 Potassium 3.8 mmol/L (3.6-5.0) 09/28/18 07:00 Chloride 100 mmol/L (98-107) 09/28/18 07:00 Carbon Dioxide 30 mmol/L (21-33) 09/28/18 07:00 Anion Gap 11 (10-20) 09/28/18 07:00 BUN 25 mg/dL (7-21) H 09/28/18 07:00 Creatinine 3.9 mg/dl (0.8-1.5) H 09/28/18 07:00 Est GFR ( Amer) 18 09/28/18 07:00 Est GFR (Non-Af Amer) 15 09/28/18 07:00 POC Glucose (mg/dL) 105 mg/dL (65-110) 10/01/18 21:25 Random Glucose 118 mg/dL (70-110) H 09/28/18 07:00 Calcium 7.6 mg/dL (8.4-10.5) L 09/28/18 07:00 Phosphorus 3.3 mg/dL (2.5-4.5) 09/28/18 07:00 Magnesium 2.1 mg/dL (1.7-2.2) 09/28/18 07:00 Total Bilirubin 0.8 mg/dL (0.2-1.3) 09/28/18 07:00 AST 30 U/L (17-59) 09/28/18 07:00 ALT 21 U/L (7-56) 09/28/18 07:00 Alkaline Phosphatase 291 U/L (38-126) H 09/28/18 07:00 Troponin I 0.09 ng/mL 09/28/18 07:00 Total Protein 6.2 g/dL (5.8-8.3) 09/28/18 07:00 Albumin 3.1 g/dL (3.0-4.8) 09/28/18 07:00 Globulin 3.1 gm/dL 09/28/18 07:00 Albumin/Globulin Ratio 1.0 (1.1-1.8) L 09/28/18 07:00 Procalcitonin 1.19 NG/ML (0.19-0.49) H 09/28/18 13:00 Hep Bs Antigen Negative (NEGATIVE) 09/27/18 11:43 Hep Bs Antibody Negative (NEGATIVE) 09/27/18 11:43 Hep B Core IgM Ab Negative (NEGATIVE) 09/27/18 11:43 Influenza Typ A,B (EIA) Negative for flu a/b (NEGATIVE) 09/26/18 23:59 - Hospital Course Hospital Course: Pt seen and examined. I have reviewed the note of the director [employer] and agree with it. I have discussed the assessment and plan with the resident. I have reviewed the patient's labs and medications. Pt with UTI and now is on IV Abx. He is getting HD for ESRD. He has hearing impairment. He is on TCU for rehab. Pt with DM-2 that is controlled.
== END 2018-10-01 21:58 | DRG 193 ==
LOC: ED 23:24 → ERH 09-27 01:13 → OBSVTOIN 09-27 08:21 → ERH 09-27 19:03 → 5RSO 09-27 20:12
PROVIDERS: ADMIT Internal Medicine Nephrology; ATTEND Internal Medicine Nephrology
PROC: 5A1D70Z Performance of Urinary Filtration, Intermittent, Less than 6 Hours Per Day (ICD-10-PCS; principal; 2018-09-27)
PROC: 5A1D70Z Performance of Urinary Filtration, Intermittent, Less than 6 Hours Per Day (ICD-10-PCS; 2018-09-29)
DX: J18.9 Pneumonia, unspecified organism (principal); N18.6 End stage renal disease; N39.0 Urinary tract infection, site not specified; J44.0 Chronic obstructive pulmonary disease with (acute) lower respiratory infection; N25.81 Secondary hyperparathyroidism of renal origin; I13.2 Hypertensive heart and chronic kidney disease with heart failure and with stage 5 chronic kidney disease, or end stage renal disease; I50.9 Heart failure, unspecified; E11.22 Type 2 diabetes mellitus with diabetic chronic kidney disease; N40.0 Benign prostatic hyperplasia without lower urinary tract symptoms; E03.9 Hypothyroidism, unspecified; F03.90 Unspecified dementia, unspecified severity, without behavioral disturbance, psychotic disturbance, mood disturbance, and anxiety; K21.9 Gastro-esophageal reflux disease without esophagitis; E78.5 Hyperlipidemia, unspecified; I25.10 Atherosclerotic heart disease of native coronary artery without angina pectoris; Y95 Nosocomial condition; Z99.2 Dependence on renal dialysis; Z79.82 Long term (current) use of aspirin; Z95.1 Presence of aortocoronary bypass graft; Z79.4 Long term (current) use of insulin

== ENCOUNTER 2018-10-01 21:58 | Inpatient (IN) | payer OTHER ==
[2018-10-01] MEDS ORDERED: Influenza Vaccine 60 mcg/0.5 mL SYR (4YR UP) IM ONE (23:00)
[2018-10-01] MEDS ORDERED: Pneumococcal 23-Valent Vaccine IM ONE (23:00)
[2018-10-02] MEDS ORDERED: Alum-Mag Hydrox-Simethicone Susp (30 mL) PO ONE (02:35)
[2018-10-02] MEDS: Levothyroxine 75 MCG TAB PO SCH (05:49)
[2018-10-02] MEDS: Insulin Reg-LOW-Coverage SC SCH ×4 (06:36→21:32)
--- NOTE | 2018-10-02 07:38 | CP.PCM.HP ---
<Rolo Valadez - Last Filed: 10/02/18 17:34> History of Present Illness - History of Present Illness History of Present Illness: Rolo Valadez PGY2 IM H&P Note for Dr. Mariee cc: HCAP and UTI Ms Sims is a 72 year old male with a PMH of CAD s/p CABG, p acemaker, ESRD on HD (TTS), DM2, hypothyroidism, HTN and urinary retention s/p a suprapubic catheter who was admitted medically for HCAP and treated empirically for UTI. Blood cultures were negative. Urine could not be collected due to patient not producing enough urine as he is a dialysis patient. His dialysis is on a TTS schedule. Patient is discharged to TCU For continuing IV antibiotics and rehab as he was noted to have an unsteady gait. 12-point ROS was reviewed and is otherwise unremarkable. PMD: Dr. Mariee PMH: as above PSH: CABG, suprapubic catheter, left AVF Meds: as per MAR, reviewed Allergies: dye SHx: denies tobacco, EtOH or drug use FHx: DM2 and HTN Present on Admission - Present on Admission Any Indicators Present on Admission: No Review of Systems - Review of Systems All systems: reviewed and no additional remarkable complaints except (as per HPI) Past Patient History - Infectious Disease Hx of Infectious Diseases: None - Tetanus Immunizations Tetanus Immunization: Unknown - Past Medical History & Family History Past Medical History?: Yes - Past Social History Smoking Status: Never Smoked - CARDIAC Hx Cardiac Disorders: Yes (CAD s/p CABG) Hx Hypertension: Yes Hx Pacemaker: Yes - PULMONARY Hx Respiratory Disorders: Yes (PE) Hx Chronic Obstructive Pulmonary Disease (COPD): Yes - NEUROLOGICAL Hx Neurological Disorder: Yes Hx Dementia: Yes - HEENT Hx HEENT Problems: Yes Hx Cataracts: Yes (sx) Hx Deafness: Yes (R ear) Other/Comment: hard of hearing - RENAL Hx Chronic Kidney Disease: Yes Hx Dialysis: Yes (, , Mon) - ENDOCRINE/METABOLIC Hx Diabetes Mellitus Type 2: Yes Hx Hypothyroidism: Yes - HEMATOLOGICAL/ONCOLOGICAL Hx Anemia: Yes - INTEGUMENTARY Hx Dermatological Problems: (BILATERAL LEG EDEMA MORE ON LEFT.SHUNT TO LEFT UPPER ARM,SUPRAPUBIC CATHETE) Other/Comment: ble skin discoloration - MUSCULOSKELETAL/RHEUMATOLOGICAL Hx Falls: Yes - GASTROINTESTINAL Hx Gastrointestinal Disorders: Yes (PARTIAL SBO,COLITIS,DIVERTICULITIS) - GENITOURINARY/GYNECOLOGICAL Hx Genitourinary Disorders: Yes (ESRD ON HD,ESBL IN THE URINE) Hx Reproductive Disorders: No - PSYCHIATRIC Hx Substance Use: No - SURGICAL HISTORY Hx Surgeries: Yes Hx Open Heart Surgery: Yes - ANESTHESIA Hx Anesthesia: Yes Hx Anesthesia Reactions: No Hx Malignant Hyperthermia: No Meds Allergies/Adverse Reactions: Allergies Allergy/AdvReac Type Severity Reaction Status Date / Time dye Allergy REDNESS Uncoded 10/01/18 22:42 Physical Exam - Constitutional Appears: Well, Non-toxic, No Acute Distress - Head Exam Head Exam: ATRAUMATIC, NORMAL INSPECTION, NORMOCEPHALIC - Eye Exam Eye Exam: EOMI, Normal appearance, PERRL - ENT Exam ENT Exam: Mucous Membranes Moist Additional comments: hard of hearing b/l - Neck Exam Neck exam: Positive for: Full Rom, Normal Inspection - Extremities Exam Additional comments: LUE AVF Results - Vital Signs Recent Vital Signs: Last Vital Signs Temp 97.8 F 10/01/18 22:42 Pulse 60 10/01/18 22:42 Resp 20 10/01/18 22:42 BP 166/74 H 10/01/18 22:42 Pulse Ox Assessment & Plan - Assessment and Plan (Free Text) Assessment: 72 year old male with a PMH of CAD s/p CABG, pacemaker, ESRD on HD (TTS), DM2, hypothyroidism, HTN and urinary retention s/p a suprapubic catheter who is admitted to TCU for continuing IV abx and rehab for unsteady gait. Patient remains afebrile with no signs of sepsis. He is continuing HD on TTS. Plan: - cont on Meropenem day 5 - cont Doxycycline day 5 - started on Duonebs and Mucinex - ID consulted, recs appreciated - Dialysis on TTS schedule - Tylenol PRN fevers - cont ASA daily, Lipitor daily, Coreg BID, Imdur daily - ISS low - cont Lactobacilus daily - cont Synthroid daily - Zofran PRN n/v - cont Renagel - Renal diet - further recs per Dr. Mariee Case was reviewed and discussed with attending, Dr. Kodi Valadez PGY2 <Kodi,Bc S - Last Filed: 10/02/18 18:09> Results - Vital Signs Recent Vital Signs: Last Vital Signs Temp 97.9 F 10/02/18 10:00 Pulse 60 10/02/18 10:00 Resp 16 10/02/18 10:00 BP 127/56 L 10/02/18 10:00 Pulse Ox 94 L 10/02/18 10:00 - Labs Labs: Laboratory Results - last 24 hr 10/02/18 10/02/18 10/02/18 06:34 11:06 17:20 POC Glucose (mg/dL) 106 115 H 126 H Assessment & Plan - Assessment and Plan (Free Text) Assessment: Pt seen and examined. I have reviewed the note of the medical payment poster and agree with it. I have discussed the assessment and plan with the resident. I have reviewed the patient's labs and medications. Pt with UTI that is on IV Abx. Pt will continue with HD with ESRD. Pt will continue with ASA and Coreg for CAD. Pt will continue with Synthroid for hypothyroidism. He will be on TCU for IV Abx and PT. Will get US of abd. May have consitpation. Pt on Lipitor for dy slipidemia.
[2018-10-02] MEDS: Albuterol-Ipratrop 3 mg / 0.5 (3 ml) UD IH SCH ×3 (09:12→20:46)
[2018-10-02] MEDS: guaiFENesin-DM 600-30 mg ER Tab PO SCH ×2 (11:24→17:11)
[2018-10-02] MEDS: POLYETHYLENE GLYCOL 3350 17 GM/Dose PACKET PO SCH ×2 (11:24→18:29)
[2018-10-02] MEDS: MEROPENEM 500 MG in NS 500 MG/50 ML BAG IVPB SCH ×2 (17:11→21:29)
[2018-10-02] MEDS: Lactobacillus Acidophilus 500 MU Cap PO SCH (17:11)
--- NOTE | 2018-10-02 17:50 | CP.PCM.CON ---
History of Present Illness - History of Present Illness History of Present Illness: 72 year old male with PMH of HTN, Congestive Heart Failure, DM, GERD, End-Stage Renal disease on dialysis, history of depression, history of Bowman's esophagus, history of epididymitis on the left, history of partial SBO, history of sepsis secondary to ESBL-producing multidrug-resistant E. coli bacteremia probably secondary to acute cholecystitis and ascending cholangitis S/P ERCP with biliary stone extraction, history of ESBL E. coli bacteremia initially came in to [facility] because of urinary retention and generalized weakness. The patient was found to have left upper lobe possible pneumonia and has been on antibiotics. He is now transferred to [facility] for continued medical therapy and physical rehab. Infectious Diseases consult is requested to continue his antibiotic therapy. He has no fevers, no nausea or vomiting, no abdominal pain, no SOB at rest. Review of Systems - Review of Systems All systems: reviewed and no additional remarkable complaints except (as per HPI) Past Patient History - Infectious Disease Hx of Infectious Diseases: None - Tetanus Immunizations Tetanus Immunization: Unknown - Past Medical History & Family History Past Medical History?: Yes - Past Social History Smoking Status: Never Smoked - CARDIAC Hx Cardiac Disorders: Yes (CAD s/p CABG) Hx Hypertension: Yes Hx Pacemaker: Yes - PULMONARY Hx Respiratory Disorders: Yes (PE) Hx Chronic Obstructive Pulmonary Disease (COPD): Yes - NEUROLOGICAL Hx Neurological Disorder: Yes Hx Dementia: Yes - HEENT Hx HEENT Problems: Yes Hx Cataracts: Yes (sx) Hx Deafness: Yes (R ear) Other/Comment: hard of hearing - RENAL Hx Chronic Kidney Disease: Yes Hx Dialysis: Yes (, , Mon) - ENDOCRINE/METABOLIC Hx Diabetes Mellitus Type 2: Yes Hx Hypothyroidism: Yes - HEMATOLOGICAL/ONCOLOGICAL Hx Anemia: Yes - INTEGUMENTARY Hx Dermatological Problems: (BILATERAL LEG EDEMA MORE ON LEFT.SHUNT TO LEFT UPPER ARM,SUPRAPUBIC CATHETE) Other/Comment: ble skin discoloration - MUSCULOSKELETAL/RHEUMATOLOGICAL Hx Falls: Yes - GASTROINTESTINAL Hx Gastrointestinal Disorders: Yes (PARTIAL SBO,COLITIS,DIVERTICULITIS) - GENITOURINARY/GYNECOLOGICAL Hx Genitourinary Disorders: Yes (ESRD ON HD,ESBL IN THE URINE) Hx Reproductive Disorders: No - PSYCHIATRIC Hx Substance Use: No - SURGICAL HISTORY Hx Surgeries: Yes Hx Open Heart Surgery: Yes - ANESTHESIA Hx Anesthesia: Yes Hx Anesthesia Reactions: No Hx Malignant Hyperthermia: No Meds Allergies/Adverse Reactions: Allergies Allergy/AdvReac Type Severity Reaction Status Date / Time dye Allergy REDNESS Uncoded 10/01/18 22:42 - Medications Medications: Current Medications Acetaminophen (Tylenol 325mg Tab) 650 mg PO Q4H PRN; Protocol PRN Reason: fever >100.5 Albuterol/Ipratropium (Duoneb 3 Mg/0.5 Mg (3 Ml) Ud) 3 ml IH [id number] [facility] Last Admin: 10/02/18 13:04 Dose: Not Given Aspirin (Ecotrin) 81 mg PO 0800 [facility]; Protocol Last Admin: 10/02/18 17:11 Dose: 81 mg Atorvastatin Calcium (Lipitor) 80 mg PO DIN [facility]; Protocol Last Admin: 10/02/18 17:11 Dose: 80 mg Carvedilol (Coreg) 6.25 mg PO 0800,1700 [facility]; Protocol Last Admin: 10/02/18 17:11 Dose: 6.25 mg Doxycycline Hyclate (Doryx) 100 mg PO Q12 [facility]; Protocol Last Admin: 10/02/18 17:11 Dose: 100 mg Guaifenesin/Dextromethorphan (Mucinex-Dm 600-30 Mg) 1 tab PO BID [facility] Last Admin: 10/02/18 17:11 Dose: 1 tab Meropenem/Sodium Chloride (Merrem Iv 500 Mg/Ns 50 Ml) 500 mg in 50 mls @ 100 mls/hr IVPB Q12 [facility]; Protocol Last Admin: 10/02/18 17:11 Dose: 100 mls/hr Insulin Human Regular (Humulin R Low) 0 units SC ACHS [facility]; Protocol Last Admin: 10/02/18 11:25 Dose: Not Given Isosorbide Mononitrate (Imdur Er) 30 mg PO 0600 [facility]; Protocol Last Admin: 10/02/18 05:49 Dose: Not Given Lactobacillus Acidophilus (Bacid Acidophilus) 1 cap PO DAILY [facility] Last Admin: 10/02/18 17:11 Dose: 1 cap Levothyroxine Sodium (Synthroid) 75 mcg PO 0600 [facility]; Protocol Last Admin: 10/02/18 05:49 Dose: Not Given Ondansetron HCl (Zofran Inj) 4 mg IVP Q4H PRN; Protocol PRN Reason: Nausea/Vomiting Last Admin: 10/02/18 05:46 Dose: 4 mg Polyethylene Glycol (Miralax) 17 gm PO BID [facility] Last Admin: 10/02/18 11:24 Dose: Not Given Sevelamer HCl (Renagel) 800 mg PO WM [facility]; Protocol Last Admin: 10/02/18 17:10 Dose: 800 mg Physical Exam - Constitutional Appears: Chronically Ill - Head Exam Head Exam: NORMAL INSPECTION - Respiratory Exam Respiratory Exam: Decreased Breath Sounds - Cardiovascular Exam Cardiovascular Exam: +S1, +S2 - GI/Abdominal Exam GI & Abdominal Exam: Soft. absent: Tenderness Results - Vital Signs Recent Vital Signs: Last Vital Signs Temp 97.9 F 10/02/18 10:00 Pulse 60 10/02/18 10:00 Resp 16 10/02/18 10:00 BP 127/56 L 10/02/18 10:00 Pulse Ox 94 L 10/02/18 10:00 - Labs Labs: Laboratory Results - last 24 hr 10/02/18 10/02/18 10/02/18 06:34 11:06 17:20 POC Glucose (mg/dL) 106 115 H 126 H Assessment & Plan - Assessment and Plan (Free Text) Plan: Assessment consider left upper lobe HCAP history of Partial small bowel obstruction history of sepsis secondary to ESBL-producing multidrug-resistant E. coli bacteremia probably secondary to acute cholecystitis and ascending cholangitis S/P ERCP with biliary stone extraction history of ESBL E. coli bacteremia HTN Congestive Heart Failure DM GERD End-Stage Renal disease on hemodialysis history of depression history of Bowman's esophagus history of epididymitis on the left Plan gave a dose of IV Vancomycin, continue Meropenem and Doxycycline day 5 for 4-7 days pending final blood cx; PCT is 1.19 but the patient has renal failure; follow up urine Legionella Ag will continue to monitor clinically
--- NOTE | 2018-10-02 18:52 | US ---
Date of service: 10/02/2018 HISTORY: abdominal distention COMPARISON: 03/30/2018 CT abdomen and pelvis. 02/05/2017 abdominal ultrasound. TECHNIQUE: Sonographic evaluation of the abdomen. FINDINGS: LIVER: Measures 15.9 cm. Hepatopedal blood flow. Fatty infiltration manifest ultrasonographically as increased echogenicity of the liver parenchyma. No mass. No intrahepatic bile duct dilatation. GALLBLADDER: Status post cholecystectomy. No abnormality is seen in the gallbladder fossa. COMMON BILE DUCT: Measures 7.1 mm. No stones. No dilatation. PANCREAS: Unremarkable as visualized. No mass. No ductal dilatation. RIGHT KIDNEY: Measures 3.9 x 8.2cm. Atrophic right kidney. LEFT KIDNEY: Measures 4 x 9.4cm. Atrophic left kidney. SPLEEN: Normal in size and contour. No mass. AORTA: No aneurysmal dilatation. IVC: Unremarkable. OTHER FINDINGS: None. IMPRESSION: Atrophic kidneys bilaterally consistent with medical renal disease. Hepatic steatosis without focal abnormality.
[2018-10-03] MEDS: Albuterol-Ipratrop 3 mg / 0.5 (3 ml) UD IH SCH ×4 (01:30→20:18)
[2018-10-03] MEDS: Levothyroxine 75 MCG TAB PO SCH (05:41)
[2018-10-03] MEDS: Insulin Reg-LOW-Coverage SC SCH ×4 (06:31→21:40)
--- NOTE | 2018-10-03 09:36 | CP.PCM.PN ---
<Rolo Valadez - Last Filed: 10/03/18 11:50> Subjective - Date & Time of Evaluation Date of Evaluation: 10/03/18 Time of Evaluation: 07:36 - Subjective Subjective: Rolo Valadez PGY2 IM Progress Note for Dr. Mariee Patient was seen and examined at bedside. He states that his cough has improved. He denies any nausea/vomiting, diarrhea, fevers/chills, abdominal pain, chest pain or shortness of breath. Nursing and specialist notes, VS and Labs were reviewed. Abd US and Abd XR were reviewed independently by me. Objective - Vital Signs/Intake and Output Vital Signs (last 24 hours): Temp Pulse Resp BP Pulse Ox 97.9 F 60 16 143/70 94 L 10/02/18 10:00 10/03/18 08:07 10/02/18 10:00 10/03/18 08:07 10/02/18 10:00 - Medications Medications: Current Medications Acetaminophen (Tylenol 325mg Tab) 650 mg PO Q4H PRN; Protocol PRN Reason: fever >100.5 Albuterol/Ipratropium (Duoneb 3 Mg/0.5 Mg (3 Ml) Ud) 3 ml IH [id number] [facility] Last Admin: 10/03/18 07:30 Dose: 3 ml Aspirin (Ecotrin) 81 mg PO 0800 [facility]; Protocol Last Admin: 10/03/18 08:08 Dose: 81 mg Atorvastatin Calcium (Lipitor) 80 mg PO DIN [facility]; Protocol Last Admin: 10/02/18 17:11 Dose: 80 mg Carvedilol (Coreg) 6.25 mg PO 0800,1700 [facility]; Protocol Last Admin: 10/03/18 08:07 Dose: 6.25 mg Doxycycline Hyclate (Doryx) 100 mg PO Q12 [facility]; Protocol Last Admin: 10/02/18 21:14 Dose: 100 mg Guaifenesin/Dextromethorphan (Mucinex-Dm 600-30 Mg) 1 tab PO BID [facility] Last Admin: 10/02/18 17:11 Dose: 1 tab Meropenem/Sodium Chloride (Merrem Iv 500 Mg/Ns 50 Ml) 500 mg in 50 mls @ 100 mls/hr IVPB Q12 [facility]; Protocol Last Admin: 10/02/18 21:29 Dose: 100 mls/hr Insulin Human Regular (Humulin R Low) 0 units SC ACHS [facility]; Protocol Last Admin: 10/03/18 06:31 Dose: Not Given Isosorbide Mononitrate (Imdur Er) 30 mg PO 0600 [facility]; Protocol Last Admin: 10/03/18 05:40 Dose: 30 mg Lactobacillus Acidophilus (Bacid Acidophilus) 1 cap PO DAILY [facility] Last Admin: 10/02/18 17:11 Dose: 1 cap Levothyroxine Sodium (Synthroid) 75 mcg PO 0600 [facility]; Protocol Last Admin: 10/03/18 05:41 Dose: 75 mcg Ondansetron HCl (Zofran Inj) 4 mg IVP Q4H PRN; Protocol PRN Reason: Nausea/Vomiting Last Admin: 10/02/18 05:46 Dose: 4 mg Polyethylene Glycol (Miralax) 17 gm PO BID [facility] Last Admin: 10/02/18 18:29 Dose: Not Given Sevelamer HCl (Renagel) 800 mg PO WM [facility]; Protocol Last Admin: 10/03/18 08:08 Dose: 800 mg - Constitutional Appears: Non-toxic, No Acute Distress, Chronically Ill - Head Exam Head Exam: ATRAUMATIC, NORMAL INSPECTION, NORMOCEPHALIC - Eye Exam Eye Exam: EOMI, Normal appearance, PERRL - ENT Exam ENT Exam: Mucous Membranes Moist, Normal Oropharynx Additional comments: heard of hearing - Neck Exam Neck Exam: Full ROM, Normal Inspection. absent: Tenderness - Respiratory Exam Respiratory Exam: Rhonchi (b/l), NORMAL BREATHING PATTERN. absent: Rales, Wheezes, Respiratory Distress - Cardiovascular Exam Cardiovascular Exam: RRR, +S1, +S2. absent: Murmur Additional comments: healed midline scar post CABG - GI/Abdominal Exam GI & Abdominal Exam: Soft, Normal Bowel Sounds. absent: Distended, Tenderness - Exam Additional comments: suprapubic catheter - Extremities Exam Extremities Exam: Full ROM. absent: Pedal Edema Additional comments: LUE AVF (+bruit,thrill) - Back Exam Back Exam: NORMAL INSPECTION - Neurological Exam Neurological Exam: Abnormal Gait, Alert, Awake, Oriented x3. absent: Normal Gait - Psychiatric Exam Psychiatric exam: Normal Affect, Normal Mood - Skin Skin Exam: Normal Color, Warm Assessment and Plan - Assessment and Plan (Free Text) Assessment: 72 year old male with a PMH of CAD s/p CABG, pacemaker, ESRD on HD (TTS), DM2, hypothyroidism, HTN and urinary retention s/p a suprapubic catheter who is admitted to TCU for continuing IV abx and rehab for unsteady gait and deconditioning. Patient remains afebrile with no signs of sepsis. He is continuing HD on TTS. Plan: - cont on Meropenem day 6 - cont Doxycycline day 6 - cont on Duonebs and Mucinex - ID consulted, recs appreciated - Dialysis on TTS schedule - Tylenol PRN fevers - cont ASA daily, Lipitor daily, Coreg BID, Imdur daily - ISS low - cont Lactobacilus daily - cont Synthroid daily - Zofran PRN n/v - cont Renagel - Renal diet - further recs per Dr. Mariee Case was reviewed and discussed with attending, Dr. Kodi Valadez PGY2 <Bc Mariee S - Last Filed: 10/03/18 19:31> Objective - Vital Signs/Intake and Output Vital Signs (last 24 hours): Temp Pulse Resp BP Pulse Ox 97.9 F 95 H 20 156/67 H 95 10/03/18 16:30 10/03/18 17:57 10/03/18 16:30 10/03/18 17:57 10/03/18 16:30 - Medications Medications: Current Medications Acetaminophen (Tylenol 325mg Tab) 650 mg PO Q4H PRN; Protocol PRN Reason: fever >100.5 Albuterol/Ipratropium (Duoneb 3 Mg/0.5 Mg (3 Ml) Ud) 3 ml IH [id number] [facility] Last Admin: 10/03/18 13:53 Dose: 3 ml Aspirin (Ecotrin) 81 mg PO 0800 [facility]; Protocol Last Admin: 10/03/18 08:08 Dose: 81 mg Atorvastatin Calcium (Lipitor) 80 mg PO DIN [facility]; Protocol Last Admin: 10/03/18 17:55 Dose: 80 mg Carvedilol (Coreg) 6.25 mg PO 0800,1700 [facility]; Protocol Last Admin: 10/03/18 17:57 Dose: 6.25 mg Doxycycline Hyclate (Doryx) 100 mg PO Q12 [facility]; Protocol Last Admin: 10/03/18 10:26 Dose: 100 mg Guaifenesin/Dextromethorphan (Mucinex-Dm 600-30 Mg) 1 tab PO BID [facility] Last Admin: 10/03/18 17:54 Dose: 1 tab Meropenem/Sodium Chloride (Merrem Iv 500 Mg/Ns 50 Ml) 500 mg in 50 mls @ 100 mls/hr IVPB Q12 [facility]; Protocol Last Admin: 10/03/18 10:19 Dose: 100 mls/hr Insulin Human Regular (Humulin R Low) 0 units SC ACHS [facility]; Protocol Last Admin: 10/03/18 16:56 Dose: Not Given Isosorbide Mononitrate (Imdur Er) 30 mg PO 0600 [facility]; Protocol Last Admin: 10/03/18 05:40 Dose: 30 mg Lactobacillus Acidophilus (Bacid Acidophilus) 1 cap PO DAILY [facility] Last Admin: 10/03/18 10:26 Dose: 1 cap Levothyroxine Sodium (Synthroid) 75 mcg PO 0600 [facility]; Protocol Last Admin: 10/03/18 05:41 Dose: 75 mcg Ondansetron HCl (Zofran Inj) 4 mg IVP Q4H PRN; Protocol PRN Reason: Nausea/Vomiting Last Admin: 10/02/18 05:46 Dose: 4 mg Polyethylene Glycol (Miralax) 17 gm PO BID [facility] Last Admin: 10/03/18 17:57 Dose: Not Given Sevelamer HCl (Renagel) 800 mg PO WM [facility]; Protocol Last Admin: 10/03/18 17:54 Dose: 800 mg Assessment and Plan - Assessment and Plan (Free Text) Assessment: Pt seen and examined. I have reviewed the note of the medical accountant and agree with it. I have discussed the assessment and plan with the resident. I have reviewed the patient's labs and medications. Pt with UTI and is on IV Abx. He is getting PT onTCU. Will continue with HD for ESRD. Abd US was reviewed. On Synthroid for hypothyroidism.
[2018-10-03] MEDS: POLYETHYLENE GLYCOL 3350 17 GM/Dose PACKET PO SCH ×2 (10:15→17:57)
[2018-10-03] MEDS: MEROPENEM 500 MG in NS 500 MG/50 ML BAG IVPB SCH ×2 (10:19→21:40)
[2018-10-03] MEDS: guaiFENesin-DM 600-30 mg ER Tab PO SCH ×2 (10:19→17:54)
[2018-10-03] MEDS: Lactobacillus Acidophilus 500 MU Cap PO SCH (10:26)
--- NOTE | 2018-10-03 13:23 | RAD ---
Date of service: 10/02/2018 HISTORY: constipation COMPARISON: None available. FINDINGS: BOWEL: Normal. No obstruction. No free air. BONES: Normal. OTHER FINDINGS: None. IMPRESSION: No active disease.
--- NOTE | 2018-10-03 16:49 | CP.PCM.PN ---
Subjective - Date & Time of Evaluation Date of Evaluation: 10/03/18 Time of Evaluation: 09:00 - Subjective Subjective: Afebrile, not in distress. Objective - Vital Signs/Intake and Output Vital Signs (last 24 hours): Temp Pulse Resp BP Pulse Ox 97.9 F 60 16 127/56 L 94 L 10/02/18 10:00 10/02/18 10:00 10/02/18 10:00 10/02/18 10:00 10/02/18 10:00 - Medications Medications: Current Medications Acetaminophen (Tylenol 325mg Tab) 650 mg PO Q4H PRN; Protocol PRN Reason: fever >100.5 Albuterol/Ipratropium (Duoneb 3 Mg/0.5 Mg (3 Ml) Ud) 3 ml IH [id number] [facility] Last Admin: 10/02/18 13:04 Dose: Not Given Aspirin (Ecotrin) 81 mg PO 0800 [facility]; Protocol Last Admin: 10/02/18 17:11 Dose: 81 mg Atorvastatin Calcium (Lipitor) 80 mg PO DIN [facility]; Protocol Last Admin: 10/02/18 17:11 Dose: 80 mg Carvedilol (Coreg) 6.25 mg PO 0800,1700 [facility]; Protocol Last Admin: 10/02/18 17:11 Dose: 6.25 mg Doxycycline Hyclate (Doryx) 100 mg PO Q12 [facility]; Protocol Last Admin: 10/02/18 17:11 Dose: 100 mg Guaifenesin/Dextromethorphan (Mucinex-Dm 600-30 Mg) 1 tab PO BID [facility] Last Admin: 10/02/18 17:11 Dose: 1 tab Meropenem/Sodium Chloride (Merrem Iv 500 Mg/Ns 50 Ml) 500 mg in 50 mls @ 100 mls/hr IVPB Q12 [facility]; Protocol Last Admin: 10/02/18 17:11 Dose: 100 mls/hr Insulin Human Regular (Humulin R Low) 0 units SC ACHS [facility]; Protocol Last Admin: 10/02/18 11:25 Dose: Not Given Isosorbide Mononitrate (Imdur Er) 30 mg PO 0600 [facility]; Protocol Last Admin: 10/02/18 05:49 Dose: Not Given Lactobacillus Acidophilus (Bacid Acidophilus) 1 cap PO DAILY [facility] Last Admin: 10/02/18 17:11 Dose: 1 cap Levothyroxine Sodium (Synthroid) 75 mcg PO 0600 [facility]; Protocol Last Admin: 10/02/18 05:49 Dose: Not Given Ondansetron HCl (Zofran Inj) 4 mg IVP Q4H PRN; Protocol PRN Reason: Nausea/Vomiting Last Admin: 10/02/18 05:46 Dose: 4 mg Polyethylene Glycol (Miralax) 17 gm PO BID [facility] Last Admin: 10/02/18 11:24 Dose: Not Given Sevelamer HCl (Renagel) 800 mg PO WM [facility]; Protocol Last Admin: 10/02/18 17:10 Dose: 800 mg - Constitutional Appears: Chronically Ill - Head Exam Head Exam: NORMAL INSPECTION - Respiratory Exam Respiratory Exam: Decreased Breath Sounds - Cardiovascular Exam Cardiovascular Exam: +S1, +S2 - GI/Abdominal Exam GI & Abdominal Exam: Soft. absent: Tenderness Assessment and Plan - Assessment and Plan (Free Text) Plan: Assessment consider left upper lobe HCAP history of Partial small bowel obstruction history of sepsis secondary to ESBL-producing multidrug-resistant E. coli bacteremia probably secondary to acute cholecystitis and ascending cholangitis S/P ERCP with biliary stone extraction history of ESBL E. coli bacteremia HTN Congestive Heart Failure DM GERD End-Stage Renal disease on hemodialysis history of depression history of Bowman's esophagus history of epididymitis on the left Plan gave a dose of IV Vancomycin, continue Meropenem and Doxycycline day 6 of 7 days pending final blood cx; PCT is 1.19 but the patient has renal failure will continue to monitor clinically
[2018-10-04] MEDS: Albuterol-Ipratrop 3 mg / 0.5 (3 ml) UD IH SCH ×4 (01:18→20:31)
[2018-10-04] MEDS: Levothyroxine 75 MCG TAB PO SCH (05:32)
[2018-10-04] MEDS: MEROPENEM 500 MG in NS 500 MG/50 ML BAG IVPB SCH ×2 (05:32→17:14)
[2018-10-04] MEDS: Insulin Reg-LOW-Coverage SC SCH ×4 (06:46→22:04)
[2018-10-04] MEDS: Lactobacillus Acidophilus 500 MU Cap PO SCH (10:22)
[2018-10-04] MEDS: POLYETHYLENE GLYCOL 3350 17 GM/Dose PACKET PO SCH ×2 (10:22→17:15)
[2018-10-04] MEDS: guaiFENesin-DM 600-30 mg ER Tab PO SCH ×2 (10:22→17:15)
--- NOTE | 2018-10-04 18:31 | PN ---
DATE: 10/04/2018 SUBJECTIVE: The patient is seen in bed, in no acute distress, nontoxic. OBJECTIVE: VITAL SIGNS: Temperature is 98, blood pressure is 128/50, respiratory rate of 18, and heart rate of 59. HEENT: Unremarkable. NECK: Supple. LUNGS: Have decreased breath sounds. HEART: Normal S1 and S2. ABDOMEN: Soft. LABORATORY DATA: Reviewed. ASSESSMENT AND PLAN: This is a 72-year-old male with left upper lobe healthcare-associated pneumonia, history of partial small bowel obstruction, history of sepsis with extended-spectrum beta-lactamases producing multidrug-resistant Escherichia Coli bacteremia probably secondary to acute cholecystitis and ascending cholangitis in a patient with congestive heart failure, hypertension, diabetes, and gastroesophageal reflux disease. The patient also had a biliary stone extraction, on meropenem and doxycycline day #7 today of 7 days. The patient appears clinically much improved and on p.o. doxycycline and IV meropenem. We will follow with you. Isrrael Ni MD
[2018-10-05] MEDS: Levothyroxine 75 MCG TAB PO SCH (05:18)
[2018-10-05] MEDS: MEROPENEM 500 MG in NS 500 MG/50 ML BAG IVPB SCH (05:19)
[2018-10-05] MEDS: Insulin Reg-LOW-Coverage SC SCH ×4 (06:31→23:57)
[2018-10-05] MEDS: Albuterol-Ipratrop 3 mg / 0.5 (3 ml) UD IH SCH ×3 (07:10→20:55)
--- NOTE | 2018-10-05 07:37 | CP.PCM.PN ---
<Rolo Valadez - Last Filed: 10/05/18 09:28> Subjective - Date & Time of Evaluation Date of Evaluation: 10/05/18 Time of Evaluation: 07:17 - Subjective Subjective: Rolo Valadez PGY2 IM Progress Note for Dr. Mariee Patient was seen and examined at bedside in TCU. He states that his cough has been unchanged for the last couple days, and is non-productive. Nursing notes were reviewed. There were no acute overnight events. ID specialist notes were reviewed and patient is completing 7 days of Meropenem and Doxycycline therapy. Objective - Vital Signs/Intake and Output Vital Signs (last 24 hours): Temp Pulse Resp BP Pulse Ox 98.3 F 59 L 18 128/50 L 91 L 10/04/18 16:00 10/04/18 16:00 10/04/18 16:00 10/04/18 17:13 10/04/18 16:00 - Medications Medications: Current Medications Acetaminophen (Tylenol 325mg Tab) 650 mg PO Q4H PRN; Protocol PRN Reason: fever >100.5 Albuterol/Ipratropium (Duoneb 3 Mg/0.5 Mg (3 Ml) Ud) 3 ml IH [id number] [facility] Last Admin: 10/05/18 07:10 Dose: Not Given Aspirin (Ecotrin) 81 mg PO 0800 [facility]; Protocol Last Admin: 10/04/18 08:22 Dose: 81 mg Atorvastatin Calcium (Lipitor) 80 mg PO DIN [facility]; Protocol Last Admin: 10/04/18 17:15 Dose: 80 mg Carvedilol (Coreg) 6.25 mg PO 0800,1700 [facility]; Protocol Last Admin: 10/04/18 17:13 Dose: 6.25 mg Doxycycline Hyclate (Doryx) 100 mg PO Q12 [facility]; Protocol Last Admin: 10/04/18 21:25 Dose: 100 mg Guaifenesin/Dextromethorphan (Mucinex-Dm 600-30 Mg) 1 tab PO BID [facility] Last Admin: 10/04/18 17:15 Dose: 1 tab Meropenem/Sodium Chloride (Merrem Iv 500 Mg/Ns 50 Ml) 500 mg in 50 mls @ 100 mls/hr IVPB 0600,1800 [facility]; Protocol Last Admin: 10/05/18 05:19 Dose: 100 mls/hr Insulin Human Regular (Humulin R Low) 0 units SC ACHS [facility]; Protocol Last Admin: 10/05/18 06:31 Dose: Not Given Isosorbide Mononitrate (Imdur Er) 30 mg PO 0600 [facility]; Protocol Last Admin: 10/05/18 05:18 Dose: 30 mg Lactobacillus Acidophilus (Bacid Acidophilus) 1 cap PO DAILY [facility] Last Admin: 10/04/18 10:22 Dose: Not Given Levothyroxine Sodium (Synthroid) 75 mcg PO 0600 [facility]; Protocol Last Admin: 10/05/18 05:18 Dose: 75 mcg Ondansetron HCl (Zofran Inj) 4 mg IVP Q4H PRN; Protocol PRN Reason: Nausea/Vomiting Last Admin: 10/02/18 05:46 Dose: 4 mg Polyethylene Glycol (Miralax) 17 gm PO BID [facility] Last Admin: 10/04/18 17:15 Dose: 17 gm Sevelamer HCl (Renagel) 800 mg PO WM [facility]; Protocol Last Admin: 10/04/18 17:15 Dose: 800 mg - Additional Findings Additional findings: - Constitutional Appears: Non-toxic, No Acute Distress, Chronically Ill - Head Exam Head Exam: ATRAUMATIC, NORMAL INSPECTION, NORMOCEPHALIC - Eye Exam Eye Exam: EOMI, Normal appearance, PERRL - ENT Exam ENT Exam: Mucous Membranes Moist, Normal Oropharynx Additional comments: heard of hearing - Neck Exam Neck Exam: Full ROM, Normal Inspection. absent: Tenderness - Respiratory Exam Respiratory Exam: Rhonchi (b/l), NORMAL BREATHING PATTERN. absent: Rales, Wheezes, Respiratory Distress - Cardiovascular Exam Cardiovascular Exam: RRR, +S1, +S2. absent: Murmur Additional comments: healed midline scar post CABG - GI/Abdominal Exam GI & Abdominal Exam: Soft, Normal Bowel Sounds. absent: Distended, Tenderness - Exam Additional comments: suprapubic catheter draining to bag - Extremities Exam Extremities Exam: Full ROM. absent: Pedal Edema Additional comments: COURTE AVF (+bruit,thrill) - Back Exam Back Exam: NORMAL INSPECTION - Neurological Exam Neurological Exam: Abnormal Gait, Alert, Awake, Oriented x3. absent: Normal Gait - Psychiatric Exam Psychiatric exam: Normal Affect, Normal Mood - Skin Skin Exam: Normal Color, Warm Assessment and Plan - Assessment and Plan (Free Text) Assessment: 72 year old male with a PMH of CAD s/p CABG, pacemaker, ESRD on HD (TTS), DM2, hypothyroidism, HTN and urinary retention s/p a suprapubic catheter who is admitted to TCU for continuing IV abx and rehab for unsteady gait and deconditioning. Patient remains afebrile with no signs of sepsis. He is continuing HD on TTS. Plan: - completed 7 days Meropenem and Doxycycline, ID will d/c - cont on Duonebs (has been refusing) and Mucinex - ID consulted, recs appreciated - Dialysis on TTS schedule - Tylenol PRN fevers - cont ASA daily, Lipitor daily, Coreg BID, Imdur daily - ISS low - cont Lactobacilus daily - cont Synthroid daily - Zofran PRN n/v - cont Renagel - Renal diet - further recs per Dr. Mariee Case was reviewed and discussed with attending, Dr. Kodi Valadez PGY2 <Bc Mariee S - Last Filed: 10/06/18 15:09> Objective - Vital Signs/Intake and Output Vital Signs (last 24 hours): Temp Pulse Resp BP Pulse Ox 98.4 F 60 18 130/59 L 95 10/05/18 16:00 10/05/18 17:12 10/05/18 16:00 10/06/18 08:33 10/05/18 16:55 - Medications Medications: Current Medications Acetaminophen (Tylenol 325mg Tab) 650 mg PO Q4H PRN; Protocol PRN Reason: fever >100.5 Albuterol/Ipratropium (Duoneb 3 Mg/0.5 Mg (3 Ml) Ud) 3 ml IH [id number] [facility] Last Admin: 10/06/18 13:48 Dose: Not Given Aspirin (Ecotrin) 81 mg PO 0800 [facility]; Protocol Last Admin: 10/06/18 08:33 Dose: 81 mg Atorvastatin Calcium (Lipitor) 80 mg PO DIN [facility]; Protocol Last Admin: 10/05/18 17:13 Dose: 80 mg Carvedilol (Coreg) 6.25 mg PO 0800,1700 [facility]; Protocol Last Admin: 10/06/18 08:33 Dose: 6.25 mg Guaifenesin/Dextromethorphan (Mucinex-Dm 600-30 Mg) 1 tab PO BID [facility] Last Admin: 10/06/18 09:36 Dose: 1 tab Insulin Human Regular (Humulin R Low) 0 units [facility]; Protocol Last Admin: 10/06/18 14:06 Dose: Not Given Isosorbide Mononitrate (Imdur Er) 30 mg PO 0600 [facility]; Protocol Last Admin: 10/06/18 06:23 Dose: 30 mg Lactobacillus Acidophilus (Bacid Acidophilus) 1 cap PO DAILY [facility] Last Admin: 10/06/18 09:36 Dose: 1 cap Levothyroxine Sodium (Synthroid) 75 mcg PO 0600 [facility]; Protocol Last Admin: 10/06/18 06:23 Dose: 75 mcg Ondansetron HCl (Zofran Inj) 4 mg IVP Q4H PRN; Protocol PRN Reason: Nausea/Vomiting Last Admin: 10/02/18 05:46 Dose: 4 mg Polyethylene Glycol (Miralax) 17 gm PO BID [facility] Last Admin: 10/06/18 09:36 Dose: 17 gm Sevelamer HCl (Renagel) 800 mg PO WM [facility]; Protocol Last Admin: 10/06/18 14:07 Dose: Not Given Assessment and Plan - Assessment and Plan (Free Text) Assessment: Pt seen and examined. I have reviewed the note of the medical transcription editor and agree with it. I have discussed the assessment and plan with the resident. I have reviewed the patient's labs and medications. Pt is getting IV Abx for UTI. He is getting HD and has no complications. He is getting PT on TCU. He is on ASA and betablockers for CAD.
[2018-10-05] MEDS: guaiFENesin-DM 600-30 mg ER Tab PO SCH ×2 (09:59→17:13)
[2018-10-05] MEDS: Lactobacillus Acidophilus 500 MU Cap PO SCH (09:59)
[2018-10-05] MEDS: POLYETHYLENE GLYCOL 3350 17 GM/Dose PACKET PO SCH ×2 (09:59→17:13)
--- NOTE | 2018-10-05 15:30 | CP.PCM.PN ---
Subjective - Date & Time of Evaluation Date of Evaluation: 10/05/18 Time of Evaluation: 09:30 - Subjective Subjective: Comfortable in bed, no fevers, not in distress. Objective - Vital Signs/Intake and Output Vital Signs (last 24 hours): Temp Pulse Resp BP Pulse Ox 97.9 F 59 L 20 156/67 H 95 10/03/18 16:30 10/03/18 16:30 10/03/18 16:30 10/03/18 16:30 10/03/18 16:30 - Medications Medications: Current Medications Acetaminophen (Tylenol 325mg Tab) 650 mg PO Q4H PRN; Protocol PRN Reason: fever >100.5 Albuterol/Ipratropium (Duoneb 3 Mg/0.5 Mg (3 Ml) Ud) 3 ml IH [id number] [facility] Last Admin: 10/03/18 13:53 Dose: 3 ml Aspirin (Ecotrin) 81 mg PO 0800 [facility]; Protocol Last Admin: 10/03/18 08:08 Dose: 81 mg Atorvastatin Calcium (Lipitor) 80 mg PO DIN [facility]; Protocol Last Admin: 10/02/18 17:11 Dose: 80 mg Carvedilol (Coreg) 6.25 mg PO 0800,1700 [facility]; Protocol Last Admin: 10/03/18 08:07 Dose: 6.25 mg Doxycycline Hyclate (Doryx) 100 mg PO Q12 [facility]; Protocol Last Admin: 10/03/18 10:26 Dose: 100 mg Guaifenesin/Dextromethorphan (Mucinex-Dm 600-30 Mg) 1 tab PO BID [facility] Last Admin: 10/03/18 10:19 Dose: 1 tab Meropenem/Sodium Chloride (Merrem Iv 500 Mg/Ns 50 Ml) 500 mg in 50 mls @ 100 mls/hr IVPB Q12 [facility]; Protocol Last Admin: 10/03/18 10:19 Dose: 100 mls/hr Insulin Human Regular (Humulin R Low) 0 units SC ACHS [facility]; Protocol Last Admin: 10/03/18 11:44 Dose: Not Given Isosorbide Mononitrate (Imdur Er) 30 mg PO 0600 [facility]; Protocol Last Admin: 10/03/18 05:40 Dose: 30 mg Lactobacillus Acidophilus (Bacid Acidophilus) 1 cap PO DAILY [facility] Last Admin: 10/03/18 10:26 Dose: 1 cap Levothyroxine Sodium (Synthroid) 75 mcg PO 0600 [facility]; Protocol Last Admin: 10/03/18 05:41 Dose: 75 mcg Ondansetron HCl (Zofran Inj) 4 mg IVP Q4H PRN; Protocol PRN Reason: Nausea/Vomiting Last Admin: 10/02/18 05:46 Dose: 4 mg Polyethylene Glycol (Miralax) 17 gm PO BID [facility] Last Admin: 10/03/18 10:15 Dose: 17 gm Sevelamer HCl (Renagel) 800 mg PO WM [facility]; Protocol Last Admin: 10/03/18 12:45 Dose: 800 mg - Constitutional Appears: Chronically Ill - Head Exam Head Exam: NORMAL INSPECTION - Respiratory Exam Respiratory Exam: Decreased Breath Sounds - Cardiovascular Exam Cardiovascular Exam: +S1, +S2 - GI/Abdominal Exam GI & Abdominal Exam: Soft. absent: Tenderness Assessment and Plan - Assessment and Plan (Free Text) Plan: Assessment consider left upper lobe HCAP history of Partial small bowel obstruction history of sepsis secondary to ESBL-producing multidrug-resistant E. coli bacteremia probably secondary to acute cholecystitis and ascending cholangitis S/P ERCP with biliary stone extraction history of ESBL E. coli bacteremia HTN Congestive Heart Failure DM GERD End-Stage Renal disease on hemodialysis history of depression history of Bowman's esophagus history of epididymitis on the left Plan completed 7 days Meropenem and Doxycycline - will continue to monitor clinically off antibiotics since he is at risk for nosocomial infections
[2018-10-06] MEDS: Albuterol-Ipratrop 3 mg / 0.5 (3 ml) UD IH SCH ×5 (01:55→21:23)
[2018-10-06] MEDS: Levothyroxine 75 MCG TAB PO SCH (06:23)
[2018-10-06] MEDS: Insulin Reg-LOW-Coverage SC SCH ×4 (07:01→22:00)
[2018-10-06] MEDS: POLYETHYLENE GLYCOL 3350 17 GM/Dose PACKET PO SCH ×2 (09:36→17:25)
[2018-10-06] MEDS: guaiFENesin-DM 600-30 mg ER Tab PO SCH ×2 (09:36→17:25)
[2018-10-06] MEDS: Lactobacillus Acidophilus 500 MU Cap PO SCH (09:36)
--- NOTE | 2018-10-06 12:03 | CP.PCM.PN ---
Subjective - Date & Time of Evaluation Date of Evaluation: 10/06/18 Time of Evaluation: 09:10 - Subjective Subjective: Afebrile, comfortable in bed. Objective - Vital Signs/Intake and Output Vital Signs (last 24 hours): Temp Pulse Resp BP Pulse Ox 98.3 F 59 L 18 114/52 L 91 L 10/04/18 16:00 10/05/18 08:20 10/04/18 16:00 10/05/18 08:20 10/04/18 16:00 - Medications Medications: Current Medications Acetaminophen (Tylenol 325mg Tab) 650 mg PO Q4H PRN; Protocol PRN Reason: fever >100.5 Albuterol/Ipratropium (Duoneb 3 Mg/0.5 Mg (3 Ml) Ud) 3 ml IH [id number] [facility] Last Admin: 10/05/18 13:17 Dose: Not Given Aspirin (Ecotrin) 81 mg PO 0800 [facility]; Protocol Last Admin: 10/05/18 08:22 Dose: 81 mg Atorvastatin Calcium (Lipitor) 80 mg PO DIN [facility]; Protocol Last Admin: 10/04/18 17:15 Dose: 80 mg Carvedilol (Coreg) 6.25 mg PO 0800,1700 [facility]; Protocol Last Admin: 10/05/18 08:20 Dose: 6.25 mg Doxycycline Hyclate (Doryx) 100 mg PO Q12 [facility]; Protocol Last Admin: 10/05/18 09:59 Dose: 100 mg Guaifenesin/Dextromethorphan (Mucinex-Dm 600-30 Mg) 1 tab PO BID [facility] Last Admin: 10/05/18 09:59 Dose: 1 tab Meropenem/Sodium Chloride (Merrem Iv 500 Mg/Ns 50 Ml) 500 mg in 50 mls @ 100 mls/hr IVPB 0600,1800 [facility]; Protocol Last Admin: 10/05/18 05:19 Dose: 100 mls/hr Insulin Human Regular (Humulin R Low) 0 units SC ACHS [facility]; Protocol Last Admin: 10/05/18 12:15 Dose: Not Given Isosorbide Mononitrate (Imdur Er) 30 mg PO 0600 [facility]; Protocol Last Admin: 10/05/18 05:18 Dose: 30 mg Lactobacillus Acidophilus (Bacid Acidophilus) 1 cap PO DAILY [facility] Last Admin: 10/05/18 09:59 Dose: 1 cap Levothyroxine Sodium (Synthroid) 75 mcg PO 0600 [facility]; Protocol Last Admin: 10/05/18 05:18 Dose: 75 mcg Ondansetron HCl (Zofran Inj) 4 mg IVP Q4H PRN; Protocol PRN Reason: Nausea/Vomiting Last Admin: 10/02/18 05:46 Dose: 4 mg Polyethylene Glycol (Miralax) 17 gm PO BID [facility] Last Admin: 10/05/18 09:59 Dose: 17 gm Sevelamer HCl (Renagel) 800 mg PO WM [facility]; Protocol Last Admin: 10/05/18 12:34 Dose: 800 mg - Constitutional Appears: No Acute Distress, Chronically Ill - Head Exam Head Exam: NORMAL INSPECTION - Respiratory Exam Respiratory Exam: Decreased Breath Sounds - Cardiovascular Exam Cardiovascular Exam: +S1, +S2 - GI/Abdominal Exam GI & Abdominal Exam: Soft. absent: Tenderness Assessment and Plan - Assessment and Plan (Free Text) Plan: Assessment consider left upper lobe HCAP, S/P treatment with antibiotics history of Partial small bowel obstruction history of sepsis secondary to ESBL-producing multidrug-resistant E. coli bacteremia probably secondary to acute cholecystitis and ascending cholangitis S/P ERCP with biliary stone extraction history of ESBL E. coli bacteremia HTN Congestive Heart Failure DM GERD End-Stage Renal disease on hemodialysis history of depression history of Bowman's esophagus history of epididymitis on the left Plan completed 7 days Meropenem and Doxycycline - will continue to monitor clinically off antibiotics since he is at risk for hospital-acquired infections
--- NOTE | 2018-10-06 17:50 | PN ---
DATE: 10/06/2018 SUBJECTIVE: The patient is 72 years old. He complained of cough and congestion, but no fever. No chills. No nausea or vomiting. No diarrhea. PHYSICAL EXAMINATION: VITAL SIGNS: He is afebrile, pulse 59, respirations 14, blood pressure 150/61. LUNGS: Bilateral fair airflow. No rhonchi or crackle. HEART: S1 and S2 audible. ABDOMEN: Soft. Not obese. Nontender. No rebound. No guarding. NEUROLOGICAL: He is awake, alert, oriented, communicative. LABORATORY EXAM: Blood sugar is 188. ASSESSMENT: 1. End-stage renal disease, on hemodialysis. 2. Left upper lobe pneumonia. Finished course of antibiotic. 3. History of partial small bowel obstruction. 4. Hypertension. 5. Congestive heart failure. 6. Noninsulin-dependent diabetes. 7. End-stage renal disease, on hemodialysis. 8. History of epididymitis. PLAN: The patient complete 7 days of meropenem and doxycycline. The patient is receiving hemodialysis today. Currently, he is on carvedilol, nebulizer treatment, aspirin. His blood sugar is being monitored. He is on isosorbide. He is on statins, levothyroxine. Continue physical therapy. We will reevaluate in the a.m. Marcos Elias MD
[2018-10-07] MEDS: Levothyroxine 75 MCG TAB PO SCH (05:52)
[2018-10-07] MEDS: Insulin Reg-LOW-Coverage SC SCH ×4 (06:58→21:24)
[2018-10-07] MEDS: Albuterol-Ipratrop 3 mg / 0.5 (3 ml) UD IH SCH ×3 (07:28→19:40)
[2018-10-07] MEDS: guaiFENesin-DM 600-30 mg ER Tab PO SCH ×2 (09:18→17:27)
[2018-10-07] MEDS: Lactobacillus Acidophilus 500 MU Cap PO SCH (09:18)
[2018-10-07] MEDS: POLYETHYLENE GLYCOL 3350 17 GM/Dose PACKET PO SCH ×2 (09:18→17:27)
--- NOTE | 2018-10-07 12:13 | CP.PCM.PN ---
Subjective - Date & Time of Evaluation Date of Evaluation: 10/07/18 Time of Evaluation: 09:55 - Subjective Subjective: No fevers, doing well in the gym. Objective - Vital Signs/Intake and Output Vital Signs (last 24 hours): Temp Pulse Resp BP Pulse Ox 98.4 F 60 18 130/59 L 95 10/05/18 16:00 10/05/18 17:12 10/05/18 16:00 10/06/18 08:33 10/05/18 16:55 - Medications Medications: Current Medications Acetaminophen (Tylenol 325mg Tab) 650 mg PO Q4H PRN; Protocol PRN Reason: fever >100.5 Albuterol/Ipratropium (Duoneb 3 Mg/0.5 Mg (3 Ml) Ud) 3 ml IH [id number] [facility] Last Admin: 10/06/18 08:44 Dose: Not Given Aspirin (Ecotrin) 81 mg PO 0800 [facility]; Protocol Last Admin: 10/06/18 08:33 Dose: 81 mg Atorvastatin Calcium (Lipitor) 80 mg PO DIN [facility]; Protocol Last Admin: 10/05/18 17:13 Dose: 80 mg Carvedilol (Coreg) 6.25 mg PO 0800,1700 [facility]; Protocol Last Admin: 10/06/18 08:33 Dose: 6.25 mg Guaifenesin/Dextromethorphan (Mucinex-Dm 600-30 Mg) 1 tab PO BID [facility] Last Admin: 10/06/18 09:36 Dose: 1 tab Insulin Human Regular (Humulin R Low) 0 units SC [facility]; Protocol Last Admin: 10/06/18 07:01 Dose: Not Given Isosorbide Mononitrate (Imdur Er) 30 mg PO 0600 [facility]; Protocol Last Admin: 10/06/18 06:23 Dose: 30 mg Lactobacillus Acidophilus (Bacid Acidophilus) 1 cap PO DAILY [facility] Last Admin: 10/06/18 09:36 Dose: 1 cap Levothyroxine Sodium (Synthroid) 75 mcg PO 0600 [facility]; Protocol Last Admin: 10/06/18 06:23 Dose: 75 mcg Ondansetron HCl (Zofran Inj) 4 mg IVP Q4H PRN; Protocol PRN Reason: Nausea/Vomiting Last Admin: 10/02/18 05:46 Dose: 4 mg Polyethylene Glycol (Miralax) 17 gm PO BID [facility] Last Admin: 10/06/18 09:36 Dose: 17 gm Sevelamer HCl (Renagel) 800 mg PO WM [facility]; Protocol Last Admin: 10/06/18 08:33 Dose: 800 mg - Constitutional Appears: Chronically Ill - Head Exam Head Exam: NORMAL INSPECTION - Respiratory Exam Respiratory Exam: Decreased Breath Sounds - Cardiovascular Exam Cardiovascular Exam: +S1, +S2 - GI/Abdominal Exam GI & Abdominal Exam: Soft. absent: Tenderness Assessment and Plan - Assessment and Plan (Free Text) Plan: Assessment consider left upper lobe HCAP, S/P treatment with antibiotics history of Partial small bowel obstruction history of sepsis secondary to ESBL-producing multidrug-resistant E. coli bacteremia probably secondary to acute cholecystitis and ascending cholangitis S/P ERCP with biliary stone extraction history of ESBL E. coli bacteremia HTN Congestive Heart Failure DM GERD End-Stage Renal disease on hemodialysis history of depression history of Bowman's esophagus history of epididymitis on the left Plan completed 7 days Meropenem and Doxycycline - will continue to monitor clinically off antibiotics since he is at risk for healthcare-associated infections
--- NOTE | 2018-10-07 19:13 | PN ---
DATE: 10/08/2018 SUBJECTIVE: The patient is 72 years old, seen and examined, getting physical therapy, ambulating in the hallway. Denies any chest pain. No shortness of breath. PHYSICAL EXAMINATION: VITAL SIGNS: He is afebrile, pulse 59, respirations 18, blood pressure 119/58. LUNGS: Bilateral fair airflow. No rhonchi or crackle. HEART: S1 and S2 audible. ABDOMEN: Soft. Nontender. No rebound. No guarding. NEUROLOGICAL: The patient is awake, alert, oriented, communicative. LABORATORY EXAM: Blood sugar is 120. ASSESSMENT: 1. Coronary artery disease, status post open heart surgery. 2. End-stage renal disease, on hemodialysis. 3. Status post pacemaker placement. 4. Hypothyroidism. 5. Pax-lfznocg-zpyzapeip diabetes. 6. Hypertension. 7. Resolved pneumonia. 8. Deconditioning, difficulty walking. PLAN: Continue current management. Physical therapy will be continued. The patient is scheduled for dialysis i . Marcos Elias MD
[2018-10-08] MEDS: Levothyroxine 75 MCG TAB PO SCH (05:47)
[2018-10-08] MEDS: Insulin Reg-LOW-Coverage SC SCH ×4 (06:59→21:28)
[2018-10-08] MEDS: Albuterol-Ipratrop 3 mg / 0.5 (3 ml) UD IH SCH (07:18)
[2018-10-08] MEDS: POLYETHYLENE GLYCOL 3350 17 GM/Dose PACKET PO SCH ×2 (09:22→17:19)
[2018-10-08] MEDS: Lactobacillus Acidophilus 500 MU Cap PO SCH (09:28)
[2018-10-08] MEDS: guaiFENesin-DM 600-30 mg ER Tab PO SCH ×2 (09:28→17:19)
--- NOTE | 2018-10-08 14:45 | DS ---
CHIEF COMPLAINT AND HISTORY OF PRESENT ILLNESS: The patient has no complaints of any chest pain and shortness of breath. He is initially admitted to the hospital for sepsis. Patient was felt to have urinary tract infection. The patient then was given antibiotics and improved. He was transferred to the transitional care unit for continued IV antibiotics and physical therapy. He is comfortable. He is going to be discharged home tomorrow after dialysis. PHYSICAL EXAMINATION: VITAL SIGNS: Temperature is 97.1, pulse of 59, blood pressure of 134/60 and respirations 18. GENERAL: The patient is lying in bed, flat, comfortable. HEENT: No oral lesion. Anicteric sclerae. Moist mucosa. NECK: No JVD, adenopathy, or thyromegaly. CARDIOVASCULAR: S1 and S2, regular. No murmurs, rubs, or gallops. LUNGS: Clear to auscultation bilaterally. No wheeze, rales, or rhonchi. ABDOMEN: Bowel sounds are positive, soft, nontender and nondistended. EXTREMITIES: No cyanosis, clubbing or edema. ASSESSMENT: 1. Sepsis, resolved. 2. Urinary tract infection, resolved. 3. Coronary artery disease. 4. End-stage renal disease, on hemodialysis. 5. Hypothyroidism. 6. Diabetes type 2. 7. Hypertension. PLAN: The patient is currently on carvedilol for his coronary artery disease. He is on nebulizer treatments. I will discontinue the patient's nebulizer treatments at this point, he is on isosorbide, he is going to be on Lipitor for dyslipidemia. He is on MiraLax for his constipation. The patient Renagel for his secondary hyperparathyroidism. The patient is receiving Synthroid for hypothyroidism. I will discontinue his Zofran. His is in the hospital that I saw this morning. The patient is not aware at this point that she is in the hospital. Bc Mariee MD
[2018-10-09 00:54] VITALS: PULSE 60
[2018-10-09] MEDS: Levothyroxine 75 MCG TAB PO SCH (05:41)
[2018-10-09 06:20] VITALS: BP 137/65; RESP 18; TEMP 98.9
[2018-10-09] MEDS: Insulin Reg-LOW-Coverage SC SCH ×2 (06:34→11:46)
[2018-10-09] MEDS: guaiFENesin-DM 600-30 mg ER Tab PO SCH (10:26)
[2018-10-09] MEDS: Lactobacillus Acidophilus 500 MU Cap PO SCH (10:27)
[2018-10-09] MEDS: POLYETHYLENE GLYCOL 3350 17 GM/Dose PACKET PO SCH (10:28)
[2018-10-09 17:20] VITALS: O2SAT 98
--- NOTE | 2018-10-09 21:39 | PN ---
DATE: 10/09/2018 SUBJECTIVE: The patient is seen in bed, in no acute distress, nontoxic. OBJECTIVE: VITAL SIGNS: Temperature is 98, blood pressure is 140/60, respiratory rate of 18, and heart rate of 60. HEENT: Unremarkable. NECK: Supple. LUNGS: Have decreased breath sounds. HEART: Normal S1 and S2. ABDOMEN: Soft. LABORATORY DATA: Reviewed and noted. Review of medications noted. ASSESSMENT AND PLAN: A 72-year-old male who was seen early this morning in room 320, who was admitted with congestive heart failure; diabetes; gastroesophageal reflux disease; end-stage renal disease, on hemodialysis; depression; Bowman's esophagus. Completed 7 days of meropenem and doxycycline, off of antibiotics, and possible discharge today. Isrrael Ni MD
== END 2018-10-09 18:19 | disposition home or self-care (01) | DRG 871 ==
LOC: TRCU 21:58
PROVIDERS: ADMIT Internal Medicine Nephrology; ATTEND Internal Medicine Nephrology
PROC: F07Z9FZ Gait Training/Functional Ambulation Treatment using Assistive, Adaptive, Supportive or Protective Equipment (ICD-10-PCS; principal; 2018-10-02)
PROC: F08Z4FZ Home Management Treatment using Assistive, Adaptive, Supportive or Protective Equipment (ICD-10-PCS; 2018-10-02)
PROC: 5A1D70Z Performance of Urinary Filtration, Intermittent, Less than 6 Hours Per Day (ICD-10-PCS; 2018-10-02)
PROC: 3E0F7GC Introduction of Other Therapeutic Substance into Respiratory Tract, Via Natural or Artificial Opening (ICD-10-PCS; 2018-10-02)
PROC: 5A1D70Z Performance of Urinary Filtration, Intermittent, Less than 6 Hours Per Day (ICD-10-PCS; 2018-10-04)
PROC: 5A1D70Z Performance of Urinary Filtration, Intermittent, Less than 6 Hours Per Day (ICD-10-PCS; 2018-10-08)
DX: A41.9 Sepsis, unspecified organism (principal); J18.9 Pneumonia, unspecified organism; N18.6 End stage renal disease; N39.0 Urinary tract infection, site not specified; J44.0 Chronic obstructive pulmonary disease with (acute) lower respiratory infection; I13.2 Hypertensive heart and chronic kidney disease with heart failure and with stage 5 chronic kidney disease, or end stage renal disease; Z79.2 Long term (current) use of antibiotics; I50.9 Heart failure, unspecified; I25.10 Atherosclerotic heart disease of native coronary artery without angina pectoris; Z99.2 Dependence on renal dialysis; E03.9 Hypothyroidism, unspecified; K21.9 Gastro-esophageal reflux disease without esophagitis; E11.22 Type 2 diabetes mellitus with diabetic chronic kidney disease; R26.2 Difficulty in walking, not elsewhere classified; F32.9 Major depressive disorder, single episode, unspecified; H91.91 Unspecified hearing loss, right ear; K22.70 Barrett's esophagus without dysplasia; E78.5 Hyperlipidemia, unspecified; Z95.0 Presence of cardiac pacemaker; Z95.1 Presence of aortocoronary bypass graft

== ENCOUNTER 2018-11-15 15:41 | Inpatient (IN) | payer MEDICARE, OTHER ==
[2018-11-15 16:14] VITALS: BMI 24.0
--- NOTE | 2018-11-15 16:54 | ED PDOC ---
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 states noticing blood in catheter bag since recent catheter replacement, unchanged since onset, prompting him to present to the ED for medical evaluation. Patient additionally informs developing a fever on Monday after dialysis, which resolved with 2 doses of Tylenol. Patient informs low back discomfort since 3 days but denies any recent fall or trauma to the site. Patient denies any other associated somatic complaints. Patient denies any fevers, chills, headache, dizziness, chest pain, shortness of breath, dyspnea on exertion, cough, abdominal pain, nausea, vomiting, diarrhea, neck pain, or any other complaints. informs having dialysis today. PMD: Dr. Georges Time/Duration: < week Symptom Onset: Gradual Symptom Course: Unchanged Activities at Onset: Light Context: Home Past Medical History - Provider Review Nursing Documentation Reviewed: Yes - Infectious Disease Hx of Infectious Diseases: None - Tetanus Immunization Tetanus Immunization: Unknown - Cardiac Hx Cardiac Disorders: Yes (CAD s/p CABG) Hx Hypertension: Yes Hx Pacemaker: Yes - Pulmonary Hx Respiratory Disorders: Yes (PE) Hx Chronic Obstructive Pulmonary Disease (COPD): Yes - Neurological Hx Neurological Disorder: Yes Hx Dementia: Yes - HEENT Hx HEENT Disorder: Yes Hx Cataracts: Yes (sx) Hx Deafness: Yes (R ear) Other/Comment: hard of hearing - Renal Hx Renal Disorder: Yes Hx Dialysis: Yes (, , Mon) - Endocrine/Metabolic Hx Diabetes Mellitus Type 2: Yes Hx Hypothyroidism: Yes - Hematological/Oncological Hx Anemia: Yes - Integumentary Hx Dermatological Disorder: (BILATERAL LEG EDEMA MORE ON LEFT.SHUNT TO LEFT UPPER ARM,SUPRAPUBIC CATHETE) Other/Comment: ble skin discoloration - Musculoskeletal/Rheumatological Hx Falls: Yes - Gastrointestinal Hx Gastrointestinal Disorders: (hx colitis/diverticulitis) - Genitourinary/Gynecological Hx Genitourinary Disorders: Yes Hx Reproductive Disorders: Yes - Psychiatric Hx Substance Use: No - Past Surgical History Past Surgical History: No Previous - Surgical History Hx Open Heart Surgery: Yes - Anesthesia Hx Anesthesia: Yes Hx Anesthesia Reactions: No Hx Malignant Hyperthermia: No - Suicidal Assessment Feels Threatened In Home Enviroment: No Family/Social History - Physician Review Nursing Documentation Reviewed: Yes Family/Social History: Unknown Family HX Smoking Status: Never Smoked Hx Alcohol Use: No Hx Substance Use: No Hx Substance Use Treatment: No Allergies/Home Meds Allergies/Adverse Reactions: Allergies dye Allergy (Uncoded 10/01/18 22:42) REDNESS Home Medications: Home Meds Medication Instructions Recorded Confirmed RX: Atorvastatin [Lipitor] 20 mg PO HS 02/05/17 10/01/18 RX: Calcium Acetate [Phoslo] 667 mg PO TID 02/05/17 10/01/18 RX: Insulin Glargine, Recombina 5 unit SC BID 02/05/17 10/01/18 [Lantus] RX: Isosorbide Mononitrate ER 30 mg PO DAILY 02/05/17 10/01/18 [Imdur ER] RX: Lactobacillus Combination No.8 1 each PO DAILY 02/05/17 10/01/18 [Adult Probiotic] RX: Levothyroxine Sodium 75 mcg PO DAILY 02/05/17 10/01/18 RX: hydrALAZINE [Apresoline] 50 mg PO Q8H 02/05/17 10/01/18 Review of Systems - Physician Review All systems were reviewed & negative as marked: Yes - Review of Systems Constitutional: absent: Fevers Respiratory: absent: SOB, Cough Cardiovascular: absent: Chest Pain Gastrointestinal: absent: Abdominal Pain, Diarrhea, Nausea, Vomiting Genitourinary Male: Other (Young catheter bleeding). absent: Dysuria, Urinary Output Changes Musculoskeletal: Back Pain. absent: Neck Pain Skin: absent: Rash Neurological: absent: Headache, Dizziness Physical Exam - Physical Exam Narrative Physical Exam (Text): 11/15/18 16:56 Gen: VS reviewed, alert, well developed, well nourished, nontoxic, mild distress. ENT: normal pharynx. Eye: EOMI, PERRL. Neck: no JVD, supple, no adenopathy. CV: regular rate, regular rhythm, no rubs, no murmur, no gallops, S1, S2, pulses equal and strong. Pulm: no distress, clear to auscultation, no wheeze, no rhonchi, breath sounds equal, no rales. Abd: soft, nontender, no guarding, no rebound, no rigidity, normal bowel sounds. Genitourinary: Very minimal blood noted in collection bank. Back: Mild tenderness to left lower back localized to the SI joint. Ext: no edema. Skin: good color, no rash, no cyanosis. Psych: responds appropriately to questions, normal affect. Neuro: oriented x 3, CN2-12 intact grossly, motor intact, sensation intact. Vital Signs Reviewed: Yes Vital Signs Temp Pulse Resp BP Pulse Ox 11/15/18 16:14 99.3 F 61 18 124/52 L 96 Temperature: Afebrile Blood Pressure: Normal Pulse: Regular Respiratory Rate: Normal Appearance: Positive for: Well-Appearing, Non-Toxic, Comfortable Pain Distress: None Mental Status: Positive for: Alert and Oriented X 3 Medical Decision Making ED Course and Treatment: 11/15/18 16:57 Impression: 72 year old male presents to the ED for evaluation of blood in catheter bag. Plan: -- Labs -- Urinalysis -- Urine Culture -- Reassess and disposition Prior Visits: Notes and results from previous visits were reviewed. Progress Notes: 11/15/18 20:24 patient seen for bloody urine, has a chronic suprapubic catheter, on HD, nontoxic and afebrile. Bloody urine suspected to either be infectious or traumatic result. There was no bright red blood seen in the old or the new catheter. 11/15/18 20:48 urine unabtainable in the ED, will refer pt to urology Procedures - Time-Out Correct Patient (with visual ID + MR# on ID Band): Yes Correct Procedure: Yes Correct Site Marked: Yes Physician Name: radha - Additional Procedures Progress: Suprapubic catheter was removed and replaced by myself. Sterile technique maintained, a 14f catheter was inserted by myself, minimal dark urine return. Patient tolerated procedure well. - Scribe Statement The provider has reviewed the documentation as recorded by the Scribe Yazmin Petty. All medical record entries made by the Scribe were at my direction and personally dictated by me. I have reviewed the chart and agree that the record accurately reflects my personal performance of the history, physical exam, medical decision making, and the department course for this patient. I have also personally directed, reviewed, and agree with the discharge instructions and disposition. Disposition/Present on Arrival - Present on Arrival Any Indicators Present on Arrival: No History of DVT/PE: Yes History of Uncontrolled Diabetes: Yes Urinary Catheter: Yes History Surgical Site Infection Following: None - Disposition Have Diagnosis and Disposition been Completed?: Yes Diagnosis: Hematuria Disposition: HOME/ ROUTINE Disposition Time: 20:54 Patient Plan: Discharge Patient Problems: Current Active Problems Problem Status Onset Hematuria Acute Condition: STABLE Discharge Instructions (ExitCare): Blood in the Urine (Hematuria) in Adults Print Language: EMIRATI Additional Instructions: follow up with your urologist as soon as possible-call tomorrow to make an appointment. Forms: [facility] (Serbian)
[2018-11-15 17:35] LABS: BASO # 0.02 K/mm3 (0.0-2.0); BASO % 0.4 % (0.0-3.0); EOS # 0.3 (0.0-0.7); GRAN # 3.48 (1.4-6.5); GRAN % 62.8 % (50.0-68.0); HEMOGLOBIN 10.1 g/dL (14.0-18.0); LYMPH # 0.9 (1.2-3.4); LYMPH % 15.5 % (22.0-35.0); MEAN CELL VOLUME 95.9 fl (80.0-105.0); MEAN CORPUSCULAR HEMOGLOBIN 29.9 pg (25.0-35.0); MEAN CORPUSCULAR HGB CONC 31.2 g/dl (31.0-37.0); MEAN PLATELET VOLUME 9.5 fl (7.0-11.0); MONO # 0.9 (0.1-0.6); MONO % 15.3 % (1.0-6.0); RBC 3.38 10^6/uL (3.5-6.1); RED CELL DISTRIBUTION WIDTH 14.3 % (11.5-14.5); WHITE BLOOD COUNT 5.5 10^3/uL (4.5-11.0)
[2018-11-15 17:42] LABS: ALBUMIN 3.5 g/dL (3.0-4.8); CALCIUM 8.5 mg/dL (8.4-10.5)
[2018-11-15 21:10] LABS: PH,URINE 7.5 (4.7-8.0); URINE BILIRUBIN LARGE (NEGATIVE); URINE BLOOD LARGE (NEGATIVE); URINE GLUCOSE (UA) 250 mg/dL (NEGATIVE); URINE LEUKOCYTE ESTERASE LARGE Leu/uL (NEGATIVE); URINE PROTEIN >=300 mg/dL (<30 mg/dL)
[2018-11-15 21:15] LABS: URINE APPEARANCE CLOUDY (CLEAR); URINE COLOR RED (YELLOW)
[2018-11-15 21:20] LABS: URINE RBC TNTC /hpf (0-2)
[2018-11-15 21:21] LABS: URINE BACTERIA LARGE /hpf; URINE WBC TNTC /hpf (0-6)
[2018-11-15] MEDS ORDERED: MEROPENEM 500 MG in NS 500 MG/50 ML BAG IVPB ONE (21:30)
[2018-11-15] MEDS: Insulin Detemir 100 units/ml Vial (Levemir) SC SCH (23:30)
--- NOTE | 2018-11-16 04:08 | HP ---
DATE OF EXAM: HISTORY OF PRESENT ILLNESS: The patient is 72 years old came to emergency room because of blood-tinged urine. The patient states he has not been feeling well, generalized weakness, poor appetite. The patient states that his urine that usually comes from his suprapubic catheter was having blood in that, so he got worried and came to emergency room for further evaluation. The patient also was having fever and chills two days ago after he received his last dialysis; his gave him Tylenol, he did respond to that; although fever subsided, he was having back pain and complaining of feeling weak, dizzy, and some suprapubic discomfort and back pain. PAST MEDICAL HISTORY: Significant for: 1. Coronary artery disease, status post open heart surgery. 2. End-stage renal disease, on hemodialysis. 3. [id number] diabetes. 4. Hypothyroidism. 5. Hypertension. 6. Urinary retention leading to suprapubic catheter placement since 2010. PAST SURGICAL HISTORY: Significant for: 1. Open heart surgery. 2. Suprapubic catheterization. 3. Left arteriovenous fistula placement. ALLERGIES: HE IS ALLERGIC TO IV CONTRAST DYES. SOCIAL HISTORY: He is , lives with his . Denies smoking, drinking or alcohol use. MEDICATIONS AT HOME: He is on tramadol 50 mg twice a day, hydralazine 50 mg every 8 hours, levothyroxine 75 mcg daily, isosorbide 30 mg daily, Lantus 5 units twice a day, Coreg 6.25 twice a day, PhosLo 667 mg three times a day, Lipitor 20 mg at bedtime. REVIEW OF SYSTEMS: Significant for suprapubic discomfort and having generalized weakness and poor appetite. PHYSICAL EXAMINATION: GENERAL: He is awake, alert, oriented, communicative. VITAL SIGNS: He is afebrile, pulse 60, respirations 16, blood pressure 133/53. LUNGS: Bilateral fair airflow. No rhonchi or crackle. HEART: S1 and S2 audible. ABDOMEN: Soft and nontender. No rebound. No guarding. His suprapubic catheter has dark urine. EXTREMITIES: Bilateral legs, no edema. LABORATORY DATA: WBC 5.5, hemoglobin 10.1, hematocrit 32.4, platelets 198. Sodium 136, potassium 3.4, chloride 96, CO2 of 32, BUN 14, creatinine 2.4, blood sugar of 96, alk phos 441. Urine showed large blood, positive nitrites, large bilirubin, and large leukocyte, too numerous to count wbc's and rbc's. ASSESSMENT: 1. Hematuria, rule out urinary tract infection. 2. History of multiple admissions for urinary tract infection, extended-spectrum beta-lactamase positive, rule out colonization. 3. End-stage renal disease, on hemodialysis. 4. Coronary artery disease. 5. Hypertension. 6. Hyperlipidemia. PLAN: Empirically, we will start him on meropenem and we will follow. Urine culture has been sent. Dr. Black to manage the patient for hemodialysis. Dr. Ni will be consulted to manage if he needs IV antibiotics. I will give one dose of meropenem until he is seen by ID in the a.m. I will monitor his blood sugar and resume his usual medications at home. Marcos Elias MD
[2018-11-16] MEDS: Insulin Detemir 100 units/ml Vial (Levemir) SC SCH ×2 (07:30→23:10)
[2018-11-16] MEDS: Insulin Lispro (humaLOG) MEDIUM Coverage SC SCH ×4 (08:00→23:10)
--- NOTE | 2018-11-16 08:27 | CP.PCM.CON ---
<ElinaLeann - Last Filed: 11/16/18 13:09> History of Present Illness - History of Present Illness History of Present Illness: PGY-[address] Gracia ID consult: ESBL Mr Sims, 72 years old male, with a PMH of CAD s/p CABG, pacemaker, ESRD on HD (TTS), DM2, hypothyroidism, HTN and urinary retention s/p a suprapubic catheter (since 2010), came to the ED for bleeding from suprapubic catheter. RAMBO Kiran helped translation by bedside, much appreciated. Pt noted blood in urine x 1 month but did not see any doctor. No catherter changed since onset of bleeding. Pt had a fever on Monday after dialysis, which resolved with 2 doses of Tylenol, associated with low back discomfort x 3 days. In the ED, pt was noted to have temp 99.3. HR/BP/RR normal. ED physician removed and replaced the suprapubic catheter in Sterile technique, 14f catheter, noted minimal dark urine return. U/A has 0 epithelial cells, WBC high, positive paxton esterase and nitrate, positive protein/blood/RBC. He received merem IV. He was recently hospitalized in [facility] in Sep 2018 for HCAP Left upper lobe s/p, co mpleted 7 days of merem and doxycycline. He had birds and pigeon at home. Some birds were sick recently but they were handled by . Pt did not come to contact with the sick birds. He denied headache, rash, cough ROS- No recent fall or trauma. Denies any fevers, chills, headache, dizziness, chest pain, shortness of breath, dyspnea on exertion, cough, abdominal pain, nausea, vomiting, diarrhea, neck pain, or any other complaints. PMD: Dr. Georges PMHx Hx ESBL UTI (07/2018, 04/2018). Hx ESBL bacteremia (01/2017) Hx MRSA UTI (2014), Hx Klebsiella and Pseudomonas UTI (> 3 years ago) CAD s/p CABG, pacemaker, HTN, CHF COPD, PE DM2 ESRD on HD (TTS) hypothyroidism urinary retention from neurogenic bladder s/p a suprapubic catheter (since 2010) Cataracts, R ear deaf, hard of hearing Hx Partial SBO, ascending cholangitis s/p ERCP with stone extraction, colitis/diverticulitis Hx falls GERD, hx keating's esophagus Hx epididymitis L PSH LUE AV fistular placement lap cholecysectomy 2017 cataract surgery suprapubic catheter SH Denies smoke, ETOH, drug All Dye = redness Med hydralazine, Lipitor, insulin, levothyroxin Past Patient History - Infectious Disease Hx of Infectious Diseases: None - Tetanus Immunizations Tetanus Immunization: Unknown - Past Medical History & Family History Past Medical History?: Yes - Past Social History Smoking Status: Never Smoked - CARDIAC Hx Cardiac Disorders: Yes Hx Pacemaker: Yes - PULMONARY Hx Respiratory Disorders: Yes (PE) Hx Chronic Obstructive Pulmonary Disease (COPD): Yes - NEUROLOGICAL Hx Neurological Disorder: Yes Hx Dementia: Yes - HEENT Hx HEENT Problems: Yes Hx Cataracts: Yes (sx) Hx Deafness: Yes (R ear) Other/Comment: hard of hearing - RENAL Hx Dialysis: Yes Date of Last Dialysis Treatment: 11/15/18 Hx Renal Failure: Yes - ENDOCRINE/METABOLIC Hx Diabetes Mellitus Type 2: Yes Hx Hypothyroidism: Yes - HEMATOLOGICAL/ONCOLOGICAL Hx Anemia: Yes - INTEGUMENTARY Hx Dermatological Problems: (BILATERAL LEG EDEMA MORE ON LEFT.SHUNT TO LEFT UPPER ARM,SUPRAPUBIC CATHETE) Other/Comment: ble skin discoloration - MUSCULOSKELETAL/RHEUMATOLOGICAL Hx Falls: No - GASTROINTESTINAL Hx Gastrointestinal Disorders: (hx colitis/diverticulitis) - GENITOURINARY/GYNECOLOGICAL Hx Genitourinary Disorders: Yes Hx Reproductive Disorders: Yes - PSYCHIATRIC Hx Substance Use: No - SURGICAL HISTORY Hx Open Heart Surgery: Yes - ANESTHESIA Hx Anesthesia: Yes Hx Anesthesia Reactions: No Hx Malignant Hyperthermia: No Meds Allergies/Adverse Reactions: Allergies Allergy/AdvReac Type Severity Reaction Status Date / Time dye Allergy REDNESS Uncoded 10/01/18 22:42 - Medications Medications: Current Medications Atorvastatin Calcium (Lipitor) 20 mg PO HS [facility] Last Admin: 11/16/18 06:27 Dose: 20 mg Calcium Acetate (Phoslo) 667 mg PO TID [facility] Carvedilol (Coreg) 6.25 mg PO BID [facility] Hydralazine HCl (Apresoline) 50 mg PO Q8H [facility] Last Admin: 11/16/18 06:26 Dose: 50 mg Meropenem/Sodium Chloride (Merrem Iv 500 Mg/Ns 50 Ml) 500 mg in 50 mls @ 100 mls/hr IVPB Q12 [facility]; Protocol Stop: 11/16/18 10:29 Insulin Detemir (Levemir) 5 unit SC [facility] Last Admin: 11/15/18 23:30 Dose: Not Given Insulin Human Lispro (Humalog Med) 0 units SC [facility]; Protocol Isosorbide Mononitrate (Imdur Er) 30 mg PO DAILY [facility] Levothyroxine Sodium (Synthroid) 75 mcg PO DAILY [facility] Tramadol HCl (Ultram) 50 mg PO BID [facility] Physical Exam - Constitutional Appears: No Acute Distress - Head Exam Head Exam: ATRAUMATIC, NORMAL INSPECTION, NORMOCEPHALIC - Eye Exam Eye Exam: EOMI, Normal appearance, PERRL. absent: Scleral icterus Pupil Exam: NORMAL ACCOMODATION - ENT Exam ENT Exam: Mucous Membranes Moist - Neck Exam Additional comments: supple - Respiratory Exam Respiratory Exam: Clear to Auscultation Bilateral, NORMAL BREATHING PATTERN. absent: Rales, Rhonchi, Wheezes - Cardiovascular Exam Cardiovascular Exam: REGULAR RHYTHM, +S1, +S2. absent: Diastolic murmur, Sy stolic Murmur - GI/Abdominal Exam GI & Abdominal Exam: Normal Bowel Sounds, Soft. absent: Distended, Firm, Guarding, Rigid, Tenderness - Extremities Exam Extremities exam: Positive for: normal inspection, pedal pulses present. Negative for: calf tenderness, pedal edema, tenderness Additional comments: urine with adrian blood in urine bag - Back Exam Back exam: absent: CVA tenderness (L), CVA tenderness (R) - Neurological Exam Neurological exam: Alert, Oriented x3 - Psychiatric Exam Psychiatric exam: Normal Affect, Normal Mood - Skin Skin Exam: Dry, Warm Results - Vital Signs Recent Vital Signs: Last Vital Signs Temp 99.3 F 11/15/18 16:14 Pulse 68 11/16/18 06:26 Resp 18 11/15/18 23:55 BP 120/53 L 11/16/18 06:26 Pulse Ox 100 11/15/18 16:42 - Labs Result Diagrams: 11/15/18 17:28 11/15/18 17:28 Labs: Laboratory Results - last 24 hr 11/15/18 11/15/18 11/15/18 17:28 17:28 21:08 WBC 5.5 RBC 3.38 L Hgb 10.1 L Hct 32.4 L MCV 95.9 MCH 29.9 MCHC 31.2 RDW 14.3 Plt Count 198 MPV 9.5 Gran % 62.8 Lymph % (Auto) 15.5 L Ed[place] % (Auto) 15.3 H Eos % (Auto) 6.0 H Baso % (Auto) 0.4 Gran # 3.48 Lymph # (Auto) 0.9 L Ed[place]on # (Auto) 0.9 H Eos # (Auto) 0.3 Baso # (Auto) 0.02 Sodium 136 Potassium 3.4 L Chloride 96 L Carbon Dioxide 32 Anion Gap 11 BUN 14 Creatinine 2.4 H Est GFR ( Amer) 32 Est GFR (Non-Af Amer) 27 Random Glucose 96 Calcium 8.5 Total Bilirubin 1.0 AST 27 ALT 26 Alkaline Phosphatase 441 H D Total Protein 7.3 Albumin 3.5 Globulin 3.7 Albumin/Globulin Ratio 1.0 L Urine Color Red Urine Appearance Cloudy Urine pH 7.5 Ur Specific Burket 1.020 Urine Protein >=300 H Urine Glucose (UA) 250 H Urine Ketones 15 H Urine Blood Large H Urine Nitrate Positive H Urine Bilirubin Large H Urine Urobilinogen 4.0 H Ur Leukocyte Esterase Large H Urine RBC Tntc H Urine WBC Tntc H Ur Epithelial Cells None Urine Bacteria Large Assessment & Plan - Assessment and Plan (Free Text) Plan: Mr Sims, 72 years old male, with a PMH of CAD s/p CABG, pacemaker, ESRD on HD (TTS), DM2, hypothyroidism, HTN and urinary retention s/p a suprapubic catheter (since 2010), came to the ED for bleeding from suprapubic catheter. In the ED, pt was noted to have temp 99.3. HR/BP/RR normal. ED physician removed and replaced the suprapubic catheter in Sterile technique, 14f catheter, noted minimal dark urine return. U/A has 0 epithelial cells, WBC high, positive paxton esterase and nitrate, positive protein/blood/RBC. A: Possible Complicated UTI/cystitis with hematuria No SIRS (0/4) recent HCAP PNA (Sep 2018) Hx ESBL UTI (07/2018, 04/2018). Hx ESBL bacteremia (01/2017) as complication from Hx MRSA UTI (2014), Hx Klebsiella and Pseudomonas UTI (> 3 years ago) ascending cholangitis s/p ERCP with stone extraction CAD s/p CABG, pacemaker, HTN, CHF ESRD on HD (TTS) Hx urinary retention s/p a suprapubic catheter (since 2010) Hx Partial SBO, colitis/diverticulitis, keating's esophagus, epididymitis L Home exposure to birds P: - merem 1g Q12, renal dose (Cr Cl 20) - recommend urology on board. hematuria management per primary and urology. strict i/o, watch blood clot that obstruct urine output. - currently H/H stable - follow on urine culture - will get blood culture - continue to monitor clinical course s/r/d/w Dr Gracia <Wiliam Gracia S - Last Filed: 11/16/18 13:33> Meds - Medications Medications: Current Medications Atorvastatin Calcium (Lipitor) 20 mg PO HS [facility] Last Admin: 11/16/18 06:27 Dose: 20 mg Calcium Acetate (Phoslo) 667 mg PO TID [facility] Last Admin: 11/16/18 13:15 Dose: 667 mg Carvedilol (Coreg) 6.25 mg PO BID [facility] Last Admin: 11/16/18 09:17 Dose: 6.25 mg Hydralazine HCl (Apresoline) 50 mg PO Q8H [facility] Last Admin: 11/16/18 13:15 Dose: 50 mg Meropenem/Sodium Chloride (Merrem Iv 500 Mg/Ns 50 Ml) 500 mg in 50 mls @ 100 mls/hr IVPB Q12 [facility]; Protocol Stop: 11/23/18 10:01 Last Admin: 11/16/18 09:37 Dose: 100 mls/hr Insulin Detemir (Levemir) 5 unit SC [facility] Last Admin: 11/16/18 07:30 Dose: Not Given Insulin Human Lispro (Humalog Med) 0 units SC [facility]; Protocol Last Admin: 11/16/18 11:58 Dose: Not Given Isosorbide Mononitrate (Imdur Er) 30 mg PO DAILY [facility] Last Admin: 11/16/18 09:13 Dose: 30 mg Levothyroxine Sodium (Synthroid) 75 mcg PO DAILY [facility] Tramadol HCl (Ultram) 50 mg PO BID PRN PRN Reason: Pain, moderate (4-7) Results - Vital Signs Recent Vital Signs: Last Vital Signs Temp 97.7 F 11/16/18 06:00 Pulse 68 11/16/18 09:17 Resp 18 11/16/18 06:00 BP 120/53 L 11/16/18 09:17 Pulse Ox 96 11/16/18 06:00 - Labs Result Diagrams: 11/15/18 17:28 11/15/18 17:28 Labs: Laboratory Results - last 24 hr 11/15/18 11/15/18 11/15/18 17:28 17:28 21:08 WBC 5.5 RBC 3.38 L Hgb 10.1 L Hct 32.4 L MCV 95.9 MCH 29.9 MCHC 31.2 RDW 14.3 Plt Count 198 MPV 9.5 Gran % 62.8 Lymph % (Auto) 15.5 L Edmonson % (Auto) 15.3 H Eos % (Auto) 6.0 H Baso % (Auto) 0.4 Gran # 3.48 Lymph # (Auto) 0.9 L Edmonson # (Auto) 0.9 H Eos # (Auto) 0.3 Baso # (Auto) 0.02 Sodium 136 Potassium 3.4 L Chloride 96 L Carbon Dioxide 32 Anion Gap 11 BUN 14 Creatinine 2.4 H Est GFR ( Amer) 32 Est GFR (Non-Af Amer) 27 POC Glucose (mg/dL) Random Glucose 96 Calcium 8.5 Total Bilirubin 1.0 AST 27 ALT 26 Alkaline Phosphatase 441 H D Total Protein 7.3 Albumin 3.5 Globulin 3.7 Albumin/Globulin Ratio 1.0 L Urine Color Red Urine Appearance Cloudy Urine pH 7.5 Ur Specific Burket 1.020 Urine Protein >=300 H Urine Glucose (UA) 250 H Urine Ketones 15 H Urine Blood Large H Urine Nitrate Positive H Urine Bilirubin Large H Urine Urobilinogen 4.0 H Ur Leukocyte Esterase Large H Urine RBC Tntc H Urine WBC Tntc H Ur Epithelial Cells None Urine Bacteria Large 11/16/18 11/16/18 06:43 11:03 WBC RBC Hgb Hct MCV MCH MCHC RDW Plt Count MPV Gran % Lymph % (Auto) Edmonson % (Auto) Eos % (Auto) Baso % (Auto) Gran # Lymph # (Auto) Edmonson # (Auto) Eos # (Auto) Baso # (Auto) Sodium Potassium Chloride Carbon Dioxide Anion Gap BUN Creatinine Est GFR ( Amer) Est GFR (Non-Af Amer) POC Glucose (mg/dL) 68 124 H Random Glucose Calcium Total Bilirubin AST ALT Alkaline Phosphatase Total Protein Albumin Globulin Albumin/Globulin Ratio Urine Color Urine Appearance Urine pH Ur Specific Bur[place] Urine Protein Urine Glucose (UA) Urine Ketones Urine Blood Urine Nitrate Urine Bilirubin Urine Urobilinogen Ur Leukocyte Esterase Urine RBC Urine WBC Ur Epithelial Cells Urine Bacteria Assessment & Plan - Assessment and Plan (Free Text) Plan: Infectious diseases Attending Physician Attestation Patient seen and examined, discussed with medical information specialist. I have reviewed the patient's history of present illness, past medical, social, personal and family histories, pertinent physical exam findings, course so far in this hospital admission, pertinent laboratory and imaging results. I agree with the above findings, assessment and plan. In addition, we have started Merrem for possible complicated UTI in this patient presenting with hematuria and has chronic suprapubic catheter, with history of ESBL E. coli infection. Follow up urine and blood cx results. Will need Urology evaluation.
[2018-11-16] MEDS: MEROPENEM 500 MG in NS 500 MG/50 ML BAG IVPB SCH ×2 (09:37→23:11)
[2018-11-16] MEDS ORDERED: Levothyroxine 75 MCG TAB PO SCH (10:00)
--- NOTE | 2018-11-16 10:39 | CP.PCM.APN ---
Subjective - Date & Time of Evaluation Date of Evaluation: 11/16/18 Time of Evaluation: 10:15 - Subjective Subjective: Pt seen and examined at bedside. In no acute distress. Objective - Vital Signs/Intake and Output Vital Signs (last 24 hours): Temp Pulse Resp BP Pulse Ox 97.7 F 68 18 120/53 L 96 11/16/18 06:00 11/16/18 09:17 11/16/18 06:00 11/16/18 09:17 11/16/18 06:00 - Medications Medications: Current Medications Atorvastatin Calcium (Lipitor) 20 mg PO HS [facility] Last Admin: 11/16/18 06:27 Dose: 20 mg Calcium Acetate (Phoslo) 667 mg PO TID [facility] Last Admin: 11/16/18 09:12 Dose: 667 mg Carvedilol (Coreg) 6.25 mg PO BID [facility] Last Admin: 11/16/18 09:17 Dose: 6.25 mg Hydralazine HCl (Apresoline) 50 mg PO Q8H [facility] Last Admin: 11/16/18 06:26 Dose: 50 mg Meropenem/Sodium Chloride (Merrem Iv 500 Mg/Ns 50 Ml) 500 mg in 50 mls @ 100 mls/hr IVPB Q12 [facility]; Protocol Stop: 11/23/18 10:01 Last Admin: 11/16/18 09:37 Dose: 100 mls/hr Insulin Detemir (Levemir) 5 unit SC [facility] Last Admin: 11/15/18 23:30 Dose: Not Given Insulin Human Lispro (Humalog Med) 0 units SC [facility]; Protocol Isosorbide Mononitrate (Imdur Er) 30 mg PO DAILY [facility] Last Admin: 11/16/18 09:13 Dose: 30 mg Levothyroxine Sodium (Synthroid) 75 mcg PO DAILY [facility] Tramadol HCl (Ultram) 50 mg PO BID [facility] - Labs Labs: 11/15/18 17:28 11/15/18 17:28 - Constitutional Appears: Well, No Acute Distress - Head Exam Head Exam: ATRAUMATIC - Eye Exam Eye Exam: Normal appearance - ENT Exam ENT Exam: Normal Exam - Neck Exam Neck Exam: Full ROM - Respiratory Exam Respiratory Exam: Clear to Ausculation Bilateral, NORMAL BREATHING PATTERN - Cardiovascular Exam Cardiovascular Exam: REGULAR RHYTHM, +S1, +S2 - GI/Abdominal Exam GI & Abdominal Exam: Soft, Normal Bowel Sounds - Rectal Exam Rectal Exam: Deferred - Exam Additional comments: suprapubic catheter, +hematuria - Neurological Exam Neurological Exam: Alert, Awake Assessment and Plan - Assessment and Plan (Free Text) Assessment: Pt is a 72 y.o. male with pmhx of CAD s/p cabg, PPM, ESRD on dialysis, DM, hypothyroid, HTN, COPD, urinary retention w/ suprapubic catheter who presented in ED 2/2 fever on Monday after dialysis, which resolved with 2 doses of Tylenol. Patient c/o low back discomfort since 3 days but denies any recent fall or trauma. He is admitted for UTI and hematuria. Plan: UCx pending Merrem IV per ID recs Renal and ID on consult Monitor urine output Meds per MAR Physical Therapy TCU Eval Will continue to follow
--- NOTE | 2018-11-16 15:14 | CON ---
DATE: 11/16/2018 NEPHROLOGY CONSULTATION HISTORY OF PRESENT ILLNESS: This 72-year-old male was examined at his bedside. His EMR was reviewed. He came to the [facility] Emergency Room with blood-tinged urine. He dialyzed yesterday at the [facility] D[facility]. He reportedly has not been feeling well, has had generalized weakness with poor appetite. He does have a chronic suprapubic catheter with gross hematuria. He became alarmed and came to the emergency room for further evaluation of the above. According to his medical records, he has atherosclerotic heart disease, he is status post open heart surgery, is on hemodialysis for end-stage renal disease and dialyzes on Tuesdays, , and Saturdays as an outpatient. He is an insulin-dependent diabetic with chronic hypothyroidism, hypertension and history of urinary tract retention, for which he has a suprapubic catheter placed since 2010. SURGICAL HISTORY: Significant for left AV fistula placement, open heart surgery and suprapubic catheter placement. SOCIAL HISTORY: He is a nondrinker, nonsmoker, non IV drug misuser. MEDICATIONS: According to medical record, he takes outpatient hydralazine, Synthroid, Imdur, Lantus, Coreg, PhosLo, Lipitor and probiotic. FAMILY HISTORY: Noncontributory. ALLERGIES: HE HAS ALLERGIES TO IV CONTRAST. REVIEW OF SYSTEMS: CONSTITUTIONAL REVIEW: There were no reports of fevers or chills. HEAD: No headache or seizure. EYE REVIEW: No change in visual acuity. EAR REVIEW: No hearing loss. THROAT REVIEW: No swallowing difficulty. NECK REVIEW: No stiffness. CARDIAC REVIEW: Stable atherosclerotic heart disease and hypertension. PULMONARY: No cough. No hemoptysis. GI: No diarrhea. : End-stage renal disease, hemodialysis dependent. VASCULAR: No claudication. PSYCHOLOGICAL: No depression. NEUROLOGICAL: No knowledge of stroke. SKIN: Without rash. PHYSICAL EXAMINATION: VITAL SIGNS: Temperature was 97.7, respirations 18, pulse 68 and blood pressure 120/53. Pulse ox 96%. HEAD: Normocephalic, atraumatic. EYES: Noninjected. EARS: Clear. THROAT: Noninjected. NECK: Supple. HEART: S1, S2. LUNGS: Clear. ABDOMEN: Soft. EXTREMITIES: No edema. SKIN: Without rash. NEUROLOGICAL: Deconditioned. VASCULAR: Legs warm to touch. PSYCHOLOGICAL: Alert and oriented x3. LABORATORY DATA: White count 5500, hemoglobin 10.1, hematocrit 32.4, platelets 198,000. Sodium 136, K 3.4, chloride 96, bicarb 32. BUN 14, creatinine 2.4. Random blood sugar 96, calcium 8.5. Bilirubin 1, AST 27, ALT 26, and alk phos 441. Urinalysis showed large bacteria, greater than 300 mg/dL of protein, large blood, too numerous to count red and white blood cells. IMPRESSION: A 72-year-old male with suprapubic catheter chronically for urinary tract retention, now with gross hematuria and chronic urinary tract infection in the setting of a suprapubic catheter that reportedly was placed in 2010 with end-stage renal disease, hemodialysis dependent, with the next hemodialysis due tomorrow and comorbidities of atherosclerotic heart disease stable, chronic hypertension, insulin-dependent diabetes mellitus, hyperlipidemia, hyperphosphatemia, and hypothyroidism. PLAN: The plan is to continue Synthroid, PhosLo, meropenem, Lipitor, Levemir, Imdur, Humalog insulin coverage, Coreg and hydralazine. He is awaiting Infectious Disease consultation and urine culture has been received. He will continue on a renal diabetic diet. I have obtained consent for dialysis for the a.m. and all of the above was reviewed with this patient and his nurse at bedside. All questions were answered. Nemo Black MD ELIAZAR
--- NOTE | 2018-11-16 23:22 | PN ---
DATE: 11/16/2018 SUBJECTIVE: The patient is 72-year-old, seen and examined, lying in bed, seems to be comfortable. Had 10 mL of bloody urine in his Young catheter. His complaint was some suprapubic discomfort. No nausea, vomiting or diarrhea. No fever. No chills. The patient is and only complain of generalized weakness. Otherwise, he has no significant complaint. PHYSICAL EXAMINATION: GENERAL: He is awake, alert, oriented and able to communicate. VITAL SIGNS: He is afebrile, pulse 59, respirations 18, blood pressure 138/63. LUNGS: Bilateral fair airflow. No rhonchi or crackle. HEART: S1 and S2 audible. ABDOMEN: Soft. He has suprapubic catheter, connected to Young that has bloody urine 10 mL in the Young bag. EXTREMITIES: Bilateral legs, no edema. LABORATORY EXAM: Blood sugar is 104. Urine cultures are pending. ASSESSMENT: 1. Hematuria. 2. Suprapubic catheter. 3. End-stage renal disease, on hemodialysis. 4. Hypertension. 5. Hyperlipidemia. 6. Coronary artery disease, status post open heart surgery. 7. Insulin-dependent diabetes. PLAN: Currently, the patient is on meropenem. We will order for CBC and CMP in a.m. The patient has history of multiple recurrent UTIs and ESBL positive, so he is already on meropenem. This evaluation has been requested. We will get as soon as when it is available. Marcos Elias MD
[2018-11-17] MEDS: Levothyroxine 75 MCG TAB PO SCH (06:10)
[2018-11-17 06:59] LABS: BASO # 0.03 K/mm3 (0.0-2.0); BASO % 0.6 % (0.0-3.0); EOS # 0.4 (0.0-0.7); EOS % 7.6 % (1.5-5.0); GRAN # 3.17 (1.4-6.5); GRAN % 67.4 % (50.0-68.0); HEMOGLOBIN 10.1 g/dL (14.0-18.0); LYMPH # 0.6 (1.2-3.4); LYMPH % 12.1 % (22.0-35.0); MEAN CORPUSCULAR HEMOGLOBIN 30.1 pg (25.0-35.0); MEAN PLATELET VOLUME 9.8 fl (7.0-11.0); MONO # 0.6 (0.1-0.6); MONO % 12.3 % (1.0-6.0); RBC 3.36 10^6/uL (3.5-6.1); WHITE BLOOD COUNT 4.7 10^3/uL (4.5-11.0)
[2018-11-17] MEDS: Insulin Lispro (humaLOG) MEDIUM Coverage SC SCH ×4 (07:30→22:53)
[2018-11-17 08:39] LABS: CALCIUM 8.3 mg/dL (8.4-10.5)
[2018-11-17] MEDS: Insulin Detemir 100 units/ml Vial (Levemir) SC SCH ×2 (12:12→22:34)
[2018-11-17] MEDS: MEROPENEM 500 MG in NS 500 MG/50 ML BAG IVPB SCH ×2 (12:13→22:34)
--- NOTE | 2018-11-18 00:46 | PN ---
DATE: 11/17/2018 SUBJECTIVE: The patient is seen in bed, in no acute distress, nontoxic. PHYSICAL EXAMINATION: VITAL SIGNS: Temperature is 98, blood pressure is 105/50, respiratory rate of 18. HEENT: Unremarkable. NECK: Supple. LUNGS: Had decreased breath sounds. HEART: Normal S1 and S2. ABDOMEN: Soft. LABORATORY EXAMINATION: Reveals a white count of 4.7, hemoglobin of 10. Chemistries are noted. Urinalysis is noted. Microbiology is reviewed with gram-negative sendy and Staph aureus. Further sensitivity is pending. REVIEW OF ORDERS: Reveals the patient to be on meropenem. ASSESSMENT AND PLAN: A 72-year-old male with a history of end-stage renal disease, on hemodialysis with diabetes, hypothyroidism, hypertension, suprapubic catheter with gram-negative sendy and Staphylococcus aureus, cystitis and urinary tract infection with hematuria, on meropenem. We will check on the identification of the gram-negative sendy and sensitivity of the Staphylococcus aureus. We will make further recommendations. Isrrael Ni MD
[2018-11-18] MEDS: Levothyroxine 75 MCG TAB PO SCH ×2 (05:39→11:24)
[2018-11-18 05:48] VITALS: BP 135/57
[2018-11-18] MEDS: Insulin Lispro (humaLOG) MEDIUM Coverage SC SCH ×2 (07:30→11:27)
[2018-11-18 08:55] VITALS: RESP 20; TEMP 98.5; O2SAT 96
[2018-11-18] MEDS: Insulin Detemir 100 units/ml Vial (Levemir) SC SCH (10:37)
[2018-11-18] MEDS: MEROPENEM 500 MG in NS 500 MG/50 ML BAG IVPB SCH (10:39)
[2018-11-18 10:41] VITALS: PULSE 66
--- NOTE | 2018-11-18 13:49 | PN ---
DATE: 11/18/2018 SUBJECTIVE: The patient is in room 562 bed 2. The patient has no fevers, no chills. PHYSICAL EXAMINATION: GENERAL: The patient is seen early this morning in 562, bed 2. VITAL SIGNS: Temperature of 98, blood pressure is 130/50, respiratory rate of 20. HEENT: Unremarkable. NECK: Supple. LUNGS: Have decreased breath sounds. HEART: Normal S1, S2. ABDOMEN: Soft. LABORATORY EXAMINATION: Reveals a white count of 4.7, hemoglobin of 10. Chemistries are noted. Urinalysis is noted. Microbiology reveals the Klebsiella and MRSA. Klebsiella is noted to be relatively sensitive. MRSA is noted in the urine. The blood cultures have no growth. ASSESSMENT AND PLAN: This is a 72-year-old male who was seen earlier today with a history of end-stage renal disease on hemodialysis, diabetes, hypothyroidism, hypertension, suprapubic catheter with Klebsiella and Staphylococcus aureus and admitted with cystitis and urinary tract infection with hematuria, complete 5-7 days of meropenem. Isrrael Ni MD
--- NOTE | 2018-11-18 14:55 | PN ---
DATE: 11/18/2018 SUBJECTIVE: The patient has no complaints of any chest pain. No shortness of breath. No headaches or dizziness. PHYSICAL EXAMINATION: VITAL SIGNS: Temperature is 98.5, pulse of 57, blood pressure of 135/57, respirations 20, and O2 saturation 96%. GENERAL: The patient is lying in bed, flat, comfortable. HEENT: No oral lesion. Anicteric sclerae. Moist mucosa. NECK: No JVD, adenopathy, or thyromegaly. CARDIOVASCULAR: S1 and S2 regular. No murmurs, rubs, or gallops. LUNGS: Clear to auscultation bilaterally. No wheeze, rales, or rhonchi. ABDOMEN: Bowel sounds are positive, soft, nontender and nondistended. EXTREMITIES: No cyanosis, clubbing or edema. LABORATORY DATA: In the cultures, there is Klebsiella, MRSA. ASSESSMENT: 1. Hematuria, improved. 2. Urinary tract infection secondary to methicillin-resistant Staphylococcus aureus. 3. End-stage renal disease, on hemodialysis. 4. Suprapubic catheter. 5. Hypertension. 6. Dyslipidemia. 7. Coronary artery disease. 8. Diabetes type 2. PLAN: The patient is currently comfortable and wants to be discharged to Transitional Care Unit. The patient is being followed by Infectious Diseases. The patient is going to be on dialysis. I did asked Dr. Javier to evaluate the patient. The patient is in on insulin sliding scale. He is going to continue hemodialysis as well. Bc Mariee MD
--- NOTE | 2018-11-19 09:05 | PN ---
DATE: 11/17/2018 SUBJECTIVE: The patient has no complaints of chest pain, shortness of breath, or headaches or dizziness. PHYSICAL EXAMINATION: VITAL SIGNS: Temperature is 98.4, pulse of 59, blood pressure 120 , respiration 16, O2 saturation 98%. GENERAL: The patient is lying in bed, flat, comfortable. HEENT: No oral lesion. Anicteric sclerae. Moist mucosa. NECK: No JVD, adenopathy, or thyromegaly. CARDIOVASCULAR: S1 and S2, regular. No murmurs, rubs, or gallops. LUNGS: Clear to auscultation bilaterally. No wheeze, rales, or rhonchi. ABDOMEN: Bowel sounds are positive, soft, nontender and nondistended. EXTREMITIES: no cyanosis, clubbing or edema. LABS: Urine culture shows gram-negative rods and Staph aureus. ASSESSMENT: 1. Hematuria secondary to urinary tract infection. 2. Urinary tract infection secondary to gram-negative rods and Staph aureus. 3. Suprapubic catheter. 4. Coronary artery disease, status post coronary artery bypass graft. 5. End-stage renal disease, on hemodialysis. 6. Hypertension. 7. Dyslipidemia. 8. Diabetes type 2. PLAN: The patient is currently on hydralazine, going to be on Coreg for his coronary artery disease and Lipitor for dyslipidemia. The patient is on isosorbide. He is on meropenem for antibiotics. He is on PhosLo for his secondary hyperparathyroidism. The patient on Synthroid for hypothyroidism and tramadol for pain. He is on a renal diet. He had dialysis today. Bc Mariee MD
== END 2018-11-18 12:25 | disposition still patient (30) | DRG 698 ==
LOC: ED 15:41 → ERH 21:19 → 5RNO 23:18
PROVIDERS: ADMIT Internal Medicine; ATTEND Internal Medicine
PROC: 0TPB70Z Removal of Drainage Device from Bladder, Via Natural or Artificial Opening (ICD-10-PCS; principal; 2018-11-15)
PROC: 0T9B70Z Drainage of Bladder with Drainage Device, Via Natural or Artificial Opening (ICD-10-PCS; 2018-11-15)
PROC: 5A1D70Z Performance of Urinary Filtration, Intermittent, Less than 6 Hours Per Day (ICD-10-PCS; 2018-11-15)
DX: T83.510A Infection and inflammatory reaction due to cystostomy catheter, initial encounter (principal); N18.6 End stage renal disease; N39.0 Urinary tract infection, site not specified; I12.0 Hypertensive chronic kidney disease with stage 5 chronic kidney disease or end stage renal disease; I13.2 Hypertensive heart and chronic kidney disease with heart failure and with stage 5 chronic kidney disease, or end stage renal disease; Z99.2 Dependence on renal dialysis; E11.22 Type 2 diabetes mellitus with diabetic chronic kidney disease; I25.10 Atherosclerotic heart disease of native coronary artery without angina pectoris; Z95.1 Presence of aortocoronary bypass graft; E03.9 Hypothyroidism, unspecified; R33.9 Retention of urine, unspecified; R31.0 Gross hematuria; Z79.4 Long term (current) use of insulin; Z79.899 Other long term (current) drug therapy; E78.5 Hyperlipidemia, unspecified; Z86.14 Personal history of Methicillin resistant Staphylococcus aureus infection; Z79.890 Hormone replacement therapy; Z93.59 Other cystostomy status; Z95.0 Presence of cardiac pacemaker; I50.9 Heart failure, unspecified; J44.9 Chronic obstructive pulmonary disease, unspecified; F03.90 Unspecified dementia, unspecified severity, without behavioral disturbance, psychotic disturbance, mood disturbance, and anxiety; H91.91 Unspecified hearing loss, right ear; K21.9 Gastro-esophageal reflux disease without esophagitis; K22.70 Barrett's esophagus without dysplasia; N31.9 Neuromuscular dysfunction of bladder, unspecified

== ENCOUNTER 2018-11-18 12:28 | Inpatient (IN) | payer OTHER ==
[2018-11-18] MEDS ORDERED: Dextrose 50% SYRINGE Inj (50 ml) IV PRN (13:08)
[2018-11-18 16:32] VITALS: BMI 22.2
[2018-11-18] MEDS: Insulin Lispro (humaLOG) MEDIUM Coverage SC SCH ×2 (18:12→21:30)
[2018-11-18] MEDS: Insulin Detemir 100 units/ml Vial (Levemir) SC SCH (21:30)
[2018-11-18] MEDS ORDERED: MEROPENEM 500 MG in NS 500 MG/50 ML BAG IVPB SCH (22:00)
[2018-11-19] MEDS: Levothyroxine 75 MCG TAB PO SCH (05:11)
[2018-11-19] MEDS ORDERED: MEROPENEM 500 MG in NS 500 MG/50 ML BAG IVPB SCH (06:00)
[2018-11-19] MEDS ORDERED: Levothyroxine 75 MCG TAB PO SCH (06:00)
[2018-11-19] MEDS: Insulin Detemir 100 units/ml Vial (Levemir) SC SCH ×2 (06:37→22:02)
[2018-11-19] MEDS: Insulin Lispro (humaLOG) MEDIUM Coverage SC SCH ×4 (06:37→22:00)
--- NOTE | 2018-11-19 07:36 | CP.PCM.CON ---
<ElinaLeann - Last Filed: 11/19/18 13:46> History of Present Illness - History of Present Illness History of Present Illness: PGY-[address] Gracia ID consult: UTI Mr Sims, 72 years old male, with a PMH of CAD s/p CABG, pacemaker, ESRD on HD (TTS), DM2, hypothyroidism, HTN and urinary retention s/p a suprapubic catheter (since 2010), was recently hospitalized on 11/15/18, at [facility] for for bleeding from suprapubic catheter and UTI. Pt noted blood in urine x 1 month but did not see any doctor. Pt had a fever on Monday after dialysis, which resolved with 2 doses of Tylenol, associated with low back discomfort x 3 days. On 11/15, ED physician removed and replaced the suprapubic catheter in Sterile technique, 14f catheter, noted minimal dark urine return. Urine culture positive for Klebsiella and MRSA. He received merem IV x 3 days and transferred to TCU He was recently hospitalized in [facility] in Sep 2018 for HCAP Left upper lobe s/p, completed 7 days of merem and doxycycline. He had birds and pigeon at home. Some birds were sick recently but they were handled by . Pt did not come to contact with the sick birds. He denied headache, rash, cough ROS- No recent fall or trauma. No travels. Denies any fevers, chills, headache, dizziness, chest pain, shortness of breath, dyspnea on exertion, cough, abdominal pain, nausea, vomiting, diarrhea, neck pain, or any other complaints. PMD: Dr. Georges PMHx MRSA UTI (10/2018) Hx ESBL UTI (07/2018, 04/2018). Hx ESBL bacteremia (01/2017) Hx MRSA UTI (2014), Hx Klebsiella and Pseudomonas UTI (> 3 years ago) CAD s/p CABG, pacemaker, HTN, CHF COPD, PE DM2 ESRD on HD (TTS) hypothyroidism urinary retention from neurogenic bladder s/p a suprapubic catheter (since 2010) Cataracts, R ear deaf, hard of hearing Hx Partial SBO, ascending cholangitis s/p ERCP with stone extraction, colitis/diverticulitis Hx falls GERD, hx keating's esophagus Hx epididymitis L PSH LUE AV fistular placement lap cholecysectomy 2016 cataract surgery suprapubic catheter SH Denies smoke, ETOH, drug All Dye = redness Med hydralazine, Lipitor, insulin, levothyroxin Past Patient History - Infectious Disease Hx of Infectious Diseases: None - Tetanus Immunizations Tetanus Immunization: Unknown - Past Medical History & Family History Past Medical History?: Yes - Past Social History Smoking Status: Never Smoked - CARDIAC Hx Cardiac Disorders: Yes Hx Hypercholesterolemia: Yes - PULMONARY Hx Chronic Obstructive Pulmonary Disease (COPD): Yes - NEUROLOGICAL Hx Neurological Disorder: Yes Hx Dementia: Yes - HEENT Hx HEENT Problems: Yes Hx Cataracts: Yes (sx) Hx Deafness: Yes (R ear) Other/Comment: hard of hearing - RENAL Hx Renal Failure: Yes - ENDOCRINE/METABOLIC Hx Diabetes Mellitus Type 2: Yes Hx Hypothyroidism: Yes - HEMATOLOGICAL/ONCOLOGICAL Hx Anemia: Yes - INTEGUMENTARY Hx Dermatological Problems: (BILATERAL LEG EDEMA MORE ON LEFT.SHUNT TO LEFT UPPER ARM,SUPRAPUBIC CATHETE) Other/Comment: ble skin discoloration - MUSCULOSKELETAL/RHEUMATOLOGICAL Hx Falls: No - GASTROINTESTINAL Hx Gastrointestinal Disorders: (hx colitis/diverticulitis) - GENITOURINARY/GYNECOLOGICAL Hx Genitourinary Disorders: Yes - PSYCHIATRIC Hx Substance Use: No - SURGICAL HISTORY Hx Open Heart Surgery: Yes - ANESTHESIA Hx Anesthesia: Yes Hx Anesthesia Reactions: No Hx Malignant Hyperthermia: No Meds Allergies/Adverse Reactions: Allergies Allergy/AdvReac Type Severity Reaction Status Date / Time dye Allergy REDNESS Uncoded 11/19/18 06:26 - Medications Medications: Current Medications Atorvastatin Calcium (Lipitor) 20 mg PO HS [facility]; Protocol Last Admin: 11/18/18 21:28 Dose: 20 mg Calcium Acetate (Phoslo) 667 mg PO TID [facility]; Protocol Last Admin: 11/18/18 18:22 Dose: 667 mg Carvedilol (Coreg) 6.25 mg PO BID [facility]; Protocol Last Admin: 11/18/18 18:11 Dose: 6.25 mg Dextrose (Dextrose 50% Inj) 0 ml IV STAT PRN; Protocol PRN Reason: Hypoglycemia Protocol Hydralazine HCl (Apresoline) 50 mg PO Q8H [facility]; Protocol Last Admin: 11/19/18 05:10 Dose: 50 mg Dextrose (Dextrose 5% In Water 1000 Ml) 1,000 mls @ 0 mls/hr IV .Q0M [facility]; Protocol PRN Reason: Hypoglycemia Protocol Meropenem/Sodium Chloride (Merrem Iv 500 Mg/Ns 50 Ml) 500 mg in 50 mls @ 100 mls/hr IVPB 0600,1800 [facility]; Protocol Stop: 11/23/18 06:29 Last Admin: 11/19/18 05:08 Dose: 100 mls/hr Insulin Detemir (Levemir) 5 unit SC [facility]; Protocol Last Admin: 11/19/18 06:37 Dose: Not Given Insulin Human Lispro (Humalog Med) 0 units SC [facility]; Protocol Last Admin: 11/19/18 06:37 Dose: Not Given Isosorbide Mononitrate (Imdur Er) 30 mg PO 0600 [facility]; Protocol Last Admin: 11/19/18 05:11 Dose: 30 mg Levothyroxine Sodium (Synthroid) 75 mcg PO 0600 [facility]; Protocol Last Admin: 11/19/18 05:11 Dose: 75 mcg Tramadol HCl (Ultram) 50 mg PO BID [facility]; Protocol PRN Reason: Pain, moderate (4-7) Physical Exam - Constitutional Appears: No Acute Distress - Head Exam Head Exam: ATRAUMATIC, NORMAL INSPECTION, NORMOCEPHALIC - Eye Exam Eye Exam: EOMI, Normal appearance, PERRL. absent: Scleral icterus Pupil Exam: NORMAL ACCOMODATION - ENT Exam ENT Exam: Mucous Membranes Moist - Neck Exam Additional comments: supple - Respiratory Exam Respiratory Exam: Clear to Auscultation Bilateral, NORMAL BREATHING PATTERN. absent: Rales, Rhonchi, Wheezes - Cardiovascular Exam Cardiovascular Exam: REGULAR RHYTHM, +S1, +S2. absent: Systolic Murmur - GI/Abdominal Exam GI & Abdominal Exam: Normal Bowel Sounds, Soft. absent: Distended, Firm, Gua rding, Rigid, Tenderness Additional comments: No suprapubic tenderness. suprapubic dressing d/c/i - Extremities Exam Extremities exam: Negative for: calf tenderness, pedal edema - Back Exam Back exam: absent: CVA tenderness (L), CVA tenderness (R) - Neurological Exam Neurological exam: Alert, Oriented x3 - Psychiatric Exam Psychiatric exam: Normal Affect, Normal Mood - Skin Skin Exam: Dry, Normal Color Results - Vital Signs Recent Vital Signs: Last Vital Signs Temp 98 F 11/18/18 16:26 Pulse 60 11/19/18 05:10 Resp 18 11/18/18 16:32 BP 139/64 11/19/18 05:10 Pulse Ox 97 11/18/18 16:26 - Labs Labs: Laboratory Results - last 24 hr 11/18/18 11/19/18 21:29 06:32 POC Glucose (mg/dL) 112 H 79 Assessment & Plan - Assessment and Plan (Free Text) Plan: Mr Sims, 72 years old male, with a PMH of CAD s/p CABG, pacemaker, ESRD on HD (TTS), DM2, hypothyroidism, HTN and urinary retention s/p a suprapubic catheter (since 2010), recently admitted for hematuria from suprapubic catheter. A: Klebseilla and MRSA Complicated UTI/cystitis with hematuria No SIRS (0/4) recent HCAP PNA (Sep 2018) Hx ESBL UTI (07/2018, 04/2018). Hx ESBL bacteremia (01/2017) as complication from Hx MRSA UTI (2014), Hx Klebsiella and Pseudomonas UTI (> 3 years ago) ascending cholangitis s/p ERCP with stone extraction CAD s/p CABG, pacemaker, HTN, CHF ESRD on HD (TTS) Hx urinary retention s/p a suprapubic catheter (since 2010) Hx Partial SBO, colitis/diverticulitis, keating's esophagus, epididymitis L Home exposure to birds P: - loading dose vanco today. Get random vanco on dialysis day to determine vanco doses after dialysis on , , . - Contact precaution for MRSA - merem 1g Q12 (day 4), renal dose for ESRD dialysis - Urology on board - blood culture x neg - continue to monitor clinical course s/r/d/w Dr Gracia <Wiliam Gracia S - Last Filed: 11/19/18 16:18> Meds - Medications Medications: Current Medications Atorvastatin Calcium (Lipitor) 20 mg PO HS [facility]; Protocol Last Admin: 11/18/18 21:28 Dose: 20 mg Calcium Acetate (Phoslo) 667 mg PO TID [facility]; Protocol Last Admin: 11/19/18 15:13 Dose: Not Given Carvedilol (Coreg) 6.25 mg PO BID [facility]; Protocol Last Admin: 11/19/18 09:45 Dose: Not Given Dextrose (Dextrose 50% Inj) 0 ml IV STAT PRN; Protocol PRN Reason: Hypoglycemia Protocol Hydralazine HCl (Apresoline) 50 mg PO Q8H [facility]; Protocol Last Admin: 11/19/18 15:13 Dose: Not Given Dextrose (Dextrose 5% In Water 1000 Ml) 1,000 mls @ 0 mls/hr IV .Q0M PRN; Protocol PRN Reason: Hypoglycemia Protocol Meropenem/Sodium Chloride (Merrem Iv 500 Mg/Ns 50 Ml) 500 mg in 50 mls @ 100 mls/hr IVPB 0600,1800 [facility]; Protocol Stop: 11/23/18 06:29 Last Admin: 11/19/18 05:08 Dose: 100 mls/hr Vancomycin HCl (Vancomycin 1gm) 1 gm in 250 mls @ 167 mls/hr IVPB ONCE ONE; Protocol Stop: 11/19/18 17:29 Insulin Detemir (Levemir) 5 unit SC [facility]; Protocol Last Admin: 11/19/18 06:37 Dose: Not Given Insulin Human Lispro (Humalog Med) 0 units SC [facility]; Protocol Last Admin: 11/19/18 15:13 Dose: Not Given Isosorbide Mononitrate (Imdur Er) 30 mg PO 0600 [facility]; Protocol Last Admin: 11/19/18 05:11 Dose: 30 mg Levothyroxine Sodium (Synthroid) 75 mcg PO 0600 [facility]; Protocol Last Admin: 11/19/18 05:11 Dose: 75 mcg Tramadol HCl (Ultram) 50 mg PO BID [facility]; Protocol PRN Reason: Pain, moderate (4-7) Results - Vital Signs Recent Vital Signs: Last Vital Signs Temp 98.7 F 11/19/18 10:00 Pulse 50 L 11/19/18 10:00 Resp 18 11/19/18 10:00 BP 121/50 L 11/19/18 10:00 Pulse Ox 97 11/19/18 10:00 - Labs Labs: Laboratory Results - last 24 hr 11/18/18 11/19/18 21:29 06:32 POC Glucose (mg/dL) 112 H 79 Assessment & Plan - Assessment and Plan (Free Text) Plan: Infectious diseases Attending Physician Attestation Patient seen and examined, discussed with bacteriologist medical. I have reviewed the patient's history of present illness, past medical, social, personal and family histories, pertinent physical exam findings, course so far in this hospital admission, pertinent laboratory and imaging results. I agree with the above findings, assessment and plan. In addition, continue Merrem and will add Vancomycin for MRSA and Klebsiella complicated UTI.
--- NOTE | 2018-11-19 14:10 | HP ---
DATE OF EXAM: 11/19/2018 CHIEF COMPLAINT AND HISTORY OF PRESENT ILLNESS: This is a 72-year-old male who is coming into the Transitional Care Unit for IV antibiotics and rehabilitation. The patient has a past medical history of coronary artery disease status post CABG, end-stage renal disease on hemodialysis, pacemaker, hypothyroidism, now diabetes type 2, hypertension, urinary retention with a suprapubic catheter, the patient was having hematuria. When he came into the emergency room, he was found to have urine cultures are positive for Klebsiella and MRSA. I did review the patient's discharge summary and discharged notes and H and P on admission to the hospital for this note. The patient feels well. No complaints of any headaches or dizziness, no nausea, no vomiting. No fever, headaches, or chills. He is able to his diet. ALLERGIES: DYE. PAST MEDICAL HISTORY: As above. PAST SURGICAL HISTORY: CABG, suprapubic catheter, left AV fistula, cholecystectomy, cataract surgery. SOCIAL HISTORY: He is , he lives with his . Denies smoking, drugs, or alcohol. MEDICATIONS: At home, hydralazine, Tramadol, levothyroxine, Isosorbide, Lantus, Coreg, PhosLo, Lipitor. FAMILY HISTORY: Noncontributory. PHYSICAL EXAMINATION: VITAL SIGNS: Temperature is 98, pulse of 56, blood pressure 139/64, respirations 18, O2 saturations 96%. Height is 5 feet, weight is 118 pounds, BMI is 23.1. GENERAL: The patient is lying in bed, comfortable, and in no acute distress. HEENT: Atraumatic and normocephalic. Anicteric sclerae. Moist mucosa. [place] conjunctivae. No oral lesions. NECK: No JVD, anterior and posterior adenopathy, thyromegaly, or bruits. CARDIOVASCULAR: S1 and S2 regular. No murmurs, rubs or gallops. LUNGS: Clear to auscultation bilaterally. No wheezes, rales, or rhonchi. ABDOMEN: Bowel sounds are positive. Soft, nontender and nondistended. No hepatosplenomegaly. No rebound and no guarding. EXTREMITIES: In the left arm there is an AV fistula with Good thrill and bruit. NEUROLOGIC: No facial asymmetry. Tongue is midline. No uvula deviation. Power is 5/5 upper extremities and lower extremities. Sensation intact in upper extremities and lower extremities. PSYCHIATRIC: He is awake, alert and oriented x3. No anxiety or depression. He has normal affect. GENITOURINARY: No CVA tenderness. In the suprapubic , there is a Young catheter. VASCULAR: 2+ pulses in the carotid pulses and pedal pulses. SKIN: No erythema or nodules. SPINE: Shows normal curvature. LABORATORY DATA: Finger stick is 112. The patient's last lab is reviewed. White count was 4.7, hemoglobin was 10.1. This is on 11/17/2018. The patient's chemistry shows a sodium 131, potassium is 4.3, this is from 11/17/2018. ASSESSMENT: 1. Urinary tract infection secondary to Klebsiella and methicillin-resistant Staphylococcus aureus. 2. Coronary artery disease status post coronary artery bypass graft. 3. End-stage renal disease, on hemodialysis on Monday, , and Monday. 4. Diabetes type 2. 5. Hypothyroidism. 6. Hypertension. 7. Urinary retention with chronic suprapubic catheter. 8. Hearing impairment. 9. Secondary hypothyroidism. 10. Anemia chronic. PLAN: The patient is very comfortable. The patient is currently on Levemir for diabetes, he is going to continue with Lipitor for dyslipidemia. The patient is on Synthroid for hypothyroidism. He is going to be on tramadol for pain. The patient is on renal diet. He is getting physical therapy. He is being followed by Dr. Ni from Infectious Disease. I did review the note from them today. Bc Mariee MD
[2018-11-19] MEDS ORDERED: Vancomycin 1gm in NS 250ml 1 GM/250 ML BAG IVPB ONE (16:00)
[2018-11-20] MEDS: MEROPENEM 500 MG in NS 500 MG/50 ML BAG IVPB SCH (05:56)
[2018-11-20] MEDS: Levothyroxine 75 MCG TAB PO SCH (05:57)
[2018-11-20] MEDS: Insulin Lispro (humaLOG) MEDIUM Coverage SC SCH ×4 (06:42→22:15)
[2018-11-20] MEDS: Insulin Detemir 100 units/ml Vial (Levemir) SC SCH ×2 (06:43→22:15)
[2018-11-20] MEDS ORDERED: MEROPENEM 500 MG in NS 500 MG/50 ML BAG IVPB SCH (10:00)
--- NOTE | 2018-11-20 13:56 | PN ---
DATE: 11/20/2018 SUBJECTIVE: The patient is in bed, in no acute distress, nontoxic. PHYSICAL EXAMINATION: VITAL SIGNS: On exam, temperature is 98, blood pressure is 120/50, respiratory rate of 18 and heart rate of 50. HEENT: Unremarkable. NECK: Supple. LUNGS: Have decreased breath sounds. HEART: Normal S1 and S2. ABDOMEN: Soft. LABORATORY DATA: Reveals, the patient's microbiology is reviewed. The blood cultures from are negative. The urine culture has Klebsiella and MRSA. Review of orders reveals the patient to be on meropenem and intermittent vancomycin. ASSESSMENT AND PLAN: This is a 72-year-old male who was seen earlier today in room 304 with coronary artery disease, coronary artery bypass graft, pacemaker, hemodialysis, diabetes, hypothyroidism, hypertension, urinary retention with a suprapubic catheter with Klebsiella and methicillin-resistant Staphylococcus aureus, cystitis in a patient with hematuria, currently on intermittent vancomycin and meropenem would complete 5 to 7 days of antibiotics. Today is day #5 of 5 to 7 days. The patient with hematuria and complicated urinary tract infection. Isrrael Ni MD
--- NOTE | 2018-11-20 14:05 | PN ---
DATE: 11/20/2018 SUBJECTIVE: The patient has no complaints of any chest pain. No shortness of breath. No headaches. PHYSICAL EXAMINATION: VITAL SIGNS: Temperature is 98.7, pulse of 60, blood pressure of 136/56, and respirations 18. GENERAL: The patient is lying in bed, flat, comfortable. HEENT: No oral lesion. Anicteric sclerae. Moist mucosa. NECK: No JVD, adenopathy, or thyromegaly. CARDIOVASCULAR: S1 and S2, regular. No murmurs, rubs, or gallops. LUNGS: Clear to auscultation bilaterally. No wheeze, rales, or rhonchi. ABDOMEN: Bowel sounds are positive, soft, nontender and nondistended. EXTREMITIES: no cyanosis, clubbing or edema. ASSESSMENT: 1. Urinary tract infection secondary to Klebsielleae and methicillin-resistant Staphylococcus aureus. 2. Coronary artery disease, status post coronary artery bypass graft. 3. End-stage renal disease, on hemodialysis, Monday, , and Monday. 4. Diabetes type 2. 5. Hypothyroidism. 6. Hypertension. 7. Urinary retention with chronic suprapubic catheter. 8. Hearing impairment. 9. Secondary hyperparathyroidism. 10. Anemia, chronic. PLAN: The patient is currently on hydralazine for blood pressure, this will be continued. The patient is going to be on carvedilol, he is on isosorbide for his coronary artery disease. He is on Levemir for his diabetes and Lipitor for dyslipidemia. The patient is on Synthroid for hypothyroidism, is on Ultram. The patient is currently on a renal diet, getting physical therapy. Bc Mariee MD
[2018-11-21] MEDS: MEROPENEM 500 MG in NS 500 MG/50 ML BAG IVPB SCH (06:31)
[2018-11-21] MEDS: Levothyroxine 75 MCG TAB PO SCH (06:32)
[2018-11-21] MEDS: Insulin Lispro (humaLOG) MEDIUM Coverage SC SCH ×2 (06:48→22:24)
[2018-11-21] MEDS: Insulin Detemir 100 units/ml Vial (Levemir) SC SCH (06:49)
--- NOTE | 2018-11-21 10:15 | PN ---
DATE: 11/21/2018 SUBJECTIVE: The patient has no complaints of any chest pain. No shortness of breath. He is comfortable. He has no pain. PHYSICAL EXAMINATION: VITAL SIGNS: Temperature is 97.5, pulse of 56, blood pressure of 166/61. GENERAL: The patient is lying in bed, flat, comfortable. HEENT: No oral lesion. Anicteric sclerae. Moist mucosa. NECK: No JVD, adenopathy, or thyromegaly. CARDIOVASCULAR: S1 and S2, regular. No murmurs, rubs, or gallops. LUNGS: Clear to auscultation bilaterally. No wheeze, rales, or rhonchi. ABDOMEN: Bowel sounds are positive, soft, nontender and nondistended. EXTREMITIES: No cyanosis, clubbing or edema. Left arm is positive for AV fistula. Good thrill and bruit. ASSESSMENT: 1. End-stage renal disease, on hemodialysis. 2. Diabetes type 2. 3. Urinary tract infection, secondary to Klebsiella and methicillin-resistant Staphylococcus aureus. 4. Hypothyroidism. 5. Coronary artery disease, status post coronary artery bypass grafting. 6. Hypothyroidism. 7. Hypertension. 8. Urinary retention with chronic suprapubic catheter. 9. Hearing impairment. 10. Secondary hyperparathyroidism. 11. Anemia, chronic. PLAN: The patient is currently on hydralazine. The patient is on carvedilol for his coronary artery disease. He is on insulin sliding scale. The patient is on Imdur for his coronary artery disease. I discontinued the patient's Levemir because of the glucose that was on the lower side. The patient is on atorvastatin for dyslipidemia. He is going to be on meropenem for antibiotics. The patient is on calcium acetate for his secondary hyperparathyroidism. The patient is on levothyroxine for hypothyroidism. The patient is on tramadol for pain. He is on a renal diet. Bc Mariee MD
--- NOTE | 2018-11-22 01:34 | PN ---
DATE: 11/21/2018 SUBJECTIVE: The patient is in bed, in no acute distress, nontoxic. PHYSICAL EXAMINATION: VITAL SIGNS: Temperature is 97, blood pressure is 150/60, and respiratory rate 18. HEENT: Unremarkable. NECK: Supple. LUNGS: Decreased breath sounds. HEART: Normal S1 and S2. ABDOMEN: Soft and nontender. LABORATORY EXAMINATION: Reviewed. REVIEW OF ORDERS: Reveals the patient be on meropenem. ASSESSMENT AND PLAN: This is 72-year-old male who is seen earlier today with a history of coronary artery disease, coronary artery bypass graft, pacemaker, hemodialysis, diabetes, hypothyroidism, hypertension, urinary retention, suprapubic catheter, Klebsiella, methicillin-resistant Staphylococcus aureus, cystitis and the patient with hematuria, on vancomycin and meropenem. We will continue five to seven days of antibiotics, today is day #6. The patient has hematuria and urinary tract infection. Today is the day #6 of five to seven days. Isrrael Ni MD
[2018-11-22] MEDS: Insulin Detemir 100 units/ml Vial (Levemir) SC SCH ×2 (02:24→22:18)
[2018-11-22] MEDS: MEROPENEM 500 MG in NS 500 MG/50 ML BAG IVPB SCH (06:03)
[2018-11-22] MEDS: Levothyroxine 75 MCG TAB PO SCH (06:03)
[2018-11-22] MEDS: Insulin Lispro (humaLOG) MEDIUM Coverage SC SCH ×4 (06:53→22:18)
[2018-11-22] MEDS ORDERED: Vancomycin 500mg in NS 500 MG/100 ML BAG IVPB STA (11:11)
--- NOTE | 2018-11-22 15:29 | PN ---
DATE: 11/22/2018 SUBJECTIVE: The patient is in bed, in no acute distress. PHYSICAL EXAMINATION: VITAL SIGNS: Temperature is 97, blood pressure is 113/50, respiratory rate of 18. HEENT: Unremarkable. NECK: Supple. LUNGS: Have decreased breath sounds. HEART: Normal S1, S2. ABDOMEN: Examination is soft. LABORATORY DATA: Examination reveals a vanco random level of 12.5 today, and review of orders reveals the patient to be on meropenem and intermittent vancomycin. ASSESSMENT AND PLAN: This is a 72-year-old male with past medical history significant for coronary artery disease with coronary artery bypass graft, pacemaker, hemodialysis, diabetes, hypothyroidism, hypertension, urinary retention, suprapubic catheter, with Klebsiella and methicillin-resistant staphylococcus aureus cystitis with hematuria, with complete 5-7 days, today is day #7 of antibiotics. We should discontinue the antibiotics after today's dose. Isrrael Ni MD
--- NOTE | 2018-11-22 18:43 | PN ---
DATE: 11/22/2018 SUBJECTIVE: The patient has no complaints of any chest pain or shortness of breath. No headache or dizziness. PHYSICAL EXAMINATION: VITAL SIGNS: Temperature is 97.9, pulse of 60, blood pressure 145/ , and respirations 20. GENERAL: The patient is lying in bed, flat, comfortable. HEENT: No oral lesion. Anicteric sclerae. Moist mucosa. NECK: No JVD, adenopathy, or thyromegaly. CARDIOVASCULAR: S1 and S2, regular. No murmurs, rubs, or gallops. LUNGS: Clear to auscultation bilaterally. No wheeze, rales, or rhonchi. ABDOMEN: Bowel sounds are positive, soft, nontender and nondistended. EXTREMITIES: No cyanosis, clubbing or edema. ASSESSMENT: 1. End-stage renal disease, on hemodialysis. 2. Diabetes type 2. 3. Urinary tract infection secondary to Klebsiella and methicillin-resistant Staphylococcus aureus. 4. Hypothyroidism. 5. Coronary artery disease status post coronary artery bypass grafting. 6. Hypertension. 7. Urinary retention with chronic suprapubic catheter. 8. Hearing impairment. 9. Secondary hyperparathyroidism. 10. Anemia, chronic. PLAN: The patient is on carvedilol. He is going to continue with isosorbide. He is on Levemir for his diabetes. He is on Lipitor for dyslipidemia. He is on PhosLo for secondary hyperparathyroidism. The patient is on Synthroid for hypothyroidism. He is currently doing well, being followed by Infectious Disease. I appreciate their input. Bc Mariee MD
[2018-11-23] MEDS: Levothyroxine 75 MCG TAB PO SCH (05:54)
[2018-11-23] MEDS: Insulin Lispro (humaLOG) MEDIUM Coverage SC SCH ×4 (06:40→21:37)
--- NOTE | 2018-11-23 09:21 | PN ---
DATE: 11/23/2018 SUBJECTIVE: The patient has no complaints. PHYSICAL EXAMINATION: VITAL SIGNS: Temperature is 97.5, pulse of 59, blood pressure of 145/68, respirations is 18, repeat blood pressure is 153/59. GENERAL: The patient is lying in bed, flat, comfortable. HEENT: No oral lesion. Anicteric sclerae. Moist mucosa. NECK: No JVD, adenopathy, or thyromegaly. CARDIOVASCULAR: S1 and S2, regular. No murmurs, rubs, or gallops. LUNGS: Clear to auscultation bilaterally. No wheeze, rales, or rhonchi. ABDOMEN: Bowel sounds are positive, soft, nontender and nondistended. EXTREMITIES: No cyanosis, clubbing or edema. The left arm is positive for thrill and bruit on examination of the AVF. ASSESSMENT: 1. End-stage renal disease, on hemodialysis. 2. Diabetes type 2. 3. Urinary tract infection, secondary to Klebsiella and methicillin-resistant Staphylococcus aureus, resolved. 4. Hypothyroidism. 5. Coronary artery disease status post coronary artery bypass grafting. 6. Urinary retention with the suprapubic catheter. 7. Hearing impairment. 8. Anemia, chronic. 9. Secondary hyperparathyroidism. PLAN: The patient is currently on isosorbide. He is on Levemir. His finger stick are improved after decreasing his Levemir dosage. He is receiving Lipitor for dyslipidemia. He is on meropenem for antibiotics. He is on Synthroid for hypothyroidism. He is on tramadol for his pain. He is on a renal diet. He is getting physical therapy. He is going to continue with dialysis. He has no complications during dialysis. Bc Mariee MD
--- NOTE | 2018-11-23 11:11 | CP.PCM.PN ---
<Leann Antoine - Last Filed: 11/23/18 14:40> Subjective - Date & Time of Evaluation Date of Evaluation: 11/23/18 Time of Evaluation: 11:08 - Subjective Subjective: PGY-[address] Gracia Pt has no acute complaint today. L arm fistula bleed, dried blood, no erythema. 14:40: Examined pt again for fistula site. No more bleeding. No ecchymosis. Pt tolerated PT fine with and PT by bedside Objective - Vital Signs/Intake and Output Vital Signs (last 24 hours): Temp Pulse Resp BP Pulse Ox 97.5 F L 56 L 18 119/57 L 98 11/22/18 10:00 11/23/18 07:50 11/22/18 10:00 11/23/18 07:50 11/22/18 13:16 Intake and Output: 11/23/18 11/23/18 06:59 18:59 Intake Total 300 Output Total 50 Balance 250 - Medications Medications: Current Medications Atorvastatin Calcium (Lipitor) 20 mg PO HS SARA; Protocol Last Admin: 11/22/18 21:33 Dose: 20 mg Calcium Acetate (Phoslo) 667 mg PO 0800,1200,1800 SARA; Protocol Last Admin: 11/23/18 07:51 Dose: 667 mg Carvedilol (Coreg) 6.25 mg PO 0800,1800 SARA; Protocol Last Admin: 11/23/18 07:50 Dose: Not Given Dextrose (Dextrose 50% Inj) 0 ml IV STAT PRN; Protocol PRN Reason: Hypoglycemia Protocol Dextrose (Dextrose 5% In Water 1000 Ml) 1,000 mls @ 0 mls/hr IV .Q0M PRN; Protocol PRN Reason: Hypoglycemia Protocol Insulin Detemir (Levemir) 5 unit SC HS SARA; Protocol Last Admin: 11/22/18 22:18 Dose: Not Given Insulin Human Lispro (Humalog Med) 0 units SC ACHS SARA; Protocol Last Admin: 11/23/18 06:40 Dose: Not Given Isosorbide Mononitrate (Imdur Er) 30 mg PO 0600 SARA; Protocol Last Admin: 11/23/18 05:54 Dose: Not Given Levothyroxine Sodium (Synthroid) 75 mcg PO 0600 SARA; Protocol Last Admin: 11/23/18 05:54 Dose: 75 mcg Tramadol HCl (Ultram) 50 mg PO BID PRN; Protocol PRN Reason: Pain, moderate (4-7) - Constitutional Appears: No Acute Distress - Head Exam Head Exam: ATRAUMATIC, NORMAL INSPECTION, NORMOCEPHALIC - Eye Exam Eye Exam: EOMI, Normal appearance, PERRL. absent: Scleral icterus Pupil Exam: NORMAL ACCOMODATION - ENT Exam ENT Exam: Mucous Membranes Moist - Neck Exam Additional comments: supple - Respiratory Exam Respiratory Exam: Clear to Ausculation Bilateral. absent: Rales, Rhonchi, Wheezes - Cardiovascular Exam Cardiovascular Exam: REGULAR RHYTHM, +S1, +S2 - GI/Abdominal Exam GI & Abdominal Exam: Soft, Normal Bowel Sounds. absent: Guarding, Rigid, Tenderness Additional comments: supra pubic dressing d/c/i - Extremities Exam Extremities Exam: absent: Calf Tenderness, Pedal Edema Additional comments: urine yellow, clear - Back Exam Back Exam: absent: CVA tenderness (L), CVA tenderness (R) - Neurological Exam Neurological Exam: Alert, Awake - Psychiatric Exam Psychiatric exam: Normal Affect, Normal Mood - Skin Skin Exam: Dry, Warm Assessment and Plan - Assessment and Plan (Free Text) Plan: Mr Sims, 72 years old male, with a PMH of CAD s/p CABG, pacemaker, ESRD on HD (TTS), DM2, hypothyroidism, HTN and urinary retention s/p a suprapubic catheter (since 2010), recently admitted for hematuria from suprapubic catheter. A: [place] and MRSA Complicated UTI/cystitis with hematuria No SIRS (0/4) recent HCAP PNA (Sep 2018) Hx ESBL UTI (07/2018, 04/2018). Hx ESBL bacteremia (01/2017) as complication from Hx MRSA UTI (2014), Hx Klebsiella and Pseudomonas UTI (> 3 years ago) ascending cholangitis s/p ERCP with stone extraction CAD s/p CABG, pacemaker, HTN, CHF ESRD on HD (TTS) Hx urinary retention s/p a suprapubic catheter (since 2010) Hx Partial SBO, colitis/diverticulitis, keating's esophagus, epididymitis L Home exposure to birds P: - Completed merem and vanco (7 day course) on 11/22/17 - Contact precaution for MRSA - Urology on board - blood culture x neg - continue to monitor clinical course s/r/d/w Dr Gracia <SamiaWiliam cam - Last Filed: 11/23/18 19:20> Objective - Vital Signs/Intake and Output Vital Signs (last 24 hours): Temp Pulse Resp BP Pulse Ox 97.5 F L 60 14 146/69 95 11/23/18 16:00 11/23/18 17:16 11/23/18 16:00 11/23/18 17:16 11/23/18 16:12 - Medications Medications: Current Medications Atorvastatin Calcium (Lipitor) 20 mg PO HS SARA; Protocol Last Admin: 11/22/18 21:33 Dose: 20 mg Calcium Acetate (Phoslo) 667 mg PO 0800,1200,1800 SARA; Protocol Last Admin: 11/23/18 17:18 Dose: 667 mg Carvedilol (Coreg) 6.25 mg PO 0800,1800 SARA; Protocol Last Admin: 11/23/18 17:16 Dose: 6.25 mg Dextrose (Dextrose 50% Inj) 0 ml IV STAT PRN; Protocol PRN Reason: Hypoglycemia Protocol Dextrose (Dextrose 5% In Water 1000 Ml) 1,000 mls @ 0 mls/hr IV .Q0M PRN; Protocol PRN Reason: Hypoglycemia Protocol Insulin Detemir (Levemir) 5 unit SC HS SARA; Protocol Last Admin: 11/22/18 22:18 Dose: Not Given Insulin Human Lispro (Humalog Med) 0 units SC [facility]; Protocol Last Admin: 11/23/18 17:17 Dose: 3 units Isosorbide Mononitrate (Imdur Er) 30 mg PO 0600 SARA; Protocol Last Admin: 11/23/18 05:54 Dose: Not Given Levothyroxine Sodium (Synthroid) 75 mcg PO 0600 SARA; Protocol Last Admin: 11/23/18 05:54 Dose: 75 mcg Tramadol HCl (Ultram) 50 mg PO BID PRN; Protocol PRN Reason: Pain, moderate (4-7) Assessment and Plan - Assessment and Plan (Free Text) Plan: Infectious diseases Attending Physician Attestation Patient seen and examined, discussed with dental assistant medical assistant. I have reviewed the patient's history of present illness, past medical, social, personal and family histories, pertinent physical exam findings, course so far in this hospital admission, pertinent laboratory and imaging results. I agree with the above findings, assessment and plan. In addition, will continue to monitor the patient off antibiotics for this patient who is S/P treatment of MRSA and Klebsiella complicated UTI.
--- NOTE | 2018-11-23 11:21 | PN ---
DATE: 11/23/2018 UROLOGY NOTE SUBJECTIVE: The patient has chronic indwelling suprapubic catheter. No changes at this point. We will recommend changing every 4 to 6 weeks. Further plans will follow. Keaton Friend MD
[2018-11-23] MEDS: Insulin Detemir 100 units/ml Vial (Levemir) SC SCH (21:37)
[2018-11-24] MEDS: Levothyroxine 75 MCG TAB PO SCH (06:04)
[2018-11-24] MEDS: Insulin Lispro (humaLOG) MEDIUM Coverage SC SCH ×4 (07:04→21:59)
--- NOTE | 2018-11-24 11:42 | PN ---
DATE: 11/24/2018 SUBJECTIVE: The patient is in bed, in no acute distress, nontoxic. PHYSICAL EXAMINATION: VITAL SIGNS: Temperature is 97, blood pressure is 140/60, respiratory rate of 18, heart rate of 59. HEENT: Unremarkable. NECK: Supple. LUNGS: Have decreased breath sounds. HEART: Normal S1, S2. ABDOMEN: Soft. LABORATORY DATA: Reviewed. ASSESSMENT AND PLAN: This is a 72-year-old male with coronary artery disease, coronary bypass graft, pacemaker, end-stage renal disease on hemodialysis, diabetes, hypothyroidism, hypertension, urinary retention, suprapubic catheter with Klebsiella and methicillin-resistant Staphylococcus aureus complicated urinary tract infection, cystitis and hematuria, currently off of antibiotics. Isrrael Ni MD
[2018-11-24] MEDS: Insulin Detemir 100 units/ml Vial (Levemir) SC SCH (21:59)
--- NOTE | 2018-11-25 00:02 | PN ---
DATE: 11/24/2018 SUBJECTIVE: The patient is 72 years old. Seen and examined. Sitting in chair. Seems to be comfortable. Offers no complaint. Occasional cough. Otherwise doing well. PHYSICAL EXAMINATION: VITAL SIGNS: He is afebrile, pulse 60, respirations 20, blood pressure 150/56. LUNGS: Bilateral fair airflow. No rhonchi or crackle. HEART: S1 and S2 audible. ABDOMEN: Soft, nontender. No rebound. No guarding. NEUROLOGICAL: He is awake, alert, oriented. Little hard of hearing. EXTREMITIES: Bilateral legs, no edema. LABORATORY EXAMINATION: Blood sugar is 112. ASSESSMENT: 1. Status post hematuria. 2. Extended-spectrum beta-lactamases positive Escherichia coli urinary tract infection. 3. End-stage renal disease, on hemodialysis. 4. Klebsiella oxytoca urinary tract infection. 5. Methicillin-resistant Staphylococcus aureus urinary tract infection. 6. Insulin-dependent diabetes. 7. Hypothyroidism. 8. Coronary artery disease, status post open heart surgery. 9. Status post suprapubic catheterization. 10. Chronic anemia. PLAN: Currently, the patient is carvedilol. We will continue him on blood sugar monitoring. He is on isosorbide, Levemir 5 units at bedtime, atorvastatin 20 mg at bedtime. He is on PhosLo. He is on levothyroxine and Lyrica as needed. We will follow up in a.m. Marcos Elias MD
[2018-11-25] MEDS: Levothyroxine 75 MCG TAB PO SCH (06:11)
[2018-11-25] MEDS: Insulin Lispro (humaLOG) MEDIUM Coverage SC SCH ×4 (06:55→22:29)
[2018-11-25 10:39] VITALS: RESP 18; TEMP 97.8
[2018-11-25 16:09] VITALS: O2SAT 97
--- NOTE | 2018-11-25 18:01 | PN ---
DATE: 11/25/2018 SUBJECTIVE: The patient is a 72-year-old, seen and examined, sitting in chair, at the bedside. Offers no complaint. PHYSICAL EXAMINATION VITAL SIGNS: He is afebrile, pulse 60, respirations 18, blood pressure 131/61. LUNGS: Bilateral fair airflow. No rhonchi or crackle. HEART: S1 and S2 audible. ABDOMEN: Soft, nontender. No rebound. No guarding. NEUROLOGICAL: He is awake, alert, oriented and able to communicate. Participating in therapy. EXTREMITIES: Bilateral legs, no edema. LABORATORY DATA: Blood sugar is 157. ASSESSMENT AND PLAN: 1. Status post hematuria. 2. Extended-spectrum beta-lactamases positive Escherichia coli urinary tract infection. 3. Hypertension. 4. End-stage renal disease, on hemodialysis. 5. Coronary artery disease, status post open heart surgery. 6. Chronic anemia. 7. Klebsiella oxytoca urinary tract infection. PLAN: The patient is to finish his course of antibiotic. Encourage ambulation. Currently, he is on Carvedilol. Blood sugar is being monitored. Possible discharge plan. Marcos Elias MD
[2018-11-25] MEDS: Insulin Detemir 100 units/ml Vial (Levemir) SC SCH (22:30)
--- NOTE | 2018-11-25 23:42 | PN ---
DATE: 11/25/2018 SUBJECTIVE: The patient is in bed, in no acute distress. PHYSICAL EXAMINATION: VITAL SIGNS: Temperature is 97, blood pressure is 150/60, respiratory rate of 18. HEENT: Unremarkable. NECK: Supple. LUNGS: Decreased breath sounds. HEART: Normal S1 and S2. ABDOMEN: Soft and nontender. LABORATORY DATA: Reviewed. ASSESSMENT AND PLAN: This is a 72-year-old male with coronary artery disease, coronary bypass graft, pacemaker, endstage renal disease, on hemodialysis, diabetes, hypothyroidism, hypertension, urinary retention, suprapubic catheter, Klebsiella. Currently off antibiotics, afebrile, doing well. Isrrael Ni MD
[2018-11-26] MEDS: Levothyroxine 75 MCG TAB PO SCH (05:36)
--- NOTE | 2018-11-26 07:07 | CP.PCM.PN ---
<Leann Antoine - Last Filed: 11/26/18 10:03> Subjective - Date & Time of Evaluation Date of Evaluation: 11/26/18 Time of Evaluation: 07:06 - Subjective Subjective: ID Progress Note PGY-[address] Gracia Pt was sleeping, easily awaken. No acute distress. No pain anywhere. ROS per 12 point system negative Objective - Vital Signs/Intake and Output Vital Signs (last 24 hours): Temp Pulse Resp BP Pulse Ox 97.8 F 61 18 154/68 H 97 11/25/18 16:00 11/25/18 17:32 11/25/18 16:00 11/25/18 17:32 11/25/18 16:00 Intake and Output: 11/26/18 11/26/18 06:59 18:59 Intake Total 320 Output Total 50 Balance 270 - Medications Medications: Current Medications Atorvastatin Calcium (Lipitor) 20 mg PO HS SARA; Protocol Last Admin: 11/25/18 21:32 Dose: 20 mg Calcium Acetate (Phoslo) 667 mg PO 0800,1200,1800 SARA; Protocol Last Admin: 11/25/18 17:35 Dose: 667 mg Carvedilol (Coreg) 6.25 mg PO 0800,1800 [facility]; Protocol Last Admin: 11/25/18 17:32 Dose: 6.25 mg Dextrose (Dextrose 50% Inj) 0 ml IV STAT PRN; Protocol PRN Reason: Hypoglycemia Protocol Dextrose (Dextrose 5% In Water 1000 Ml) 1,000 mls @ 0 mls/hr IV .Q0M PRN; Protocol PRN Reason: Hypoglycemia Protocol Insulin Detemir (Levemir) 5 unit SC HS SARA; Protocol Last Admin: 11/25/18 22:30 Dose: 5 units Insulin Human Lispro (Humalog Med) 0 units SC [facility] SARA; Protocol Last Admin: 11/25/18 22:29 Dose: Not Given Isosorbide Mononitrate (Imdur Er) 30 mg PO 0600 SARA; Protocol Last Admin: 11/26/18 05:36 Dose: 30 mg Levothyroxine Sodium (Synthroid) 75 mcg PO 0600 [facility]ARA; Protocol Last Admin: 11/26/18 05:36 Dose: 75 mcg Tramadol HCl (Ultram) 50 mg PO BID PRN; Protocol PRN Reason: Pain, moderate (4-7) - Constitutional Appears: No Acute Distress - Head Exam Head Exam: ATRAUMATIC, NORMAL INSPECTION, NORMOCEPHALIC - Eye Exam Eye Exam: EOMI, Normal appearance, PERRL. absent: Scleral icterus Pupil Exam: NORMAL ACCOMODATION - ENT Exam ENT Exam: Mucous Membranes Moist - Neck Exam Additional comments: supple - Respiratory Exam Respiratory Exam: Clear to Ausculation Bilateral. absent: Rales, Rhonchi, Wheezes - Cardiovascular Exam Cardiovascular Exam: REGULAR RHYTHM, +S1, +S2. absent: Murmur - GI/Abdominal Exam GI & Abdominal Exam: Soft, Normal Bowel Sounds. absent: Tenderness Additional comments: suprapubic dressing c/d/i - Extremities Exam Extremities Exam: absent: Calf Tenderness, Pedal Edema Additional comments: urine yellow - Back Exam Back Exam: absent: CVA tenderness (L), CVA tenderness (R), paraspinal tenderness - Neurological Exam Neurological Exam: Alert, Awake - Psychiatric Exam Psychiatric exam: Normal Affect, Normal Mood - Skin Skin Exam: Dry, Warm Assessment and Plan - Assessment and Plan (Free Text) Plan: Mr Sims, 72 years old male, with a PMH of CAD s/p CABG, pacemaker, ESRD on HD (TTS), DM2, hypothyroidism, HTN and urinary retention s/p a suprapubic catheter (since 2010), recently admitted for hematuria from suprapubic catheter. A: Klebseilla and MRSA Complicated UTI/cystitis with hematuria No SIRS (0/4) recent HCAP PNA (Sep 2018) Hx ESBL UTI (07/2018, 04/2018). Hx ESBL bacteremia (01/2017) as complication from Hx MRSA UTI (2014), Hx Klebsiella and Pseudomonas UTI (> 3 years ago) ascending cholangitis s/p ERCP with stone extraction CAD s/p CABG, pacemaker, HTN, CHF ESRD on HD (TTS) Hx urinary retention s/p a suprapubic catheter (since 2010) Hx Partial SBO, colitis/diverticulitis, keating's esophagus, epididymitis L Home exposure to birds P: - Completed merem and vanco (7 day course) on 11/22/17 - Contact precaution for MRSA - blood culture x neg - continue to monitor clinical course. Likely discharge from TCU today - Outpatient follow up with urology and PMD. s/r/d/w Dr Garcia <SamiaWiliam - Last Filed: 11/26/18 16:58> Objective - Vital Signs/Intake and Output Vital Signs (last 24 hours): Temp Pulse Resp BP Pulse Ox 97.8 F 60 18 138/65 97 11/25/18 16:00 11/26/18 07:55 11/25/18 16:00 11/26/18 07:55 11/25/18 16:00 Intake and Output: 11/26/18 11/26/18 06:59 18:59 Intake Total 320 Output Total 50 Balance 270 Assessment and Plan - Assessment and Plan (Free Text) Plan: Infectious diseases Attending Physician Attestation Patient seen and examined, discussed with medical equipment repairer. I have reviewed the patient's history of present illness, past medical, social, personal and family histories, pertinent physical exam findings, course so far in this hospital admission, pertinent laboratory and imaging results. I agree with the above findings, assessment and plan. In addition, patient is S/P treatment of UTI with MRSA and Klebsiella - monitor off antibiotics.
[2018-11-26] MEDS: Insulin Lispro (humaLOG) MEDIUM Coverage SC SCH ×2 (07:34→11:16)
[2018-11-26 07:56] VITALS: BP 138/65; PULSE 60
--- NOTE | 2018-11-27 00:04 | DS ---
HOSPITAL COURSE: This is a 72-year-old male who has been on the Transitional Care Unit for rehab. The patient has been doing fairly well. He has no complaints of any chest pain. No shortness of breath. No headache or dizziness. He was being treated for UTI secondary to Klebsiella and MRSA and he has finished his treatment. He is going to be discharged home today. He has no headaches or dizziness. No nausea. PHYSICAL EXAMINATION: VITAL SIGNS: Temperature is 97.8, pulse of 58, blood pressure is 138/65, respirations 18, and O2 saturation 97%. GENERAL: The patient is lying in bed, flat, comfortable. HEENT: No oral lesion. Anicteric sclerae. Moist mucosa. NECK: No JVD, adenopathy, or thyromegaly. CARDIOVASCULAR: S1 and S2, regular. No murmurs, rubs, or gallops. LUNGS: Clear to auscultation bilaterally. No wheeze, rales, or rhonchi. ABDOMEN: Bowel sounds are positive, soft, nontender and nondistended. EXTREMITIES: No cyanosis, clubbing or edema. ASSESSMENT: 1. End-stage renal disease, on hemodialysis. 2. Diabetes type II. 3. Urinary tract infection secondary to Klebsiella and methicillin-resistant Staphylococcus aureus. 4. Hypothyroidism. 5. Coronary artery disease, status post coronary artery bypass graft. 6. Urinary retention with suprapubic catheter. 7. Hearing impairment. 8. Anemia, chronic. 9. Secondary hyperparathyroidism. PLAN: The patient is currently on carvedilol. He is going to continue with isosorbide. He is on Levemir 5 units in the evening. He is on Synthroid for hypothyroidism. He is on tramadol. He is continuing on dialysis. He is on a renal diet. Bc Mariee MD
== END 2018-11-26 14:49 | disposition home or self-care (01) | DRG 689 ==
LOC: TRCU 12:28
PROVIDERS: ADMIT Internal Medicine Nephrology; ATTEND Internal Medicine Nephrology
PROC: F07Z9FZ Gait Training/Functional Ambulation Treatment using Assistive, Adaptive, Supportive or Protective Equipment (ICD-10-PCS; principal; 2018-11-18)
PROC: F07M6ZZ Therapeutic Exercise Treatment of Musculoskeletal System - Whole Body (ICD-10-PCS; 2018-11-18)
PROC: F08Z1ZZ Dressing Techniques Treatment (ICD-10-PCS; 2018-11-19)
PROC: F08Z2ZZ Grooming/Personal Hygiene Treatment (ICD-10-PCS; 2018-11-19)
PROC: F08Z0ZZ Bathing/Showering Techniques Treatment (ICD-10-PCS; 2018-11-19)
PROC: F08Z4ZZ Home Management Treatment (ICD-10-PCS; 2018-11-19)
DX: N30.91 Cystitis, unspecified with hematuria (principal); N18.6 End stage renal disease; I13.2 Hypertensive heart and chronic kidney disease with heart failure and with stage 5 chronic kidney disease, or end stage renal disease; N25.81 Secondary hyperparathyroidism of renal origin; B96.1 Klebsiella pneumoniae [K. pneumoniae] as the cause of diseases classified elsewhere; B96.20 Unspecified Escherichia coli [E. coli] as the cause of diseases classified elsewhere; B96.89 Other specified bacterial agents as the cause of diseases classified elsewhere; B95.61 Methicillin susceptible Staphylococcus aureus infection as the cause of diseases classified elsewhere; D64.9 Anemia, unspecified; E03.9 Hypothyroidism, unspecified; E11.22 Type 2 diabetes mellitus with diabetic chronic kidney disease; E78.00 Pure hypercholesterolemia, unspecified; F03.90 Unspecified dementia, unspecified severity, without behavioral disturbance, psychotic disturbance, mood disturbance, and anxiety; H91.91 Unspecified hearing loss, right ear; I25.10 Atherosclerotic heart disease of native coronary artery without angina pectoris; I50.9 Heart failure, unspecified; J44.9 Chronic obstructive pulmonary disease, unspecified; K21.9 Gastro-esophageal reflux disease without esophagitis; K22.70 Barrett's esophagus without dysplasia; N31.9 Neuromuscular dysfunction of bladder, unspecified; Z79.4 Long term (current) use of insulin; Z86.14 Personal history of Methicillin resistant Staphylococcus aureus infection; Z93.59 Other cystostomy status; Z95.1 Presence of aortocoronary bypass graft; Z99.2 Dependence on renal dialysis; Z90.49 Acquired absence of other specified parts of digestive tract; Z98.49 Cataract extraction status, unspecified eye; E78.5 Hyperlipidemia, unspecified; Z91.81 History of falling

== ENCOUNTER 2018-12-15 16:30 | Inpatient (IN) | payer MEDICARE, OTHER ==
[2018-12-15 16:37] VITALS: BMI 22.1
[2018-12-15 17:29] LABS: VENOUS BLOOD GAS BASE EXCESS 8.8 mmol/L (0.0-2.0); VENOUS BLOOD GAS PO2 32 mm/Hg (30-55); VENOUS BLOOD PH 7.44 (7.32-7.43)
--- NOTE | 2018-12-15 17:42 | ED PDOC ---
Arrival/HPI - General Chief Complaint: Fever Time Seen by Provider: 12/15/18 17:07 Historian: Patient - History of Present Illness Narrative History of Present Illness (Text): 12/15/18 17:39 72 year old male, with past medical history of CAD s/p CABG, pacemaker, ESRD on HD (TTS), DM2, hypothyroidism, HTN and urinary retention s/p a suprapubic catheter (since 2010), presents to emergency department sent for fever when receiving full round of dialysis this morning. Patient was given Tylenol at dialysis for his fever. Patient reports cough for the past five months with associated vomiting and also states experiencing diarrhea last night. Family member notes patient has not made urine since yesterday. Patient denies headache, dizziness, chest pain, shortness of breath, abdominal pain, back pain, neck pain, or any other complaints. Time/Duration: Other (this morning ) Symptom Onset: Gradual Symptom Course: Unchanged Activities at Onset: Light Context: Other (dialysis) Past Medical History - Provider Review Nursing Documentation Reviewed: Yes - Infectious Disease Hx of Infectious Diseases: None - Tetanus Immunization Tetanus Immunization: Unknown - Cardiac Hx Cardiac Disorders: Yes - Pulmonary Hx Chronic Obstructive Pulmonary Disease (COPD): Yes - Neurological Hx Neurological Disorder: Yes Hx Dementia: Yes - HEENT Hx HEENT Disorder: Yes Hx Cataracts: Yes (sx) Hx Deafness: Yes (R ear) Other/Comment: hard of hearing - Renal Hx Renal Failure: Yes - Endocrine/Metabolic Hx Diabetes Mellitus Type 2: Yes Hx Hypothyroidism: Yes - Hematological/Oncological Hx Anemia: Yes - Integumentary Hx Dermatological Disorder: (BILATERAL LEG EDEMA MORE ON LEFT.SHUNT TO LEFT UPPER ARM,SUPRAPUBIC CATHETE) Other/Comment: ble skin discoloration - Musculoskeletal/Rheumatological Hx Falls: No - Gastrointestinal Hx Gastrointestinal Disorders: (hx colitis/diverticulitis) - Genitourinary/Gynecological Hx Genitourinary Disorders: Yes - Psychiatric Hx Substance Use: No - Past Surgical History Past Surgical History: No Previous - Surgical History Hx Open Heart Surgery: Yes - Anesthesia Hx Anesthesia: Yes Hx Anesthesia Reactions: No Hx Malignant Hyperthermia: No - Suicidal Assessment Feels Threatened In Home Enviroment: No Family/Social History - Physician Review Nursing Documentation Reviewed: Yes Family/Social History: Unknown Family HX Smoking Status: Never Smoked Hx Alcohol Use: No Hx Substance Use: No Hx Substance Use Treatment: No Allergies/Home Meds Allergies/Adverse Reactions: Allergies dye Allergy (Uncoded 11/19/18 06:26) REDNESS Home Medications: Home Meds Medication Instructions Recorded Confirmed RX: Atorvastatin [Lipitor] 20 mg PO HS 02/05/17 12/20/18 RX: Calcium Acetate [Phoslo] 667 mg PO TID 02/05/17 12/20/18 RX: Isosorbide Mononitrate ER 30 mg PO DAILY 02/05/17 12/20/18 [Imdur ER] Insulin Glargine, Recombina 10 unit SC [facility] 12/20/18 12/20/18 [Lantus] SITagliptin [Januvia] 50 mg PO DAILY 12/20/18 12/20/18 Sevelamer Carbonate [Renvela] 800 mg PO TID 12/20/18 12/20/18 hydrALAZINE [hydralazine 50 mg PO TID 12/20/18 12/20/18 Hydrochloride] Review of Systems - Physician Review All systems were reviewed & negative as marked: Yes - Review of Systems Constitutional: Fevers Respiratory: Cough (5 months). absent: SOB, Wheezing Cardiovascular: absent: Chest Pain Gastrointestinal: Diarrhea, Vomiting (after cough). absent: Abdominal Pain Genitourinary Male: Urinary Output Changes (since yesterday). absent: Hematuria Musculoskeletal: absent: Back Pain, Neck Pain Skin: absent: Rash Neurological: absent: Headache, Dizziness Physical Exam Vital Signs Reviewed: Yes Vital Signs Temp Pulse Resp BP Pulse Ox 12/15/18 16:37 101.7 F H 60 16 107/43 L 96 Temperature: Febrile Blood Pressure: Normal Pulse: Regular Respiratory Rate: Normal Appearance: Positive for: Well-Appearing, Non-Toxic, Comfortable Pain Distress: None Mental Status: Positive for: Alert and Oriented X 3 - Systems Exam Mouth: Present: Other (intermittent post tussive emesis ) Abdomen: Present: Other (increased bowel sounds) Genitourinary Male: Present: Other (generally makes urine with dialysis, hasn't only since yesterday, suprapubic catheter ) Upper Extremity: Present: Other (dialysis graft in left upper extremity ) Lower Extremity: No: Swelling Medical Decision Making ED Course and Treatment: 12/15/18 18:04 Impression: 72 year old male presents to emergency department for fever following round of dialysis this morning. Plan: -- VBG -- CT Abdomen and Pelvis -- EKG -- Labs -- Chest x-ray -- Urinalysis -- Reassess and disposition Prior Visits: Notes and results from previous visits were reviewed. Patient was last seen in the emergency department on Progress Notes: 12/15/18 17:30 Site of suprapubic catheter found to be dry, clean, intact. 12/15/18 18:02 EKG: Ordered, reviewed, and independently interpreted the EKG. Rate : 59 BPM Interpretation : Pace Comparison : No change from EKG on 09/27/18 12/15/18 19:00 Case discussed with , who is aware and agrees with plan. accepts patient into service. 12/15/18 19:52 CT abdomen and pelvis reviewed by radiologist, Impression: Mild subsegmental atelectasis and/or scarring at the lung bases. Mildly enlarged heart. Coronary artery calcifications. Postoperative changes. Status post cholecystectomy. Fluid-filled loops of small bowel throughout the abdomen and pelvis. Mild amount of ascites within the abdomen and pelvis. Perinephric stranding bilaterally. Cystostomy tube within the bladder. Mild bladder wall thickening. Clinical correlation advised. Electronically signed on Dec 15, 2018 6:34:31 PM EST by: Rolo Salvador M.D., Certified by [facility], Diagnostic Radiology - Lab Interpretations Lab Results: pO2 32 mm/Hg (30-55) 12/15/18 17:20 VBG pH 7.44 (7.32-7.43) H 12/15/18 17:20 VBG pCO2 51.0 (40-60) 12/15/18 17:20 VBG HCO3 34.6 mmol/l (21-28) H 12/15/18 17:20 VBG Total CO2 36.2 mmol.L (22-28) H 12/15/18 17:20 VBG O2 Sat (Calc) 69.3 % (40-65) H 12/15/18 17:20 VBG Base Excess 8.8 mmol/L (0.0-2.0) H 12/15/18 17:20 VBG Potassium 3.2 mmol/L (3.6-5.2) L 12/15/18 17:20 Sodium 134.0 mmol/L (132-148) 12/15/18 17:20 Chloride 96.0 mmol/L (98-107) L 12/15/18 17:20 Glucose 172 mg/dl (75-110) H 12/15/18 17:20 Lactate 1.2 mmol/L (0.7-2.1) 12/15/18 17:20 FiO2 21.0 % 12/15/18 17:20 - RAD Interpretation Radiology Orders: 12/15/18 17:10 CHEST PORTABLE [RAD] Stat 12/15/18 17:36 ABD & PELVIS W/O PO OR IV CONT [CT] Stat - Scribe Statement The provider has reviewed the documentation as recorded by the Scribe Kelsey Carney All medical record entries made by the Scribe were at my direction and personally dictated by me. I have reviewed the chart and agree that the record accurately reflects my personal performance of the history, physical exam, medical decision making, and the department course for this patient. I have also personally directed, reviewed, and agree with the discharge instructions and disposition. Disposition/Present on Arrival - Present on Arrival Any Indicators Present on Arrival: Yes History of DVT/PE: No History of Uncontrolled Diabetes: No Urinary Catheter: Yes (suprapubic) History of Decub. Ulcer: No History Surgical Site Infection Following: None - Disposition Have Diagnosis and Disposition been Completed?: Yes Diagnosis: Renal failure, Diarrhea, Cough, Hyperglycemia, Fever Disposition: HOSPITALIZED Disposition Time: 19:05 Patient Plan: Admission Condition: FAIR
[2018-12-15 18:11] LABS: BASO # 0.03 K/mm3 (0.0-2.0); BASO % 0.4 % (0.0-3.0); EOS # 0.2 (0.0-0.7); EOS % 2.5 % (1.5-5.0); HEMOGLOBIN 10.6 g/dL (14.0-18.0); LYMPH # 0.9 (1.2-3.4); LYMPH % 11.7 % (22.0-35.0); MEAN CELL VOLUME 96.9 fl (80.0-105.0); MEAN CORPUSCULAR HEMOGLOBIN 30.3 pg (25.0-35.0); MEAN CORPUSCULAR HGB CONC 31.3 g/dl (31.0-37.0); MEAN PLATELET VOLUME 10.8 fl (7.0-11.0); MONO % 13.2 % (1.0-6.0); RBC 3.5 10^6/uL (3.5-6.1); RED CELL DISTRIBUTION WIDTH 14.6 % (11.5-14.5); WHITE BLOOD COUNT 7.3 10^3/uL (4.5-11.0)
[2018-12-15] MEDS ORDERED: Vancomycin 1gm in NS 250ml 1 GM/250 ML BAG IVPB STA (18:40)
[2018-12-15] MEDS ORDERED: Piperacillin/Tazobact 3.375 gm 100 ML IVPB STA (18:43)
[2018-12-15 18:47] LABS: ALBUMIN 3.9 g/dL (3.0-4.8); CALCIUM 9.1 mg/dL (8.4-10.5)
--- NOTE | 2018-12-15 18:58 | CT ---
Date of service: 12/15/2018 PROCEDURE: CT Abdomen and Pelvis without intravenous contrast HISTORY: FEVER, diarrhea COMPARISON: Comparison is made to the previous study dated 03/30/2018 TECHNIQUE: Axial and reformatted coronal and sagittal CT images of the abdomen and pelvis were obtained without IV or oral contrast administration.. Contrast dose: 0 Radiation dose: Total exam DLP = 252.01 mGy-cm. This CT exam was performed using one or more of the following dose reduction techniques: Automated exposure control, adjustment of the mA and/or kV according to patient size, and/or use of iterative reconstruction technique. FINDINGS: LOWER THORAX: There is 1.2 centimeter nodule at the left lower lung noted. The heart is moderately enlarged. No evidence of significant pleural effusion or pericardial effusion. LIVER: Unremarkable. No gross lesion or ductal dilatation. GALLBLADDER AND BILE DUCTS: Status post cholecystectomy. PANCREAS: Unremarkable. No gross lesion or ductal dilatation. SPLEEN: Unremarkable. ADRENALS: Again noted is 0.8 centimeter nodule at the left adrenal gland KIDNEYS AND URETERS: Mildly dilated right kidney collecting system noted without definite evidence of obstructing ureteral calculi. The left kidney is unremarkable. VASCULATURE: Unremarkable. No aortic aneurysm. Diffuse atherosclerotic calcification noted in the abdominal aorta and iliac arteries. BOWEL: Unremarkable. No obstruction. No gross mural thickening. No definite evidence of enteritis or colitis noted in this noncontrast study. APPENDIX: No evidence of appendicitis. PERITONEUM: Small amount of free fluid in the right lower abdomen noted. Diffuse mesenteric stranding noted. LYMPH NODES: Unremarkable. No enlarged lymph nodes. BLADDER: Unremarkable. REPRODUCTIVE: There is suprapubic Young catheter extending to the bladder. Bladder wall thickening is noted. BONES: The prostate and seminal vesicles are mildly enlarged. OTHER FINDINGS: None. IMPRESSION: Suboptimal assessment without IV or oral contrast administration. No definite evidence of colitis or enteritis. Small ascites. Mildly dilated right kidney collecting system without evidence of obstructing calculus.
[2018-12-16] MEDS ORDERED: Benzocaine/Menthol (Cepacol) Lozenge MT PRN (01:02)
[2018-12-16] MEDS: Levothyroxine 75 MCG TAB PO SCH (05:36)
--- NOTE | 2018-12-16 07:02 | CP.PCM.HP ---
<Sharron Chun - Last Filed: 12/16/18 14:45> History of Present Illness - History of Present Illness History of Present Illness: Patient is Stateless speaking only and RAMBO Caceres translated at bedside. Please note patient is a poor historian and HPI mostly as per EMR as patient did not know why he was admitted and only knew that his brought him in. 72yo male PMHx CAD s/p CABG, pacemaker, ESRD on HD (TTS), DM2, hypothyroidism, HTN and urinary retention s/p a suprapubic catheter (since 2010) recently hospitalized, presents for fever during HD on 12/15/18. As per EMR patient also complained of a cough for 5 months with vomiting and diarrhea. As per EMR, family noted patient had not made any urine since the day prior. This AM patient was seen and examined sitting up in a chair eating breakfast. Denied acute complaints of fever, chills, headache, dizziness, chest pain, palpitations, SOB, cough, abdominal pain, nausea, vomiting, diarrhea, constipation, b/l LE swelling/pain. Patient reported he felt like he may have a urinary infection which is why he has been admitted. PMD: Dr. Georges PMHx: MRSA UTI (10/2018), Hx ESBL UTI (07/2018, 04/2018), Hx ESBL bacteremia (01/2017), Hx MRSA UTI (2014), Hx Klebsiella and Pseudomonas UTI (> 3 years ago), CAD s/p CABG, pacemaker, HTN, CHF, COPD, PE, DM2, ESRD on HD (TTS), hypothyroidism, urinary retention from neurogenic bladder s/p a suprapubic catheter (since 2010), Cataracts, R ear deaf, hard of hearing, Hx Partial SBO, ascending cholangitis s/p ERCP with stone extraction, colitis/diverticulitis, Hx falls, GERD, hx keating's esophagus, Hx epididymitis L PSurgHx: LUE AV fistular placement, lap cholecysectomy 2016, cataract surgery, suprapubic catheter ALL: dye Meds: pls see chart SocHx: denies EtOH, surg use, tobacco use FamHx: noncontributory Present on Admission - Present on Admission Any Indicators Present on Admission: No Review of Systems - Review of Systems All systems: reviewed and no additional remarkable complaints except Review of Systems: as per HPI Past Patient History - Infectious Disease Hx of Infectious Diseases: None - Tetanus Immunizations Tetanus Immunization: Unknown - Past Medical History & Family History Past Medical History?: Yes - Past Social History Smoking Status: Never Smoked - CARDIAC Hx Cardiac Disorders: Yes Hx Congestive Heart Failure: Yes Hx Hypertension: Yes Hx Pacemaker: Yes - PULMONARY Hx Respiratory Disorders: Yes Hx Asthma: Yes - NEUROLOGICAL Hx Neurological Disorder: Yes - HEENT Hx HEENT Problems: Yes Hx Cataracts: Yes (sx) Hx Deafness: Yes (Left ear hearing aid) Other/Comment: hard of hearing - RENAL Hx Renal Failure: Yes (HD TTS) - ENDOCRINE/METABOLIC Hx Diabetes Mellitus Type 2: Yes Hx Hypothyroidism: Yes - HEMATOLOGICAL/ONCOLOGICAL Hx Blood Disorders: No - INTEGUMENTARY Hx Dermatological Problems: (BILATERAL LEG EDEMA MORE ON LEFT.SHUNT TO LEFT UPPER ARM,SUPRAPUBIC CATHETE) Other/Comment: ble skin discoloration - MUSCULOSKELETAL/RHEUMATOLOGICAL Hx Musculoskeletal Disorders: No Hx Falls: No - GASTROINTESTINAL Hx Gastrointestinal Disorders: Yes (hx colitis/diverticulitis) - GENITOURINARY/GYNECOLOGICAL Hx Genitourinary Disorders: Yes (Suprapubic catheter 2011) - PSYCHIATRIC Hx Psychophysiologic Disorder: No Hx Substance Use: No - SURGICAL HISTORY Hx Surgeries: Yes Hx Open Heart Surgery: Yes - ANESTHESIA Hx Anesthesia: Yes Hx Anesthesia Reactions: No Hx Malignant Hyperthermia: No Meds Allergies/Adverse Reactions: Allergies Allergy/AdvReac Type Severity Reaction Status Date / Time dye Allergy REDNESS Uncoded 11/19/18 06:26 Physical Exam - Constitutional Appears: Non-toxic, No Acute Distress - Head Exam Head Exam: ATRAUMATIC, NORMAL INSPECTION, NORMOCEPHALIC - Eye Exam Eye Exam: EOMI, Normal appearance, PERRL. absent: Conjunctival injection, Scleral icterus - ENT Exam ENT Exam: Mucous Membranes Moist - Neck Exam Neck exam: Positive for: Full Rom, Normal Inspection. Negative for: Lymphadenopathy - Respiratory Exam Respiratory Exam: NORMAL BREATHING PATTERN. absent: Accessory Muscle Use, Rales, Rhonchi, Wheezes, Respiratory Distress - Cardiovascular Exam Cardiovascular Exam: REGULAR RHYTHM, +S1, +S2. absent: Systolic Murmur - GI/Abdominal Exam GI & Abdominal Exam: Normal Bowel Sounds, Soft Additional comments: suprapubic cath dressings c/d/i - Extremities Exam Extremities exam: Positive for: normal capillary refill, normal inspection, pedal pulses present Additional comments: LUE dialysis graft - Back Exam Back exam: NORMAL INSPECTION. absent: rash noted - Neurological Exam Neurological exam: Alert, Oriented x3 - Psychiatric Exam Psychiatric exam: Normal Affect, Normal Mood - Skin Skin Exam: Dry, Intact, Normal Color, Warm Results - Vital Signs Recent Vital Signs: Last Vital Signs Temp 98.8 F 12/15/18 18:21 Pulse 56 L 12/16/18 06:00 Resp 19 12/15/18 20:52 BP 108/56 L 12/15/18 18:21 Pulse Ox 95 12/15/18 18:21 - Labs Result Diagrams: 12/16/18 08:00 12/16/18 08:00 Labs: Laboratory Results - last 24 hr 12/15/18 12/15/18 12/15/18 17:20 17:45 17:45 WBC 7.3 D RBC 3.50 Hgb 10.6 L Hct 33.9 L MCV 96.9 MCH 30.3 MCHC 31.3 RDW 14.6 H Plt Count 150 MPV 10.8 Neut % (Auto) 72.2 H Lymph % (Auto) 11.7 L [place] % (Auto) 13.2 H Eos % (Auto) 2.5 Baso % (Auto) 0.4 Lymph # (Auto) 0.9 L [place] # (Auto) 1.0 H Eos # (Auto) 0.2 Baso # (Auto) 0.03 Absolute Neuts (auto) 5.25 pO2 32 VBG pH 7.44 H VBG pCO2 51.0 VBG HCO3 34.6 H VBG Total CO2 36.2 H VBG O2 Sat (Calc) 69.3 H VBG Base Excess 8.8 H VBG Potassium 3.2 L Sodium 134.0 135 Chloride 96.0 L 95 L Glucose 172 H Lactate 1.2 FiO2 21.0 Potassium 3.4 L Carbon Dioxide 32 Anion Gap 12 BUN 20 Creatinine 2.4 H Est GFR ( Amer) 32 Est GFR (Non-Af Amer) 27 Random Glucose 174 H Calcium 9.1 Phosphorus 2.5 Magnesium 2.1 Total Bilirubin 1.3 AST 36 ALT 33 Alkaline Phosphatase 435 H D Total Protein 7.8 Albumin 3.9 Globulin 3.9 Albumin/Globulin Ratio 1.0 L Venous Blood Potassium 3.2 L Influenza Typ A,B (EIA) 12/15/18 17:45 WBC RBC Hgb Hct MCV MCH MCHC RDW Plt Count MPV Neut % (Auto) Lymph % (Auto) [place] % (Auto) Eos % (Auto) Baso % (Auto) Lymph # (Auto) [place] # (Auto) Eos # (Auto) Baso # (Auto) Absolute Neuts (auto) pO2 VBG pH VBG pCO2 VBG HCO3 VBG Total CO2 VBG O2 Sat (Calc) VBG Base Excess VBG Potassium Sodium Chloride Glucose Lactate FiO2 Potassium Carbon Dioxide Anion Gap BUN Creatinine Est GFR ( Amer) Est GFR (Non-Af Amer) Random Glucose Calcium Phosphorus Magnesium Total Bilirubin AST ALT Alkaline Phosphatase Total Protein Albumin Globulin Albumin/Globulin Ratio Venous Blood Potassium Influenza Typ A,B (EIA) Negative for flu a/b Assessment & Plan - Assessment and Plan (Free Text) Assessment: 1. Fever likely secondary to UTI vs HCAP 2. Decreased urinary output from suprapubic catheter 3. ESRD on HD [TTS] 4. CAD s/p CABG 5. Pacemaker 6. DM2 7. Hypothyroidism 8. HTN 9. Deconditioning Plan: Patient's vitals, blood work, and imaging reviewed. Consent for HD attained with help of hand bander RAMBO Caceres and placed in chart. Strong suspicion for UTI in patient; unable to obtain U/A or urine c&s at this time as patient has no urinary output from catheter. Patient on Merrem as per ID at this time- pending sepsis work up. Elevated procalcitonin 3.25. Tylenol on board for elevated temp. Patient scheduled for HD TTS. Continue home Lipitor, Coreg, and Imdur for CAD and HTN. Continue synthroid of hypothyroidism. Patient on Accuchecks with RISS medium and Levemir for history of DM2. Will monitor and adjust as needed. PT on board for deconditioning. Patient will likely be d/c to TCU when medically optimized. TCU eval placed. Will continue to monitor closely. Discussed with Dr. Kodi Chun PGY3 <Bc Mariee S - Last Filed: 12/16/18 21:46> Results - Vital Signs Recent Vital Signs: Last Vital Signs Temp 97.9 F 12/16/18 17:18 Pulse 56 L 12/16/18 18:13 Resp 19 01/27/19 17:18 BP 96/50 L 12/16/18 18:13 Pulse Ox 97 12/16/18 17:18 - Labs Result Diagrams: 12/16/18 08:00 12/16/18 08:00 Labs: Laboratory Results - last 24 hr 12/15/18 12/16/18 12/16/18 17:20 08:00 08:00 WBC 8.1 RBC 3.43 L Hgb 10.4 L Hct 33.0 L MCV 96.2 MCH 30.3 MCHC 31.5 RDW 14.5 Plt Count 118 L MPV 10.1 Neut % (Auto) 72.0 H Lymph % (Auto) 13.3 L [place] % (Auto) 12.2 H Eos % (Auto) 2.1 Baso % (Auto) 0.4 Lymph # (Auto) 1.1 L [place] # (Auto) 1.0 H Eos # (Auto) 0.2 Baso # (Auto) 0.03 Absolute Neuts (auto) 5.86 pO2 32 VBG pH 7.44 H VBG pCO2 51.0 VBG HCO3 34.6 H VBG Total CO2 36.2 H VBG O2 Sat (Calc) 69.3 H VBG Base Excess 8.8 H VBG Potassium 3.2 L Sodium 134.0 134 Chloride 96.0 L 94 L Glucose 172 H Lactate 1.2 FiO2 21.0 Potassium 3.9 Carbon Dioxide 30 Anion Gap 14 BUN 35 H Creatinine 3.7 H Est GFR ( Amer) 20 Est GFR (Non-Af Amer) 16 POC Glucose (mg/dL) Random Glucose 105 Calcium 8.6 Phosphorus 3.8 Magnesium 2.2 Total Bilirubin 1.4 H AST 31 ALT 29 Alkaline Phosphatase 362 H Total Protein 7.3 Albumin 3.5 Globulin 3.7 Albumin/Globulin Ratio 0.9 L Procalcitonin Venous Blood Potassium 3.2 L 12/16/18 12/16/18 12/16/18 08:00 13:30 16:21 WBC RBC Hgb Hct MCV MCH MCHC RDW Plt Count MPV Neut % (Auto) Lymph % (Auto) [place] % (Auto) Eos % (Auto) Baso % (Auto) Lymph # (Auto) [place] # (Auto) Eos # (Auto) Baso # (Auto) Absolute Neuts (auto) pO2 VBG pH VBG pCO2 VBG HCO3 VBG Total CO2 VBG O2 Sat (Calc) VBG Base Excess VBG Potassium Sodium Chloride Glucose Lactate FiO2 Potassium Carbon Dioxide Anion Gap BUN Creatinine Est GFR ( Amer) Est GFR (Non-Af Amer) POC Glucose (mg/dL) 242 H 75 Random Glucose Calcium Phosphorus Magnesium Total Bilirubin AST ALT Alkaline Phosphatase Total Protein Albumin Globulin Albumin/Globulin Ratio Procalcitonin 3.25 H Venous Blood Potassium Assessment & Plan - Assessment and Plan (Free Text) Plan: Pt seen and examined by me. I have reviewed the note of the emergency medical service manager and I agree with it. I have discussed the assessment and plan with the resident. I have reviewed the medications and the last labs.Pt with fever and most likely has a UTI. He has a suprapubic catheter. Pt has a ESRD on HD, next HD is //Mon. She has CAD and is on Coreg. Pt is on Levemir for her DM-2. Will need ID evaluation. He has been placed on Merrem. Will get TCU evaluation. Will continue with synthroid for hypothyroidism. Will need fs and ISS with insulin coverage.
[2018-12-16 08:13] LABS: BASO # 0.03 K/mm3 (0.0-2.0); BASO % 0.4 % (0.0-3.0); EOS # 0.2 (0.0-0.7); EOS % 2.1 % (1.5-5.0); HEMOGLOBIN 10.4 g/dL (14.0-18.0); LYMPH # 1.1 (1.2-3.4); LYMPH % 13.3 % (22.0-35.0); MEAN CELL VOLUME 96.2 fl (80.0-105.0); MEAN CORPUSCULAR HEMOGLOBIN 30.3 pg (25.0-35.0); MEAN CORPUSCULAR HGB CONC 31.5 g/dl (31.0-37.0); MEAN PLATELET VOLUME 10.1 fl (7.0-11.0); MONO % 12.2 % (1.0-6.0); RBC 3.43 10^6/uL (3.5-6.1); RED CELL DISTRIBUTION WIDTH 14.5 % (11.5-14.5); WHITE BLOOD COUNT 8.1 10^3/uL (4.5-11.0)
[2018-12-16 08:37] LABS: ALB/GLOB RATIO 0.9 (1.1-1.8); ALBUMIN 3.5 g/dL (3.0-4.8); CALCIUM 8.6 mg/dL (8.4-10.5)
[2018-12-16] MEDS: Insulin Lispro (humaLOG) MEDIUM Coverage SC SCH ×3 (11:30→22:03)
--- NOTE | 2018-12-16 12:27 | CON ---
DATE OF CONSULTATION: 12/16/2018 The patient is seen earlier today in Room 368, Bed 2. CHIEF COMPLAINT: Weakness and fever for several days. HISTORY OF PRESENT ILLNESS: This is a 72-year-old male with a history of coronary artery disease, history of end-stage renal disease, on hemodialysis, history of diabetes mellitus, hypothyroidism, hypertension, urinary retention, who has a suprapubic catheter, who is admitted through the emergency room for the fever of 101. Infectious disease consultation requested. The patient has mild shortness of breath and occasional cough. No abdominal pain. He does have a suprapubic catheter. No headaches. No diarrhea. You. Pending at this point. PAST MEDICAL HISTORY: Significant for coronary artery disease, end-stage renal disease, on hemodialysis, diabetes, hypothyroidism, hypertension, urinary retention, chronic obstructive lung disease, diverticulitis. PAST SURGICAL HISTORY: Significant for coronary artery bypass graft, pacemaker. The patient had a suprapubic cath. MEDICATIONS AT HOME: The patient to be on carvedilol, Lipitor, Ultram, hydralazine, insulin, and isosorbide. ALLERGIES: THE PATIENT IS ALLERGIC TO DYE. REVIEW OF SYSTEMS: A 12-point review of systems is performed. PHYSICAL EXAMINATION: GENERAL: The patient in bed, comfortable. VITAL SIGNS: Temperature of 98, T-max was 101.7 in the emergency room last night with a pulse of 60 and respiratory rate of 18. Blood pressure is 112/51. O2 saturation at 95%. HEENT: Unremarkable. NECK: Supple. LUNGS: Decreased breath sounds. HEART: Normal S1, S2. ABDOMEN: Soft, nontender. LABORATORY EXAMINATION: Reveals a white count of 7.3, hemoglobin of 10, platelets of 150,000. Chemistries are noted, BUN of 20, creatinine of 2.4. Alk phos is 435. Serology, influenza is negative. Microbiology is pending. The patient had a CAT scan of the abdomen and pelvis, which showed mildly dilated right kidney collecting system without evidence of obstructing calculus and no significant finding. The patient also had a chest x-ray, results are pending.. No urinalysis is available. ASSESSMENT AND PLAN: This is a 72-year-old male who is presenting with #1 is fever of 101.7. Because of his beta-blockers, he may not be able to mount tachycardia. Fever may be secondary to healthcare-associated pneumonia versus urine as the source versus gallbladder, although the CAT scan of the abdomen is not evident at this time. Elevated alk phos is concerning. We will treat the patient with meropenem pending blood cultures, urine culture, chest x-ray, urinalysis and initial workup results. Isrrael Ni MD
--- NOTE | 2018-12-16 17:55 | RAD ---
Date of service: 12/15/2018 HISTORY: fever COMPARISON: Comparison is made with 09/27/2018 FINDINGS: LUNGS: No significant interval changes in the lungs noted since the previous exam. Mild pulmonary vascular congestion. PLEURA: No significant pleural effusion identified, no pneumothorax apparent. CARDIOVASCULAR: Small aortic atherosclerotic calcification present. The cardiac silhouette is enlarged. Left-sided pacemaker is again seen in place. Post sternotomy changes are again seen. OSSEOUS STRUCTURES: No significant abnormalities. VISUALIZED UPPER ABDOMEN: Normal. OTHER FINDINGS: None. IMPRESSION: No active disease.
--- NOTE | 2018-12-16 21:32 | CARD ---
APPROVED REPORT Date of service: 12/15/2018 EKG Measurement Heart [id number] <Conclusion> Ventricular paced rhythm Abnormal ECG
[2018-12-16] MEDS ORDERED: Insulin Detemir 100 units/ml Vial (Levemir) SC SCH (22:00)
--- NOTE | 2018-12-17 05:40 | CP.PCM.PN ---
<Sharron Chun - Last Filed: 12/17/18 14:03> Subjective - Date & Time of Evaluation Date of Evaluation: 12/17/18 Time of Evaluation: 06:30 - Subjective Subjective: Pgy3 Medicine progress note for Dr. Mariee Patient seen and examined at bedside. As per nursing no acute events overnight and patient remained afebrile. This AM he denied any fever, chest pain, SOB, abd pain, nausea, vomiting, pain/swelling in his legs b/l. Objective - Vital Signs/Intake and Output Vital Signs (last 24 hours): Temp Pulse Resp BP Pulse Ox 97.9 F 53 L 19 96/50 L 97 12/16/18 17:18 12/16/18 22:00 12/16/18 17:18 12/16/18 18:13 12/16/18 17:18 Intake and Output: 12/16/18 12/17/18 18:59 06:59 Intake Total 360 Output Total 0 Balance 360 - Medications Medications: Current Medications Acetaminophen (Tylenol 325mg Tab) 650 mg PO Q6H PRN PRN Reason: Fever >100.4 F Atorvastatin Calcium (Lipitor) [address] [facility] Last Admin: 12/16/18 22:12 Dose: 20 mg Calcium Acetate (Phoslo) 667 mg PO TID [facility] Last Admin: 12/16/18 18:15 Dose: 667 mg Carvedilol (Coreg) 6.25 mg PO BID [facility] Last Admin: 12/16/18 18:13 Dose: Not Given Meropenem 250 mg/ Sodium (Chloride) 100 mls @ 100 mls/hr IVPB Q12H [facility]; Protocol Stop: 12/24/18 23:31 Last Admin: 12/16/18 23:07 Dose: 100 mls/hr Insulin Detemir (Levemir) [address] [facility] Last Admin: 12/16/18 22:10 Dose: 5 unit Insulin Human Lispro (Humalog Med) 0 units SC [facility]; Protocol Last Admin: 12/16/18 22:03 Dose: Not Given Isosorbide Mononitrate (Imdur Er) 30 mg PO DAILY [facility] Last Admin: 12/16/18 10:09 Dose: 30 mg Levothyroxine Sodium (Synthroid) 75 mcg PO 0600 [facility] Last Admin: 12/16/18 05:36 Dose: 75 mcg Sodium Chloride ([place] Nasal [place]) 0 ml NS BID PRN PRN Reason: Nasal congestion - Labs Labs: 12/16/18 08:00 12/16/18 08:00 - Additional Findings Additional findings: - Constitutional Appears: Non-toxic, No Acute Distress - Head Exam Head Exam: ATRAUMATIC, NORMAL INSPECTION, NORMOCEPHALIC - Eye Exam Eye Exam: EOMI, Normal appearance, PERRL. absent: Conjunctival injection, Scleral icterus - ENT Exam ENT Exam: Mucous Membranes Moist - Neck Exam Neck exam: Positive for: Full Rom, Normal Inspection. Negative for: Lymphadenopathy - Respiratory Exam Respiratory Exam: NORMAL BREATHING PATTERN. absent: Accessory Muscle Use, Rales, Rhonchi, Wheezes, Respiratory Distress - Cardiovascular Exam Cardiovascular Exam: REGULAR RHYTHM, +S1, +S2. absent: Systolic Murmur - GI/Abdominal Exam GI & Abdominal Exam: Normal Bowel Sounds, Soft Additional comments: suprapubic cath dressings c/d/i - Extremities Exam Extremities exam: Positive for: normal capillary refill, normal inspection, pedal pulses present Additional comments: LUE dialysis graft - Back Exam Back exam: NORMAL INSPECTION. absent: rash noted - Neurological Exam Neurological exam: Alert, Oriented x3 - Psychiatric Exam Psychiatric exam: Normal Affect, Normal Mood - Skin Skin Exam: Dry, Intact, Normal Color, Warm Assessment and Plan - Assessment and Plan (Free Text) Assessment: 1. Gram negative bacilli bacteremia likely secondary to complicated UTI vs GI pathology vs HCAP 2. Decreased urinary output from suprapubic catheter 3. ESRD on HD [TTS] 4. CAD s/p CABG 5. Pacemaker 6. DM2 7. Hypothyroidism 8. HTN 9. Deconditioning 10. Chronic depression 11. GERD 12. Chronic Right sided heart failure Plan: Patient's vitals, blood work, and imaging reviewed. Consent for HD attained with help of community marketing coordinator RAMBO Caceres and placed in chart. Patient for HD tomorrow. In light of gram negative bacilli in blood x 2 and elevated Alk phos, consider GI source of bacteremia. CT abd/pelvis reviewed. U/S abdomen ordered- will f/u. Will consider MRCP. Patient had acute on chronic cholecystitis and lap cholecystectomy in January 2017 and has history of cholangitis. Also strong suspicion for UTI as patient has a history of sepsis secondary to ESBL-producing multidrug-resistant E. coli bacteremia. Patient on Merrem as per ID. Elevated procal noted. Tylenol on board for elevated temp. Continue home Lipitor, Coreg, and Imdur for CAD and HTN. Continue synthroid of hypothyroidism. Patient on Accuchecks with RISS medium. As per ID patient will likely need IV abx for 2 weeks. Patient will be unable to go to TCU in light of this; will work towards discharge to [facility]. PT on board. Will continue to monitor closely. Discussed with Dr. Kodi Chun PGY3 <Bc Mariee S - Last Filed: 12/17/18 16:38> Objective - Vital Signs/Intake and Output Vital Signs (last 24 hours): Temp Pulse Resp BP Pulse Ox 97.1 F L 59 L 19 100/50 L 97 12/17/18 16:21 12/17/18 16:21 12/17/18 16:21 12/17/18 16:21 12/17/18 16:21 Intake and Output: 12/17/18 12/17/18 06:59 18:59 Intake Total 240 Output Total 2 Balance 238 - Medications Medications: Current Medications Acetaminophen (Tylenol 325mg Tab) 650 mg PO Q6H PRN PRN Reason: Fever >100.4 F Atorvastatin Calcium (Lipitor) 20 mg PO HS [facility] Last Admin: 12/16/18 22:12 Dose: 20 mg Calcium Acetate (Phoslo) 667 mg PO TID [facility] Last Admin: 12/17/18 13:23 Dose: 667 mg Carvedilol (Coreg) 6.25 mg PO BID [facility] Last Admin: 12/17/18 09:24 Dose: 6.25 mg Meropenem 250 mg/ Sodium (Chloride) 100 mls @ 100 mls/hr IVPB Q12H [facility]; Protocol Stop: 12/24/18 23:31 Last Admin: 12/17/18 11:21 Dose: 100 mls/hr Insulin Human Lispro (Humalog Med) 0 units SC [facility]; Protocol Last Admin: 12/17/18 11:22 Dose: 1 units Isosorbide Mononitrate (Imdur Er) 30 mg PO DAILY [facility] Last Admin: 12/17/18 09:25 Dose: 30 mg Levothyroxine Sodium (Synthroid) 75 mcg PO 0600 [facility] Last Admin: 12/17/18 05:44 Dose: 75 mcg Sodium Chloride ([place] Nasal [place]) 0 ml NS BID PRN PRN Reason: Nasal congestion - Labs Labs: 12/17/18 06:00 12/17/18 06:00 Assessment and Plan - Assessment and Plan (Free Text) Plan: Pt seen and examined by me. I have reviewed the note of the medical scientist and I agree with it. I have discussed the assessment and plan with the resident. I have reviewed the medications and the last labs. Pt with sepsis with Gm negative rods. ID is following and is on Merrem. Possible UTI but other sources will need to ruled out. Pt with CAD and on ASA and Coreg. Will continue with Lipitor for dyslipidemia. Pt on synthroid for hypothyroidism. Will get TCU evaluation. Pt evaluation. Eating well. Will get HD in am. Orders placed.
[2018-12-17] MEDS: Levothyroxine 75 MCG TAB PO SCH (05:44)
[2018-12-17 06:44] LABS: BASO # 0.04 K/mm3 (0.0-2.0); BASO % 0.5 % (0.0-3.0); EOS # 0.4 (0.0-0.7); EOS % 4.6 % (1.5-5.0); HEMOGLOBIN 10.1 g/dL (14.0-18.0); LYMPH % 12.6 % (22.0-35.0); MEAN CELL VOLUME 95.5 fl (80.0-105.0); MEAN CORPUSCULAR HEMOGLOBIN 30.1 pg (25.0-35.0); MEAN CORPUSCULAR HGB CONC 31.6 g/dl (31.0-37.0); MEAN PLATELET VOLUME 10.9 fl (7.0-11.0); MONO # 0.9 (0.1-0.6); MONO % 10.5 % (1.0-6.0); RBC 3.35 10^6/uL (3.5-6.1); RED CELL DISTRIBUTION WIDTH 14.3 % (11.5-14.5); WHITE BLOOD COUNT 8.3 10^3/uL (4.5-11.0)
[2018-12-17 07:01] LABS: ALB/GLOB RATIO 0.9 (1.1-1.8); ALBUMIN 3.4 g/dL (3.0-4.8); CALCIUM 8.6 mg/dL (8.4-10.5)
[2018-12-17] MEDS: Insulin Lispro (humaLOG) MEDIUM Coverage SC SCH ×4 (09:25→22:52)
--- NOTE | 2018-12-17 11:53 | CP.PCM.PCO ---
Physician Communication Note - Physician Communication Note Physician Communication Note: Per ID, will most likely need 2weeks of IV abx. Pending final bcx.
--- NOTE | 2018-12-17 13:48 | CP.PCM.PN ---
Subjective - Date & Time of Evaluation Date of Evaluation: 12/17/18 Time of Evaluation: 10:40 - Subjective Subjective: Not in distress on a chair, no fevers. Objective - Vital Signs/Intake and Output Vital Signs (last 24 hours): Temp Pulse Resp BP Pulse Ox 97.9 F 60 18 118/62 96 12/17/18 08:36 12/17/18 09:24 12/17/18 08:36 12/17/18 09:24 12/17/18 08:36 Intake and Output: 12/17/18 12/17/18 06:59 18:59 Intake Total 240 Output Total 2 Balance 238 - Medications Medications: Current Medications Acetaminophen (Tylenol 325mg Tab) 650 mg PO Q6H PRN PRN Reason: Fever >100.4 F Atorvastatin Calcium (Lipitor) 20 mg PO HS [facility] Last Admin: 12/16/18 22:12 Dose: 20 mg Calcium Acetate (Phoslo) 667 mg PO TID [facility] Last Admin: 12/17/18 09:26 Dose: 667 mg Carvedilol (Coreg) 6.25 mg PO BID [facility] Last Admin: 12/17/18 09:24 Dose: 6.25 mg Meropenem 250 mg/ Sodium (Chloride) 100 mls @ 100 mls/hr IVPB Q12H [facility]; Protocol Stop: 12/24/18 23:31 Last Admin: 12/16/18 23:07 Dose: 100 mls/hr Insulin Human Lispro (Humalog Med) 0 units SC [facility]; Protocol Last Admin: 12/17/18 09:25 Dose: Not Given Isosorbide Mononitrate (Imdur Er) 30 mg PO DAILY [facility] Last Admin: 12/17/18 09:25 Dose: 30 mg Levothyroxine Sodium (Synthroid) 75 mcg PO 0600 [facility] Last Admin: 12/17/18 05:44 Dose: 75 mcg Sodium Chloride ([place] Nasal [place]) 0 ml NS BID PRN PRN Reason: Nasal congestion - Labs Labs: 12/17/18 06:00 12/17/18 06:00 - Constitutional Appears: Chronically Ill - Head Exam Head Exam: NORMAL INSPECTION - Neck Exam Neck Exam: absent: Meningismus - Respiratory Exam Respiratory Exam: Decreased Breath Sounds - Cardiovascular Exam Cardiovascular Exam: +S1, +S2 - GI/Abdominal Exam GI & Abdominal Exam: Soft. absent: Tenderness Assessment and Plan - Assessment and Plan (Free Text) Plan: Assessment gram negative bacilli bacteremia, consider complicated UTI but need to rule out intra-abdominal infection since patient has history of cholecystitis and cholangitis, and with elevated Alk phos history of left upper lobe HCAP, S/P treatment with antibiotics history of Partial small bowel obstruction history of sepsis secondary to ESBL-producing multidrug-resistant E. coli bacteremia probably secondary to acute cholecystitis and ascending cholangitis S/P ERCP with biliary stone extraction history of ESBL E. coli bacteremia HTN Congestive Heart Failure DM GERD End-Stage Renal disease on hemodialysis history of depression history of Bowman's esophagus history of epididymitis on the left Plan continue Merrem and will get ultrasound of the abdomen; reviewed CT A/P which was not specific for foci of infection' will monitor clinically
--- NOTE | 2018-12-17 17:16 | US ---
Date of service: 12/17/2018 HISTORY: rule out cholecystitis COMPARISON: Abdomen pelvis CT without contrast 12/15/2018 as well as abdomen ultrasound 10/02/2018. TECHNIQUE: Sonographic evaluation of the abdomen. FINDINGS: LIVER: Measures 19.2 cm. Normal echogenicity of the liver parenchyma. No mass. No intrahepatic bile duct dilatation. GALLBLADDER: Prior cholecystectomy. COMMON BILE DUCT: Measures 7.0 mm. No stones. No dilatation. PANCREAS: The tail of the pancreas is obscured by overlying bowel gas with remainder unremarkable. RIGHT KIDNEY: Measures 8.5cm. Lower limits normal size and contour however poor corticomedullary differentiation is appreciated which may indicate intrinsic medical renal disease. LEFT KIDNEY: Measures 9.5cm. Normal size and contour however poor corticomedullary differentiation is appreciated which may indicate intrinsic medical renal disease. SPLEEN: Normal in size and contour, measuring 9.5 cm. No mass. AORTA: No aneurysmal dilatation. IVC: Appears somewhat prominent. Consider potential right heart failure OTHER FINDINGS: None. IMPRESSION: 1. Prior cholecystectomy. 2. Potential intrinsic medical renal disease. 3. No hydronephrosis bilaterally. 4. Pancreas tail is obscured by overlying gas from the GI tract with remainder of the pancreas unremarkable.
[2018-12-18] MEDS: Levothyroxine 75 MCG TAB PO SCH (05:27)
[2018-12-18 06:29] LABS: BASO # 0.03 K/mm3 (0.0-2.0); BASO % 0.5 % (0.0-3.0); EOS # 0.4 (0.0-0.7); LYMPH # 0.7 (1.2-3.4); LYMPH % 12.8 % (22.0-35.0); MEAN CELL VOLUME 93.7 fl (80.0-105.0); MEAN CORPUSCULAR HEMOGLOBIN 29.9 pg (25.0-35.0); MEAN CORPUSCULAR HGB CONC 31.9 g/dl (31.0-37.0); MEAN PLATELET VOLUME 10.6 fl (7.0-11.0); MONO # 0.8 (0.1-0.6); MONO % 14.4 % (1.0-6.0); RBC 3.34 10^6/uL (3.5-6.1); RED CELL DISTRIBUTION WIDTH 13.8 % (11.5-14.5); WHITE BLOOD COUNT 5.6 10^3/uL (4.5-11.0)
[2018-12-18 07:05] LABS: ALBUMIN 3.3 g/dL (3.0-4.8); CALCIUM 8.3 mg/dL (8.4-10.5)
[2018-12-18] MEDS: Insulin Lispro (humaLOG) MEDIUM Coverage SC SCH ×4 (07:53→21:32)
--- NOTE | 2018-12-18 09:11 | CP.PCM.PN ---
<Sharron Chun - Last Filed: 12/18/18 18:37> Subjective - Date & Time of Evaluation Date of Evaluation: 12/18/18 Time of Evaluation: 07:20 - Subjective Subjective: Pgy3 Medicine Progress note for Dr. Mariee Patient seen and examined at bedside. As per nursing no acute events overnight and afebrile. Patient denied acute fever, chills, headache, dizziness, chest pain, palpitations, SOB, cough, abd pain, nausea, vomiting, bowel/bladder complaints, pain/swelling Objective - Vital Signs/Intake and Output Vital Signs (last 24 hours): Temp Pulse Resp BP Pulse Ox 98.1 F 60 20 138/60 96 12/18/18 08:37 12/18/18 08:37 12/18/18 08:37 12/18/18 08:37 12/18/18 00:00 Intake and Output: 12/18/18 12/18/18 06:59 18:59 Intake Total 760 Output Total 1 Balance 759 - Medications Medications: Current Medications Acetaminophen (Tylenol 325mg Tab) 650 mg PO Q6H PRN PRN Reason: Fever >100.4 F Atorvastatin Calcium (Lipitor) 20 mg PO HS [facility] Last Admin: 12/17/18 22:29 Dose: 20 mg Calcium Acetate (Phoslo) 667 mg PO TID [facility] Last Admin: 12/17/18 17:17 Dose: 667 mg Carvedilol (Coreg) 6.25 mg PO BID [facility] Last Admin: 12/17/18 17:16 Dose: Not Given Meropenem 250 mg/ Sodium (Chloride) 100 mls @ 100 mls/hr IVPB Q12H [facility]; Protoc ol Stop: 12/24/18 23:31 Last Admin: 12/17/18 22:30 Dose: 100 mls/hr Insulin Human Lispro (Humalog Med) 0 units SC ACHS [facility]; Protocol Last Admin: 12/18/18 07:53 Dose: Not Given Isosorbide Mononitrate (Imdur Er) 30 mg PO DAILY [facility] Last Admin: 12/17/18 09:25 Dose: 30 mg Levothyroxine Sodium (Synthroid) 75 mcg PO 0600 [facility] Last Admin: 12/18/18 05:27 Dose: 75 mcg Sodium Chloride ([place] Nasal [place]) 0 ml NS BID PRN PRN Reason: Nasal congestion - Labs Labs: 12/18/18 06:00 12/18/18 06:00 - Additional Findings Additional findings: Constitutional Appears: Non-toxic, No Acute Distress - Head Exam Head Exam: ATRAUMATIC, NORMAL INSPECTION, NORMOCEPHALIC - Eye Exam Eye Exam: EOMI, Normal appearance, PERRL. absent: Conjunctival injection, Scleral icterus - ENT Exam ENT Exam: Mucous Membranes Moist - Neck Exam Neck exam: Positive for: Full Rom, Normal Inspection. Negative for: Lymphadenopathy - Respiratory Exam Respiratory Exam: NORMAL BREATHING PATTERN. absent: Accessory Muscle Use, Rales, Rhonchi, Wheezes, Respiratory Distress - Cardiovascular Exam Cardiovascular Exam: REGULAR RHYTHM, +S1, +S2. absent: Systolic Murmur - GI/Abdominal Exam GI & Abdominal Exam: Normal Bowel Sounds, Soft Additional comments: suprapubic cath dressings c/d/i - Extremities Exam Extremities exam: Positive for: normal capillary refill, normal inspection, pedal pulses present Additional comments: LUE dialysis graft - Back Exam Back exam: NORMAL INSPECTION. absent: rash noted - Neurological Exam Neurological exam: Alert, Oriented x3 - Psychiatric Exam Psychiatric exam: Normal Affect, Normal Mood - Skin Skin Exam: Dry, Intact, Normal Color, Warm Assessment and Plan - Assessment and Plan (Free Text) Assessment: 1. Gram negative bacilli bacteremia likely secondary to complicated UTI vs GI pathology vs HCAP 2. Decreased urinary output from suprapubic catheter 3. ESRD on HD [TTS] 4. CAD s/p CABG 5. Pacemaker 6. DM2 7. Hypothyroidism 8. HTN 9. Deconditioning 10. Chronic depression 11. GERD 12. Chronic Right sided heart failure Plan: Patient's blood work, vitals, and imaging reviewed in chart. Continue Merrem at this time in light of E Coli bacteremia x 2. Repeat blood cultures ordered to f/u. CT abd/pelvis and u/s abdomen reviewed. Will consider MRCP. GI consulted- appreciate reccs. 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 Patient had acute on chronic cholecystitis and lap cholecystectomy in January 2017 and has history of cholangitis. Strong suspici on for UTI as patient has a history of sepsis secondary to ESBL-producing multidrug-resistant E. coli bacteremia. Urology Dr. Friend replaced 14F suprapubic catheter with 18F and scant dark urine noted. Tylenol on board for elevated temp. Continue home Lipitor, Coreg, and Imdur for CAD and HTN. Continue synthroid of hypothyroidism. Patient on Accuchecks with RISS medium and Levemir 5U. As per ID patient will likely need IV abx for 2 weeks. Patient will be unable to go to TCU in light of this; will work towards discharge to [facility]. PT on board. Will continue to monitor closely. Discussed with Dr. Kodi Chun PGY3 <Bc Mariee S - Last Filed: 12/18/18 19:02> Objective - Vital Signs/Intake and Output Vital Signs (last 24 hours): Temp Pulse Resp BP Pulse Ox 97.8 F 62 20 135/55 L 96 12/18/18 16:37 12/18/18 17:26 12/18/18 16:37 12/18/18 17:26 12/18/18 16:37 Intake and Output: 12/18/18 12/18/18 06:59 18:59 Intake Total 760 720 Output Total 1 200 Balance 759 520 - Medications Medications: Current Medications Acetaminophen (Tylenol 325mg Tab) 650 mg PO Q6H PRN PRN Reason: Fever >100.4 F Atorvastatin Calcium (Lipitor) 20 mg PO HS [facility] Last Admin: 12/17/18 22:29 Dose: 20 mg Calcium Acetate (Phoslo) 667 mg PO TID [facility] Last Admin: 12/18/18 17:27 Dose: 667 mg Carvedilol (Coreg) 6.25 mg PO BID [facility] Last Admin: 12/18/18 17:26 Dose: 6.25 mg Meropenem 250 mg/ Sodium (Chloride) 100 mls @ 100 mls/hr IVPB Q12H [facility]; Protocol Stop: 12/24/18 23:31 Last Admin: 12/18/18 12:27 Dose: 100 mls/hr Insulin Detemir (Levemir) 5 unit SC HS [facility] Insulin Human Lispro (Humalog Med) 0 units SC [facility]; Protocol Last Admin: 12/18/18 17:26 Dose: 3 units Isosorbide Mononitrate (Imdur Er) 30 mg PO DAILY [facility] Last Admin: 12/18/18 12:27 Dose: 30 mg Levothyroxine Sodium (Synthroid) 75 mcg PO 0600 [facility] Last Admin: 12/18/18 05:27 Dose: 75 mcg Sodium Chloride ([place] Nasal [place]) 0 ml NS BID PRN PRN Reason: Nasal congestion - Labs Labs: 12/18/18 06:00 12/18/18 06:00 Assessment and Plan - Assessment and Plan (Free Text) Plan: Pt seen and examined by me. I have reviewed the note of the medical dosimetrist and I agree with it. I have discussed the assessment and plan with the resident. I have reviewed the medications and the last labs. Pt with sepsis and UTI. She has E Coli that is being treated with IV Abx. GI evaluation for E Coli sepsis. He has a suprapubic catheter. She had HD today with no issues. She has CAD and is on Coreg .Pt is on Synthroid for hypothyroidism. DM-2 controlled with ISS coverage. Pt is on Lipitor for dyslipidemia. Pt will need 2 weeks of Abx. Will try to get pt to [facility].
--- NOTE | 2018-12-18 10:56 | CP.PCM.PN ---
Subjective - Date & Time of Evaluation Date of Evaluation: 12/18/18 Time of Evaluation: 09:00 - Subjective Subjective: Patient in dialysis, no fevers, not in distress. Objective - Vital Signs/Intake and Output Vital Signs (last 24 hours): Temp Pulse Resp BP Pulse Ox 97.9 F 52 L 18 118/62 96 12/17/18 08:36 12/17/18 10:00 12/17/18 08:36 12/17/18 09:24 12/17/18 08:36 Intake and Output: 12/17/18 12/17/18 06:59 18:59 Intake Total 240 Output Total 2 Balance 238 - Medications Medications: Current Medications Acetaminophen (Tylenol 325mg Tab) 650 mg PO Q6H PRN PRN Reason: Fever >100.4 F Atorvastatin Calcium (Lipitor) 20 mg PO HS [facility] Last Admin: 12/16/18 22:12 Dose: 20 mg Calcium Acetate (Phoslo) 667 mg PO TID [facility] Last Admin: 12/17/18 13:23 Dose: 667 mg Carvedilol (Coreg) 6.25 mg PO BID [facility] Last Admin: 12/17/18 09:24 Dose: 6.25 mg Meropenem 250 mg/ Sodium (Chloride) 100 mls @ 100 mls/hr IVPB Q12H [facility]; Protocol Stop: 12/24/18 23:31 Last Admin: 12/17/18 11:21 Dose: 100 mls/hr Insulin Human Lispro (Humalog Med) 0 units SC ACHS [facility]; Protocol Last Admin: 12/17/18 11:22 Dose: 1 units Isosorbide Mononitrate (Imdur Er) 30 mg PO DAILY [facility] Last Admin: 12/17/18 09:25 Dose: 30 mg Levothyroxine Sodium (Synthroid) 75 mcg PO 0600 [facility] Last Admin: 12/17/18 05:44 Dose: 75 mcg Sodium Chloride ([place] Nasal [place]) 0 ml NS BID PRN PRN Reason: Nasal congestion - Labs Labs: 12/17/18 06:00 12/17/18 06:00 - Constitutional Appears: Chronically Ill - Head Exam Head Exam: NORMAL INSPECTION - Respiratory Exam Respiratory Exam: Decreased Breath Sounds - Cardiovascular Exam Cardiovascular Exam: +S1, +S2 - GI/Abdominal Exam GI & Abdominal Exam: Soft. absent: Tenderness Assessment and Plan - Assessment and Plan (Free Text) Plan: Assessment gram negative bacilli bacteremia, consider complicated UTI but need to rule out intra-abdominal infection since patient has history of cholecystitis and cholangitis, and with elevated Alk phos history of left upper lobe HCAP, S/P treatment with antibiotics history of Partial small bowel obstruction history of sepsis secondary to ESBL-producing multidrug-resistant E. coli bacteremia probably secondary to acute cholecystitis and ascending cholangitis S/P ERCP with biliary stone extraction history of ESBL E. coli bacteremia HTN Congestive Heart Failure DM GERD End-Stage Renal disease on hemodialysis history of depression history of Bowman's esophagus history of epididymitis on the left Plan continue Merrem and will ask for MRCP; ultrasound of the abdomen was non- sepcific; reviewed CT A/P which was not specific for foci of infection either - discussed with Dr. Duran's team follow up identification and sensitivities of the GNB in the blood will continue to monitor clinically
--- NOTE | 2018-12-18 13:31 | CP.PCM.CON ---
<Paul Blunt - Last Filed: 12/18/18 13:15> History of Present Illness - History of Present Illness History of Present Illness: GI Consult Note for Dr. Malave Reason for Consultation: E. Coli Bacteremia Patient is a 72 yo M with PMH cholangitis 2/2 choledocolithasis s/p ERCP with stone extraction, ESRD on HD (TTS), multiple UTIs/bacteremia, urinary retention/neurogenic bladder s/p suprapubic catheter, CAD s/p CABG, hypothyroidism, DM2, HTN, diverticulosis, cataracts, GERD, and Bowman's esophagus presents to [facility] with fever during HD. GI was consulted due to E. coli bactermia. Patient with no output per suprapubic catheter. Patient was evaluated while undergoing HD today and denied CP, SOB, n/v/d, abdominal pain, fever, chills, [place], dizziness, melena, and hematochezia. PMH: cholangitis 2/2 choledocolithasis s/p ERCP with stone extraction, ESRD on HD (TTS), multiple UTIs/bacteremia, urinary retention/neurogenic bladder s/p suprapubic catheter, CAD s/p CABG, hypothyroidism, DM2, HTN, diverticulosis, cataracts GERD, and Bowman's esophagus Surg: LUE AV fistula, cholecystectomy, ERCP, cataract surgery, suprapubic catheter All: Dye SH: Denied EtOH, tobacco, or illicit drug use FHx: No GI history in family Medications reviewed as per [facility] Review of Systems - Review of Systems All systems: reviewed and no additional remarkable complaints except (12 point ROS reviewed and is negative other than what is stated in HPI.) Past Patient History - Infectious Disease Hx of Infectious Diseases: None - Tetanus Immunizations Tetanus Immunization: Unknown - Past Medical History & Family History Past Medical History?: Yes - Past Social History Smoking Status: Never Smoked - CARDIAC Hx Hypertension: Yes - PULMONARY Hx Respiratory Disorders: Yes Hx Asthma: Yes - NEUROLOGICAL Hx Neurological Disorder: Yes - HEENT Hx HEENT Problems: Yes Hx Cataracts: Yes (sx) Hx Deafness: Yes (Left ear hearing aid) Other/Comment: hard of hearing - RENAL Hx Renal Failure: Yes (HD TTS) - ENDOCRINE/METABOLIC Hx Diabetes Mellitus Type 2: Yes - HEMATOLOGICAL/ONCOLOGICAL Hx Blood Disorders: No - INTEGUMENTARY Hx Dermatological Problems: (BILATERAL LEG EDEMA MORE ON LEFT.SHUNT TO LEFT UPPER ARM,SUPRAPUBIC CATHETE) Other/Comment: ble skin discoloration - MUSCULOSKELETAL/RHEUMATOLOGICAL Hx Musculoskeletal Disorders: No Hx Falls: No - GASTROINTESTINAL Hx Gastrointestinal Disorders: Yes (hx colitis/diverticulitis) - GENITOURINARY/GYNECOLOGICAL Hx Genitourinary Disorders: Yes (Suprapubic catheter 2011) - PSYCHIATRIC Hx Psychophysiologic Disorder: No Hx Substance Use: No - SURGICAL HISTORY Hx Surgeries: Yes Hx Open Heart Surgery: Yes - ANESTHESIA Hx Anesthesia: Yes Hx Anesthesia Reactions: No Hx Malignant Hyperthermia: No Meds Allergies/Adverse Reactions: Allergies Allergy/AdvReac Type Severity Reaction Status Date / Time dye Allergy REDNESS Uncoded 11/19/18 06:26 - Medications Medications: Current Medications Acetaminophen (Tylenol 325mg Tab) 650 mg PO Q6H PRN PRN Reason: Fever >100.4 F Atorvastatin Calcium (Lipitor) 20 mg PO HS [facility] Last Admin: 12/17/18 22:29 Dose: 20 mg Calcium Acetate (Phoslo) 667 mg PO TID [facility] Last Admin: 12/18/18 10:15 Dose: Not Given Carvedilol (Coreg) 6.25 mg PO BID [facility] Last Admin: 12/18/18 10:14 Dose: Not Given Meropenem 250 mg/ Sodium (Chloride) 100 mls @ 100 mls/hr IVPB Q12H [facility]; Protocol Stop: 12/24/18 23:31 Last Admin: 12/18/18 12:27 Dose: 100 mls/hr Insulin Human Lispro (Humalog Med) 0 units SC ACHS [facility]; Protocol Last Admin: 12/18/18 12:27 Dose: Not Given Isosorbide Mononitrate (Imdur Er) 30 mg PO DAILY [facility] Last Admin: 12/18/18 12:27 Dose: 30 mg Levothyroxine Sodium (Synthroid) 75 mcg PO 0600 [facility] Last Admin: 12/18/18 05:27 Dose: 75 mcg Sodium Chloride ([place] Nasal [place]) 0 ml NS BID PRN PRN Reason: Nasal congestion Physical Exam - Constitutional Appears: No Acute Distress - Head Exam Head Exam: NORMAL INSPECTION - Eye Exam Eye Exam: EOMI, Normal appearance Pupil Exam: NORMAL ACCOMODATION - ENT Exam ENT Exam: Mucous Membranes Moist, Normal Exam - Neck Exam Neck exam: Positive for: Normal Inspection - Respiratory Exam Respiratory Exam: Clear to Auscultation Bilateral. absent: Rales, Rhonchi, Wheezes - Cardiovascular Exam Cardiovascular Exam: REGULAR RHYTHM, RRR, +S1, +S2 - GI/Abdominal Exam GI & Abdominal Exam: Soft. absent: Distended, Guarding, Rebound, Tenderness Additional comments: suprapubic catheter in place, no urine in bag - Extremities Exam Extremities exam: Positive for: normal inspection - Back Exam Back exam: NORMAL INSPECTION - Neurological Exam Neurological exam: Alert, Oriented x3 - Skin Skin Exam: Normal Color Results - Vital Signs Recent Vital Signs: Last Vital Signs Temp 98.1 F 12/18/18 08:37 Pulse 60 12/18/18 10:00 Resp 20 12/18/18 08:37 BP 138/60 12/18/18 08:37 Pulse Ox 96 12/18/18 00:00 - Labs Result Diagrams: 12/18/18 06:00 12/18/18 06:00 Labs: Laboratory Results - last 24 hr 12/17/18 12/17/18 12/18/18 15:51 21:13 06:00 WBC 5.6 D RBC 3.34 L Hgb 10.0 L Hct 31.3 L MCV 93.7 MCH 29.9 MCHC 31.9 RDW 13.8 Plt Count 146 MPV 10.6 Neut % (Auto) 65.3 Lymph % (Auto) 12.8 L [place] % (Auto) 14.4 H Eos % (Auto) 7.0 H Baso % (Auto) 0.5 Lymph # (Auto) 0.7 L [place] # (Auto) 0.8 H Eos # (Auto) 0.4 Baso # (Auto) 0.03 Absolute Neuts (auto) 3.66 Sodium Potassium Chloride Carbon Dioxide Anion Gap BUN Creatinine Est GFR ( Amer) Est GFR (Non-Af Amer) POC Glucose (mg/dL) 234 H 175 H Random Glucose Calcium Total Bilirubin AST ALT Alkaline Phosphatase Total Protein Albumin Globulin Albumin/Globulin Ratio 12/18/18 12/18/18 12/18/18 06:00 07:30 12:21 WBC RBC Hgb Hct MCV MCH MCHC RDW Plt Count MPV Neut % (Auto) Lymph % (Auto) [place] % (Auto) Eos % (Auto) Baso % (Auto) Lymph # (Auto) [place] # (Auto) Eos # (Auto) Baso # (Auto) Absolute Neuts (auto) Sodium 130 L Potassium 4.7 Chloride 94 L Carbon Dioxide 23 Anion Gap 18 BUN 87 H Creatinine 7.4 H* D Est GFR ( Amer) 9 Est GFR (Non-Af Amer) 7 POC Glucose (mg/dL) 235 H 137 H Random Glucose 183 H Calcium 8.3 L Total Bilirubin 1.0 AST 63 H D ALT 40 Alkaline Phosphatase 497 H D Total Protein 6.8 Albumin 3.3 Globulin 3.5 Albumin/Globulin Ratio 1.0 L Assessment & Plan - Assessment and Plan (Free Text) Assessment: 72 yo M with PMH of cholangitis 2/2 choledocolithasis s/p ERCP with stone extra ction, ESRD on HD (TTS), multiple UTIs/bacteremia, urinary retention/neurogenic bladder s/p suprapubic catheter, CAD s/p CABG, hypothyroidism, DM2, HTN, diverticulosis, cataracts, GERD, and Bowman's esophagus presents to [facility] for fever during HD. GI consulted to rule out intra-abdominal source for E. coli bacteremia. Prior ERCP was reviewed; patient had sphincterotomy with extraction of stone and then subsequent cholecystectomy. CT abd/pelvis: no evidence of colitis/enteritis, cholecystectomy Abd US: prior cholecystectomy, CBD 7mm, no stones visualized 1. E. Coli Bacteremia 2. H/o cholangitis 2/2 choledocolithiasis s/p ERCP 3. H/o ESBL bacteremia 4. ESRD on HD 5. 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 - Further medication management per primary Patient seen and discussed in detail with Dr. Malave. For further recommendations, see attestation. Yusef Blunt, PGY2 <Shae Malave V - Last Filed: 12/20/18 00:01> Meds - Medications Medications: Current Medications Acetaminophen (Tylenol 325mg Tab) 650 mg PO Q6H PRN PRN Reason: Fever >100.4 F Atorvastatin Calcium (Lipitor) 20 mg PO HS [facility] Last Admin: 12/19/18 21:27 Dose: 20 mg Calcium Acetate (Phoslo) 667 mg PO TID [facility] Last Admin: 12/19/18 17:44 Dose: 667 mg Carvedilol (Coreg) 6.25 mg PO BID [facility] Last Admin: 12/19/18 17:49 Dose: 6.25 mg Meropenem 250 mg/ Sodium (Chloride) 100 mls @ 100 mls/hr IVPB Q12H [facility]; Protocol Stop: 12/24/18 23:31 Last Admin: 12/19/18 23:04 Dose: 100 mls/hr Insulin Detemir (Levemir) 5 unit SC HS [facility] Last Admin: 12/19/18 21:27 Dose: 5 units Insulin Human Lispro (Humalog Med) 0 units SC ACHS [facility]; Protocol Last Admin: 12/19/18 21:27 Dose: Not Given Isosorbide Mononitrate (Imdur Er) 30 mg PO DAILY [facility] Last Admin: 12/19/18 09:39 Dose: 30 mg Levothyroxine Sodium (Synthroid) 75 mcg PO 0600 [facility] Last Admin: 12/19/18 05:38 Dose: 75 mcg Sodium Chloride ([place] Nasal [place]) 0 ml NS BID PRN PRN Reason: Nasal congestion Results - Vital Signs Recent Vital Signs: Last Vital Signs Temp 97.6 F 12/19/18 17:34 Pulse 60 12/19/18 17:49 Resp 19 12/19/18 17:34 BP 163/77 H 12/19/18 17:49 Pulse Ox 98 12/19/18 17:34 - Labs Result Diagrams: 12/19/18 06:00 12/19/18 06:00 Labs: Laboratory Results - last 24 hr 12/19/18 12/19/18 12/19/18 06:00 06:00 07:28 WBC 4.7 RBC 3.35 L Hgb 10.0 L Hct 31.7 L MCV 94.6 MCH 29.9 MCHC 31.5 RDW 14.0 Plt Count 158 MPV 10.0 Neut % (Auto) 56.1 Lymph % (Auto) 22.3 [place] % (Auto) 13.8 H Eos % (Auto) 7.2 H Baso % (Auto) 0.6 Lymph # (Auto) 1.1 L [place] # (Auto) 0.7 H Eos # (Auto) 0.3 Baso # (Auto) 0.03 Absolute Neuts (auto) 2.63 Sodium 136 Potassium 4.3 Chloride 98 Carbon Dioxide 27 Anion Gap 15 BUN 44 H Creatinine 4.6 H Est GFR ( Amer) 15 Est GFR (Non-Af Amer) 13 POC Glucose (mg/dL) 136 H Random Glucose 125 H Calcium 8.6 Total Bilirubin 0.9 AST 67 H ALT 49 Alkaline Phosphatase 554 H Total Protein 7.0 Albumin 3.4 Globulin 3.6 Albumin/Globulin Ratio 1.0 L 12/19/18 12/19/18 12/19/18 11:21 16:55 21:15 WBC RBC Hgb Hct MCV MCH MCHC RDW Plt Count MPV Neut % (Auto) Lymph % (Auto) [place] % (Auto) Eos % (Auto) Baso % (Auto) Lymph # (Auto) [place] # (Auto) Eos # (Auto) Baso # (Auto) Absolute Neuts (auto) Sodium Potassium Chloride Carbon Dioxide Anion Gap BUN Creatinine Est GFR ( Amer) Est GFR (Non-Af Amer) POC Glucose (mg/dL) 209 H 172 H 214 H Random Glucose Calcium Total Bilirubin AST ALT Alkaline Phosphatase Total Protein Albumin Globulin Albumin/Globulin Ratio Attending/Attestation - Attestation I have personally seen and examined this patient.: Yes I have fully participated in the care of the patient.: Yes I have reviewed all pertinent clinical information: Yes Notes (Text): This is an addendum to GI consult report dictated by the Skin Toggler. The patient was seen and evaluated earlier. Medical records, lab studies, imagings were reviewed. Last 24 hours events reviewed. Agreed with the above treatment plan as outlined in Skin Toggler 's notes with the addition of the following 12/20/18 00:00
--- NOTE | 2018-12-18 14:02 | CP.PCM.PCO ---
Physician Communication Note - Physician Communication Note Physician Communication Note: rep blood cx ordered today,if neg.poss tcu,if antibx >7days,Loly needed
[2018-12-18] MEDS ORDERED: Insulin Detemir 100 units/ml Vial (Levemir) SC SCH (22:00)
--- NOTE | 2018-12-18 23:31 | PCM.URO ---
Urology Progress Note - Subjective Other: gu. full note to be dictated. new spt inserted 14-18 polish. no complications - Objective Lab Results Last 24 Hours: Laboratory Results - last 24 hr 12/18/18 12/18/18 12/18/18 06:00 06:00 07:30 WBC 5.6 D RBC 3.34 L Hgb 10.0 L Hct 31.3 L MCV 93.7 MCH 29.9 MCHC 31.9 RDW 13.8 Plt Count 146 MPV 10.6 Neut % (Auto) 65.3 Lymph % (Auto) 12.8 L [place] % (Auto) 14.4 H Eos % (Auto) 7.0 H Baso % (Auto) 0.5 Lymph # (Auto) 0.7 L [place] # (Auto) 0.8 H Eos # (Auto) 0.4 Baso # (Auto) 0.03 Absolute Neuts (auto) 3.66 Sodium 130 L Potassium 4.7 Chloride 94 L Carbon Dioxide 23 Anion Gap 18 BUN 87 H Creatinine 7.4 H* D Est GFR ( Amer) 9 Est GFR (Non-Af Amer) 7 POC Glucose (mg/dL) 235 H Random Glucose 183 H Calcium 8.3 L Total Bilirubin 1.0 AST 63 H D ALT 40 Alkaline Phosphatase 497 H D Total Protein 6.8 Albumin 3.3 Globulin 3.5 Albumin/Globulin Ratio 1.0 L 12/18/18 12/18/18 12/18/18 12:21 15:38 21:04 WBC RBC Hgb Hct MCV MCH MCHC RDW Plt Count MPV Neut % (Auto) Lymph % (Auto) [place] % (Auto) Eos % (Auto) Baso % (Auto) Lymph # (Auto) [place] # (Auto) Eos # (Auto) Baso # (Auto) Absolute Neuts (auto) Sodium Potassium Chloride Carbon Dioxide Anion Gap BUN Creatinine Est GFR ( Amer) Est GFR (Non-Af Amer) POC Glucose (mg/dL) 137 H 235 H 148 H Random Glucose Calcium Total Bilirubin AST ALT Alkaline Phosphatase Total Protein Albumin Globulin Albumin/Globulin Ratio Intake & Output: Intake & Output 12/18/18 12/18/18 12/19/18 06:59 18:59 06:59 Intake Total 760 720 Output Total 1 200 Balance 759 520 Intake: IV 100 Right Antecubital 100 Oral 660 720 Output: Urine 1 200 Urine, Voided 1 200 Other: # Bowel Movements 0 1 Vital Signs: Vital Signs - 24 hr 12/18/18 12/18/18 12/18/18 00:00 02:00 06:00 Temperature 98.4 F Pulse Rate 60 60 59 L Respiratory 20 Rate Blood Pressure 128/57 L O2 Sat by Pulse 96 Oximetry 12/18/18 12/18/18 12/18/18 08:37 10:00 16:37 Temperature 98.1 F 97.8 F Pulse Rate 60 60 62 Respiratory 20 20 Rate Blood Pressure 138/60 135/55 L O2 Sat by Pulse 96 Oximetry 12/18/18 17:26 Temperature Pulse Rate 62 Respiratory Rate Blood Pressure 135/55 L O2 Sat by Pulse Oximetry
[2018-12-19] MEDS: Levothyroxine 75 MCG TAB PO SCH (05:38)
[2018-12-19 06:41] LABS: BASO # 0.03 K/mm3 (0.0-2.0); BASO % 0.6 % (0.0-3.0); EOS # 0.3 (0.0-0.7); EOS % 7.2 % (1.5-5.0); LYMPH # 1.1 (1.2-3.4); LYMPH % 22.3 % (22.0-35.0); MEAN CELL VOLUME 94.6 fl (80.0-105.0); MEAN CORPUSCULAR HEMOGLOBIN 29.9 pg (25.0-35.0); MEAN CORPUSCULAR HGB CONC 31.5 g/dl (31.0-37.0); MONO # 0.7 (0.1-0.6); MONO % 13.8 % (1.0-6.0); RBC 3.35 10^6/uL (3.5-6.1); WHITE BLOOD COUNT 4.7 10^3/uL (4.5-11.0)
[2018-12-19 06:57] LABS: ALBUMIN 3.4 g/dL (3.0-4.8); CALCIUM 8.6 mg/dL (8.4-10.5)
[2018-12-19] MEDS: Insulin Lispro (humaLOG) MEDIUM Coverage SC SCH ×4 (08:28→21:27)
--- NOTE | 2018-12-19 10:24 | CP.PCM.PN ---
Subjective - Date & Time of Evaluation Date of Evaluation: 12/19/18 Time of Evaluation: 10:20 - Subjective Subjective: GI Progress Note for Dr. Malave Patient seen and examined at bedside. No acute overnight events. Patient offers no complaints today. Suprapubic catheter was replaced yesterday. Patient denied CP, SOB, n/v/d, abdominal pain, fever, chills, [place], or dizziness. Objective - Vital Signs/Intake and Output Vital Signs (last 24 hours): Temp Pulse Resp BP Pulse Ox 97.8 F 57 L 18 146/62 96 12/19/18 06:00 12/19/18 09:38 12/19/18 06:00 12/19/18 09:38 12/19/18 06:00 Intake and Output: 12/19/18 12/19/18 06:59 18:59 Intake Total 0 Output Total 10 Balance -10 - Medications Medications: Current Medications Acetaminophen (Tylenol 325mg Tab) 650 mg PO Q6H PRN PRN Reason: Fever >100.4 F Atorvastatin Calcium (Lipitor) 20 mg PO HS [facility] Last Admin: 12/18/18 21:17 Dose: 20 mg Calcium Acetate (Phoslo) 667 mg PO TID [facility] Last Admin: 12/19/18 09:39 Dose: 667 mg Carvedilol (Coreg) 6.25 mg PO BID [facility] Last Admin: 12/19/18 09:38 Dose: 6.25 mg Meropenem 250 mg/ Sodium (Chloride) 100 mls @ 100 mls/hr IVPB Q12H [facility]; Protocol Stop: 12/24/18 23:31 Last Admin: 12/18/18 22:44 Dose: 100 mls/hr Insulin Detemir (Levemir) 5 unit SC [facility] Insulin Human Lispro (Humalog Med) 0 units SC [facility]; Protocol Last Admin: 12/19/18 08:28 Dose: Not Given Isosorbide Mononitrate (Imdur Er) 30 mg PO DAILY [facility] Last Admin: 12/19/18 09:39 Dose: 30 mg Levothyroxine Sodium (Synthroid) 75 mcg PO 0600 [facility] Last Admin: 12/19/18 05:38 Dose: 75 mcg Sodium Chloride ([place] Nasal [place]) 0 ml NS BID PRN PRN Reason: Nasal congestion - Labs Labs: 12/19/18 06:00 12/19/18 06:00 - Constitutional Appears: No Acute Distress - Head Exam Head Exam: NORMAL INSPECTION - Eye Exam Eye Exam: Normal appearance Pupil Exam: NORMAL ACCOMODATION - ENT Exam ENT Exam: Mucous Membranes Moist, Normal Exam - Neck Exam Neck Exam: Normal Inspection - Respiratory Exam Respiratory Exam: Clear to Ausculation Bilateral. absent: Rales, Rhonchi, Wheezes - Cardiovascular Exam Cardiovascular Exam: RRR. absent: Gallop, Rubs, Murmur - GI/Abdominal Exam GI & Abdominal Exam: Soft. absent: Distended, Guarding, Tenderness, Rebound Additional comments: suprapubic catheter in place - Extremities Exam Extremities Exam: Normal Inspection - Back Exam Back Exam: NORMAL INSPECTION - Neurological Exam Neurological Exam: Alert, Awake, Oriented x3 - Psychiatric Exam Psychiatric exam: Normal Affect - Skin Skin Exam: Dry, Normal Color, Warm Assessment and Plan - Assessment and Plan (Free Text) Assessment: 72 yo M with PMH of cholangitis 2/2 choledocolithasis s/p ERCP with stone extraction, ESRD on HD (TTS), multiple UTIs/bacteremia, urinary retention/neurogenic bladder s/p suprapubic catheter, CAD s/p CABG, hypothyroidism, DM2, HTN, diverticulosis, cataracts, GERD, and Bowman's esophagus presents to [facility] for fever during HD. GI consulted to rule out intra-abdominal source for E. coli bacteremia. Prior ERCP was reviewed; patient had sphincterotomy with extraction of stone and then subsequent cholecystectomy. CT abd/pelvis: no evidence of colitis/enteritis, cholecystectomy Abd US: prior cholecystectomy, CBD 7mm, no stones visualized 1. E. Coli Bacteremia 2. H/o cholangitis 2/2 choledocolithiasis s/p ERCP 3. H/o ESBL bacteremia 4. ESRD on HD 5. 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 Malave. Yusef Blunt, DO PGY2
--- NOTE | 2018-12-19 12:46 | CP.PCM.PCO ---
Physician Communication Note - Physician Communication Note Physician Communication Note: per [facility] patient has copay,4 MARCIA days remaining,
--- NOTE | 2018-12-19 13:52 | CP.PCM.PN ---
Subjective - Date & Time of Evaluation Date of Evaluation: 12/19/18 Time of Evaluation: 11:10 - Subjective Subjective: Comfortable, not in distress, afebrile. Objective - Vital Signs/Intake and Output Vital Signs (last 24 hours): Temp Pulse Resp BP Pulse Ox 98.1 F 60 20 138/60 96 12/18/18 08:37 12/18/18 08:37 12/18/18 08:37 12/18/18 08:37 12/18/18 00:00 Intake and Output: 12/18/18 12/18/18 06:59 18:59 Intake Total 760 Output Total 1 Balance 759 - Medications Medications: Current Medications Acetaminophen (Tylenol 325mg Tab) 650 mg PO Q6H PRN PRN Reason: Fever >100.4 F Atorvastatin Calcium (Lipitor) 20 mg PO HS [facility] Last Admin: 12/17/18 22:29 Dose: 20 mg Calcium Acetate (Phoslo) 667 mg PO TID [facility] Last Admin: 12/18/18 10:15 Dose: Not Given Carvedilol (Coreg) 6.25 mg PO BID [facility] Last Admin: 12/18/18 10:14 Dose: Not Given Meropenem 250 mg/ Sodium (Chloride) 100 mls @ 100 mls/hr IVPB Q12H [facility]; Protocol Stop: 12/24/18 23:31 Last Admin: 12/17/18 22:30 Dose: 100 mls/hr Insulin Human Lispro (Humalog Med) 0 units SC [facility]; Protocol Last Admin: 12/18/18 07:53 Dose: Not Given Isosorbide Mononitrate (Imdur Er) 30 mg PO DAILY [facility] Last Admin: 12/17/18 09:25 Dose: 30 mg Levothyroxine Sodium (Synthroid) 75 mcg PO 0600 [facility] Last Admin: 12/18/18 05:27 Dose: 75 mcg Sodium Chloride ([place] Nasal [place]) 0 ml NS BID PRN PRN Reason: Nasal congestion - Labs Labs: 12/18/18 06:00 12/18/18 06:00 - Constitutional Appears: No Acute Distress, Chronically Ill - Head Exam Head Exam: NORMAL INSPECTION - Neck Exam Neck Exam: absent: Meningismus - Respiratory Exam Respiratory Exam: Decreased Breath Sounds - Cardiovascular Exam Cardiovascular Exam: +S1, +S2 - GI/Abdominal Exam GI & Abdominal Exam: Soft. absent: Tenderness Assessment and Plan - Assessment and Plan (Free Text) Plan: Assessment ESBL E. coli bacteremia, consider complicated UTI but need to rule out intra- abdominal infection since patient has history of cholecystitis and cholangitis, and with elevated Alk phos history of left upper lobe HCAP, S/P treatment with antibiotics history of Partial small bowel obstruction history of sepsis secondary to ESBL-producing multidrug-resistant E. coli bacteremia probably secondary to acute cholecystitis and ascending cholangitis S/P ERCP with biliary stone extraction history of ESBL E. coli bacteremia HTN Congestive Heart Failure DM GERD End-Stage Renal disease on hemodialysis history of depression history of Bowman's esophagus history of epididymitis on the left Plan continue Merrem and would suggest MRCP; ultrasound of the abdomen was non- sepcific; reviewed CT A/P which was not specific for foci of infection either - discussed with Dr. Duran's team - would need 10-14 days of antibiotics total course; follow up repeat blood cx will continue to monitor clinically
--- NOTE | 2018-12-19 14:09 | CP.PCM.PCO ---
Physician Communication Note - Physician Communication Note Physician Communication Note: pt.medically cleared for DC to Tcu after midline inserted,needs 10 d antibx
--- NOTE | 2018-12-19 14:47 | CP.PCM.PN ---
<Sharron Chun - Last Filed: 12/19/18 15:18> Subjective - Date & Time of Evaluation Date of Evaluation: 12/19/18 Time of Evaluation: 07:30 - Subjective Subjective: Pgy3 Medicine progress note for Dr. Mariee Patient seen and examined at bedside. Nursing reports no acute events overnight. Patient in good spirits this AM and denied acute complaints fever, chills, chest pain, SOB, abd pain, nausea, vomiting, pain/swelling in his legs b/l. Patient reported he had his catheter changed the day prior. Objective - Vital Signs/Intake and Output Vital Signs (last 24 hours): Temp Pulse Resp BP Pulse Ox 97.8 F 57 L 18 146/62 96 12/19/18 06:00 12/19/18 09:38 12/19/18 06:00 12/19/18 09:38 12/19/18 06:00 Intake and Output: 12/19/18 12/19/18 06:59 18:59 Intake Total 0 Output Total 10 Balance -10 - Medications Medications: Current Medications Acetaminophen (Tylenol 325mg Tab) 650 mg PO Q6H PRN PRN Reason: Fever >100.4 F Atorvastatin Calcium (Lipitor) 20 mg PO HS [facility] Last Admin: 12/18/18 21:17 Dose: 20 mg Calcium Acetate (Phoslo) 667 mg PO TID [facility] Last Admin: 12/19/18 13:42 Dose: 667 mg Carvedilol (Coreg) 6.25 mg PO BID [facility] Last Admin: 12/19/18 09:38 Dose: 6.25 mg Meropenem 250 mg/ Sodium (Chloride) 100 mls @ 100 mls/hr IVPB Q12H [facility]; Protocol Stop: 12/24/18 23:31 Last Admin: 12/19/18 13:32 Dose: 100 mls/hr Insulin Detemir (Levemir) 5 unit SC [facility] Insulin Human Lispro (Humalog Med) 0 units SC [facility]; Protocol Last Admin: 12/19/18 13:31 Dose: 3 units Isosorbide Mononitrate (Imdur Er) 30 mg PO DAILY [facility] Last Admin: 12/19/18 09:39 Dose: 30 mg Levothyroxine Sodium (Synthroid) 75 mcg PO 0600 [facility] Last Admin: 12/19/18 05:38 Dose: 75 mcg Sodium Chloride ([place] Nasal [place]) 0 ml NS BID PRN PRN Reason: Nasal congestion - Labs Labs: 12/19/18 06:00 12/19/18 06:00 - Additional Findings Additional findings: Constitutional Appears: Non-toxic, No Acute Distress - Head Exam Head Exam: ATRAUMATIC, NORMAL INSPECTION, NORMOCEPHALIC - Eye Exam Eye Exam: EOMI, Normal appearance, PERRL. absent: Conjunctival injection, Scleral icterus - ENT Exam ENT Exam: Mucous Membranes Moist - Neck Exam Neck exam: Positive for: Full Rom, Normal Inspection. Negative for: Lymphadenopathy - Respiratory Exam Respiratory Exam: NORMAL BREATHING PATTERN. absent: Accessory Muscle Use, Rales, Rhonchi, Wheezes, Respiratory Distress - Cardiovascular Exam Cardiovascular Exam: REGULAR RHYTHM, +S1, +S2. absent: Systolic Murmur - GI/Abdominal Exam GI & Abdominal Exam: Normal Bowel Sounds, Soft Additional comments: suprapubic cath dressings c/d/i - Extremities Exam Extremities exam: Positive for: normal capillary refill, normal inspection, pedal pulses present Additional comments: LUE dialysis graft - Back Exam Back exam: NORMAL INSPECTION. absent: rash noted - Neurological Exam Neurological exam: Alert, Oriented x3 - Psychiatric Exam Psychiatric exam: Normal Affect, Normal Mood - Skin Skin Exam: Dry, Intact, Normal Color, Warm Assessment and Plan - Assessment and Plan (Free Text) Assessment: 1. Gram negative bacilli bacteremia likely secondary to complicated UTI vs GI pathology 2. Decreased urinary output from suprapubic catheter 3. ESRD on HD [TTS] 4. CAD s/p CABG 5. Pacemaker 6. DM2 7. Hypothyroidism 8. HTN 9. Deconditioning 10. Chronic depression 11. GERD 12. Chronic Right sided heart failure Plan: Patient's blood work, vitals, and imaging reviewed in chart. Continue Merrem at this time in light of E Coli bacteremia x 2. Repeat blood cultures prelim negative x 2. CT abd/pelvis and u/s abdomen reviewed. MRCP ordered w/o contrast as patient allergic to dye- will f/u. 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 Patient had acute on chronic cholecystitis and lap cholecystectomy in January 2017 and has history of cholangitis. Strong suspicion for UTI as patient has a history of sepsis secondary to ESBL-producing multidrug-resistant E. coli bacteremia. Urology Dr. Friend replaced 14F suprapubic catheter with 18F and scant dark urine noted. Tylenol on board for elevated temp. Continue home Lipitor, Coreg, and Imdur for CAD and HTN. Continue synthroid of hypothyroidism. Patient on Accuchecks with RISS medium and Levemir 5U. As per ID patient will likely need IV abx for 2 weeks total. Patient pending discharge to TCU. Discussed with Dr. Kodi Chun PGY3 <Bc Mariee S - Last Filed: 12/19/18 18:32> Objective - Vital Signs/Intake and Output Vital Signs (last 24 hours): Temp Pulse Resp BP Pulse Ox 97.6 F 60 19 163/77 H 98 12/19/18 17:34 12/19/18 17:49 12/19/18 17:34 12/19/18 17:49 12/19/18 17:34 Intake and Output: 12/19/18 12/19/18 06:59 18:59 Intake Total 0 Output Total 10 Balance -10 - Medications Medications: Current Medications Acetaminophen (Tylenol 325mg Tab) 650 mg PO Q6H PRN PRN Reason: Fever >100.4 F Atorvastatin Calcium (Lipitor) 20 mg PO HS [facility] Last Admin: 12/18/18 21:17 Dose: 20 mg Calcium Acetate (Phoslo) 667 mg PO TID [facility] Last Admin: 12/19/18 17:44 Dose: 667 mg Carvedilol (Coreg) 6.25 mg PO BID [facility] Last Admin: 12/19/18 17:49 Dose: 6.25 mg Meropenem 250 mg/ Sodium (Chloride) 100 mls @ 100 mls/hr IVPB Q12H [facility]; Protocol Stop: 12/24/18 23:31 Last Admin: 12/19/18 13:32 Dose: 100 mls/hr Insulin Detemir (Levemir) 5 unit SC [facility] Insulin Human Lispro (Humalog Med) 0 units SC [facility]; Protocol Last Admin: 12/19/18 17:41 Dose: 1 units Isosorbide Mononitrate (Imdur Er) 30 mg PO DAILY [facility] Last Admin: 12/19/18 09:39 Dose: 30 mg Levothyroxine Sodium (Synthroid) 75 mcg PO 0600 [facility] Last Admin: 12/19/18 05:38 Dose: 75 mcg Sodium Chloride ([place] Nasal [place]) 0 ml NS BID PRN PRN Reason: Nasal congestion - Labs Labs: 12/19/18 06:00 12/19/18 06:00 Assessment and Plan - Assessment and Plan (Free Text) Plan: Pt seen and examined by me. I have reviewed the note of the medical practice assistant and I agree with it. I have discussed the assessment and plan with the resident. I have reviewed the medications and the last labs. Pt with UTI and is on IV Merrem. He is on HD for ESRD. Pt has hx of ESBL. He will continue with Lipitor for dyslipidemia. He has CAD and is on Imdur He may need to go to TCU for IV Abx. Pt is on ISS for DM-2. GI is following due to E Coli for bacteremia. PT/Rehab.
--- NOTE | 2018-12-19 16:52 | CP.PCM.PCO ---
Physician Communication Note - Physician Communication Note Physician Communication Note: MRCP planned tommorow am, GI clearance pending,
[2018-12-19 17:36] VITALS: RESP 19; TEMP 97.6; O2SAT 98
--- NOTE | 2018-12-19 22:34 | PCM.URO ---
Urology Progress Note - General General: No Complaints, Tolerating Diet - Subjective Abdominal Pain: No Nausea: No Voiding Well: No Hematuria: No Chest Pain: No Fever & Chills: No - Objective Lab Studies: Reviewed Lab Results Last 24 Hours: Laboratory Results - last 24 hr 12/19/18 12/19/18 12/19/18 06:00 06:00 07:28 WBC 4.7 RBC 3.35 L Hgb 10.0 L Hct 31.7 L MCV 94.6 MCH 29.9 MCHC 31.5 RDW 14.0 Plt Count 158 MPV 10.0 Neut % (Auto) 56.1 Lymph % (Auto) 22.3 [place] % (Auto) 13.8 H Eos % (Auto) 7.2 H Baso % (Auto) 0.6 Lymph # (Auto) 1.1 L [place] # (Auto) 0.7 H Eos # (Auto) 0.3 Baso # (Auto) 0.03 Absolute Neuts (auto) 2.63 Sodium 136 Potassium 4.3 Chloride 98 Carbon Dioxide 27 Anion Gap 15 BUN 44 H Creatinine 4.6 H Est GFR ( Amer) 15 Est GFR (Non-Af Amer) 13 POC Glucose (mg/dL) 136 H Random Glucose 125 H Calcium 8.6 Total Bilirubin 0.9 AST 67 H ALT 49 Alkaline Phosphatase 554 H Total Protein 7.0 Albumin 3.4 Globulin 3.6 Albumin/Globulin Ratio 1.0 L 12/19/18 12/19/18 12/19/18 11:21 16:55 21:15 WBC RBC Hgb Hct MCV MCH MCHC RDW Plt Count MPV Neut % (Auto) Lymph % (Auto) [place] % (Auto) Eos % (Auto) Baso % (Auto) Lymph # (Auto) [place] # (Auto) Eos # (Auto) Baso # (Auto) Absolute Neuts (auto) Sodium Potassium Chloride Carbon Dioxide Anion Gap BUN Creatinine Est GFR ( Amer) Est GFR (Non-Af Amer) POC Glucose (mg/dL) 209 H 172 H 214 H Random Glucose Calcium Total Bilirubin AST ALT Alkaline Phosphatase Total Protein Albumin Globulin Albumin/Globulin Ratio Intake & Output: Intake & Output 12/19/18 12/19/18 12/20/18 06:59 18:59 06:59 Intake Total 0 Output Total 10 Balance -10 Intake: Oral 0 Output: Urine 10 Suprapubic 10 Other: # Bowel Movements 1 Vital Signs: Vital Signs - 24 hr 12/19/18 12/19/18 12/19/18 06:00 09:38 17:34 Temperature 97.8 F 97.6 F Pulse Rate 57 L 57 L 60 Respiratory 18 19 Rate Blood Pressure 146/62 146/62 118/50 L O2 Sat by Pulse 96 98 Oximetry 12/19/18 17:49 Temperature Pulse Rate 60 Respiratory Rate Blood Pressure 163/77 H O2 Sat by Pulse Oximetry - Physical Exam Abdominal Exam: Soft, Non-Tender, Non-Distended Wound: Clean Dressing: Intact Back: No CVA Tenderness Genitalia: Without Inflammation Urinary Catheter Draining Well: Yes (cystostomy tube in place) Urine Color: Clear, Yellow - Plan Wound Care: Yes Catheter Care: Yes Intake & Output: Yes Additional Information: IMP: stable urologically. Renal failure. Indwelling suprapubic cystostomy tube. YS - Date & Time of Note Date: 12/19/18 Time: 14:20
[2018-12-20] MEDS: Levothyroxine 75 MCG TAB PO SCH (05:46)
--- NOTE | 2018-12-20 06:40 | CP.PCM.DIS ---
<Sharron Chun - Last Filed: 12/20/18 15:13> Provider - Provider Date of Admission: 12/15/18 19:06 Attending physician: Bc Mariee MD Primary care physician: Bc Mariee MD Consults: 12/15/18 20:29 Consult [Physician Consult] Routine Comment: Consulting Provider: Isrrael Ni Consulting Physician: Isrrael Ni Reason for Consult: fever UTI 12/16/18 08:54 TCU [Evaluation for TRCU] Routine Comment: Physician Instructions: Reason For Exam: TCU eval 12/17/18 14:20 Finance Teacher [Case Management Referral] Routine Comment: Physician Instructions: Reason For Exam: discharge to [facility] Reason for Referral: Discharge Planning 12/18/18 09:00 Gastroenterology Consult Routine Comment: Consulting Provider: Shae Malave V Consulting Physician: Shae Malave V Reason for Consult: gram neg rods in blood cx; elevated AlkPhos; s/p [id number] 12/18/18 09:10 Physician Consult Routine Comment: Consulting Provider: Danny Friend Consulting Physician: Danny Friend Reason for Consult: no output from suprapubic catheter Time Spent in preparation of Discharge (in minutes): 45 Hospital Course - Lab Results Lab Results: Micro Results 12/18/18 13:50 Blood-Venous Blood Culture - Preliminary NO GROWTH AFTER 24 HOURS 12/18/18 13:15 Blood-Venous Blood Culture - Preliminary NO GROWTH AFTER 24 HOURS 12/15/18 17:45 Blood Blood Culture - Final Escherichia Coli 12/15/18 17:45 Blood Gram Stain - Final 12/15/18 17:20 Blood-Venous Blood Culture - Final Escherichia Coli 12/15/18 17:20 Blood-Venous Gram Stain - Final Most Recent Lab Values WBC 4.7 10^3/uL (4.5-11.0) 12/19/18 06:00 RBC 3.35 10^6/uL (3.5-6.1) L 12/19/18 06:00 Hgb 10.0 g/dL (14.0-18.0) L 12/19/18 06:00 Hct 31.7 % (42.0-52.0) L 12/19/18 06:00 MCV 94.6 fl (80.0-105.0) 12/19/18 06:00 MCH 29.9 pg (25.0-35.0) 12/19/18 06:00 MCHC 31.5 g/dl (31.0-37.0) 12/19/18 06:00 RDW 14.0 % (11.5-14.5) 12/19/18 06:00 Plt Count 158 10^3/uL (120.0-450.0) 12/19/18 06:00 MPV 10.0 fl (7.0-11.0) 12/19/18 06:00 Neut % (Auto) 56.1 % (50.0-68.0) 12/19/18 06:00 Lymph % (Auto) 22.3 % (22.0-35.0) 12/19/18 06:00 [place] % (Auto) 13.8 % (1.0-6.0) H 12/19/18 06:00 Eos % (Auto) 7.2 % (1.5-5.0) H 12/19/18 06:00 Baso % (Auto) 0.6 % (0.0-3.0) 12/19/18 06:00 Lymph # (Auto) 1.1 (1.2-3.4) L 12/19/18 06:00 [place] # (Auto) 0.7 (0.1-0.6) H 12/19/18 06:00 Eos # (Auto) 0.3 (0.0-0.7) 12/19/18 06:00 Baso # (Auto) 0.03 K/mm3 (0.0-2.0) 12/19/18 06:00 Absolute Neuts (auto) 2.63 (1.4-6.5) 12/19/18 06:00 pO2 32 mm/Hg (30-55) 12/15/18 17:20 VBG pH 7.44 (7.32-7.43) H 12/15/18 17:20 VBG pCO2 51.0 (40-60) 12/15/18 17:20 VBG HCO3 34.6 mmol/l (21-28) H 12/15/18 17:20 VBG Total CO2 36.2 mmol.L (22-28) H 12/15/18 17:20 VBG O2 Sat (Calc) 69.3 % (40-65) H 12/15/18 17:20 VBG Base Excess 8.8 mmol/L (0.0-2.0) H 12/15/18 17:20 VBG Potassium 3.2 mmol/L (3.6-5.2) L 12/15/18 17:20 Sodium 134.0 mmol/L (132-148) 12/15/18 17:20 Chloride 96.0 mmol/L (98-107) L 12/15/18 17:20 Glucose 172 mg/dl (75-110) H 12/15/18 17:20 Lactate 1.2 mmol/L (0.7-2.1) 12/15/18 17:20 FiO2 21.0 % 12/15/18 17:20 Sodium 136 mmol/L (132-148) 12/19/18 06:00 Potassium 4.3 mmol/L (3.6-5.0) 12/19/18 06:00 Chloride 98 mmol/L (98-107) 12/19/18 06:00 Carbon Dioxide 27 mmol/L (21-33) 12/19/18 06:00 Anion Gap 15 (10-20) 12/19/18 06:00 BUN 44 mg/dL (7-21) H 12/19/18 06:00 Creatinine 4.6 mg/dl (0.8-1.5) H 12/19/18 06:00 Est GFR ( Amer) 15 12/19/18 06:00 Est GFR (Non-Af Amer) 13 12/19/18 06:00 POC Glucose (mg/dL) 102 mg/dL (65-110) 12/20/18 02:05 Random Glucose 125 mg/dL (70-110) H 12/19/18 06:00 Calcium 8.6 mg/dL (8.4-10.5) 12/19/18 06:00 Phosphorus 3.8 mg/dL (2.5-4.5) 12/16/18 08:00 Magnesium 2.2 mg/dL (1.7-2.2) 12/16/18 08:00 Total Bilirubin 0.9 mg/dL (0.2-1.3) 12/19/18 06:00 Direct Bilirubin 1.0 mg/dL (0.0-0.4) H 12/17/18 06:00 AST 67 U/L (17-59) H 12/19/18 06:00 ALT 49 U/L (7-56) 12/19/18 06:00 Alkaline Phosphatase 554 U/L (38-126) H 12/19/18 06:00 Total Protein 7.0 g/dL (5.8-8.3) 12/19/18 06:00 Albumin 3.4 g/dL (3.0-4.8) 12/19/18 06:00 Globulin 3.6 gm/dL 12/19/18 06:00 Albumin/Globulin Ratio 1.0 (1.1-1.8) L 12/19/18 06:00 Procalcitonin 3.25 NG/ML (0.19-0.49) H 12/16/18 08:00 Venous Blood Potassium 3.2 mmol/L (3.6-5.2) L 12/15/18 17:20 Influenza Typ A,B (EIA) Negative for flu a/b (NEGATIVE) 12/15/18 17:45 - Hospital Course Hospital Course: Upon Admission 72yo male PMHx CAD s/p CABG, pacemaker, ESRD on HD (TTS), DM2, hypothyroidism, HTN and urinary retention s/p a suprapubic catheter (since 2010) recently hospitalized, presents for fever during HD on 12/15/18. As per EMR patient also complained of a cough for 5 months with vomiting and diarrhea. As per EMR, family noted patient had not made any urine since the day prior. Patient reported he felt like he may have a urinary infection. Hospital Course Patient admitted to [facility] for further management. Consent for HD attained with help of load haul dump operator RAMBO Caceres and placed in chart. Strong suspicion for UTI in patient; unable to obtain U/A or urine c&s at this time as patient has no urinary output from catheter. Patient ESBL+ in blood and on Merrem as per ID. In light of blood cultures, CT Abd/pelvis and Abd u/s done reviewed. MRCP not possible in light of patient's pacemaker. 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 Patient had acute on chronic cholecystitis and lap cholecystectomy in January 2017 and has history of cholangitis. Strong suspicion for UTI as patient has a history of sepsis secondary to ESBL-producing multidrug-resistant E. coli bacteremia. GPC in clusters in 1 out of 4 bottles- likely contamination. Urology replaced 14F suprapubic catheter with 18F and scant dark urine noted. Elevated procalcitonin 3.25. Tylenol on board for elevated temp. Patient scheduled for HD TTS. Continue home Lipitor, Coreg, and Imdur for CAD and HTN. Continue synthroid of hypothyroidism. Patient on Accuchecks with RISS medium and Levemir for history of DM2. PT on board for deconditioning. Patient discharged to TCU for 10-14 days of IV abx. Discharge Exam - Head Exam Head Exam: NORMAL INSPECTION - Additional Findings Additional findings: Constitutional Appears: Non-toxic, No Acute Distress - Head Exam Head Exam: ATRAUMATIC, NORMAL INSPECTION, NORMOCEPHALIC - Eye Exam Eye Exam: EOMI, Normal appearance, PERRL. absent: Conjunctival injection, Scleral icterus - ENT Exam ENT Exam: Mucous Membranes Moist - Neck Exam Neck exam: Positive for: Full Rom, Normal Inspection. Negative for: Lymphad enopathy - Respiratory Exam Respiratory Exam: NORMAL BREATHING PATTERN. absent: Accessory Muscle Use, Rales, Rhonchi, Wheezes, Respiratory Distress - Cardiovascular Exam Cardiovascular Exam: REGULAR RHYTHM, +S1, +S2. absent: Systolic Murmur - GI/Abdominal Exam GI & Abdominal Exam: Normal Bowel Sounds, Soft Additional comments: suprapubic cath dressings c/d/i - Extremities Exam Extremities exam: Positive for: normal capillary refill, normal inspection, pedal pulses present Additional comments: LUE dialysis graft - Back Exam Back exam: NORMAL INSPECTION. absent: rash noted - Neurological Exam Neurological exam: Alert, Oriented x3 - Psychiatric Exam Psychiatric exam: Normal Affect, Normal Mood - Skin Skin Exam: Dry, Intact, Normal Color, Warm Discharge Plan - Follow Up Plan Condition: FAIR Disposition: TRANSF TO SNF Instructions: Renal Failure Diet (DC) Referrals: Bc Mariee MD [Primary Care Provider] - <Bc Mariee - Last Filed: 12/20/18 18:04> Provider - Provider Date of Admission: 12/15/18 19:06 Attending physician: Bc Mariee MD Primary care physician: Bc Mariee MD Consults: 12/15/18 20:29 Consult [Physician Consult] Routine Comment: Consulting Provider: Isrrael Ni Consulting Physician: Isrrael Ni Reason for Consult: fever UTI 12/16/18 08:54 TCU [Evaluation for TRCU] Routine Comment: Physician Instructions: Reason For Exam: TCU eval 12/17/18 14:20 Finance Teacher [Case Management Referral] Routine Comment: Physician Instructions: Reason For Exam: discharge to [facility] Reason for Referral: Discharge Planning 12/18/18 09:00 Gastroenterology Consult Routine Comment: Consulting Provider: Shae Malave V Consulting Physician: Shae Malave V Reason for Consult: gram neg rods in blood cx; elevated AlkPhos; s/p [id number] 12/18/18 09:10 Physician Consult Routine Comment: Consulting Provider: Danny Friend Consulting Physician: Danny Friend Reason for Consult: no output from suprapubic catheter Hospital Course - Lab Results Lab Results: Micro Results 12/18/18 13:15 Blood-Venous Blood Culture - Preliminary NO GROWTH AFTER 48 HOURS 12/19/18 11:15 Blood-Venous Blood Culture - Preliminary NO GROWTH AFTER 24 HOURS 12/19/18 10:45 Blood-Venous Blood Culture - Preliminary NO GROWTH AFTER 24 HOURS 12/18/18 13:50 Blood-Venous Blood Culture - Preliminary Gram Positive Cocci 12/18/18 13:50 Blood-Venous Gram Stain - Final 12/15/18 17:45 Blood Blood Culture - Final Escherichia Coli 12/15/18 17:45 Blood Gram Stain - Final 12/15/18 17:20 Blood-Venous Blood Culture - Final Escherichia Coli 12/15/18 17:20 Blood-Venous Gram Stain - Final Most Recent Lab Values WBC 5.0 10^3/uL (4.5-11.0) 12/20/18 07:40 RBC 3.35 10^6/uL (3.5-6.1) L 12/20/18 07:40 Hgb 10.1 g/dL (14.0-18.0) L 12/20/18 07:40 Hct 31.6 % (42.0-52.0) L 12/20/18 07:40 MCV 94.3 fl (80.0-105.0) 12/20/18 07:40 MCH 30.1 pg (25.0-35.0) 12/20/18 07:40 MCHC 32.0 g/dl (31.0-37.0) 12/20/18 07:40 RDW 13.7 % (11.5-14.5) 12/20/18 07:40 Plt Count 154 10^3/uL (120.0-450.0) 12/20/18 07:40 MPV 9.9 fl (7.0-11.0) 12/20/18 07:40 Neut % (Auto) 56.8 % (50.0-68.0) 12/20/18 07:40 Lymph % (Auto) 24.7 % (22.0-35.0) 12/20/18 07:40 [place] % (Auto) 10.3 % (1.0-6.0) H 12/20/18 07:40 Eos % (Auto) 7.6 % (1.5-5.0) H 12/20/18 07:40 Baso % (Auto) 0.6 % (0.0-3.0) 12/20/18 07:40 Lymph # (Auto) 1.2 (1.2-3.4) 12/20/18 07:40 [place] # (Auto) 0.5 (0.1-0.6) 12/20/18 07:40 Eos # (Auto) 0.4 (0.0-0.7) 12/20/18 07:40 Baso # (Auto) 0.03 K/mm3 (0.0-2.0) 12/20/18 07:40 Absolute Neuts (auto) 2.86 (1.4-6.5) 12/20/18 07:40 pO2 32 mm/Hg (30-55) 12/15/18 17:20 VBG pH 7.44 (7.32-7.43) H 12/15/18 17:20 VBG pCO2 51.0 (40-60) 12/15/18 17:20 VBG HCO3 34.6 mmol/l (21-28) H 12/15/18 17:20 VBG Total CO2 36.2 mmol.L (22-28) H 12/15/18 17:20 VBG O2 Sat (Calc) 69.3 % (40-65) H 12/15/18 17:20 VBG Base Excess 8.8 mmol/L (0.0-2.0) H 12/15/18 17:20 VBG Potassium 3.2 mmol/L (3.6-5.2) L 12/15/18 17:20 Sodium 134.0 mmol/L (132-148) 12/15/18 17:20 Chloride 96.0 mmol/L (98-107) L 12/15/18 17:20 Glucose 172 mg/dl (75-110) H 12/15/18 17:20 Lactate 1.2 mmol/L (0.7-2.1) 12/15/18 17:20 FiO2 21.0 % 12/15/18 17:20 Sodium 135 mmol/L (132-148) 12/20/18 07:40 Potassium 4.6 mmol/L (3.6-5.0) 12/20/18 07:40 Chloride 98 mmol/L (98-107) 12/20/18 07:40 Carbon Dioxide 24 mmol/L (21-33) 12/20/18 07:40 Anion Gap 17 (10-20) 12/20/18 07:40 BUN 70 mg/dL (7-21) H 12/20/18 07:40 Creatinine 6.1 mg/dl (0.8-1.5) H 12/20/18 07:40 Est GFR ( Amer) 11 12/20/18 07:40 Est GFR (Non-Af Amer) 9 12/20/18 07:40 POC Glucose (mg/dL) 273 mg/dL (65-110) H 12/20/18 16:31 Random Glucose 122 mg/dL (70-110) H 12/20/18 07:40 Calcium 8.5 mg/dL (8.4-10.5) 12/20/18 07:40 Phosphorus 5.5 mg/dL (2.5-4.5) H 12/20/18 07:40 Magnesium 2.4 mg/dL (1.7-2.2) H 12/20/18 07:40 Total Bilirubin 0.8 mg/dL (0.2-1.3) 12/20/18 07:40 Direct Bilirubin 1.0 mg/dL (0.0-0.4) H 12/17/18 06:00 AST 76 U/L (17-59) H 12/20/18 07:40 ALT 54 U/L (7-56) 12/20/18 07:40 Alkaline Phosphatase 514 U/L (38-126) H 12/20/18 07:40 Total Protein 6.9 g/dL (5.8-8.3) 12/20/18 07:40 Albumin 3.3 g/dL (3.0-4.8) 12/20/18 07:40 Globulin 3.5 gm/dL 12/20/18 07:40 Albumin/Globulin Ratio 1.0 (1.1-1.8) L 12/20/18 07:40 Procalcitonin 3.25 NG/ML (0.19-0.49) H 12/16/18 08:00 Venous Blood Potassium 3.2 mmol/L (3.6-5.2) L 12/15/18 17:20 Influenza Typ A,B (EIA) Negative for flu a/b (NEGATIVE) 12/15/18 17:45 - Hospital Course Hospital Course: Patient was seen and examined by. I have reviewed the note of the medical sociologist and have gone over the plann of care. I agreee with the not. I have reviewed the medications and the last labs. Pt has UTI and is on IV ABX. He will need to finish a total of 14 days. He is going to TCU to finish his Abx. He is on Merrem and was seen by ID. Pt does not make much urine. He was seen by Uro logy and had his catheter changed. He is doing well with HD. He leonard Lipitor for his dyslipidemia. He is on Coreg for his HTN an CAD. will continue with Synthroid for hypothyroidism. Pt D/C to TCU.
[2018-12-20 07:56] LABS: BASO # 0.03 K/mm3 (0.0-2.0); BASO % 0.6 % (0.0-3.0); EOS # 0.4 (0.0-0.7); EOS % 7.6 % (1.5-5.0); HEMOGLOBIN 10.1 g/dL (14.0-18.0); LYMPH # 1.2 (1.2-3.4); LYMPH % 24.7 % (22.0-35.0); MEAN CELL VOLUME 94.3 fl (80.0-105.0); MEAN CORPUSCULAR HEMOGLOBIN 30.1 pg (25.0-35.0); MEAN PLATELET VOLUME 9.9 fl (7.0-11.0); MONO # 0.5 (0.1-0.6); MONO % 10.3 % (1.0-6.0); RBC 3.35 10^6/uL (3.5-6.1); RED CELL DISTRIBUTION WIDTH 13.7 % (11.5-14.5)
[2018-12-20 08:09] LABS: ALBUMIN 3.3 g/dL (3.0-4.8); CALCIUM 8.5 mg/dL (8.4-10.5)
[2018-12-20] MEDS: Insulin Lispro (humaLOG) MEDIUM Coverage SC SCH ×3 (08:18→17:07)
--- NOTE | 2018-12-20 11:16 | CP.PCM.PN ---
<Lalo Hendrickson - Last Filed: 12/20/18 15:30> Subjective - Date & Time of Evaluation Date of Evaluation: 12/20/18 Time of Evaluation: 09:05 - Subjective Subjective: PGY-4 GI Fellow Prog Note Pt undergoing HD when seen this AM. States he is doing well without any complaints. Denied abd pain, n/v. 5 point ROS negative other than stated above Objective - Vital Signs/Intake and Output Vital Signs (last 24 hours): Temp Pulse Resp BP Pulse Ox 97.6 F 60 19 163/77 H 98 12/19/18 17:34 12/19/18 17:49 12/19/18 17:34 12/19/18 17:49 12/19/18 17:34 - Medications Medications: Current Medications Acetaminophen (Tylenol 325mg Tab) 650 mg PO Q6H PRN PRN Reason: Fever >100.4 F Atorvastatin Calcium (Lipitor) 20 mg PO HS [facility] Last Admin: 12/19/18 21:27 Dose: 20 mg Calcium Acetate (Phoslo) 667 mg PO TID [facility] Last Admin: 12/20/18 10:46 Dose: Not Given Carvedilol (Coreg) 6.25 mg PO BID [facility] Last Admin: 12/20/18 10:46 Dose: Not Given Meropenem 250 mg/ Sodium (Chloride) 100 mls @ 100 mls/hr IVPB Q12H [facility]; Protocol Stop: 12/24/18 23:31 Last Admin: 12/19/18 23:04 Dose: 100 mls/hr Insulin Detemir (Levemir) 5 unit SC HS [facility] Last Admin: 12/19/18 21:27 Dose: 5 units Insulin Human Lispro (Humalog Med) [address] [facility]; Protocol Last Admin: 12/20/18 08:18 Dose: Not Given Isosorbide Mononitrate (Imdur Er) 30 mg PO DAILY [facility] Last Admin: 12/20/18 10:46 Dose: Not Given Levothyroxine Sodium (Synthroid) 75 mcg PO 0600 [facility] Last Admin: 12/20/18 05:46 Dose: 75 mcg Sodium Chloride ([place] Nasal [place]) 0 ml NS BID PRN PRN Reason: Nasal congestion - Labs Labs: 12/20/18 07:40 12/20/18 07:40 - Constitutional Appears: Well, No Acute Distress - Head Exam Head Exam: ATRAUMATIC, NORMAL INSPECTION - Eye Exam Eye Exam: EOMI. absent: Scleral icterus - ENT Exam ENT Exam: Mucous Membranes Moist. absent: Mucous Membranes Dry - Respiratory Exam Respiratory Exam: NORMAL BREATHING PATTERN. absent: Accessory Muscle Use, Respiratory Distress - GI/Abdominal Exam GI & Abdominal Exam: Soft, Normal Bowel Sounds. absent: Bruit, Distended, Firm, Guarding, Rigid, Tenderness, Mass, Organomegaly Additional comments: +suprapubic cath in place with overlying dressing Assessment and Plan - Assessment and Plan (Free Text) Assessment: 72 yo M with PMH of cholangitis 2/2 choledocolithasis s/p ERCP with stone extraction, ESRD on HD (TTS), multiple UTIs/bacteremia, urinary retention/neurogenic bladder s/p suprapubic catheter, CAD s/p CABG, hypothyroidism, DM2, HTN, diverticulosis, cataracts, GERD, and Bowman's esophagus presents to [facility] for fever during HD. GI consulted to rule out intra- abdominal source for E. coli bacteremia. Prior ERCP was reviewed; patient had sphincterotomy with extraction of stone and then subsequent cholecystectomy. CT abd/pelvis: no evidence of colitis/enteritis, cholecystectomy Abd US: prior cholecystectomy, CBD 7mm, no stones visualized 1. E. Coli Bacteremia 2. H/o cholangitis 2/2 choledocolithiasis s/p ERCP 3. H/o ESBL bacteremia 4. ESRD on HD 5. 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 Malave; please see attestation for further recs/changes. <Shae Malave V - Last Filed: 12/20/18 23:55> Objective - Vital Signs/Intake and Output Vital Signs (last 24 hours): Temp Pulse Resp BP Pulse Ox 97.6 F 56 L 19 135/83 98 12/19/18 17:34 12/20/18 17:08 12/19/18 17:34 12/20/18 17:08 12/19/18 17:34 - Labs Labs: 12/20/18 07:40 12/20/18 07:40 Attending/Attestation - Attestation I have personally seen and examined this patient.: Yes I have fully participated in the care of the patient.: Yes I have reviewed all pertinent clinical information, including history, physical exam and plan: Yes Notes (Text): This is an addendum to GI progress report dictated by the GI Fellow. The patient was seen and examined earlier. Medical records, lab studies, imagings were reviewed. Last 24 hours events reviewed. Agreed with the above treatment plan as outlined in GI Fellow 's notes with the addition of the following clinically appears better ID note reviewed MRCP could not be done in view of the pacemaker Continue the antibiotics if there are any worsening ofthe symptoms are increasing LFTs would consider EUS if the patient's family is agreeable 12/20/18 23:52
--- NOTE | 2018-12-20 14:15 | CP.PCM.PN ---
Subjective - Date & Time of Evaluation Date of Evaluation: 12/20/18 Time of Evaluation: 08:55 - Subjective Subjective: Comfortable, no fevers, for dialysis today. Objective - Vital Signs/Intake and Output Vital Signs (last 24 hours): Temp Pulse Resp BP Pulse Ox 97.8 F 57 L 18 146/62 96 12/19/18 06:00 12/19/18 09:38 12/19/18 06:00 12/19/18 09:38 12/19/18 06:00 Intake and Output: 12/19/18 12/19/18 06:59 18:59 Intake Total 0 Output Total 10 Balance -10 - Medications Medications: Current Medications Acetaminophen (Tylenol 325mg Tab) 650 mg PO Q6H PRN PRN Reason: Fever >100.4 F Atorvastatin Calcium (Lipitor) 20 mg PO HS [facility] Last Admin: 12/18/18 21:17 Dose: 20 mg Calcium Acetate (Phoslo) 667 mg PO TID [facility] Last Admin: 12/19/18 13:42 Dose: 667 mg Carvedilol (Coreg) 6.25 mg PO BID [facility] Last Admin: 12/19/18 09:38 Dose: 6.25 mg Meropenem 250 mg/ Sodium (Chloride) 100 mls @ 100 mls/hr IVPB Q12H [facility]; Protocol Stop: 12/24/18 23:31 Last Admin: 12/19/18 13:32 Dose: 100 mls/hr Insulin Detemir (Levemir) 5 unit SC [facility] Insulin Human Lispro (Humalog Med) 0 units SC [facility]; Protocol Last Admin: 12/19/18 13:31 Dose: 3 units Isosorbide Mononitrate (Imdur Er) 30 mg PO DAILY [facility] Last Admin: 12/19/18 09:39 Dose: 30 mg Levothyroxine Sodium (Synthroid) 75 mcg PO 0600 [facility] Last Admin: 12/19/18 05:38 Dose: 75 mcg Sodium Chloride ([place] Nasal [place]) 0 ml NS BID PRN PRN Reason: Nasal congestion - Labs Labs: 12/19/18 06:00 12/19/18 06:00 - Constitutional Appears: Chronically Ill - Head Exam Head Exam: NORMAL INSPECTION - Respiratory Exam Respiratory Exam: Decreased Breath Sounds - Cardiovascular Exam Cardiovascular Exam: +S1, +S2 - GI/Abdominal Exam GI & Abdominal Exam: Soft. absent: Tenderness Assessment and Plan - Assessment and Plan (Free Text) Plan: Assessment ESBL E. coli bacteremia, consider complicated UTI but need to rule out intra- abdominal infection since patient has history of cholecystitis and cholangitis, and with elevated Alk phos GPC in clusters in 1 out of 4 bottles, R/O contamination history of left upper lobe HCAP, S/P treatment with antibiotics history of Partial small bowel obstruction history of sepsis secondary to ESBL-producing multidrug-resistant E. coli bacteremia probably secondary to acute cholecystitis and ascending cholangitis S/P ERCP with biliary stone extraction history of ESBL E. coli bacteremia HTN Congestive Heart Failure DM GERD End-Stage Renal disease on hemodialysis history of depression history of Bowman's esophagus history of epididymitis on the left Plan continue Merrem and would suggest MRCP; ultrasound of the abdomen was non- sepcific; reviewed CT A/P which was not specific for foci of infection either - discussed with Dr. Duran's team - would need 10-14 days of antibiotics total course; will repeat blood cx again will continue to monitor clinically
--- NOTE | 2018-12-20 14:16 | PQF ---
PROVIDER RESPONSE TEXT: GNB bacteremia source not clear, cannot rule out catheter associated UTI cannot rule out intra-abdomi nal infection REVIEWER QUERY TEXT: Cause and Effect Relationship Please clarify in documentation the relationship, if any, between and Such as: -- Conditions are due to or associated -- Unrelated to each other -- Other, please specify The patient's Clinical Indicators include: Patient with gram negative bacilli bacteremia, likely "complicated UTI" per your documentation. changed suprapubic catheter. Please clarify if this is likely a CAUTI. Query created by: Salud Gold on 12/19/2018 11:55 AM Electronically signed by: Wiliam Gracia MD 12/20/2018 2:12 PM
[2018-12-20 17:19] VITALS: BP 135/83; PULSE 56
--- NOTE | 2018-12-25 00:18 | CON ---
DATE: 12/18/2018 UROLOGY CONSULTATION REASON FOR THE CONSULTATION: Nonfunctioning catheter. HISTORY OF PRESENT ILLNESS: Very pleasant gentleman, he is in the hospital. He is a dialysis patient. He is 72-year-old. He has chronic dialysis. He lives with a suprapubic, but he still is making urine. Urologist there is no urine output in the catheter. Urology is consulted for further recommendations. PAST MEDICAL AND SURGICAL HISTORY: All listed on the chart. REVIEW OF SYSTEMS: As listed above, otherwise noncontributory. SOCIAL HISTORY: Essentially unremarkable. MEDICATIONS: See the chart. ALLERGIES: SEE THE CHART. PHYSICAL EXAMINATION: GENERAL: Well-nourished male in no apparent distress, resting comfortably in the bed. VITAL SIGNS: Within normal limits, included in the chart. LUNGS: Clear. HEART: Normal S1 and S2. ABDOMEN: Soft. Suprapubic catheter is in place, now draining well. See the separately dictated procedure note, we dictated a new one. DIAGNOSES: Urinary retention, voiding dysfunction, renal failure patient, and hematuria. We discussed the options with the patient and at the bedside, I changed it, I put a new one in, irrigated it, and it worked perfectly. Now further plans can follow. PLAN: 1. Maintain suprapubic catheter. We will discuss further options including followup cystoscopies, etc. 2. Further history needs to be obtained. 3. As to who his [facility] urologist was regarding the suprapubic, but further plans will follow in the future, but for now the patient is stable. We will follow along. Keaton Friend MD
--- NOTE | 2018-12-25 05:24 | OP ---
PROCEDURE DATE: 12/18/2018 It is a bedside procedure. PREOPERATIVE DIAGNOSES: Urinary retention, renal failure, hematuria, voiding dysfunction, no urine output from the [place]. POSTOPERATIVE DIAGNOSES: Urinary retention, renal failure, hematuria, voiding dysfunction, no urine output from the [place]. PROCEDURE: Removal and insertion of cystostomy tube at the bedside. SURGEON: Keaton Friend MD There were no complications. The patient tolerated the procedure well. Blood loss is less than 10 mL. INDICATIONS: See history and physical and consultation. I explained to the patient what we are planning to do. We removed the old one and inserted a new one. We irrigated it copiously. Irrigated beautifully. We now have a working catheter. We will plan to change it in about 4 to 6 weeks. We will make arrangements for such. Keaton Friend MD
== END 2018-12-20 17:51 | DRG 689 ==
LOC: ED 16:30 → ERH 19:06 → 3RNO 20:34
PROVIDERS: ADMIT Internal Medicine Nephrology; ATTEND Internal Medicine Nephrology
PROC: 5A1D70Z Performance of Urinary Filtration, Intermittent, Less than 6 Hours Per Day (ICD-10-PCS; principal; 2018-12-18)
PROC: 0T2BX0Z Change Drainage Device in Bladder, External Approach (ICD-10-PCS; 2018-12-18)
PROC: 5A1D70Z Performance of Urinary Filtration, Intermittent, Less than 6 Hours Per Day (ICD-10-PCS; 2018-12-20)
DX: N39.0 Urinary tract infection, site not specified (principal); N18.6 End stage renal disease; I13.2 Hypertensive heart and chronic kidney disease with heart failure and with stage 5 chronic kidney disease, or end stage renal disease; R78.81 Bacteremia; N25.81 Secondary hyperparathyroidism of renal origin; E11.22 Type 2 diabetes mellitus with diabetic chronic kidney disease; I25.10 Atherosclerotic heart disease of native coronary artery without angina pectoris; E11.65 Type 2 diabetes mellitus with hyperglycemia; E03.9 Hypothyroidism, unspecified; J44.9 Chronic obstructive pulmonary disease, unspecified; R19.7 Diarrhea, unspecified; B96.20 Unspecified Escherichia coli [E. coli] as the cause of diseases classified elsewhere; F03.90 Unspecified dementia, unspecified severity, without behavioral disturbance, psychotic disturbance, mood disturbance, and anxiety; E78.5 Hyperlipidemia, unspecified; I50.9 Heart failure, unspecified; F32.9 Major depressive disorder, single episode, unspecified; K22.70 Barrett's esophagus without dysplasia; K57.90 Diverticulosis of intestine, part unspecified, without perforation or abscess without bleeding; K21.9 Gastro-esophageal reflux disease without esophagitis; R31.9 Hematuria, unspecified; Z99.2 Dependence on renal dialysis; Z86.14 Personal history of Methicillin resistant Staphylococcus aureus infection; Z95.1 Presence of aortocoronary bypass graft; Z95.0 Presence of cardiac pacemaker; Z79.4 Long term (current) use of insulin

== ENCOUNTER 2018-12-20 17:28 | Inpatient (IN) | payer OTHER ==
[2018-12-20] MEDS: Insulin Lispro (humaLOG) MEDIUM Coverage SC SCH (21:59)
[2018-12-20] MEDS: Insulin Detemir 100 units/ml Vial (Levemir) SC SCH (22:01)
[2018-12-20 23:14] VITALS: BMI 22.0
[2018-12-20] MEDS ORDERED: Pneumococcal 23-Valent Vaccine IM ONE (23:15)
[2018-12-20] MEDS ORDERED: Influenza Vaccine 60 mcg/0.5 mL SYR (4YR UP) IM ONE (23:15)
[2018-12-21] MEDS: Levothyroxine 75 MCG TAB PO SCH (05:53)
[2018-12-21] MEDS: Insulin Lispro (humaLOG) MEDIUM Coverage SC SCH ×4 (06:32→21:42)
--- NOTE | 2018-12-21 08:49 | CP.PCM.HP ---
<Sharron Chun - Last Filed: 12/21/18 17:06> History of Present Illness - History of Present Illness History of Present Illness: 72yo male PMHx CAD s/p CABG, pacemaker, ESRD on HD (TTS), DM2, hypothyroidism, HTN and urinary retention s/p a suprapubic catheter (since 2010) recently hospitalized, presents for fever during HD on 12/15/18. As per EMR, family noted patient had not made any urine since the day prior. Patient reported he felt like he may have a urinary infection. Patient admitted to remote [facility] for further management. Strong suspicion for UTI in patient; unable to obtain U/A or urine c&s at this time as patient has no urinary output from catheter. Patient ESBL+ in blood and on Merrem as per ID. In light of blood cultures, CT Abd/pelvis and Abd u/s done reviewed. MRCP not possible in light of patient's pacemaker. 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 Patient had acute on chronic cholecystitis and lap cholecystectomy in January 2017 and has history of cholangitis. Strong suspicion for UTI as patient has a history of sepsis secondary to ESBL-producing multidrug-resistant E. coli bacteremia. GPC in clusters in 1 out of 4 bottles- likely contamination. Urology replaced 14F suprapubic catheter with 18F and scant dark urine noted. Elevated procalcitonin 3.25. Tylenol on board for elevated temp. Patient scheduled for HD TTS. Continue home Lipitor, Coreg, and Imdur for CAD and HTN. Continue synthroid of hypothyroidism. Patient on Accuchecks with RISS medium and Levemir for history of DM2. PT on board for deconditioning. Patient discharged to TCU for 10-14 days of IV abx. Patient seen and examined at bedside this AM. No acute events overnight and patient resting comfortably. Denied acute complaints of fever, chills, headache, dizziness, chest pain, palpitations, SOB, cough, abd pain, bowel disturbance, pain/swelling in legs b/l. Patient eating well and in good spirits. Present on Admission - Present on Admission Any Indicators Present on Admission: Yes Urinary Catheter: Yes (suprapubic) Review of Systems - Review of Systems All systems: reviewed and no additional remarkable complaints except Review of Systems: as per HPI Past Patient History - Infectious Disease Hx of Infectious Diseases: None - Tetanus Immunizations Tetanus Immunization: Unknown - Past Medical History & Family History Past Medical History?: Yes - Past Social History Smoking Status: Never Smoked - CARDIAC Hx Pacemaker: Yes (Left upper outer chest) - PULMONARY Hx Respiratory Disorders: Yes Hx Asthma: Yes - NEUROLOGICAL Hx Neurological Disorder: Yes - HEENT Hx HEENT Problems: Yes Hx Cataracts: Yes (sx) Hx Deafness: Yes (Left ear hearing aid) Other/Comment: hard of hearing - RENAL Hx Renal Failure: Yes (HD TTS) - ENDOCRINE/METABOLIC Hx Diabetes Mellitus Type 2: Yes - HEMATOLOGICAL/ONCOLOGICAL Hx Cancer: No - INTEGUMENTARY Hx Dermatological Problems: (BILATERAL LEG EDEMA MORE ON LEFT.SHUNT TO LEFT UPPER ARM,SUPRAPUBIC CATHETE) Other/Comment: ble skin discoloration - MUSCULOSKELETAL/RHEUMATOLOGICAL Hx Falls: No - GASTROINTESTINAL Hx Gastrointestinal Disorders: Yes (hx colitis/diverticulitis) - GENITOURINARY/GYNECOLOGICAL Hx Genitourinary Disorders: (hd t t s) Hx Reproductive Disorders: Yes - PSYCHIATRIC Hx Psychophysiologic Disorder: No Hx Substance Use: No - SURGICAL HISTORY Hx Mastectomy: No - ANESTHESIA Hx Anesthesia: Yes Hx Anesthesia Reactions: No Hx Malignant Hyperthermia: No Meds Allergies/Adverse Reactions: Allergies Allergy/AdvReac Type Severity Reaction Status Date / Time dye Allergy REDNESS Uncoded 11/19/18 06:26 Physical Exam - Additional Findings Additional findings: Constitutional Appears: Non-toxic, No Acute Distress - Head Exam Head Exam: ATRAUMATIC, NORMAL INSPECTION, NORMOCEPHALIC - Eye Exam Eye Exam: EOMI, Normal appearance, PERRL. absent: Conjunctival injection, Scleral icterus - ENT Exam ENT Exam: Mucous Membranes Moist - Neck Exam Neck exam: Positive for: Full Rom, Normal Inspection. Negative for: Lymphadenopathy - Respiratory Exam Respiratory Exam: NORMAL BREATHING PATTERN. absent: Accessory Muscle Use, Rales , Rhonchi, Wheezes, Respiratory Distress - Cardiovascular Exam Cardiovascular Exam: REGULAR RHYTHM, +S1, +S2. absent: Systolic Murmur - GI/Abdominal Exam GI & Abdominal Exam: Normal Bowel Sounds, Soft Additional comments: suprapubic cath dressings c/d/i - Extremities Exam Extremities exam: Positive for: normal capillary refill, normal inspection, pedal pulses present Additional comments: LUE dialysis graft - Back Exam Back exam: NORMAL INSPECTION. absent: rash noted - Neurological Exam Neurological exam: Alert, Oriented x3 - Psychiatric Exam Psychiatric exam: Normal Affect, Normal Mood - Skin Skin Exam: Dry, Intact, Normal Color, Warm Results - Vital Signs Recent Vital Signs: Last Vital Signs Temp 98.2 F 12/20/18 22:58 Pulse 59 L 12/20/18 22:58 Resp 18 12/20/18 22:58 BP 130/43 L 12/20/18 22:58 Pulse Ox - Labs Labs: Laboratory Results - last 24 hr 12/20/18 12/21/18 21:26 05:24 POC Glucose (mg/dL) 194 H 113 H Assessment & Plan - Assessment and Plan (Free Text) Assessment: 1. Gram negative bacilli bacteremia likely secondary to complicated UTI 2. Decreased urinary output from suprapubic catheter 3. ESRD on HD [TTS] 4. CAD s/p CABG 5. Pacemaker 6. DM2 7. Hypothyroidism 8. HTN 9. Deconditioning 10. Chronic depression 11. GERD 12. Chronic Right sided heart failure Plan: Patient's blood work, vitals, and imaging reviewed in chart. On Merrem as per ID for ESBL+ bacteremia x 2. Repeat blood cultures prelim negative x 4. CT abd/pelvis and u/s abdomen reviewed. 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 Strong suspicion for UTI as patient has a history of sepsis secondary to ESBL-producing multidrug- resistant E. coli bacteremia. Urology Dr. Friend replaced 14F suprapubic catheter with 18F and scant dark urine noted. Tylenol on board for elevated temp. Continue home Lipitor, Coreg, and Imdur for CAD and HTN. Continue sy nthroid of hypothyroidism. Patient on Accuchecks with RISS medium and Levemir 5U. Will continue to monitor closely at this time. Discussed with Dr. Kodi Chun PGY3 <Bc Mariee S - Last Filed: 12/21/18 18:53> Results - Vital Signs Recent Vital Signs: Last Vital Signs Temp 98.4 F 12/21/18 16:00 Pulse 53 L 12/21/18 16:00 Resp 20 12/21/18 16:00 BP 128/40 L 12/21/18 17:22 Pulse Ox 99 12/21/18 16:00 - Labs Labs: Laboratory Results - last 24 hr 12/20/18 12/21/18 12/21/18 21:26 05:24 11:43 POC Glucose (mg/dL) 194 H 113 H 264 H Assessment & Plan - Assessment and Plan (Free Text) Assessment: Pt seen and examined by me. I have reviewed the note of the medical care manager and I agree with it. I have discussed the assessment and plan with the resident. I have reviewed the medications and the last labs. Pt with UTI and is on IV Abx. He has ESRD and is on HD. CAD being treated with ASA. PT on TCU. DM-2 controlled with ISS. Lipitor for dyslipidemia.
[2018-12-21] MEDS: Insulin Detemir 100 units/ml Vial (Levemir) SC SCH (21:43)
[2018-12-22] MEDS: Levothyroxine 75 MCG TAB PO SCH (06:17)
[2018-12-22] MEDS: Insulin Lispro (humaLOG) MEDIUM Coverage SC SCH ×4 (06:35→22:03)
[2018-12-22 08:05] LABS: BASO # 0.03 K/mm3 (0.0-2.0); BASO % 0.5 % (0.0-3.0); EOS # 0.7 (0.0-0.7); EOS % 10.2 % (1.5-5.0); HEMOGLOBIN 9.9 g/dL (14.0-18.0); LYMPH # 1.2 (1.2-3.4); LYMPH % 18.1 % (22.0-35.0); MEAN CELL VOLUME 94.6 fl (80.0-105.0); MEAN CORPUSCULAR HEMOGLOBIN 29.9 pg (25.0-35.0); MEAN CORPUSCULAR HGB CONC 31.6 g/dl (31.0-37.0); MEAN PLATELET VOLUME 10.8 fl (7.0-11.0); MONO # 0.5 (0.1-0.6); MONO % 8.4 % (1.0-6.0); RBC 3.31 10^6/uL (3.5-6.1); RED CELL DISTRIBUTION WIDTH 13.9 % (11.5-14.5); WHITE BLOOD COUNT 6.5 10^3/uL (4.5-11.0)
[2018-12-22 08:41] LABS: ALB/GLOB RATIO 0.9 (1.1-1.8); ALBUMIN 3.4 g/dL (3.0-4.8); CALCIUM 8.6 mg/dL (8.4-10.5)
--- NOTE | 2018-12-22 11:24 | PN ---
DATE: 12/22/2018 SUBJECTIVE: The patient has no complaints of any chest pain or shortness of breath. No headaches or dizziness. PHYSICAL EXAMINATION: VITAL SIGNS: Temperature is 98.4, pulse of 53, blood pressure 120/40, respirations 20. GENERAL: The patient is lying in bed, flat, comfortable. HEENT: No oral lesion. Anicteric sclerae. Moist mucosa. NECK: No JVD, adenopathy, or thyromegaly. CARDIOVASCULAR: S1 and S2, regular. No murmurs, rubs, or gallops. LUNGS: Clear to auscultation bilaterally. No wheeze, rales, or rhonchi. ABDOMEN: Bowel sounds are positive, soft, nontender and nondistended. EXTREMITIES: no cyanosis, clubbing or edema. ASSESSMENT: 1. End-stage renal disease, on hemodialysis. 2. Urinary tract infection. 3. Coronary artery disease. 4. Pacemaker. 5. Diabetes type 2. 6. Hypothyroidism. 7. Hypertension. 8. Deconditioning. 9. Gait instability. 10. Gastroesophageal reflux disease. PLAN: The patient is currently on carvedilol for his coronary disease. He is on insulin coverage for his diabetes. He is going to continue with isosorbide. He is on Levemir for his diabetes. He is on Lipitor for dyslipidemia. He will continue with meropenem for his antibiotics. The patient is on calcium acetate for his binders. He is on Synthroid for hypothyroidism. He is going to continue on the renal diet. Bc Mariee MD
[2018-12-23] MEDS: Insulin Detemir 100 units/ml Vial (Levemir) SC SCH ×2 (00:41→21:46)
[2018-12-23] MEDS: Levothyroxine 75 MCG TAB PO SCH (05:09)
[2018-12-23] MEDS: Insulin Lispro (humaLOG) MEDIUM Coverage SC SCH ×4 (07:33→21:46)
--- NOTE | 2018-12-23 21:04 | PN ---
DATE: 12/23/2018 SUBJECTIVE: The patient is 72 years old. Seen and examined. Sitting in chair with his . Offered no complaint. No chest pain. No shortness of breath. Eating and tolerating. Sleeping well. PHYSICAL EXAMINATION: VITAL SIGNS: He is afebrile, pulse 60, respirations 18, blood pressure 155/58. LUNGS: Bilateral fair airflow. No rhonchi or crackle. HEART: S1 and S2 audible. ABDOMEN: Soft, nontender. No rebound. No guarding. LABORATORY DATA: He has indwelling catheter. Has thick dark concentrated urine. No hematuria. Blood sugar is 153. ASSESSMENT AND PLAN: 1. Coagulase-negative Staphylococcus bacteremia. 2. End-stage renal disease, on hemodialysis. 3. Urinary tract infection. 4. Status post pacemaker placement. 5. Fuw-ujtdmay-tatxhapkh diabetes. 6. Hypertension. 7. Hypothyroidism. 8. Deconditioning, difficulty walking. 9. Coronary artery disease. The plan is, currently, the patient is on carvedilol. He is on isosorbide. His blood sugar is being monitored. He is on statin. We will continue him on meropenem. He is on levothyroxine. He is getting physical therapy and dialysis as scheduled. Dr. Mariee will follow up. Marcos Elias MD
[2018-12-24] MEDS: Levothyroxine 75 MCG TAB PO SCH (05:49)
[2018-12-24] MEDS: Insulin Lispro (humaLOG) MEDIUM Coverage SC SCH ×4 (06:50→21:30)
--- NOTE | 2018-12-24 06:58 | CP.PCM.PN ---
<LaySharron - Last Filed: 12/24/18 15:48> Subjective - Date & Time of Evaluation Date of Evaluation: 12/24/18 Time of Evaluation: 08:00 - Subjective Subjective: Pgy3 Medicine progress note for Dr. Mariee Patient seen and examined at bedside. Overnight patient complained of some nausea. This AM he was resting comfortably and denied any fever, chills, chest pain, SOB, abd pain, bowel complaints, pain/swelling in his legs b/l. Objective - Vital Signs/Intake and Output Vital Signs (last 24 hours): Temp Pulse Resp BP Pulse Ox 97.5 F L 63 20 162/70 H 98 12/22/18 10:00 12/24/18 05:49 12/22/18 10:00 12/24/18 05:49 12/22/18 10:00 - Medications Medications: Current Medications Acetaminophen (Tylenol 325mg Tab) 650 mg PO Q6H PRN; Protocol PRN Reason: Fever >100.4 F Atorvastatin Calcium (Lipitor) 20 mg PO HS [facility]; Protocol Last Admin: 12/23/18 21:48 Dose: 20 mg Calcium Acetate (Phoslo) 667 mg PO TID [facility] Last Admin: 12/23/18 17:57 Dose: 667 mg Carvedilol (Coreg) 6.25 mg PO BID [facility]; Protocol Last Admin: 12/24/18 05:49 Dose: 6.25 mg Insulin Detemir (Levemir) 5 unit SC HS [facility]; Protocol Last Admin: 12/23/18 21:46 Dose: Not Given Insulin Human Lispro (Humalog Med) [address] [facility]; Protocol Last Admin: 12/24/18 06:50 Dose: Not Given Isosorbide Mononitrate (Imdur Er) 30 mg PO DAILY [facility]; Protocol Last Admin: 12/23/18 10:15 Dose: 30 mg Levothyroxine Sodium (Synthroid) 75 mcg PO 0600 [facility]; Protocol Last Admin: 12/24/18 05:49 Dose: 75 mcg Sodium Chloride ([place] Nasal [place]) 0 ml NS BID PRN; Protocol PRN Reason: Nasal congestion - Labs Labs: 12/22/18 07:51 12/22/18 07:51 - Additional Findings Additional findings: Constitutional Appears: Non-toxic, No Acute Distress - Head Exam Head Exam: ATRAUMATIC, NORMAL INSPECTION, NORMOCEPHALIC - Eye Exam Eye Exam: EOMI, Normal appearance, PERRL. absent: Conjunctival injection, Scleral icterus - ENT Exam ENT Exam: Mucous Membranes Moist - Neck Exam Neck exam: Positive for: Full Rom, Normal Inspection. Negative for: Lymphadenopathy - Respiratory Exam Respiratory Exam: NORMAL BREATHING PATTERN. absent: Accessory Muscle Use, Rales, Rhonchi, Wheezes, Respiratory Distress - Cardiovascular Exam Cardiovascular Exam: REGULAR RHYTHM, +S1, +S2. absent: Systolic Murmur - GI/Abdominal Exam GI & Abdominal Exam: Normal Bowel Sounds, Soft Additional comments: suprapubic cath dressings c/d/i - Extremities Exam Extremities exam: Positive for: normal capillary refill, normal inspection, pedal pulses present Additional comments: LUE dialysis graft - Back Exam Back exam: NORMAL INSPECTION. absent: rash noted - Neurological Exam Neurological exam: Alert, Oriented x3 - Psychiatric Exam Psychiatric exam: Normal Affect, Normal Mood - Skin Skin Exam: Dry, Intact, Normal Color, Warm Assessment and Plan - Assessment and Plan (Free Text) Assessment: 1. Gram negative bacilli bacteremia likely secondary to complicated UTI 2. Decreased urinary output from suprapubic catheter 3. ESRD on HD [TTS] 4. CAD s/p CABG 5. Pacemaker 6. DM2 7. Hypothyroidism 8. HTN 9. Deconditioning 10. Chronic depression 11. GERD 12. Chronic Right sided heart failure Plan: Patient's blood work, vitals, and imaging reviewed in chart. On Merrem as per ID for ESBL+ bacteremia x 2. Repeat blood cultures prelim negative x 4. CT abd/pelvis and u/s abdomen reviewed. 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 Strong suspicion for UTI as patient has a history of sepsis secondary to ESBL-producing multidrug- resistant E. coli bacteremia. Urology Dr. Friend replaced 14F suprapubic catheter with 18F and scant dark urine noted. Tylenol on board for elevated temp. Continue home Lipitor, Coreg, and Imdur for CAD and HTN. Continue synthroid of hypothyroidism. Patient on Accuchecks with RISS medium and Levemir 5U. Will continue to monitor closely at this time. Will check labs in AM. Patient for HD tomorrow as per schedule. Discussed with Dr. Kodi Chun PGY3 <Bc Mariee S - Last Filed: 12/24/18 16:59> Objective - Vital Signs/Intake and Output Vital Signs (last 24 hours): Temp Pulse Resp BP Pulse Ox 97.9 F 60 16 110/41 L 98 12/24/18 16:00 12/24/18 10:30 12/24/18 10:00 12/24/18 16:00 12/24/18 16:00 - Medications Medications: Current Medications Acetaminophen (Tylenol 325mg Tab) 650 mg PO Q6H PRN; Protocol PRN Reason: Fever >100.4 F Atorvastatin Calcium (Lipitor) 20 mg PO HS [facility]; Protocol Last Admin: 12/23/18 21:48 Dose: 20 mg Calcium Acetate (Phoslo) 667 mg PO TID [facility] Last Admin: 12/24/18 14:51 Dose: 667 mg Carvedilol (Coreg) 6.25 mg PO BID [facility]; Protocol Last Admin: 12/24/18 10:30 Dose: Not Given Insulin Detemir (Levemir) 5 unit SC HS [facility]; Protocol Last Admin: 12/23/18 21:46 Dose: Not Given Insulin Human Lispro (Humalog Med) 0 units SC [facility]; Protocol Last Admin: 12/24/18 12:08 Dose: 3 units Isosorbide Mononitrate (Imdur Er) 30 mg PO DAILY [facility]; Protocol Last Admin: 12/24/18 10:31 Dose: Not Given Levothyroxine Sodium (Synthroid) 75 mcg PO 0600 [facility]; Protocol Last Admin: 12/24/18 05:49 Dose: 75 mcg Sodium Chloride ([place] Nasal [place]) 0 ml NS BID PRN; Protocol PRN Reason: Nasal congestion - Labs Labs: 12/22/18 07:51 12/22/18 07:51 Assessment and Plan - Assessment and Plan (Free Text) Plan: Pt seen and examined by me. I have reviewed the note of the biomedical analytical scientist and I agree with it. I have discussed the assessment and plan with the resident. I have reviewed the medications and the last labs. Pt with UTI- sepsis. He is being followed by ID. He is on synthroid for hypothyroidism. Continue with Lipitor for dyslipidemia. DM-2 controlled with Levemir.
[2018-12-24] MEDS: Insulin Detemir 100 units/ml Vial (Levemir) SC SCH (21:31)
[2018-12-25] MEDS ORDERED: DiphenhydrAMINE 50 mg/ml Inj IVP STA (01:23)
[2018-12-25] MEDS: Levothyroxine 75 MCG TAB PO SCH (05:19)
--- NOTE | 2018-12-25 06:11 | CP.PCM.PN ---
Objective - Vital Signs/Intake and Output Vital Signs (last 24 hours): Temp Pulse Resp BP Pulse Ox 97.9 F 61 16 178/92 H 98 12/24/18 16:00 12/25/18 05:19 12/24/18 10:00 12/25/18 05:19 12/24/18 16:00 - Medications Medications: Current Medications Acetaminophen (Tylenol 325mg Tab) 650 mg PO Q6H PRN; Protocol PRN Reason: Fever >100.4 F Atorvastatin Calcium (Lipitor) 20 mg PO HS [facility]; Protocol Last Admin: 12/24/18 21:31 Dose: 20 mg Calcium Acetate (Phoslo) 667 mg PO TID [facility] Last Admin: 12/24/18 17:46 Dose: 667 mg Carvedilol (Coreg) 6.25 mg PO BID [facility]; Protocol Last Admin: 12/25/18 05:19 Dose: 6.25 mg Insulin Detemir (Levemir) 5 unit SC HS [facility]; Protocol Last Admin: 12/24/18 21:31 Dose: 5 u Insulin Human Lispro (Humalog Med) 0 units SC [facility]; Protocol Last Admin: 12/24/18 21:30 Dose: Not Given Isosorbide Mononitrate (Imdur Er) 30 mg PO DAILY [facility]; Protocol Last Admin: 12/24/18 10:31 Dose: Not Given Levothyroxine Sodium (Synthroid) 75 mcg PO 0600 [facility]; Protocol Last Admin: 12/25/18 05:19 Dose: 75 mcg Sodium Chloride ([place] Nasal [place]) 0 ml NS BID PRN; Protocol PRN Reason: Nasal congestion - Labs Labs: 12/22/18 07:51 12/22/18 07:51
[2018-12-25] MEDS: Insulin Lispro (humaLOG) MEDIUM Coverage SC SCH ×3 (06:39→18:04)
--- NOTE | 2018-12-25 11:26 | CP.PCM.DIS ---
Provider - Provider Date of Admission: 12/20/18 17:28 Attending physician: Bc Mariee MD Primary care physician: Bc Mariee MD Consults: 12/20/18 23:15 Inpatient PATIENT ADMITTING CLERK Core Measures Referral Routine Comment: Physician Instructions: Reason For Exam: assess Social Work Referral Routine Comment: d/c plan Physician Instructions: Reason For Exam: assess Transition In Care/Readmission Reduction Routine Comment: Physician Instructions: Reason For Exam: [facility] Hospital Course - Lab Results Lab Results: Most Recent Lab Values WBC 6.5 10^3/uL (4.5-11.0) D 12/22/18 07:51 RBC 3.31 10^6/uL (3.5-6.1) L 12/22/18 07:51 Hgb 9.9 g/dL (14.0-18.0) L 12/22/18 07:51 Hct 31.3 % (42.0-52.0) L 12/22/18 07:51 MCV 94.6 fl (80.0-105.0) 12/22/18 07:51 MCH 29.9 pg (25.0-35.0) 12/22/18 07:51 MCHC 31.6 g/dl (31.0-37.0) 12/22/18 07:51 RDW 13.9 % (11.5-14.5) 12/22/18 07:51 Plt Count 175 10^3/uL (120.0-450.0) 12/22/18 07:51 MPV 10.8 fl (7.0-11.0) 12/22/18 07:51 Neut % (Auto) 62.8 % (50.0-68.0) 12/22/18 07:51 Lymph % (Auto) 18.1 % (22.0-35.0) L 12/22/18 07:51 [place] % (Auto) 8.4 % (1.0-6.0) H 12/22/18 07:51 Eos % (Auto) 10.2 % (1.5-5.0) H 12/22/18 07:51 Baso % (Auto) 0.5 % (0.0-3.0) 12/22/18 07:51 Lymph # (Auto) 1.2 (1.2-3.4) 12/22/18 07:51 [place] # (Auto) 0.5 (0.1-0.6) 12/22/18 07:51 Eos # (Auto) 0.7 (0.0-0.7) 12/22/18 07:51 Baso # (Auto) 0.03 K/mm3 (0.0-2.0) 12/22/18 07:51 Absolute Neuts (auto) 4.05 (1.4-6.5) 12/22/18 07:51 Sodium 133 mmol/L (132-148) 12/22/18 07:51 Potassium 5.0 mmol/L (3.6-5.0) 12/22/18 07:51 Chloride 97 mmol/L (98-107) L 12/22/18 07:51 Carbon Dioxide 24 mmol/L (21-33) 12/22/18 07:51 Anion Gap 17 (10-20) 12/22/18 07:51 BUN 81 mg/dL (7-21) H 12/22/18 07:51 Creatinine 6.1 mg/dl (0.8-1.5) H 12/22/18 07:51 Est GFR ( Amer) 11 12/22/18 07:51 Est GFR (Non-Af Amer) 9 12/22/18 07:51 POC Glucose (mg/dL) 130 mg/dL (65-110) H 12/25/18 05:15 Random Glucose 104 mg/dL (70-110) 12/22/18 07:51 Calcium 8.6 mg/dL (8.4-10.5) 12/22/18 07:51 Phosphorus 5.5 mg/dL (2.5-4.5) H 12/22/18 07:51 Magnesium 2.4 mg/dL (1.7-2.2) H 12/22/18 07:51 Total Bilirubin 0.9 mg/dL (0.2-1.3) 12/22/18 07:51 AST 148 U/L (17-59) H D 12/22/18 07:51 ALT 88 U/L (7-56) H 12/22/18 07:51 Alkaline Phosphatase 672 U/L (38-126) H D 12/22/18 07:51 Total Protein 6.9 g/dL (5.8-8.3) 12/22/18 07:51 Albumin 3.4 g/dL (3.0-4.8) 12/22/18 07:51 Globulin 3.6 gm/dL 12/22/18 07:51 Albumin/Globulin Ratio 0.9 (1.1-1.8) L 12/22/18 07:51 Discharge Plan - Follow Up Plan Condition: GOOD Disposition: HOME/ ROUTINE Instructions: High Blood Pressure in Adults, Hemodialysis (DC), Extended- Spectrum Beta Lactamase Infection Referrals: Bc Mariee MD [Primary Care Provider] -
[2018-12-25 12:01] VITALS: PULSE 62
[2018-12-25 14:46] LABS: BASO # 0.03 K/mm3 (0.0-2.0); BASO % 0.7 % (0.0-3.0); EOS # 0.3 (0.0-0.7); EOS % 7.1 % (1.5-5.0); HEMOGLOBIN 9.2 g/dL (14.0-18.0); LYMPH # 0.9 (1.2-3.4); LYMPH % 19.2 % (22.0-35.0); MEAN CELL VOLUME 91.7 fl (80.0-105.0); MEAN CORPUSCULAR HEMOGLOBIN 30.6 pg (25.0-35.0); MEAN CORPUSCULAR HGB CONC 33.3 g/dl (31.0-37.0); MEAN PLATELET VOLUME 9.8 fl (7.0-11.0); MONO # 0.5 (0.1-0.6); RBC 3.01 10^6/uL (3.5-6.1); RED CELL DISTRIBUTION WIDTH 14.3 % (11.5-14.5); WHITE BLOOD COUNT 4.5 10^3/uL (4.5-11.0)
[2018-12-25 15:02] LABS: ALBUMIN 3.4 g/dL (3.0-4.8); CALCIUM 8.5 mg/dL (8.4-10.5)
[2018-12-25 16:19] VITALS: RESP 20; TEMP 98.7; O2SAT 95
[2018-12-25 18:08] VITALS: BP 169/69
--- NOTE | 2018-12-26 01:22 | DS ---
HISTORY OF PRESENT ILLNESS: Patient is a 72-year-old male who had come in to the hospital because of urinary tract infection. The patient was treated with IV antibiotics. He was sent to the Transitional Care Unit to finish full course of antibiotics. The patient was followed by Infectious Disease. Dr. Friend had placed a 14-Uzbek suprapubic catheter with 18 Uzbek. Patient did well, he was getting dialysed and had no other issues. The patient is going to be discharged home, followup as an outpatient. PHYSICAL EXAMINATION: VITAL SIGNS: Temperature is 98.7, pulse of 62, blood pressure 146/70, respirations 20, and O2 saturation 95%. GENERAL: The patient is lying in bed, flat, comfortable. HEENT: No oral lesion. Anicteric sclerae. Moist mucosa. NECK: No JVD, adenopathy, or thyromegaly. CARDIOVASCULAR: S1 and S2, regular. No murmurs, rubs, or gallops. LUNGS: Clear to auscultation bilaterally. No wheeze, rales, or rhonchi. ABDOMEN: Bowel sounds are positive, soft, nontender and nondistended. EXTREMITIES: No cyanosis, clubbing or edema. ASSESSMENT AND PLAN: 1. Complicated urinary tract infection secondary to suprapubic catheter, resolved. 2. End-stage renal disease on hemodialysis Monday, , Monday. 3. Coronary artery disease status post coronary artery bypass graft. 4. Pacemaker. 5. Diabetes type 2. 6. Hypothyroidism. 7. Hypertension. 8. Chronic depression. 9. Gastroesophageal reflux disease. 10. Deconditioning. DISCHARGE PLAN: The patient is currently comfortable. He is going to be discharged home today. He is on a renal diet. He is tolerating. He is able to ambulate with assistance. He is going to continue his dialysis as an outpatient. His medication is going to be unchanged. He is on for his secondary hypoparathyroidism. The patient is on Synthroid for hypothyroidism. Discharged home. Bc Mariee MD
== END 2018-12-25 19:21 | disposition home or self-care (01) | DRG 689 ==
LOC: TRCU 17:28
PROVIDERS: ADMIT Internal Medicine Nephrology; ATTEND Internal Medicine Nephrology
PROC: F07Z9FZ Gait Training/Functional Ambulation Treatment using Assistive, Adaptive, Supportive or Protective Equipment (ICD-10-PCS; principal; 2018-12-21)
PROC: F07M6ZZ Therapeutic Exercise Treatment of Musculoskeletal System - Whole Body (ICD-10-PCS; 2018-12-21)
PROC: F08Z2ZZ Grooming/Personal Hygiene Treatment (ICD-10-PCS; 2018-12-21)
PROC: F08Z0ZZ Bathing/Showering Techniques Treatment (ICD-10-PCS; 2018-12-21)
PROC: F08Z1ZZ Dressing Techniques Treatment (ICD-10-PCS; 2018-12-21)
DX: N39.0 Urinary tract infection, site not specified (principal); N18.6 End stage renal disease; R78.81 Bacteremia; I13.2 Hypertensive heart and chronic kidney disease with heart failure and with stage 5 chronic kidney disease, or end stage renal disease; T83.510A Infection and inflammatory reaction due to cystostomy catheter, initial encounter; B96.89 Other specified bacterial agents as the cause of diseases classified elsewhere; E03.9 Hypothyroidism, unspecified; I25.10 Atherosclerotic heart disease of native coronary artery without angina pectoris; I50.9 Heart failure, unspecified; B95.7 Other staphylococcus as the cause of diseases classified elsewhere; E11.22 Type 2 diabetes mellitus with diabetic chronic kidney disease; E78.5 Hyperlipidemia, unspecified; H91.92 Unspecified hearing loss, left ear; F32.89 Other specified depressive episodes; J45.909 Unspecified asthma, uncomplicated; K21.9 Gastro-esophageal reflux disease without esophagitis; Y84.6 Urinary catheterization as the cause of abnormal reaction of the patient, or of later complication, without mention of misadventure at the time of the procedure; Z95.0 Presence of cardiac pacemaker; Z95.1 Presence of aortocoronary bypass graft; Z99.2 Dependence on renal dialysis

== ENCOUNTER 2019-02-27 16:17 | Emergency (ER) | payer MEDICARE, OTHER ==
[2019-02-27 16:18] VITALS: BMI 22.1
--- NOTE | 2019-02-27 17:52 | ED PDOC ---
Arrival/HPI <Vandana Meeks - Last Filed: 02/27/19 19:40> - General Historian: Patient, Spouse - History of Present Illness Narrative History of Present Illness (Text): Patient is a 73 year old male with past medical history urinary retention/neurogenic bladder s/p suprapubic catheter, ESRD on HD, multiple UTIs/bacteremia presenting with chief complaint of hematuria which began yesterday. Patient was noted to have blood in the germain bag as well as blood coming from the tip of the penis. His suprapubic catheter was changed today and he was advised to come to the emergency department by the urologist. Patient has his suprapubic catheter changed monthly for chronic urinary retention. Denies headache, dizziness, chest pain, shortness of breath, abdominal pain, diarrhea. History was obtained with assistance of parts technician #[id number] Time/Duration: 24 hours Symptom Onset: Sudden Symptom Course: Unchanged Context: Home <Rick Carty L - Last Filed: 02/27/19 19:45> - General Chief Complaint: Male Genitourinary Time Seen by Provider: 02/27/19 17:24 Past Medical History - Provider Review Nursing Documentation Reviewed: Yes - Infectious Disease Hx of Infectious Diseases: None - Tetanus Immunization Tetanus Immunization: Unknown - Cardiac Hx Cardiac Disorders: Yes - Pulmonary Hx Chronic Obstructive Pulmonary Disease (COPD): Yes - Neurological Hx Neurological Disorder: Yes Hx Dementia: Yes - HEENT Hx HEENT Disorder: Yes Hx Cataracts: Yes (sx) Hx Deafness: Yes (R ear) Other/Comment: hard of hearing - Renal Hx Renal Failure: Yes - Endocrine/Metabolic Hx Diabetes Mellitus Type 2: Yes Hx Hypothyroidism: Yes - Hematological/Oncological Hx Anemia: Yes - Integumentary Hx Dermatological Disorder: (BILATERAL LEG EDEMA MORE ON LEFT.SHUNT TO LEFT UPPER ARM,SUPRAPUBIC CATHETE) Other/Comment: ble skin discoloration - Musculoskeletal/Rheumatological Hx Falls: No - Gastrointestinal Hx Gastrointestinal Disorders: (hx colitis/diverticulitis) - Genitourinary/Gynecological Hx Genitourinary Disorders: Yes - Psychiatric Hx Psychophysiologic Disorder: No Hx Substance Use: No - Past Surgical History Past Surgical History: No Previous - Surgical History Hx Open Heart Surgery: Yes - Anesthesia Hx Anesthesia: Yes Hx Anesthesia Reactions: No Hx Malignant Hyperthermia: No - Suicidal Assessment Feels Threatened In Home Enviroment: No <Sandra Cartyjacklyn Coronel - Last Filed: 02/27/19 19:45> Family/Social History - Physician Review Nursing Documentation Reviewed: Yes Family/Social History: No Known Family HX Smoking Status: Never Smoked Hx Alcohol Use: No Hx Substance Use: No Hx Substance Use Treatment: No <CartySandrajacklyn Coronel - Last Filed: 02/27/19 19:45> Allergies/Home Meds <Vandana Meeks - Last Filed: 02/27/19 19:40> <Rick Carty L - Last Filed: 02/27/19 19:45> Allergies/Adverse Reactions: Allergies dye Allergy (Uncoded 11/19/18 06:26) REDNESS Home Medications: Home Meds Medication Instructions Recorded Confirmed Atorvastatin [Lipitor] 20 mg PO HS 02/05/17 12/20/18 Calcium Acetate [Phoslo] 667 mg PO TID 02/05/17 12/20/18 Isosorbide Mononitrate ER [Imdur 30 mg PO DAILY 02/05/17 12/20/18 ER] Insulin Glargine, Recombina 10 unit SC [facility] 12/20/18 12/20/18 [Lantus] SITagliptin [Januvia] 50 mg PO DAILY 12/20/18 12/20/18 Sevelamer Carbonate [Renvela] 800 mg PO TID 12/20/18 12/20/18 hydrALAZINE [Apresoline] 50 mg PO TID 12/20/18 12/20/18 Review of Systems - Review of Systems Respiratory: Normal Cardiovascular: Normal Gastrointestinal: Normal Genitourinary Male: Hematuria <Rick Carty - Last Filed: 02/27/19 19:45> Physical Exam Vital Signs Temp Pulse Resp BP Pulse Ox 02/27/19 19:39 98.3 F 58 L 18 165/71 H 98 <Vandana Meeks - Last Filed: 02/27/19 19:40> Appearance: Positive for: Well-Appearing, Comfortable Pain Distress: None Mental Status: Positive for: Alert and Oriented X 3 - Systems Exam Head: Present: Atraumatic, Normocephalic Pupils: Present: PERRL Extroacular Muscles: Present: EOMI Conjunctiva: Present: Normal Respiratory/Chest: Present: Clear to Auscultation, Good Air Exchange. No: Respiratory Distress Cardiovascular: Present: Regular Rate and Rhythm, Normal S1, S2 Abdomen: Present: Normal Bowel Sounds. No: Tenderness, Distention Rectal: Present: Normal Rectal Tone. No: Rectal Tenderness, Gross Blood, Nodule/Mass/Lesions Genitourinary Male: Present: Normal External Genitalia, Other (small amount of dried blood at urethral meatus) Lower Extremity: Present: Normal Inspection Neurological: Present: GCS=15, CN II-XII Intact Skin: Present: Warm, Dry, Normal Color Psychiatric: Present: Alert, Oriented x 3 <Rick Carty L - Last Filed: 02/27/19 19:45> Medical Decision Making ED Course and Treatment: 02/27/19 19:41 Patient seen by resident and then evaluated by me. Presenting with hematuria and blood from penis after change in suprapubic catheter today. UA shows blood and leukocytes and nitrates. Spoke to both Dr. Friend and Dr. Ronquillo who report that with normal wbc and afebrile, would not recommend antibiotics. Guaiac negative stool on rectal exam as chaperoned by resident. For dialysis tomorrow. Labs at baseline. - Lab Interpretations Lab Results: Total Bilirubin 0.7 mg/dL (0.2-1.3) 02/27/19 18:30 AST 30 U/L (17-59) 02/27/19 18:30 ALT 18 U/L (7-56) 02/27/19 18:30 Alkaline Phosphatase 410 U/L (38-126) H D 02/27/19 18:30 Total Protein 7.4 g/dL (5.8-8.3) 02/27/19 18:30 Albumin 3.8 g/dL (3.0-4.8) 02/27/19 18:30 Globulin 3.6 gm/dL 02/27/19 18:30 Albumin/Globulin Ratio 1.1 (1.1-1.8) 02/27/19 18:30 Urine Color Light red (YELLOW) 02/27/19 18:30 Urine Appearance Cloudy (CLEAR) 02/27/19 18:30 Urine pH 7.0 (4.7-8.0) 02/27/19 18:30 Ur Specific [place] <= 1.005 (1.005-1.035) 02/27/19 18:30 Urine Protein 100 mg/dL (<30 mg/dL) H 02/27/19 18:30 Urine Glucose (UA) Negative mg/dL (NEGATIVE) 02/27/19 18:30 Urine Ketones Negative mg/dL (NEGATIVE) 02/27/19 18:30 Urine Blood Large (NEGATIVE) H 02/27/19 18:30 Urine Nitrate Positive (NEGATIVE) H 02/27/19 18:30 Urine Bilirubin Negative (NEGATIVE) 02/27/19 18:30 Urine Urobilinogen 0.2 E.U./dL (<1 E.U./dL) 02/27/19 18:30 Ur Leukocyte Esterase Large Isaías/uL (NEGATIVE) H 02/27/19 18:30 Urine RBC Tntc /hpf (0-2) H 02/27/19 18:30 Urine WBC Tntc /hpf (0-6) H 02/27/19 18:30 Ur Epithelial Cells 10 - 12 /hpf (0-5) H 02/27/19 18:30 Urine Bacteria Many /hpf (NONE) 02/27/19 18:30 <Vandana Meeks - Last Filed: 02/27/19 19:40> ED Course and Treatment: Impression: 73 year old male presenting with hematuria Plan: - CBC, CMP - urinalysis, urine culture - reassess and disposition Prior Visits: Notes and results from previous visits were reviewed. Progress Notes: Labs and imaging reviewed. FOBT negative. Patient hemodynamically stable for discharge and instructed to follow up with urologist and PMD. - Lab Interpretations I have reviewed the lab results: Yes <Rick Carty - Last Filed: 02/27/19 19:45> Disposition/Present on Arrival - Present on Arrival Any Indicators Present on Arrival: No - Disposition Have Diagnosis and Disposition been Completed?: Yes <Vandana Meeks - Last Filed: 02/27/19 19:40> - Present on Arrival Any Indicators Present on Arrival: Yes History of DVT/PE: No History of Uncontrolled Diabetes: No Urinary Catheter: Yes (suprapubic) History of Decub. Ulcer: No History Surgical Site Infection Following: None - Disposition Have Diagnosis and Disposition been Completed?: Yes Disposition Time: 18:22 Patient Plan: Discharge <Rick Carty - Last Filed: 02/27/19 19:45> - Disposition Diagnosis: Hematuria Disposition: HOME/ ROUTINE Patient Problems: Current Active Problems Problem Status Onset Hematuria Acute Condition: STABLE Discharge Instructions (ExitCare): Blood in the Urine (Hematuria) in Adults, How to Care for Your Suprapubic Urinary Catheter Print Language: DUTCH Additional Instructions: Please follow up with your primary medical doctor and urologist within 3-5 days. Resume your home medications as prescribed. Follow-up for dialysis as usual. Return to emergency department if symptoms worsen. Referrals: Rich Ronquillo MD [Staff Provider] - Follow up with primary Forms: [facility] (Sinhala)
[2019-02-27 18:59] LABS: URINE BILIRUBIN NEGATIVE (NEGATIVE); URINE BLOOD LARGE (NEGATIVE); URINE GLUCOSE (UA) NEGATIVE (NEGATIVE); URINE LEUKOCYTE ESTERASE LARGE Leu/uL (NEGATIVE); URINE PROTEIN 100 mg/dL (<30 mg/dL); URINE UROBILINOGEN 0.2 E.U./dL (<1 E.U./dL)
[2019-02-27 19:00] LABS: BASO # 0.03 K/mm3 (0.0-2.0); BASO % 0.7 % (0.0-3.0); EOS # 0.4 (0.0-0.7); EOS % 8.4 % (1.5-5.0); HEMOGLOBIN 11.3 g/dL (14.0-18.0); LYMPH % 21.8 % (22.0-35.0); MEAN CELL VOLUME 95.8 fl (80.0-105.0); MEAN CORPUSCULAR HGB CONC 31.3 g/dl (31.0-37.0); MEAN PLATELET VOLUME 10.5 fl (7.0-11.0); MONO # 0.5 (0.1-0.6); MONO % 10.7 % (1.0-6.0); RBC 3.77 10^6/uL (3.5-6.1); RED CELL DISTRIBUTION WIDTH 14.1 % (11.5-14.5); WHITE BLOOD COUNT 4.4 10^3/uL (4.5-11.0)
[2019-02-27 19:04] LABS: URINE APPEARANCE CLOUDY (CLEAR); URINE COLOR LIGHT RED (YELLOW)
[2019-02-27 19:06] LABS: URINE BACTERIA MANY /hpf; URINE RBC TNTC /hpf (0-2); URINE WBC TNTC /hpf (0-6)
[2019-02-27 19:08] LABS: ALB/GLOB RATIO 1.1 (1.1-1.8); ALBUMIN 3.8 g/dL (3.0-4.8); CALCIUM 8.4 mg/dL (8.4-10.5)
[2019-02-27 19:40] VITALS: BP 165/71; PULSE 58; RESP 18; TEMP 98.3; O2SAT 98
== END 2019-02-27 20:20 | disposition home or self-care (01) ==
LOC: ED 16:17
DX: R31.9 Hematuria, unspecified (principal); E03.9 Hypothyroidism, unspecified; N18.6 End stage renal disease; Z99.2 Dependence on renal dialysis; E11.9 Type 2 diabetes mellitus without complications; J44.9 Chronic obstructive pulmonary disease, unspecified

== ENCOUNTER 2019-03-02 15:10 | Observation (INO) | payer MEDICARE ==
[2019-03-02] MEDS ORDERED: cefTRIAXone 1 gm 1 GM/100 ML BAG IVPB STA (15:29)
--- NOTE | 2019-03-02 15:40 | ED PDOC ---
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 Pt. stated that he was seen here about 3-4 days ago for hematuria, stated that the hematuria has not resolved, incidentally noted to have +urine culture for klepsiella, stated that he feels fatigue, no chest pain or shortness of breath, no night sweat, no dizziness, no change in vision, no other medical or psychological complaints. Past Medical History - Provider Review Nursing Documentation Reviewed: Yes - Infectious Disease Hx of Infectious Diseases: None - Tetanus Immunization Tetanus Immunization: Unknown - Cardiac Hx Cardiac Disorders: Yes Hx Hypertension: Yes - Pulmonary Hx Chronic Obstructive Pulmonary Disease (COPD): Yes - Neurological Hx Neurological Disorder: Yes Hx Dementia: Yes - HEENT Hx HEENT Disorder: Yes Hx Cataracts: Yes (sx) Hx Deafness: Yes (R ear) Other/Comment: hard of hearing - Renal Hx Renal Failure: Yes - Endocrine/Metabolic Hx Diabetes Mellitus Type 2: Yes Hx Hypothyroidism: Yes - Hematological/Oncological Hx Anemia: Yes - Integumentary Hx Dermatological Disorder: (BILATERAL LEG EDEMA MORE ON LEFT.SHUNT TO LEFT UPPER ARM,SUPRAPUBIC CATHETE) Other/Comment: ble skin discoloration - Musculoskeletal/Rheumatological Hx Falls: No - Gastrointestinal Hx Gastrointestinal Disorders: (hx colitis/diverticulitis) - Genitourinary/Gynecological Hx Genitourinary Disorders: Yes Other/Comment: Suprapeubic cath - Psychiatric Hx Psychophysiologic Disorder: No Hx Substance Use: No - Past Surgical History Past Surgical History: No Previous - Surgical History Hx Open Heart Surgery: Yes - Anesthesia Hx Anesthesia: Yes Hx Anesthesia Reactions: No Hx Malignant Hyperthermia: No - Suicidal Assessment Feels Threatened In Home Enviroment: No Family/Social History - Physician Review Nursing Documentation Reviewed: Yes Family/Social History: Unknown Family HX Smoking Status: Never Smoked Hx Alcohol Use: No Hx Substance Use: No Hx Substance Use Treatment: No Allergies/Home Meds Allergies/Adverse Reactions: Allergies dye Allergy (Uncoded 03/02/19 15:20) REDNESS Home Medications: Home Meds Medication Instructions Recorded Confirmed Atorvastatin [Lipitor] 20 mg PO HS 02/05/17 12/20/18 Calcium Acetate [Phoslo] 667 mg PO TID 02/05/17 12/20/18 Isosorbide Mononitrate ER [Imdur 30 mg PO DAILY 02/05/17 12/20/18 ER] Insulin Glargine, Recombina 10 unit SC [facility] 12/20/18 12/20/18 [Lantus] SITagliptin [Januvia] 50 mg PO DAILY 12/20/18 12/20/18 Sevelamer Carbonate [Renvela] 800 mg PO TID 12/20/18 12/20/18 hydrALAZINE [Apresoline] 50 mg PO TID 12/20/18 12/20/18 Review of Systems - Review of Systems Constitutional: Fatigue. absent: Fevers Eyes: absent: Vision Changes ENT: absent: Hearing Changes Respiratory: absent: SOB, Cough Cardiovascular: absent: Chest Pain Gastrointestinal: absent: Abdominal Pain, Nausea, Vomiting Genitourinary Male: Hematuria. absent: Dysuria, Frequency Musculoskeletal: absent: Arthralgias Skin: absent: Rash, Pruritis Neurological: absent: Headache, Dizziness Psychiatric: absent: Anxiety, Depression, Suicidal Ideation Physical Exam Vital Signs Reviewed: Yes Vital Signs Temp Pulse Resp BP Pulse Ox 03/02/19 15:15 97.3 F L 61 18 125/65 98 Temperature: Afebrile Blood Pressure: Normal Pulse: Regular Respiratory Rate: Normal Appearance: Positive for: Well-Appearing, Non-Toxic, Comfortable Pain Distress: None Mental Status: Positive for: Alert and Oriented X 3 - Systems Exam Head: Present: Atraumatic, Normocephalic Pupils: Present: PERRL Extroacular Muscles: Present: EOMI Conjunctiva: Present: Normal Mouth: Present: Moist Mucous Membranes Neck: Present: Normal Range of Motion Respiratory/Chest: Present: Clear to Auscultation, Good Air Exchange. No: Respiratory Distress, Accessory Muscle Use Cardiovascular: Present: Regular Rate and Rhythm, Normal S1, S2. No: Murmurs Abdomen: Present: Other (visible suprapubic catheter noted with no erythematous/cellulitis/ulcer/streaking noted on the orifice region). No: Tenderness, Distention, Peritoneal Signs, Rebound, Guarding Back: Present: Normal Inspection Upper Extremity: Present: Normal Inspection. No: Cyanosis, Edema Lower Extremity: Present: Normal Inspection. No: Edema Neurological: Present: GCS=15, CN II-XII Intact, Speech Normal, Motor Func Grossly Intact, Normal Cerebellar Funct, Memory Normal Skin: Present: Warm, Dry, Normal Color. No: Rashes Psychiatric: Present: Alert, Oriented x 3, Normal Insight, Normal Concentration Medical Decision Making ED Course and Treatment: 03/02/19 15:44 -labs/blood culture -ekg -cxr -IV rocephine (urine culture show positive) 03/02/19 16:34 -EKG: SR @ 60 BPM, Prolong QRS/QT, no ST elevation or depression, no T wave inversion. -Chest xray Findings suggest mild chronic compensated pulmonary venous congestion. NOTE: patient has no cardiopulmonary complaints, no shortness of breath. -Labs are nonsignificant Creatine 2.1 from 5.1, Alkaline phos 456 from 410 -Pt. is on dialysis, suprapubic catheter, UA from 3 days ago show +UTI and +Urine culture for klebsiella -Pt. has likely hemorrhagic cystitis, history of sepsis, will admit for IV rocephine and likely urologist consult. -I spoke to Dr. Amaro about this case/labs, agreed on this admission to his service, request Dr. Ezekiel Friend for routine consult. -Pt. has no cardiopulmonary complaints, will admit to the remote-tele. - RAD Interpretation Radiology Orders: Date of service: 03/02/2019 HISTORY: Admission medical clearance COMPARISON: Comparison chest 12/15/2018 TECHNIQUE: 1 view obtained. FINDINGS: LUNGS: Central pulmonary vasculature is increased; rule out mild chronic compensated pulmonary venous congestion. PLEURA: No significant pleural effusion identified, no pneumothorax apparent. CARDIOVASCULAR: Heart is enlarged. Sternotomy wires again noted. In situ so bipolar pacemaker- defibrillator mild aortic atherosclerotic calcification present. OSSEOUS STRUCTURES: No significant abnormalities. VISUALIZED UPPER ABDOMEN: Normal. OTHER FINDINGS: None. IMPRESSION: Findings suggest mild chronic compensated pulmonary venous congestion. 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 Disposition/Present on Arrival - Present on Arrival Any Indicators Present on Arrival: No History of DVT/PE: No History of Uncontrolled Diabetes: No Urinary Catheter: Yes (suprapubic) History of Decub. Ulcer: No History Surgical Site Infection Following: None - Disposition Have Diagnosis and Disposition been Completed?: Yes Diagnosis: Hemorrhagic cystitis, ESRD (end stage renal disease), Abnormal EKG Disposition: HOSPITALIZED Disposition Time: 16:37 Patient Plan: Admission, Observation Condition: STABLE Forms: [employer] (Polish)
[2019-03-02 16:10] LABS: BASO # 0.02 K/mm3 (0.0-2.0); BASO % 0.4 % (0.0-3.0); EOS # 0.2 (0.0-0.7); HEMOGLOBIN 11.9 g/dL (14.0-18.0); LYMPH % 20.9 % (22.0-35.0); MEAN CELL VOLUME 95.4 fl (80.0-105.0); MEAN CORPUSCULAR HEMOGLOBIN 30.4 pg (25.0-35.0); MEAN CORPUSCULAR HGB CONC 31.9 g/dl (31.0-37.0); MEAN PLATELET VOLUME 10.3 fl (7.0-11.0); MONO # 0.5 (0.1-0.6); MONO % 10.7 % (1.0-6.0); RBC 3.91 10^6/uL (3.5-6.1); RED CELL DISTRIBUTION WIDTH 14.2 % (11.5-14.5); WHITE BLOOD COUNT 4.8 10^3/uL (4.5-11.0)
--- NOTE | 2019-03-02 16:13 | RAD ---
Date of service: 03/02/2019 HISTORY: Admission medical clearance COMPARISON: Comparison chest 12/15/2018 TECHNIQUE: 1 view obtained. FINDINGS: LUNGS: Central pulmonary vasculature is increased; rule out mild chronic compensated pulmonary venous congestion. PLEURA: No significant pleural effusion identified, no pneumothorax apparent. CARDIOVASCULAR: Heart is enlarged. Sternotomy wires again noted. In situ so bipolar pacemaker-defibrillator mild aortic atherosclerotic calcification present. OSSEOUS STRUCTURES: No significant abnormalities. VISUALIZED UPPER ABDOMEN: Normal. OTHER FINDINGS: None. IMPRESSION: Findings suggest mild chronic compensated pulmonary venous congestion.
[2019-03-02 16:26] LABS: CALCIUM 8.6 mg/dL (8.4-10.5)
[2019-03-02] MEDS: Insulin Detemir 100 units/ml Vial (Levemir) SC SCH ×2 (18:41→21:55)
[2019-03-02 23:11] VITALS: BMI 23.0
[2019-03-02] MEDS ORDERED: Pneumococcal 23-Valent Vaccine IM ONE (23:11)
[2019-03-02] MEDS ORDERED: Influenza Vaccine 60 mcg/0.5 mL SYR (4YR UP) IM ONE (23:11)
--- NOTE | 2019-03-03 05:02 | CP.PCM.PN ---
Subjective - Date & Time of Evaluation Date of Evaluation: 03/03/19 Time of Evaluation: 05:00 - Subjective Subjective: To be dictated. Seen earlier. co-sign tylenol order. Received for suprapubic site pain ,07/30. feels better now. Objective - Vital Signs/Intake and Output Vital Signs (last 24 hours): Temp Pulse Resp BP Pulse Ox 99.5 F 58 L 20 130/65 97 03/03/19 00:01 03/03/19 02:00 03/03/19 00:01 03/03/19 00:01 03/03/19 00:01 Intake and Output: 03/02/19 03/03/19 18:59 06:59 Intake Total 240 Output Total 0 Balance 240 - Medications Medications: Current Medications Acetaminophen (Tylenol 325mg Tab) 650 mg PO Q6H PRN PRN Reason: Pain, severe (8-10) Last Admin: 03/02/19 22:18 Dose: 650 mg Atorvastatin Calcium (Lipitor) 20 mg PO HS [facility] Last Admin: 03/02/19 21:55 Dose: 20 mg Calcium Acetate (Phoslo) 667 mg PO [facility] Carvedilol (Coreg) 6.25 mg PO BID [facility] Last Admin: 03/02/19 18:40 Dose: 6.25 mg Hydralazine HCl (Apresoline) 50 mg PO TID [facility] Last Admin: 03/02/19 18:16 Dose: 50 mg Insulin Detemir (Levemir) 10 unit SC [facility] Last Admin: 03/02/19 21:55 Dose: 10 units Isosorbide Mononitrate (Imdur Er) 30 mg PO DAILY [facility] Levothyroxine Sodium (Synthroid) 75 mcg PO 0600 [facility] Sitagliptin Phosphate (Januvia) 50 mg PO DAILY [facility] - Labs Labs: 03/02/19 13:45 03/02/19 15:50
[2019-03-03] MEDS ORDERED: Levothyroxine 75 MCG TAB PO SCH (06:00)
[2019-03-03 06:21] VITALS: PULSE 67; RESP 19; TEMP 97.5; O2SAT 98
[2019-03-03] MEDS: Insulin Detemir 100 units/ml Vial (Levemir) SC SCH (08:16)
[2019-03-03 10:36] VITALS: BP 129/52
--- NOTE | 2019-03-03 14:25 | HP ---
DATE OF EXAM: 03/03/2019 CHIEF COMPLAINT AND HISTORY OF PRESENT ILLNESS: This is a 73-year-old male who is coming into the hospital, because of hematuria. He has a past medical history of end-stage renal disease on hemodialysis Monday, and Monday. He has been having hematuria for the last few days. The patient has history of diabetes type 2, hypothyroidism, hypertension, urinary retention with a suprapubic catheter since 2010. He has been seen by Urology in the past. He has a history of ESBL and chronic UTI's. The patient denies any chest pain. No shortness of breath. No headache or dizziness. No fevers or chills. No abdominal pain. No back pain. No weakness in the arms and legs. He does have difficulty in ambulating, but this is at baseline. REVIEW OF SYSTEMS: All other review of symptoms are within normal limits except what as mentioned. ALLERGIES: DYE. PAST MEDICAL HISTORY: End-stage renal disease, on hemodialysis Monday, and Monday; coronary artery disease, status post CABG; pacemaker; diabetes type 2; hypothyroidism; hypertension; deconditioning; chronic depression; GERD; Bowman's; epidermatitis and cataracts. PAST SURGICAL HISTORY: Left arm fistula, cholecystectomy in 2017, cataract surgery, suprapubic catheter. SOCIAL HISTORY: He does not smoke, drink or use drugs. FAMILY HISTORY: Noncontributory. PHYSICAL EXAMINATION: VITAL SIGNS: Temperature is 97.5, pulse of 50, blood pressure is 98/42, respirations 19, O2 saturation is 98%. Height is 5 feet, weight is 116 pounds, BMI is 22.7. GENERAL: The patient is lying in bed, comfortable, and in no acute distress. HEENT: Atraumatic and normocephalic. Anicteric sclerae. Moist mucosa. [place] conjunctivae. No oral lesions. NECK: No JVD, anterior and posterior adenopathy, thyromegaly, or bruits. CARDIOVASCULAR: S1 and S2 regular. No murmurs, rubs or gallops. LUNGS: Clear to auscultation bilaterally. No wheezes, rales, or rhonchi. ABDOMEN: Bowel sounds are positive. Soft, nontender and nondistended. No hepatosplenomegaly. No rebound and no guarding EXTREMITIES: No cyanosis, clubbing, or edema. NEUROLOGIC: No facial asymmetry. Tongue is midline. No uvula deviation. Power is 5/5 upper extremities and lower extremities. Sensation intact in upper extremities and lower extremities. PSYCHIATRIC: She is awake, alert and oriented x3. No anxiety or depression. She has normal affect. GENITOURINARY: No CVA tenderness. He has a suprapubic catheter with no hematuria in the bag. In the left arm, he has AV fistula with good thrill and bruit. VASCULAR: 2+ pulses in the carotid pulses and pedal pulses. SKIN: No erythema or nodules SPINE: Shows normal curvature. LABORATORY DATA: White count of 4.8, hemoglobin of 11.9, platelet count is 203. Chemistry shows sodium is 136, potassium 3.6, creatinine is 2.1, AST and ALT 44 and 7. His chest x-ray done shows finding suggestive of chronic compensative pulmonary venous congestion. His EKG shows heart rate of 60 sinus rhythm. He has a paced rhythm on V4, V5. ASSESSMENT: 1. Hematuria. 2. Suprapubic catheter, chronic secondary to urinary retention. 3. End-stage renal disease, on hemodialysis. 4. Coronary artery disease, status post coronary artery bypass graft. 5. Pacemaker. 6. Diabetes type 2. 7. Secondary hypoparathyroidism. 8. Hypertension. 9. Anemia of chronic. PLAN: The patient is currently comfortable. He is going to be seen by Urology. As I asked Dr. Keaton Friend, to evaluate the patient. The patient is on hydralazine for history of hypertension. He is on isosorbide for his coronary artery disease. He is on insulin for his diabetes with Levemir. He is on PhosLo for his secondary hypoparathyroidism. The patient does have mild anemia, but is acceptable. He is on renal diet. I will discontinue telemetry monitoring. We will await further input from Urology. Bc Mariee MD
--- NOTE | 2019-03-04 07:20 | CARD ---
APPROVED REPORT Date of service: 03/02/2019 EKG Measurement Heart [id number] <Conclusion> Ventricular paced rhythm Abnormal ECG
== END 2019-03-03 12:15 | disposition home or self-care (01) ==
LOC: ED 15:10 → ERH 16:38 → 2RNO 18:56
PROVIDERS: ADMIT Internal Medicine Nephrology; ATTEND Internal Medicine Nephrology
DX: R31.9 Hematuria, unspecified (principal); N18.6 End stage renal disease; I12.0 Hypertensive chronic kidney disease with stage 5 chronic kidney disease or end stage renal disease; E11.22 Type 2 diabetes mellitus with diabetic chronic kidney disease; Z99.2 Dependence on renal dialysis; E20.8 Other hypoparathyroidism; D64.9 Anemia, unspecified; E03.9 Hypothyroidism, unspecified; F03.90 Unspecified dementia, unspecified severity, without behavioral disturbance, psychotic disturbance, mood disturbance, and anxiety; I25.10 Atherosclerotic heart disease of native coronary artery without angina pectoris; K22.70 Barrett's esophagus without dysplasia; N31.9 Neuromuscular dysfunction of bladder, unspecified; K21.9 Gastro-esophageal reflux disease without esophagitis; Z87.440 Personal history of urinary (tract) infections; Z91.041 Radiographic dye allergy status; Z95.1 Presence of aortocoronary bypass graft; Z79.4 Long term (current) use of insulin
CPT/HCPCS: 71045; 80053; 82948; 85025; 87040; 93005; 96365; 96372; 99284; G0378; J0696